=== PATIENT | male | born 1940 | race Caucasian/White ===

== ENCOUNTER → 2018-02-28 14:35 | Outpatient (CLI) | payer MEDICARE, SELFPAY ==
[2018-02-28 16:54] LABS: AST(SGOT) 14 U/L (15-37); Alanine Aminotransfer ALT/SGPT 19 U/L (16-61); Albumin, Serum 3.4 g/dL (3.2-5.0); Alkaline Phosphatase 65 U/L (45-117); Bilirubin, Direct 0.18 mg/dL (0.00-0.30); Cholesterol 147 mg/dL (200); Globulin 3.6 g/dL (2.2-4.2); High Density Lipoprotein 50 mg/dL; Triglycerides 89 mg/dL; Very Low Density Lipoprotein 18 mg/dL (5-40)
== END ==
PROVIDERS: Family Provider Family Medicine; PCP Family Medicine; Visit Provider Nurse Practitioner Family
DX: E78.5 Hyperlipidemia, unspecified (principal); I25.10 Atherosclerotic heart disease of native coronary artery without angina pectoris
CPT/HCPCS: 36415; 80061; 80076

== ENCOUNTER 2018-08-11 09:57 | Inpatient (IN) | payer MEDICARE, SELFPAY ==
[2018-08-11] VITALS (13 sets, daily range): BP systolic 113–134; BP diastolic 56–71; PULSE 78–98; RESP 18–27; TEMP 36.7–37.2; O2SAT 94–97; BMI 26.6; BMI 25.5; BMI 25.6
--- NOTE | 2018-08-11 10:05 | RAD_ITS ---
STUDY: X-RAY CHEST REASON FOR EXAM: Male, 78 years old. Increasing shortness of breath. TECHNIQUE: AP and lateral views of the chest. COMPARISON: Comparison is made with prior study dated June 02, 2017. FINDINGS: EKG electrodes are seen. Hyperinflation. Increased markings at the lung bases suggestive scarring. The previously seen left lower lobe infiltrate has cleared. Residual blunting of the left costophrenic angle. Sternal cerclage wires and vascular clips are present from a prior sternotomy and coronary artery bypass graft procedure (CABG). Normal mediastinum and kristan. Normal visualized pulmonary arteries. There is atherosclerotic calcification of the aortic arch with tortuosity. There are diffuse degenerative changes of the visualized thoracic spine. Normal visualized ribs, clavicles, and shoulders. There is no demonstrated abnormality of the visualized soft tissue structures of the upper abdomen. RAD/Chest PA and Lateral IMPRESSION: Hyperinflation. Increased interstitial markings at both lung bases worse on the left side in keeping with scarring. The previously seen left lower lobe infiltrate has cleared. Electronically Signed: Darin Kunz MD at 12:15 EST Tel [phone], Service support ,
--- NOTE | 2018-08-11 10:05 | EKG12_ITS ---
Test Reason : DYSRHYTHMIA Blood Pressure : / mmHG Vent. Rate : 080 BPM Atrial Rate : 066 BPM P-R Int : 000 ms QRS Dur : 106 ms QT Int : 360 ms P-R-T Axes : 000 129 113 degrees QTc Int : 415 ms Atrial fibrillation Incomplete right bundle branch block Nonspecific ST and T wave abnormality Abnormal ECG Confirmed by YOVANI DOMINGO, GIRMA ([id number]), book or script editor TATIANA CAPUTO ([id number] on 08/16/2018 3:29:24 PM Referred By: Girma Ayala Confirmed By:GIRMA PINA MD
[2018-08-11] MEDS: Ipratropium/Albuterol Sulfate 3 ML AMPUL.NEB INHALATION ×2 (10:19→19:40)
[2018-08-11] MEDS: Albuterol 2.5 MG/3 ML VIAL.NEB. INHALATION ×3 (10:19→10:44)
--- NOTE | 2018-08-11 10:19 | ED.DCSUM_ITS ---
- ER Visit Summary Date of Service: 08/11/18 Chief Complaint: Dyspnea History of Present Illness: The patient is a 78 M who has a history of coronary artery disease and COPD. He is on chronic home oxygen therapy. He states that yesterday he began to have a cough with sputum production. The sputum is hand ged from baseline. Due to the shortness of breath particularly dyspnea on exertion he went to his primary care physician. They advised him to go to the hospital and he declined. They prescribed medications an antibiotic and a steroid which she has not yet picked up. He was supposed to have a chest x-ray today at the hospital. This morning his pulse ox continued to be in the 80s so they called the ambulance. 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 He does see Dr. Moreno for cardiology here at the hospital. On any blood thinners. He takes a baby aspirin a day. Physical Examination: Afebrile vital signs are stable Gen: Well-nourished well-developed Head: Normocephalic atraumatic Eyes: Perrl EOMI ENT: TMs clear no rhinorrhea moist mucous membranes Neck: Supple no lymphadenopathy no JVD nontender CVS: Regular rate rhythm no murmurs normal S1-S2 Respiratory: No distress minutes breath sounds bilaterally with expiratory wheeze chest nontender Abdomen: Soft nontender nondistended normal bowel sounds no masses Back: Nontender Extremity: Nontender no edema Skin: Normal color no rash Neuro: alert orientated ?3 CN II-XII intact normal strength sensation reflexes gait cerebellar Psych: Normal affect normal mood Test Results: Count 13.1. Lactic acid 2.1. Troponin negative. BUN 31 with a creatinine 0.67. Chest x-ray with no definitive infiltrate. Emergency Department Course and Treatment: Patient received breathing treatments, Solu-Medrol, azithromycin, IV fluids, and oxygen. He has better ae ration but still is hypoxic at 86% on his nasal cannula with ambulation. He was able to cough up some very thick purulent sputum. This was sent for culture. Our plan is admission to [facility]. Impression: 1. COPD exacerbation 2. Hypoxemia This note was generated with [employer] dictation software. It may contain incorrect words, spelling, and punctuation that were not noted in review of the chart prior to signing ED Disposition - Plan for ED Patient: Chief Complaint: Shortness of Breath Referrals: Girma Ayala [Primary Care Provider] -
[2018-08-11] MEDS: MethylPREDNISolone 125 MG/2 ML Vial IV (10:21)
[2018-08-11 10:36] LABS: Absolute Lymphocyte Count 1.07 X10^3/ul (0.83-4.51); Absolute Neutrophil Count 10.2 X10^3/uL (2.0-7.7); Basophil# 0.02 X10^3/uL; Basophil% 0.2 % (0-1); Eosinophil# 0.07 X10^3/uL; Eosinophils% 0.5 % (0-5); Hematocrit 43.7 % (40-54); Hemoglobin 13.2 g/dl (13.0-16.5); Lymphocyte # 1.07 X10^3/ul (4.0); Lymphocyte % 8.2 % (19-41); Mean Corp Hgb Conc 30.2 g/gl (32-36); Mean Corpuscular Hgb 29.3 pg (27.0-32.0); Mean Corpuscular Volume 97.1 fL (80-94); Mean Platelet Vol. 12.1 fl (6.2-12.0); Monocyte# 1.64 X10^3/uL; Monocyte% 12.6 % (0-10); Neutrophil # 10.22 X10^3/uL (2.7-7.7); Neutrophil % 78.3 % (47-70); Platelet Count 156 K/mm3 (150-450); RBC Distribution Width CV 14.1 % (11.6-14.6); RBC Distribution Width SD 50.2 fl (35.1-43.9); White Blood Count 13.1 K/mm3 (4.4-11.0)
[2018-08-11 10:37] LABS: Differential Indicated SCAN CRITERIA MET; POSITIVE COUNT NO; POSITIVE DIFFERENTIAL YES; POSITIVE MORPHOLOGY NO
[2018-08-11 10:43] LABS: AST(SGOT) 18 U/L (15-37); Alanine Aminotransfer ALT/SGPT 19 U/L (16-61); Alkaline Phosphatase 69 U/L (45-117); Anion Gap 6 (5-15); BUN 31 mg/dL (7-18); BUN/Creat Ratio 46.5 RATIO (10-20); Bilirubin, Direct 0.46 mg/dL (0.00-0.30); Calcium,Total 8.4 mg/dL (8.5-10.1); Chloride 107 mmol/L (98-107); Creatinine, Serum 0.67 mg/dL (0.70-1.30); EST Glomerular Filtration Rate 123 mL/min (>60); Est Glom Filt Rate - Afr Amer 149 mL/min (>60); Estimated Creatinine Clearance 54.94 ml/min; Globulin 3.6 g/dL (2.2-4.2); Glucose 107 mg/dL (74-106); Potassium 3.9 mmol/L (3.5-5.1); Protein, Total 6.6 g/dL (6.4-8.2); Sodium Level 143 mmol/L (136-145)
[2018-08-11 11:07] LABS: Lactic Acid 2.1 mmol/L (0.4-2.0)
--- NOTE | 2018-08-11 13:24 | PCM.HP.STD ---
Problem List (1) Chronic respiratory failure Status: Chronic (2) Benign hypertension Status: Chronic (3) Hyperlipidemia Status: Chronic Qualifiers: (4) CAD (coronary artery disease) Status: Chronic Qualifiers: (5) Hx of CABG Status: Chronic Comment: VERMA to LAD, SVG to RCA, SVG to 2nd marginal branch of CX and ongoing 1st diag branch of LAD (6) Afib Status: Chronic Qualifiers: (7) COPD (chronic obstructive pulmonary disease) Status: Chronic History of Present Illness Date of Admission: 08/11/18 Chief Complaint: Shortness of breath, productive cough. The patient is a 78 year old M with past medical history as mentioned above presented to the emergency room because of shortness of breath and productive cough. Patient's daughter was at the bedside and she assisted providing history. His illness started 2 days ago with increasing shortness of breath at rest, aggravated by minimal activity, not relieved by rest, associated with productive cough with moderate amount of thick green sputum. Yesterday and according to the patient's daughter, patient was short of breath and his pulse oximeter was 84% while on 3 L. She took him to his PCPs office yesterday, found to have pulse ox of 86% on 3 L and he was given prescription for antibiotics and prednisone and order for chest x-ray. Today morning, patient continued to have shortness of breath at rest with productive cough and his pulse oximeter was 86% on 3 L. He denies fever or chills. He denied chest pain, palpitation, dizziness or lightheadedness. In the emergency room, he was afebrile, heart rate and blood pressure was stable, he was tachypneic and pulse ox was 96% on 3 L. His routine blood work was remarkable for mild leukocytosis and BUN of 31, otherwise normal. Lactic acid was 2.1. Total and direct bilirubin was slightly elevated, liver transaminases and alkaline phosphatase were normal. His EKG revealed atrial fibrillation, rate is controlled, no acute ischemic changes. Troponin is negative. Chest x-ray showed no acute infiltrate, consolidation or effusion. He is being admitted for acute COPD exacerbation. 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) VERMA to LAD, SVG to RCA, SVG to 2nd marginal branch of CX and ongoing 1st diag branch of LAD Afib (Chronic) COPD (chronic obstructive pulmonary disease) (Chronic) Medical History: Medical History (Last Updated 08/11/18 @ 13:24 by Bennie May MD) Old myocardial infarction (Chronic) I25.2 Nicotine abuse (Chronic) Z72.0 Encounter for long-term current use of high risk medication (Chronic) Z79.899 Chronic respiratory failure (Chronic) J96.10 Benign hypertension (Chronic) I10 Hyperlipidemia (Chronic) E78.5 CAD (coronary artery disease) (Chronic) I25.10 Afib (Chronic) I48.91 COPD (chronic obstructive pulmonary disease) (Chronic) J44.9 Dyspnea R06.00 Shortness of breath R06.02 PVD (peripheral vascular disease) I73.9 Allergies acetaminophen [From Dristan] Adverse Reaction (Severe, Verified 08/11/18 10:03) Unknown chlorpheniramine [From Dristan] Adverse Reaction (Severe, Verified 08/11/18 10:03) Unknown oxymetazoline [From Dristan] Adverse Reaction (Severe, Verified 08/11/18 10:03) Unknown pheniramine [From Dristan] Adverse Reaction (Severe, Verified 08/11/18 10:03) Unknown phenylephrine [From Dristan] Adverse Reaction (Severe, Verified 08/11/18 10:03) Unknown pseudoephedrine [From Dristan] Adverse Reaction (Severe, Verified 08/11/18 10:03) Unknown lisinopril Adverse Reaction (Verified 08/11/18 10:03) Unknown Home Medications: Ambulatory Orders Medication Instructions Recorded Albuterol IH (ProAir) [Proair Hfa] 1 - 2 puff INHALATION Q6H PRN PRN 08/24/16 Budesonide/Formoterol 160/4.5 2 puff INHALATION BID 08/24/16 [Symbicort 160/4.5 Mcg Inhaler (SP)] Multivitamins,Ther W-Minerals 1 tab PO DAILY 08/24/16 [Multivitamin With Minerals] Tamsulosin HCl [Flomax] 0.4 mg PO DAILY 06/02/17 amlodipine 10 mg tablet 10 mg PO DAILY #90 tab 04/18/18 aspirin 81 mg tablet,delayed 81 mg PO BID #180 tab 04/18/18 release furosemide 40 mg tablet 40 mg PO DAILY PRN #90 tab 04/18/18 lovastatin 40 mg tablet 40 mg PO DAILY #90 tab 04/18/18 metoprolol tartrate 100 mg tablet 100 mg PO BID #180 tab 04/18/18 Surgical History: Surgical History (Last Updated 08/11/18 @ 13:24 by Bennie May MD) Hx of CABG (Chronic) Onset Date: ~06/2009 VERMA to LAD, SVG to RCA, SVG to 2nd marginal branch of CX and ongoing 1st diag branch of LAD History of tonsillectomy Z98.890, Z90.89 Surgical History: coronary bypass surgery, - - ventral hernia surgery. Lives: With Family Smoking Status: Former smoker Alcohol: None Drugs: None - *Family History Sibling Family History: Family History (Last Reviewed 02/28/18 @ 13:44 by Dianna Vera) Father Heart disease Brother Hypertension Sister CAD (coronary artery disease) Hx of CABG Sister CAD (coronary artery disease) Hx of CABG History Items: Heart Disease Review of Systems Constitutional: Denies: Anorexia, Chills, Fever, Weakness Eyes: Denies: Blurred vision, Double vision, Drainage, Redness HEENT: Denies: Difficulty Hearing, Ear Pain, Eye Pain, Nasal Congestion, Sore Throat Cardiovascular: Denies: Chest Pain, Chest Pressure, Chest Tightness, Heaviness, Light Headedness, Orthopnea, Paroxysmal Noc. Dyspnea, Syncope Respiratory: Reports: Cough, Shortness of Breath, Shortness of breath at rest, Shortness of breath upon exertion, Sputum production. Denies: Hemoptysis, Pleuritic Pain, Wheezing Gastrointestinal: Denies: Abdominal Pain, Constipation, Diarrhea, Nausea, Vomiting Genitourinary: Denies: Dysuria, Frequency, Hematuria Musculoskeletal: Denies: Arm Pain, Back Pain, Foot Pain Skin: Denies: Dryness, Rash Neurological: Denies: Balance problems, Double vision, Change in Speech, Slurred speech, Confusion, Headaches, Incoordination, Numbness Psychiatric: Denies: Anxiety, Depression Endocrine: Denies: Change in Body Habitus, Polydipsia VTE Information - Inpt Only VTE Present on Admission: No VTE Mechan Device Prophylaxis: None VTE Pharm Prophylaxis ordered?: Yes - Physical Exam General: Alert, Oriented x3, Cooperative, - - Moderately short of breath. HEENT: Atraumatic, PERRLA, EOMI, Normocephalic Oral: Moist Mucosa, No Gingival or Mucosal Lesions/ Ulcerations Neck: Supple, No JVD, Negative Carotid Bruits, Trachea Midline, Thyroid Normal Size and Texture Lungs: No wheeze, No rales, Diminished, Rhonchi, Short of Breath, Tachypneic, - - Markedly decreased breath sounds bilateral, rhonchi. Cardiovascular: Normal S1, Normal S2, No murmurs, PMI Normal, Irregular Rate Abdomen: Bowel Sounds Present, Soft, Non Tender, Non-Distended, No Hepato-splenomegaly Extremities: No clubbing, No cyanosis, Edema - Trace edema. Skin: No rashes, No breakdown Lymphatic: No Cervical, Supraclavicular, or Inguinal Adenopathy Neurological: Cranial nerves II-XII grossly intact, Motor Exam 5/5 strength throughout Psych/Mental Status: Normal Affect, Appropriate, Alert and oriented to time, place, person, mood and affect Vital Signs Temp Pulse Resp BP Pulse Ox 98.9 F 98 20 H 117/56 L 94 08/11/18 09:59 08/11/18 13:07 08/11/18 13:07 08/11/18 13:07 08/11/18 13:07 Oxygen Flow Rate (L/min) 3 Oxygen Delivery Method Nasal Cannula Weight: 165 lb Body Mass Index (BMI) 26.6 Laboratory Tests Past 24 Hrs 08/11/18 08/11/18 08/11/18 10:14 10:14 10:15 WBC 13.1 H RBC 4.50 L Hgb 13.2 Hct 43.7 MCV 97.1 H MCH 29.3 MCHC 30.2 L RDW 14.1 RDW Differential 50.2 H Plt Count 156 MPV 12.1 H Immature Gran % (Auto) 0.200 Neut % (Auto) 78.3 H Lymph % (Auto) 8.2 L [place] % (Auto) 12.6 H Eos % (Auto) 0.5 Baso % (Auto) 0.2 Absolute Neuts (auto) 10.2 H Absolute Lymphs (auto) 1.07 Total Counted Not Reportable Sodium 143 Potassium 3.9 Chloride 107 Carbon Dioxide 30.0 Anion Gap 6 BUN 31 H Creatinine 0.67 L Estim Creat Clear Calc 54.94 Est GFR (MDRD) Af Amer 149 Est GFR (MDRD) Non-Af 123 BUN/Creatinine Ratio 46.5 H Glucose 107 H Lactic Acid 2.1 H Calcium 8.4 L Total Bilirubin 1.60 H Direct Bilirubin 0.46 H AST 18 ALT 19 Alkaline Phosphatase 69 Troponin I < 0.015 Total Protein 6.6 Albumin 3.0 L Globulin 3.6 Clinical Impression(s) from Imaging Studies Chest X-Ray 08/11/18 10:05 IMPRESSION: Hyperinflation. Increased interstitial markings at both lung bases worse on the left side in keeping with scarring. The previously seen left lower lobe infiltrate has cleared. Electronically Signed: Darin Kunz MD at 12:15 EST Tel [phone], Service support , Assessment/Plan This is a 78 years old male patient presented to the emergency room because of shortness of breath and productive cough as well as low pulse oximeter, found to have acute COPD exacerbation and he is being admitted for treatment. #1 acute COPD exacerbation: Chest x-ray reviewed, revealed no acute infiltrate. Have mild leukocytosis and lactic acid 2.1. At this time, I doubt sepsis or severe sepsis. Mild lactic acidosis likely because of hypoxia. He is afebrile. Plan: Admit to [facility] floor, telemetry, sputum culture, blood culture, repeat lactic acid in 3 hours, urinalysis, IV Levaquin, IV steroids, bronchodilators, chest physiotherapy, incentive spirometer, repeat CBC and BMP tomorrow morning, PT OT evaluation and treatment. #2 chronic respiratory failure: Patient has been on oxygen at home at 3 L. At this time, his pulse ox is 96% on 3 L which is at baseline. He looked dyspneic and tachypneic. It is secondary to above. Plan to above. #3 hyperbilirubinemia: With normal liver transaminases and alkaline phosphatase. No complaint of right upper quadrant pain. Unclear etiology. Plan to repeat LFT tomorrow morning. #4 CAD status post CABG: Stable, EKG without acute ischemic changes. Troponin is negative. Continue aspirin, statins, metoprolol. #5 chronic atrial fibrillation: Rate is controlled, continue metoprolol for rate control. He is not on anticoagulation. #6 hypertension: Blood pressure stable, continue Norvasc and metoprolol. #7 hyperlipidemia: Continue statins. #8 COPD/chronic respiratory failure: On home oxygen at 3 L. Plan as above. #9 benign prostatic hypertrophy: Continue Flomax. #10 DVT prophylaxis: Subcu Lovenox. This note was generated with [employer] dictation software. It may contain incorrect words, spelling, and punctuation that were not noted in checking the note before signing. Code Visit Inpatient E&M: 77323 Init Hosp L3
[2018-08-11] MEDS: 0.9% Normal Saline 1,000 ML 999 ML IV (13:25)
--- NOTE | 2018-08-11 13:38 | NURSING ---
210 [address] acute copd exac
[2018-08-11 14:24] LABS: Reflex Lactate? Y
[2018-08-11 15:12] LABS: Lactic Acid 2.6 mmol/L (0.4-2.0)
[2018-08-11] MEDS: 0.9% Normal Saline 1,000 ML 100 ML IV (15:54)
[2018-08-11] MEDS: Aspirin E.C. 81 MG Tablet PO (18:47)
[2018-08-11] MEDS: Tamsulosin HCl 0.4 MG Capsule PO (18:47)
[2018-08-11] MEDS: Atorvastatin Calcium 10 MG Tablet PO (22:32)
[2018-08-11] MEDS: Metoprolol Tartrate 100 MG Tablet PO (22:32)
[2018-08-11] MEDS: guaiFENesin 600 MG Tablet PO (22:32)
[2018-08-11] MEDS: 0.9% NaCl Peripheral Flush Adult/Peds IV (22:33)
[2018-08-12] VITALS (19 sets, daily range): BP systolic 113–136; BP diastolic 64–82; PULSE 78–144; RESP 18–20; TEMP 36.6–36.7; O2SAT 91–99
--- NOTE | 2018-08-12 05:55 | RAD_ITS ---
STUDY: X-RAY CHEST REASON FOR EXAM: Male, 78 years old. Shortness of breath TECHNIQUE: Frontal and lateral views COMPARISON: August 11, 2018 FINDINGS: Stable sternotomy wires. The lungs are aerated with interstitial densities. There is no demonstrated pleural abnormality. Normal size heart. Normal mediastinum and kristan. Normal visualized pulmonary arteries. Normal visualized aortic arch and descending thoracic aorta. Degenerative changes of the thoracic spine. Normal visualized ribs, clavicles, and shoulders. There is no demonstrated abnormality of the visualized soft tissue structures of the upper abdomen. RAD/Chest PA and Lateral IMPRESSION: Hyperaeration with mild interstitial prominence. No significant interval changes. Electronically Signed: Sage Khalil DO at 8:53 EST Tel [phone], Service support ,
[2018-08-12] MEDS: 0.9% NaCl Peripheral Flush Adult/Peds IV ×4 (06:14→21:42)
[2018-08-12 06:45] LABS: ALB/GLOB Ratio 0.8 RATIO (0.9-2.4); AST(SGOT) 14 U/L (15-37); Alanine Aminotransfer ALT/SGPT 18 U/L (16-61); Albumin, Serum 2.5 g/dL (3.2-5.0); Alkaline Phosphatase 60 U/L (45-117); Anion Gap 6 (5-15); BUN 28 mg/dL (7-18); BUN/Creat Ratio 50.4 RATIO (10-20); Chloride 112 mmol/L (98-107); Creatinine, Serum 0.56 mg/dL (0.70-1.30); EST Glomerular Filtration Rate 151 mL/min (>60); Est Glom Filt Rate - Afr Amer 183 mL/min (>60); Estimated Creatinine Clearance 54.94 ml/min; Globulin 3.3 g/dL (2.2-4.2); Glucose 149 mg/dL (74-106); Potassium 4.2 mmol/L (3.5-5.1); Protein, Total 5.8 g/dL (6.4-8.2); Sodium Level 146 mmol/L (136-145)
[2018-08-12] MEDS: Ipratropium/Albuterol Sulfate 3 ML AMPUL.NEB INHALATION ×4 (07:05→19:00)
[2018-08-12 07:13] LABS: Absolute Lymphocyte Count 0.58 X10^3/ul (0.83-4.51); Absolute Neutrophil Count 10.5 X10^3/uL (2.0-7.7); Differential Indicated SCAN CRITERIA MET; Hematocrit 38.7 % (40-54); Hemoglobin 11.9 g/dl (13.0-16.5); Lymphocyte # 0.58 X10^3/ul (4.0); Lymphocyte % 5.1 % (19-41); Mean Corp Hgb Conc 30.7 g/gl (32-36); Mean Corpuscular Hgb 29.5 pg (27.0-32.0); Monocyte# 0.34 X10^3/uL; Neutrophil % 91.7 % (47-70); POSITIVE COUNT NO; POSITIVE DIFFERENTIAL YES; POSITIVE MORPHOLOGY NO; Platelet Count 154 K/mm3 (150-450); RBC Distribution Width CV 13.9 % (11.6-14.6); RBC Distribution Width SD 49.3 fl (35.1-43.9); Red Blood Count 4.03 M/mm3 (4.6-6.2); White Blood Count 11.4 K/mm3 (4.4-11.0)
--- NOTE | 2018-08-12 08:42 | CASEMGMT ---
As per tmr teacher, pt's daughter Magaly is POA, however pt is not able to bring in POA papers at this time. KYLEIGH Lorenzana, OBSTETRICS GYNECOLOGY PHYSICIAN
--- NOTE | 2018-08-12 09:10 | PN_ITS ---
Subjective: Chief complaint: Follow-up after admission for COPD exacerbation. Patient seen and examined. No acute events overnight. Today, he states that his breathing is better, still complaining of productive cough with yellow sputum today. Denies fever chills. However, he is feeling slightly better. His pulse ox is 99% on 3 L, other vital signs are stable. - Physical Exam General: Alert, Oriented x3, Cooperative, - - Minimally short of breath. HEENT: Atraumatic, PERRLA, EOMI, Normocephalic Oral: Moist Mucosa, No Gingival or Mucosal Lesions/ Ulcerations Neck: Supple, No JVD, Negative Carotid Bruits, Trachea Midline, Thyroid Normal Size and Texture Lungs: No wheeze, No rales, Diminished, Rhonchi, Short of Breath, - - Decreased breath sounds bilateral, occasional rhonchi. Cardiovascular: Normal S1, Normal S2, No murmurs, PMI Normal, Irregular Rate Abdomen: Bowel Sounds Present, Soft, Non Tender, Non-Distended, No Hepato- splenomegaly Extremities: No clubbing, No cyanosis, No edema Skin: No rashes, No breakdown Lymphatic: No Cervical, Supraclavicular, or Inguinal Adenopathy Neurological: Cranial nerves II-XII grossly intact, Neuro grossly intact Psych/Mental Status: Normal Affect, Appropriate, Alert and oriented to time, p lace, person, mood and affect Vital Signs Temp Pulse Resp BP Pulse Ox 97.9 F 90 18 125/68 H 99 08/12/18 03:22 08/12/18 04:00 08/12/18 03:22 08/12/18 03:22 08/12/18 03:22 Oxygen Flow Rate (L/min) 3 Oxygen Delivery Method Nasal Cannula Weight: 159 lb 2.78 oz Body Mass Index (BMI) 25.5 Intake and Output for Last 24 Hours 08/10/18 08/11/18 08/12/18 23:59 23:59 23:59 Intake Total 600 / 600 1142 / 1142 Output Total 450 / 450 Balance 600 / 600 692 / 692 Microbiology Past 72 Hours 08/11/18 10:15 Gram Stain - Final Sputum, Expectorated/Coughed Laboratory Tests Past 24 Hrs 08/11/18 08/11/18 08/11/18 10:14 10:14 10:15 WBC 13.1 H RBC 4.50 L Hgb 13.2 Hct 43.7 MCV 97.1 H MCH 29.3 MCHC 30.2 L RDW 14.1 RDW Differential 50.2 H Plt Count 156 MPV 12.1 H Immature Gran % (Auto) 0.200 Neut % (Auto) 78.3 H Lymph % (Auto) 8.2 L [place] % (Auto) 12.6 H Eos % (Auto) 0.5 Baso % (Auto) 0.2 Absolute Neuts (auto) 10.2 H Absolute Lymphs (auto) 1.07 Total Counted Not Reportable Sodium 143 Potassium 3.9 Chloride 107 Carbon Dioxide 30.0 Anion Gap 6 BUN 31 H Creatinine 0.67 L Estim Creat Clear Calc 54.94 Est GFR (MDRD) Af Amer 149 Est GFR (MDRD) Non-Af 123 BUN/Creatinine Ratio 46.5 H Glucose 107 H Lactic Acid 2.1 H Calcium 8.4 L Total Bilirubin 1.60 H Direct Bilirubin 0.46 H AST 18 ALT 19 Alkaline Phosphatase 69 Troponin I < 0.015 Total Protein 6.6 Albumin 3.0 L Globulin 3.6 Albumin/Globulin Ratio 08/11/18 08/12/18 08/12/18 14:35 05:58 05:58 WBC 11.4 H RBC 4.03 L Hgb 11.9 L Hct 38.7 L MCV 96.0 H MCH 29.5 MCHC 30.7 L RDW 13.9 RDW Differential 49.3 H Plt Count 154 MPV 12.0 Immature Gran % (Auto) 0.200 Neut % (Auto) 91.7 H Lymph % (Auto) 5.1 L [place] % (Auto) 3.0 Eos % (Auto) 0.0 Baso % (Auto) 0.0 Absolute Neuts (auto) 10.5 H Absolute Lymphs (auto) 0.58 L Total Counted Not Reportable Sodium 146 H Potassium 4.2 Chloride 112 H Carbon Dioxide 28.0 Anion Gap 6 BUN 28 H Creatinine 0.56 L Estim Creat Clear Calc 54.94 Est GFR (MDRD) Af Amer 183 Est GFR (MDRD) Non-Af 151 BUN/Creatinine Ratio 50.4 H Glucose 149 H Lactic Acid 2.6 H Calcium 8.0 L Total Bilirubin 0.70 Direct Bilirubin AST 14 L ALT 18 Alkaline Phosphatase 60 Troponin I Total Protein 5.8 L Albumin 2.5 L Globulin 3.3 Albumin/Globulin Ratio 0.8 L Medical Necessity - Tobacco Use Smoking Status: Former smoker Tobacco Use: Cigarettes Assessment/Plan This is a 78 years old male patient presented to the emergency room because of shortness of breath and productive cough as well as low pulse oximeter, found to have acute COPD exacerbation and he is being admitted for treatment. #1 acute COPD exacerbation: He is on IV steroids, IV Levaquin and bronchodilators. Chest x-ray reviewed, revealed no acute infiltrate. He reported some improvement of his symptoms, pulse ox is 99% on 3 L which is his baseline at home. Other vital signs are stable. Sputum and blood culture are pending. Respiratory panel for viruses is pending as well. Plan to continue same treatment. #2 chronic respiratory failure: Patient has been on oxygen at home at 3 L. At this time, his pulse ox is 99 % on 3 L which is at baseline. Plan as above. #3 hyperbilirubinemia: Unclear duration, resolved. #4 CAD status post CABG: Stable, EKG without acute ischemic changes. Troponin is negative. Continue aspirin, statins, metoprolol. #5 chronic atrial fibrillation: Rate is controlled, continue metoprolol for rate control. He is not on anticoagulation. #6 hypertension: Blood pressure stable, continue Norvasc and metoprolol. #7 hyperlipidemia: Continue statins. #8 COPD/chronic respiratory failure: On home oxygen at 3 L. Plan as above. #9 benign prostatic hypertrophy: Continue Flomax. #10 DVT prophylaxis: Subcu Lovenox. This note was generated with [employer] dictation software. It may contain incorrect words, spelling, and punctuation that were not noted in checking the note before signing. Code Visit Inpatient E&M: 06576 Subs Hosp L2
[2018-08-12] MEDS: Metoprolol Tartrate 100 MG Tablet PO ×2 (09:14→21:24)
[2018-08-12] MEDS: Aspirin E.C. 81 MG Tablet PO ×2 (09:14→21:24)
[2018-08-12] MEDS: guaiFENesin 600 MG Tablet PO ×2 (09:14→21:24)
[2018-08-12] MEDS: levoFLOXacin IV 500 MG/100 ML BAG 100 MG IV (09:14)
[2018-08-12] MEDS: amLODIPine 10 MG Tablet PO (09:14)
--- NOTE | 2018-08-12 11:05 | CASEMGMT ---
SW spoke w/pt in regard to prior level of care and any anticipated discharge needs. Pt alert and oriented at present, able to answer SW questions appropriately at this time. PCP: Girma Ayala Specialists: Dr. Moreno for cardiology. Pt does not see a watch leader, does not want to pay $35 to see a pulmonary doctor. Pt states once he goes home and his children get on his case he may change his mind. Insurance/Prescription Benefit: both with [facility] Medicare Living Will/HPOA: Pt states that Lucina Adhikari, daughter, is POA. Forms not on chart. Pt states his daughter was going to bring in the forms. LNOK: Pt has two daughters Living arrangements: Pt lives by himself in a one story home, 2 steps to get into the home. As per pt he is fully independent. Transportation: Pt drives DME/HHC: Pt has home O2 and a nebulizer through [facility], pt uses 3LPM at baseline. Pt has a cane, but does not use. No home health care needs are anticipated, pt has no home health care at present. Plan: At this time, pt plans to return home at discharge, and no homegoing needs are anticipated. SW is available should any needs arise. KYLEIGH Lorenzana, HAT DESIGNER
--- NOTE | 2018-08-12 12:56 | CPS ---
Pt using PEP on own.
--- NOTE | 2018-08-12 15:14 | CHAPLAIN ---
Type of Pastoral Visit _x__ Initial Visit ___ Follow-up Visit ___ On-call Visit ___ General Patient Visit ___ Spiritual Assessment ___ Family Conference ___ Bereavement ___ Rapid Response ___ Code Blue ___ Other (describe below) Pastoral Care Referral From _x__ Patient ___ Family ___ Nurse ___ Physician ___ High School Band Director ___ Instrument Adjuster ___ Other (describe below) Sacrament/Intervention _x__ Active listening ___ Anointing ___ Worship _x__ Bereavement ___ Communion _x__ Gloria exploration ___ _x__ Life review _x__ Prayer ___ Reconciliation ___ Sacrament of Sick _x__ Supportive presence ___ Wedding ___ Other (describe below) Pastoral Comments patient described himself as being down and went on to explain about grief over 's three years ago; pt suggests that he should get back to congregation and has been invited by friends or family members; pt has desire for companionship and asked for specific prayers about that; pt is very talkative and would benefit from further support
[2018-08-12] MEDS: Metoprolol Tartrate 5 MG/5 ML Vial IV (21:24)
[2018-08-12] MEDS: Tamsulosin HCl 0.4 MG Capsule PO (21:24)
[2018-08-12] MEDS: Atorvastatin Calcium 10 MG Tablet PO (21:24)
[2018-08-13] VITALS (7 sets, daily range): BP systolic 118–129; BP diastolic 72–75; PULSE 84–107; RESP 16–18; TEMP 36.5–36.6; O2SAT 94–96
[2018-08-13] MEDS: 0.9% NaCl Peripheral Flush Adult/Peds IV (06:07)
[2018-08-13] MEDS: Ipratropium/Albuterol Sulfate 3 ML AMPUL.NEB INHALATION (07:14)
--- NOTE | 2018-08-13 08:31 | DCINST_ITS ---
You will use the following diet at home:: Cardiac Your food should be the consistency of: Regular Discharge Activity: Return to Normal Activity Weight Bearing Status: Weight bearing as tolerated Call your doctor if you observe: Fever of 101 or Higher, Shortness of breath, Dizziness, Fainting spells, Chest pain, Increased palpitations (irregular heartbeat), Uncontrolled pain Allergies/Adverse Reactions: Allergies acetaminophen [From Dristan] Adverse Reaction (Severe, Verified 08/11/18 10:03) Unknown chlorpheniramine [From Dristan] Adverse Reaction (Severe, Verified 08/11/18 10:03) Unknown oxymetazoline [From Dristan] Adverse Reaction (Severe, Verified 08/11/18 10:03) Unknown pheniramine [From Dristan] Adverse Reaction (Severe, Verified 08/11/18 10:03) Unknown phenylephrine [From Dristan] Adverse Reaction (Severe, Verified 08/11/18 10:03) Unknown pseudoephedrine [From Dristan] Adverse Reaction (Severe, Verified 08/11/18 10:03) Unknown lisinopril Adverse Reaction (Verified 08/11/18 10:03) Unknown Medications to take at Discharge Albuterol IH (ProAir) [Proair Hfa] 1 - 2 puff INHALATION Q6H PRN PRN 08/24/16 Budesonide/Formoterol 160/4.5 [Symbicort 160/4.5 Mcg Inhaler (SP)] 2 puff INHAL ATION BID 08/24/16 Multivitamins,Ther W-Minerals [Multivitamin With Minerals] 1 tab PO DAILY 08/24/16 Tamsulosin HCl [Flomax] 0.4 mg PO DAILY 06/02/17 amlodipine 10 mg tablet 10 mg PO DAILY #90 tab 04/18/18 furosemide 40 mg tablet 40 mg PO DAILY PRN #90 tab 04/18/18 Aspirin [Aspir-Low] 81 mg PO BID 08/11/18 Lovastatin [Mevacor] 40 mg PO QHS 08/11/18 Metoprolol Tartrate [Lopressor (beta magi)] 100 mg PO BID 08/11/18 Levofloxacin [Levaquin] 500 mg PO DAILY #5 tab 08/13/18 Prednisone 10 mg PO DAILY #30 tab 08/13/18 The following prescriptions were given: Levofloxacin [Levaquin] 500 mg PO DAILY #5 tab Prednisone 10 mg PO DAILY #30 tab Primary Care Physician: Girma Ayala [Primary Care Provider] - Please follow up with your Primary Care Physician in: 1 week. Test Results: Test results from this visit will be discussed in further detail at your follow- up appointment, if applicable.
[2018-08-13] MEDS: Metoprolol Tartrate 100 MG Tablet PO (08:59)
[2018-08-13] MEDS: guaiFENesin 600 MG Tablet PO (08:59)
[2018-08-13] MEDS: amLODIPine 10 MG Tablet PO (08:59)
[2018-08-13] MEDS: Aspirin E.C. 81 MG Tablet PO (08:59)
--- NOTE | 2018-08-13 15:08 | DS.PCM_ITS ---
Discharge Date and Diagnosis Date of Admission: 08/11/18 Date of Discharge: 08/13/18 - Primary Discharge Diagnosis #1 acute COPD exacerbation. #2 chronic hypoxic respiratory failure - Secondary Discharge Diagnosis Chronic Problems (Last Updated 08/11/18 @ 13:24 by Bennie May MD) Old myocardial infarction (Chronic) Nicotine abuse (Chronic) Encounter for long-term current use of high risk medication (Chronic) Chronic respiratory failure (Chronic) Benign hypertension (Chronic) Hyperlipidemia (Chronic) CAD (coronary artery disease) (Chronic) Hx of CABG (Chronic ~06/2009) VERMA to LAD, SVG to RCA, SVG to 2nd marginal branch of CX and ongoing 1st diag branch of LAD Afib (Chronic) COPD (chronic obstructive pulmonary disease) (Chronic) Hospital Course and Treatment Imaging Results: Clinical Impression(s) from Imaging Studies Chest X-Ray 08/11/18 10:05 IMPRESSION: Hyperinflation. Increased interstitial markings at both lung bases worse on the left side in keeping with scarring. The previously seen left lower lobe infiltrate has cleared. Electronically Signed: Darin Kunz MD at 12:15 EST Tel [phone], Service support , Chest X-Ray 08/12/18 05:55 IMPRESSION: Hyperaeration with mild interstitial prominence. No significant interval changes. Electronically Signed: Sage Khalil DO at 8:53 EST Tel [phone], Service support , Operations: None Procedures: None Summary of Care Provided: Patient seen and examined on the day of discharge and appeared to be stable to be discharged home. Shortness of breath continued to improve, remained stable on 2-3 L of oxygen. Other vital signs are stable. The patient is a 78 year old M admitted because of worsening shortness of breath and productive cough with no pulse ox and he was found to have acute COPD exacerbation. His initial and repeat chest x-ray showed no evidence of acute infiltrate or consolidation and pneumonia ruled out. Patient was treated with IV steroids, IV Levaquin and bronchodilators. His routine blood work was unremarkable. His EKG was sinus rhythm without acute ischemic changes. Respiratory panel for viruses came back negative. Sputum culture revealed mixed normal respiratory cb. Blood culture showed no growth in 48 hours. With above-mentioned treatment, patient's symptoms improved and he remained stable on 3 L of oxygen. Patient discharged home in a stable medical condition, discharged in stable course of prednisone, 5 days of Levaquin, continued on his other chronic home medications without any changes, discharged on oxygen secondary to settings at 3 L, recommended follow-up with PCP in 1 week. - Physical Exam General: Alert, Oriented x3, Cooperative, No apparent distress HEENT: Atraumatic, PERRLA, EOMI, Normocephalic Oral: Moist Mucosa, No Gingival or Mucosal Lesions/ Ulcerations Neck: Supple, No JVD, Negative Carotid Bruits, Trachea Midline, Thyroid Normal Size and Texture Lungs: No wheeze, No rales, Diminished, Rhonchi, - - Decreased breath sounds bilateral, occasional rhonchi. Cardiovascular: Normal S1, Normal S2, No murmurs, PMI Normal, Irregular Rate Abdomen: Bowel Sounds Present, Soft, Non Tender, Non-Distended, No Hepato- splenomegaly Extremities: No clubbing, No cyanosis, No edema Skin: No rashes, No breakdown Lymphatic: No Cervical, Supraclavicular, or Inguinal Adenopathy Neurological: Cranial nerves II-XII grossly intact, Neuro grossly intact Psych/Mental Status: Normal Affect, Appropriate, Alert and oriented to time, place, person, mood and affect Vital Signs Temp Pulse Resp BP Pulse Ox 97.7 F L 107 H 18 129/75 H 94 08/13/18 08:50 08/13/18 09:11 08/13/18 08:50 08/13/18 08:50 08/13/18 08:50 Oxygen Flow Rate (L/min) 3 Oxygen Delivery Method Nasal Cannula Weight: 159 lb 2.78 oz Body Mass Index (BMI) 25.5 Intake and Output for Last 24 Hours 08/11/18 08/12/18 08/13/18 23:59 23:59 23:59 Intake Total 600 / 600 2442 / 2442 360 / 360 Output Total 750 / 750 Balance 600 / 600 1692 / 1692 360 / 360 Microbiology Past 72 Hours 08/11/18 10:30 Blood Culture - Preliminary Blood Culture (Wb) #2 - Anticubital Right No growth in 48 hours. 08/11/18 10:14 Blood Culture - Preliminary Blood Culture (Wb) - Anticubital Left No growth in 48 hours. 08/11/18 10:15 Gram Stain - Final Sputum, Expectorated/Coughed Respiratory Culture - Final Mixed normal respiratory cb. No Haemophilus, Streptococcus pneumoniae, beta-hemolytic Streptococcus or Staphylococcus aureus isolated. 08/11/18 16:55 Respiratory Panel (PCR) - Final Mucosa - Nasopharyngeal Discharge Activity: Return to Normal Activity Weight Bearing Status: Weight bearing as tolerated Call your doctor if you observe: Fever of 101 or Higher, Shortness of breath, Dizziness, Fainting spells, Chest pain, Increased palpitations (irregular heartbeat), Uncontrolled pain Home Medications: Medications to take at Discharge Albuterol IH (ProAir) [Proair Hfa] 1 - 2 puff INHALATION Q6H PRN PRN 08/24/16 Budesonide/Formoterol 160/4.5 [Symbicort 160/4.5 Mcg Inhaler (SP)] 2 puff INHALATION BID 08/24/16 Multivitamins,Ther W-Minerals [Multivitamin With Minerals] 1 tab PO DAILY 08/24/16 Tamsulosin HCl [Flomax] 0.4 mg PO DAILY 06/02/17 amlodipine 10 mg tablet 10 mg PO DAILY #90 tab 04/18/18 furosemide 40 mg tablet 40 mg PO DAILY PRN #90 tab 04/18/18 Aspirin [Aspir-Low] 81 mg PO BID 08/11/18 Lovastatin [Mevacor] 40 mg PO QHS 08/11/18 Metoprolol Tartrate [Lopressor (beta magi)] 100 mg PO BID 08/11/18 Levofloxacin [Levaquin] 500 mg PO DAILY #5 tab 08/13/18 Prednisone 10 mg PO DAILY #30 tab 08/13/18 Following Prescrptions Were Given to Patient: Levofloxacin [Levaquin] 500 mg PO DAILY #5 tab Prednisone 10 mg PO DAILY #30 tab Primary Care Physician: Girma Ayala [Primary Care Provider] - Please follow up with your Primary Care Physician in: 1 week. Patient Instructions: Levofloxacin Oral tablet, Prednisone Oral tablet Disposition: Home Minutes spent on discharge:: 26 Patient Condition:: Stable Medical Necessity - Tobacco Use Smoking Status: Former smoker Tobacco Use: Cigarettes Meaningful Use Info Meaningful Use Diagnoses (Choose all that apply): None applicable Code Visit Inpatient E&M: 58693 Disch Hosp
--- NOTE | 2018-08-15 13:37 | CASEMGMT ---
CELINE KELLEY Discharge Follow-up Phone Call: DESIRAEEmilie: Rafia Strata: 3 Call Date: 08/15/18 Discharge Date: 08/13/18 Time of Call: 1330 Duration: 5 MINUTES ? Admitting Diagnosis: COPD exacerbation This CELINE KELLEY contacted pt via telephone in regard to discharge follow-up. Pt states he has been feeling pretty good since discharge and denied any difficulty breathing. Pt states he was able to get his prescriptions filled and is taking them as directed. Pt states he has not yet made his follow-up appointment with his PCP but states he will. Pt denied any questions or concerns. Sadiq Williamson RN
--- OUTSIDE RECORDS SUMMARY | 2018-10-06 14:03 | XMS RPT_ITS ---
:1940 Author Organization [facility] Support Name Relationship Address Phone KALEY AG Unavailable [address] + [place] [address] MARYAM, ISABELA Unavailable [address] + [place] [address] R Unavailable Unavailable Unavailable [employer] Unavailable [address] + [place] [address] MARYAM, ISABELA Unavailable [address] + [place] [address] R Unavailable Unavailable Unavailable [employer] AG Unavailable [address] + [place] [address] MARYAM, ISABELA Unavailable [address] + [place] [address] R Unavailable Unavailable Unavailable [employer] AG Unavailable [address] + [place] [address] MARYAM, ISABELA Unavailable [address] + [place] [address] R Unavailable Unavailable Unavailable [employer]Y AG Unavailable [address] + [place] [address] MARYAM, ISABELA Unavailable [address] + [place] [address] R Unavailable Unavailable Unavailable [employer] AG Unavailable [address] + [place] [address] MARYAM, ISABELA Unavailable [address] + [place] [address] R Unavailable Unavailable Unavailable [employer] AG Unavailable [address] + [place] [address] MARYAM, ISABELA Unavailable [address] + [place] [address] R Unavailable Unavailable Unavailable [employer] AG Unavailable [address] + [place] [address] MARYAM, ISABELA Unavailable [address] + [place] [address] R Unavailable Unavailable Unavailable K[employer]Y AG Unavailable [address] + [place] [address] MARYAM, ISABELA Unavailable [address] + [place] [address] R Unavailable Unavailable Unavailable Maryam, Isabela Unavailable Unavailable + Maryam, Isabela Unavailable Unavailable + Maryam, Isabela Unavailable Unavailable + K[employer] AG Unavailable [address] + [place] [address] MARYAM, ISABELA Unavailable [address] + [place] [address] R Unavailable Unavailable Unavailable Care Team Providers Name Role Phone Girma Olson Attending Unavailable UNKNOWN, PROVIDER Referring Unavailable Girma Olson Primary Care Unavailable Terrell Lyn Attending Unavailable UNKNOWN, PROVIDER Referring Unavailable Girma Olson Primary Care Unavailable Girma Olson Attending Unavailable UNKNOWN, PROVIDER Referring Unavailable Girma Olosn Primary Care Unavailable Christian Corona Attending Unavailable Girma Olson Referring Unavailable MoodisGirma camacho Attending Unavailable Girma Olson Referring Unavailable Girma Olson Primary Care Unavailable Lamar Duran Attending Unavailable Christian Corona Attending Unavailable Girma Olson Referring Unavailable Christian Corona Attending Unavailable Christian Corona Referring Unavailable Girma Olson Primary Care Unavailable Girma Olson Primary Care Unavailable Juanelfah, Ghasem Admitting Unavailable Yadira, Ghasem Attending Unavailable Girma Olson Attending Unavailable Girma Olson Referring Unavailable Girma Olson Primary Care Unavailable Ashelfah, Ghasem Admitting Unavailable Ashelfah, Ghasem Attending Unavailable Girma Olson Primary Care Unavailable Ashelfah, Ghasem Consulting Unavailable Ashelfah, Ghasem Admitting Unavailable Ashelfah, Ghasem Attending Unavailable iGrma Olson Primary Care Unavailable Ashelfah, Ghasem Consulting Unavailable Ashelfah, Ghasem Admitting Unavailable MaryshaunBennie Attending Unavailable Girma Olson Primary Care Unavailable Bennie May Consulting Unavailable PROBLEMS PROBLEMS DATE TYPE CONDITION / CODE ATTENDING STATUS SOURCE 08/11/2018 Unknown J44.1 - Chronic Girma Olson [facility] obstructive [facility] pulmonary disease Hospital with (acute) Repository exacerbation / J44.1(ICD-10) 02/28/2018 Unknown E78.5 - [facility] Hyperlipidemia, Community unspecified / Hospital E78.5(ICD-10) Repository 02/28/2018 Unknown I25.10 - [facility] Atherosclerotic [facility] heart disease of [facility] [place] coronary Repository artery without angina pectoris / I25.10(ICD-10) 01/27/2018 Admitting Shortness of breath [facility] [employer] Diagnosis / R06.02(ICD-10) System Repository 10/01/2017 Admitting Localized edema / [facility] Diagnosis R60.0(ICD-10) System Repository 10/01/2017 Admitting Pain in right knee / [facility] Diagnosis M25.561(ICD-10) System Repository PROCEDURES PROCEDURES No Procedure Records FoundRESULTS RESULTS 12 LEAD ELECTROCARDIOGRAM Observed: 08/16/2018 Status: F Source: [place] 3:29 PM [facility] REPOSITORY [facility] Cardiovascular Services [address] [place] [address] 12 Lead EKG 08/11/18 1016 MR#: [id number] Acct: [id number] Name: LISA SZYMANSKI Rep #: [id number] : 1940 78 From: Girma Pina MD Attending Dr: Bennie May Status: DIS IN Ordering Dr: Jose Curry DO Date: 08/11/18 Location: MS2 Sex: M C Admitted: 08/11/18 Test Reason : DYSRHYTHMIA Blood Pressure : / mmHG Vent. Rate : 080 BPM Atrial Rate : 066 BPM P-R Int : 000 ms QRS Dur : 106 ms QT Int : 360 ms P-R-T Axes : 000 129 113 degrees QTc Int : 415 ms Atrial fibrillation Incomplete right bundle branch block Nonspecific ST and T wave abnormality Abnormal ECG Confirmed by YOVANI DOMINGO, GIRMA ([id number]), telegraph editor TATIANA CAPUTO ([id number]) on 08/16/2018 3:29:24 PM Referred By: Girma Olson Confirmed By:GIRMA PINA MD 08/16/18 1529 Date Girma Pina MD CC: Jose Curry DO; Bennie May; Girma Olson Signed DISCHARGE SUMMARY Observed: 08/13/2018 Status: F Source: [place] 3:08 PM [facility] REPOSITORY [facility] Medical Records Department [address] [place] [address] [place] [address] Discharge Summary 08/13/18 1504 MR#: [id number] Acct: [id number] Name: LISA SZYMANSKI Rep #: [id number] : 1940 78 From: Bennie May MD PCP: Girma Olson Status: DIS IN Y [place] [facility] [id number] Discharge Date and Diagnosis Date of Admission: 08/11/18 Date of Discharge: 08/13/18 - Primary Discharge Diagnosis #1 acute COPD exacerbation. 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 Increased interstitial markings at both lung bases worse on the left side in keeping with scarring. The previously seen left lower lobe infiltrate has cleared. Electronically Signed: Darin Kunz MD at 12:15 EST Tel [phone], Service support , Chest X-Ray 08/12/18 05:55 IMPRESSION: Hyperaeration with mild interstitial prominence. No significant interval changes. Electronically Signed: Sage Khalil DO at 8:53 EST Tel [phone], Service support , Operations: None Procedures: None Summary of Care Provided: Patient seen and examined on the day of discharge and appeared to be stable to be discharged home. Shortness of breath continued to improve, remained stable on 2-3 L of oxygen. Other vital signs are stable. The patient is a 78 year old M admitted because of worsening shortness of breath and productive cough with no pulse ox and he was found to have acute COPD exacerbation. His initial and repeat chest x-ray showed no evidence of acute infiltrate or consolidation and pneumonia ruled out. Patient was treated with IV steroids, IV Levaquin and bronchodilators. His routine blood work was unremarkable. His EKG was sinus rhythm without acute ischemic changes. Respiratory panel for viruses came back negative. Sputum culture revealed mixed normal respiratory cb. Blood culture showed no growth in 48 hours. With above-mentioned treatment, patient's symptoms improved and he remained stable on 3 L of oxygen. Patient discharged home in a stable medical condition, discharged in stable course of prednisone, 5 days of Levaquin, continued on his other chronic home medications without any changes, discharged on oxygen secondary to settings at 3 L, recommended follow-up with PCP in 1 week. - Physical Exam General: Alert, Oriented x3, Cooperative, No apparent distress HEENT: Atraumatic, PERRLA, EOMI, Normocephalic Oral: Moist Mucosa, No Gingival or Mucosal Lesions/ Ulcerations Neck: Supple, No JVD, Negative Carotid Bruits, Trachea Midline, Thyroid Normal Size and Texture Lungs: No wheeze, No rales, Diminished, Rhonchi, - - Decreased breath sounds bilateral, occasional rhonchi. Cardiovascular: Normal S1, Normal S2, No murmurs, PMI Normal, Irregular Rate Abdomen: Bowel Sounds Present, Soft, Non Tender, Non-Distended, No Hepato-splenomegaly Extremities: No clubbing, No cyanosis, No edema Skin: No rashes, No breakdown Lymphatic: No Cervical, Supraclavicular, or Inguinal Adenopathy Neurological: Cranial nerves II-XII grossly intact, Neuro grossly intact Psych/Mental Status: Normal Affect, Appropriate, Alert and oriented to time, place, person, mood and affect Vital Signs Temp Pulse Resp BP Pulse Ox 97.7 F L 107 H 18 129/75 H 94 08/13/18 08:50 08/13/18 09:11 08/13/18 08:50 08/13/18 08:50 08/13/18 08:50 Oxygen Flow Rate (L/min) 3 Oxygen Delivery Method Nasal Cannula Weight: 159 lb 2.78 oz Body Mass Index (BMI) 25.5 Intake and Output for Last 24 Hours Intake Total 600 / 600 2442 / 2442 360 / 360 Output Total 750 / 750 Balance 600 / 600 1692 / 1692 360 / 360 Microbiology Past 72 Hours 08/11/18 10:30 Blood Culture - Preliminary Blood Culture (Wb) #2 - Anticubital Right No growth in 48 hours. 08/11/18 10:14 Blood Culture - Preliminary Discharge Activity: Return to Normal Activity Weight Bearing Status: Weight bearing as tolerated Call your doctor if you observe: Fever of 101 or Higher, Shortness of breath, Dizziness, Fainting spells, Chest pain, Increased palpitations (irregular heartbeat), Uncontrolled pain Home Medications: Medications to take at Discharge Albuterol IH (ProAir) [Proair Hfa] 1 - 2 puff INHALATION Q6H PRN PRN 08/24/16 Budesonide/Formoterol 160/4.5 [Symbicort 160/4.5 Mcg Inhaler (SP)] 2 puff INHALATION BID 08/24/16 Multivitamins,Ther W-Minerals [Multivitamin With Minerals] 1 tab PO DAILY 08/24/16 Tamsulosin HCl [Flomax] 0.4 mg PO DAILY 06/02/17 amlodipine 10 mg tablet 10 mg PO DAILY #90 tab 04/18/18 furosemide 40 mg tablet 40 mg PO DAILY PRN #90 tab 04/18/18 Aspirin [Aspir-Low] 81 mg PO BID 08/11/18 Lovastatin [Mevacor] 40 mg PO QHS 08/11/18 Metoprolol Tartrate [Lopressor (beta magi)] 100 mg PO BID 08/11/18 Levofloxacin [Levaquin] 500 mg PO DAILY #5 tab 08/13/18 Prednisone 10 mg PO DAILY #30 tab 08/13/18 Following Prescrptions Were Given to Patient: Levofloxacin [Levaquin] 500 mg PO DAILY #5 tab Prednisone 10 mg PO DAILY #30 tab Primary Care Physician: Girma Olson [Primary Care Provider] - Please follow up with your Primary Care Physician in: 1 week. Patient Instructions: Levofloxacin Oral tablet, Prednisone Oral tablet Disposition: Home Minutes spent on discharge:: 26 Patient Condition:: Stable Medical Necessity - Tobacco Use Smoking Status: Former smoker Tobacco Use: Cigarettes Meaningful Use Info Meaningful Use Diagnoses (Choose all that apply): None applicable Code Visit Inpatient E AND M: 52979 Disch Hosp 08/13/18 1508 <Electronically signed by Bennie May MD> Date Bennie May MD Cosigner Signature (if applicable): Date CC: Bennie May; Girma Olson Signed DISCHARGE INSTRUCTION Observed: 08/13/2018 Status: F Source: [place] 8:31 AM [facility] REPOSITORY [facility] Medical Records Department [address] [place] [address] Instructions for Home/Discharge Instructions 08/13/18 0830 MR#: [id number] Acct: [id number] Name: LISA SZYMANSKI Rep #: [id number] : 1940 78 From: Bennie May MD PCP: Girma Olson Status: ADM IN You will use the following diet at home:: Cardiac Your food should be the consistency of: Regular Discharge Activity: Return to Normal Activity Weight Bearing Status: Weight bearing as tolerated Call your doctor if you observe: Fever of 101 or Higher, Shortness of breath, Dizziness, Fainting spells, Chest pain, Increased palpitations (irregular heartbeat), Uncontrolled pain Allergies/Adverse Reactions: Allergies acetaminophen [From Dristan] Adverse Reaction (Severe, Verified 08/11/18 10:03) Unknown chlorpheniramine [From Dristan] Adverse Reaction (Severe, Verified 08/11/18 10:03) Unknown oxymetazoline [From Dristan] Adverse Reaction (Severe, Verified 08/11/18 10:03) Unknown pheniramine [From Dristan] Adverse Reaction (Severe, Verified 08/11/18 10:03) Unknown phenylephrine [From Dristan] Adverse Reaction (Severe, Verified 08/11/18 10:03) Unknown pseudoephedrine [From Dristan] Adverse Reaction (Severe, Verified 08/11/18 10:03) Unknown lisinopril Adverse Reaction (Verified 08/11/18 10:03) Unknown Medications to take at Discharge Albuterol IH (ProAir) [Proair Hfa] 1 - 2 puff INHALATION Q6H PRN PRN 08/24/16 Budesonide/Formoterol 160/4.5 [Symbicort 160/4.5 Mcg Inhaler (SP)] 2 puff INHALATION BID 08/24/16 Multivitamins,Ther W-Minerals [Multivitamin With Minerals] 1 tab PO DAILY 08/24/16 Tamsulosin HCl [Flomax] 0.4 mg PO DAILY 06/02/17 amlodipine 10 mg tablet 10 mg PO DAILY #90 tab 04/18/18 furosemide 40 mg tablet 40 mg PO DAILY PRN #90 tab 04/18/18 Aspirin [Aspir-Low] 81 mg PO BID 08/11/18 Lovastatin [Mevacor] 40 mg PO QHS 08/11/18 Metoprolol Tartrate [Lopressor (beta magi)] 100 mg PO BID 08/11/18 Levofloxacin [Levaquin] 500 mg PO DAILY #5 tab 08/13/18 Prednisone 10 mg PO DAILY #30 tab 08/13/18 The following prescriptions were given: Levofloxacin [Levaquin] 500 mg PO DAILY #5 tab Prednisone 10 mg PO DAILY #30 tab Primary Care Physician: Girma Olson [Primary Care Provider] - Please follow up with your Primary Care Physician in: 1 week. Test Results: Test results from this visit will be discussed in further detail at your follow-up appointment, if applicable. 08/13/18 0831 <Electronically signed by Bennie May MD> Date Bennie May MD CC: Girma Olson COMPREHENSIVE METABOLIC Collected: 08/12/2018 Status: F Source: [place] JAFF[place] 5:58 AM [facility] REPOSITORY TYPE CODE TESTS RESULT OUT OF RANGE REFERENCE UNITS LAB L501.0100 74-106 mg/dL High GLU 149 Result Comment: Fasting Glucose result greater than or equal to 126 mg/dL suggests DIABETES MELLITUS per A.D.A. criteria. Please note revised GLUCOSE reference range effective 2017. LAB L501.1000 7-18 mg/dL High BUN 28 LAB L501.1100 0.70-1.30 mg/dL Low CREAT,SERUM 0.56 Result Comment: The validity of the calculated GFR AND GFRAA in patients over 70 years has not been determined. Clinical correlation is essential. LAB L501.1110 >60 mL/min Normal EST GFR 151 Result Comment: Non- GFR Calc LAB L501.1115 >60 mL/min Normal EST GFR - AA 183 Result Comment: GFR Calc LAB L501.1255 ml/min Normal Estimated CRCL 54.94 LAB L501.1300 10-20 RATIO High BUN/CRE 50.4 LAB L501.1500 6.4-8. g/dL Low 2 T PROT 5.8 LAB L501.1800 3.2-5. g/dL Low 0 ALB 2.5 LAB L501.1950 2.2-4. g/dL Normal 2 GLOB 3.3 LAB L501.2000 0.9-2. RATIO Low 4 A/G 0.8 LAB L501.2200 8.5-10 mg/dL Low .1 CA 8.0 LAB L501.4100 15-37 U/L Low AST 14 LAB L501.4305 45-117 U/L Normal ALK P 60 LAB L501.4405 16-61 U/L Normal ALT 18 LAB L501.4600 0.20-1 mg/dL Normal .00 T BILI 0.70 LAB L501.5300 136-14 mmol/L High 5 NA 146 LAB L501.5600 3.5-5. mmol/L Normal 1 K 4.2 LAB L501.5900 98-107 mmol/L High CL 112 LAB L501.6100 21.0-3 mmol/L Normal 2.0 CO2 28.0 LAB L501.6200 5-15 Normal GAP 6 Performed By: #### L500.4050 #### [facility] [address] [place], [place], [id number] CBC W/DIFF, AUTOMATED Collected: 08/12/2018 Status: F Source: [place] 5:58 AM [facility] REPOSITORY TYPE CODE TESTS RESULT OUT OF RANGE REFERENCE UNITS LAB L100.1000 4.4-11.0 K/mm3 High WBC 11.4 LAB L100.1200 4.6-6.2 M/mm3 Low RBC 4.03 LAB L100.1300 13.0-16.5 g/dl Low HGB 11.9 LAB L100.1400 40-54 % Low HCT 38.7 LAB L100.1500 80-94 fL High MCV 96.0 LAB L100.1600 27.0-32.0 pg Normal MCH 29.5 LAB L100.1700 32-36 g/gl Low MCHC 30.7 LAB L100.1810 11.6-14.6 % Normal RDW CV 13.9 LAB L100.1820 35.1-43.9 fl High RDW SD 49.3 LAB L100.1900 150-450 K/mm3 Normal PLT 154 LAB L100.2000 6.2-12.0 fl Normal MPV 12.0 LAB L100.2100 47-70 % High NEUT% 91.7 LAB L100.2200 19-41 % Low LY% 5.1 LAB L100.2300 0-10 % Normal MONO% 3.0 LAB L100.2400 0-5 % Normal EO% 0.0 LAB L100.2500 0-1 % Normal BASO% 0.0 LAB L100.2550 0.0-0.9 % Normal IM GRAN % 0.200 Result Comment: IG% - Immature Granulocytes (promyelocytes, myelocytes and metamyelocytes) > 1% indicates that a LEFT SHIFT is Present. LAB L100.2620 2.0-7.7 X10 3/uL High Absolute Neut 10.5 LAB L100.2720 0.83-4.51 X10 3/ul Low Absolute Lymph 0.58 Performed By: #### L100.0100 #### [facility] [address] [place], [address] CHEST PA AND LATERAL Observed: 08/12/2018 Status: F Source: [place] 12:01 AM [facility] REPOSITORY [facility] Imaging Services [address] [place] [address] Chest PA and Lateral MR#: [id number] Acct: [id number] Name: LISA SZYMANSKI Rep #: [id number] : 1940 M 78 From: Sage Khalil DO PCP: Girma Olson Status: ADM IN Study: Chest PA and Lateral Date of Exam: 08/12/18 Exam# [id number] Ordering Dr: Bennie May MD STUDY: X-RAY CHEST REASON FOR EXAM: Male, 78 years old. Shortness of breath TECHNIQUE: Frontal and lateral views COMPARISON: August 11, 2018 FINDINGS: Stable sternotomy wires. The lungs are aerated with interstitial densities. There is no demonstrated pleural abnormality. Normal size heart. Normal mediastinum and kristan. Normal visualized pulmonary arteries. Normal visualized aortic arch and descending thoracic aorta. Degenerative changes of the thoracic spine. Normal visualized ribs, clavicles, and shoulders. There is no demonstrated abnormality of the visualized soft tissue structures of the upper abdomen. RAD/Chest PA and Lateral IMPRESSION: Hyperaeration with mild interstitial prominence. No significant interval changes. Electronically Signed: Sage Khalil DO at 8:53 EST Tel [phone], Service support , CC: Bennie Olson Clean Out Driller Helper: Signed EMERGENCY DEPARTMENT Observed: 08/11/2018 Status: F Source: [place] SUMMARY 5:46 PM [facility] REPOSITORY [facility] Medical Records Department [address] [place] [address] Emergency Department Summary 08/11/18 1017 MR#: [id number] Acct: [id number] Name: LISA SZYMANSKI Rep #: [id number] : 1940 78 From: Jose Curry DO PCP: Girma Olson Status: ADM IN - ER Visit Summary Date of Service: 08/11/18 Chief Complaint: Dyspnea History of Present Illness: The patient is a 78 M who has a history of coronary artery disease and COPD. He is on chronic home oxygen therapy. He states that yesterday he began to have a cough with sputum production. The sputum is changed from baseline. Due to the shortness of breath particularly dyspnea on exertion he went to his primary care physician. They advised him to go to the hospital and he declined. They prescribed medications an antibiotic and a steroid which she has not yet picked up. He was supposed to have a chest x-ray today at the hospital. This morning his pulse ox continued to be in the 80s so they called the ambulance. He does not have a structural rigger. He does see Dr. Pina for cardiology here at the hospital. On any blood thinners. He takes a baby aspirin a day. Physical Examination: Afebrile vital signs are stable Gen: Well-nourished well-developed Head: Normocephalic atraumatic Eyes: Perrl EOMI ENT: TMs clear no rhinorrhea moist mucous membranes Neck: Supple no lymphadenopathy no JVD nontender CVS: Regular rate rhythm no murmurs normal S1-S2 Respiratory: No distress minutes breath sounds bilaterally with expiratory wheeze chest nontender Abdomen: Soft nontender nondistended normal bowel sounds no masses Back: Nontender Extremity: Nontender no edema Skin: Normal color no rash Neuro: alert orientated 3 CN II-XII intact normal strength sensation reflexes gait cerebellar Psych: Normal affect normal mood Test Results: Count 13.1. Lactic acid 2.1. Troponin negative. BUN 31 with a creatinine 0.67. Chest x-ray with no definitive infiltrate. Emergency Department Course and Treatment: Patient received breathing treatments, Solu-Medrol, azithromycin, IV fluids, and oxygen. He has better aeration but still is hypoxic at 86% on his nasal cannula with ambulation. He was able to cough up some very thick purulent sputum. This was sent for culture. Our plan is admission to [facility]. Impression: 1. COPD exacerbation 2. Hypoxemia This note was generated with [employer] software. It may contain incorrect words, spelling, and punctuation that were not noted in review of the chart prior to signing ED Disposition - Plan for ED Patient: Chief Complaint: Shortness of Breath Referrals: Girma Olson [Primary Care Provider] - What to do if you have Problems For any increased pain, shortness of breath, bleeding, nausea or vomiting, chest pain, or any unexpected problems, contact your Primary Care Provider. Call [facility] ([phone]) or report to the closest Emergency Room. Call 911 if necessary. 08/11/18 1746 <Electronically signed by Jose Curry DO> Date Jose Curry DO Cosigner Signature (If Indicated): Date CC: Girma Olson Observed: 08/11/2018 Status: F Source: [place] RESPIRATORY PANEL 4:55 PM [facility] MOLECULAR REPOSITORY RP PANEL ADENOVIRUS Not Detected HUMAN METAPHNEUMO Not Detected INFLUENZA A Not Detected INFLUENZA A (SUBTYPE H1) Not Detected INFLUENZA A (SUBTYPE H3) Not Detected INFLUENZA B Not Detected PARAINFLUENZA 1 Not Detected PARAINFLUENZA 2 Not Detected PARAINFLUENZA 3 Not Detected PARAINFLUENZA 4 Not Detected RHINOVIRUS Not Detected RSV A Not Detected RSV B Not Detected NAAT METHOD Testing was performed using nucleic acid amplification Performed By: #### M100.638 #### [facility] [address] [place], [address] LACTIC ACID Collected: 08/11/2018 Status: F Source: [place] 2:35 PM [facility] REPOSITORY TYPE CODE TESTS RESULT OUT OF REFERENCE UNITS RANGE LAB L503.6005 0.4-2.0 mmol/L High LACTIC ACID 2.6 Result Comment: Critical Result(s) Called at: 15:13:19 08/11/2018 by: Angelica Reed Performed By: #### L503.6005 #### [facility] [address] [place], [address] HISTORY AND PHYSICAL Observed: 08/11/2018 Status: F Source: [place] EXAM 1:37 PM [facility] REPOSITORY [facility] Medical Records Department [address] [place] [address] History and Physical 08/11/18 1324 MR#: [id number] Acct: [id number] Name: LISA SZYMANSKI Rep #: [id number] : 1940 78 From: Bennie May MD PCP: Girma Olson Status: ADM IN Location: [place] [address] Problem List (1) Chronic respiratory failure Status: Chronic (2) Benign hypertension Status: Chronic (3) Hyperlipidemia Status: Chronic Qualifiers: (4) CAD (coronary artery disease) Status: Chronic Qualifiers: (5) Hx of CABG Status: Chronic Comment: VERMA to LAD, SVG to RCA, SVG to 2nd marginal branch of CX and ongoing 1st diag branch of LAD (6) Afib Status: Chronic Qualifiers: (7) COPD (chronic obstructive pulmonary disease) Status: Chronic History of Present Illness Date of Admission: 08/11/18 Chief Complaint: Shortness of breath, productive cough. The patient is a 78 year old M with past medical history as mentioned above presented to the emergency room because of shortness of breath and productive cough. Patient's daughter was at the bedside and she assisted providing history. His illness started 2 days ago with increasing shortness of breath at rest, aggravated by minimal activity, not relieved by rest, associated with productive cough with moderate amount of thick green sputum. Yesterday and according to the patient's daughter, patient was short of breath and his pulse oximeter was 84% while on 3 L. She took him to his PCPs office yesterday, found to have pulse ox of 86% on 3 L and he was given prescription for antibiotics and prednisone and order for chest x-ray. Today morning, patient continued to have shortness of breath at rest with productive cough and his pulse oximeter was 86% on 3 L. He denies fever or chills. He denied chest pain, palpitation, dizziness or lightheadedness. In the emergency room, he was afebrile, heart rate and blood pressure was stable, he was tachypneic and pulse ox was 96% on 3 L. His routine blood work was remarkable for mild leukocytosis and BUN of 31, otherwise normal. Lactic acid was 2.1. Total and direct bilirubin was slightly elevated, liver transaminases and alkaline phosphatase were normal. His EKG revealed atrial fibrillation, rate is controlled, no acute ischemic changes. Troponin is negative. Chest x-ray showed no acute infiltrate, consolidation or effusion. He is being admitted for acute COPD exacerbation. 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) VERMA to LAD, SVG to RCA, SVG to 2nd marginal branch of CX and ongoing 1st diag branch of LAD Afib (Chronic) COPD (chronic obstructive pulmonary disease) (Chronic) Medical History: Medical History (Last Updated 08/11/18 @ 13:24 by Bennie May MD) Old myocardial infarction (Chronic) I25.2 Nicotine abuse (Chronic) Z72.0 Encounter for long-term current use of high risk medication (Chronic) Z79.899 Chronic respiratory failure (Chronic) J96.10 Benign hypertension (Chronic) I10 Hyperlipidemia (Chronic) E78.5 CAD (coronary artery disease) (Chronic) I25.10 Afib (Chronic) I48.91 COPD (chronic obstructive pulmonary disease) (Chronic) J44.9 Dyspnea R06.00 Shortness of breath R06.02 PVD (peripheral vascular disease) I73.9 Allergies acetaminophen [From Bhavya] Adverse Reaction (Severe, Verified 08/11/18 10:03) Unknown chlorpheniramine [From Bhavya] Adverse Reaction (Severe, Verified 08/11/18 10:03) Unknown oxymetazoline [From Dristan] Adverse Reaction (Severe, Verified 08/11/18 10:03) Unknown pheniramine [From Dristan] Adverse Reaction (Severe, Verified 08/11/18 10:03) Unknown phenylephrine [From Dristan] Adverse Reaction (Severe, Verified 08/11/18 10:03) Unknown pseudoephedrine [From Dristan] Adverse Reaction (Severe, Verified 08/11/18 10:03) Unknown lisinopril Adverse Reaction (Verified 08/11/18 10:03) Unknown Home Medications: Ambulatory Orders Medication Instructions Recorded Albuterol IH (ProAir) [Proair Hfa] 1 - 2 puff INHALATION Q6H PRN PRN 08/24/16 Surgical History: Surgical History (Last Updated 08/11/18 @ 13:24 by Bennie May MD) Hx of CABG (Chronic) Onset Date: 06/2009 VERMA to LAD, SVG to RCA, SVG to 2nd marginal branch of CX and ongoing 1st diag branch of LAD History of tonsillectomy Z98.890, Z90.89 Surgical History: coronary bypass surgery, - - ventral hernia surgery. Lives: With Family Smoking Status: Former smoker Alcohol: None Drugs: None - *Family History Sibling Family History: Family History (Last Reviewed 02/28/18 @ 13:44 by Dianna Vera) Father Heart disease Brother Hypertension Sister CAD (coronary artery disease) Hx of CABG Sister CAD (coronary artery disease) Hx of CABG History Items: Heart Disease Review of Systems Constitutional: Denies: Anorexia, Chills, Fever, Weakness Eyes: Denies: Blurred vision, Double vision, Drainage, Redness HEENT: Denies: Difficulty Hearing, Ear Pain, Eye Pain, Nasal Congestion, Sore Throat Cardiovascular: Denies: Chest Pain, Chest Pressure, Chest Tightness, Heaviness, Light Headedness, Orthopnea, Paroxysmal Noc. Dyspnea, Syncope Respiratory: Reports: Cough, Shortness of Breath, Shortness of breath at rest, Shortness of breath upon exertion, Sputum production. Denies: Hemoptysis, Pleuritic Pain, Wheezing Gastrointestinal: Denies: Abdominal Pain, Constipation, Diarrhea, Nausea, Vomiting Genitourinary: Denies: Dysuria, Frequency, Hematuria Musculoskeletal: Denies: Arm Pain, Back Pain, Foot Pain Skin: Denies: Dryness, Rash Neurological: Denies: Balance problems, Double vision, Change in Speech, Slurred speech, Confusion, Headaches, Incoordination, Numbness Psychiatric: Denies: Anxiety, Depression Endocrine: Denies: Change in Body Habitus, Polydipsia VTE Information - Inpt Only VTE Present on Admission: No VTE Mechan Device Prophylaxis: None VTE Pharm Prophylaxis ordered?: Yes - Physical Exam General: Alert, Oriented x3, Cooperative, - - Moderately short of breath. HEENT: Atraumatic, PERRLA, EOMI, Normocephalic Oral: Moist Mucosa, No Gingival or Mucosal Lesions/ Ulcerations Neck: Supple, No JVD, Negative Carotid Bruits, Trachea Midline, Thyroid Normal Size and Texture Lungs: No wheeze, No rales, Diminished, Rhonchi, Short of Breath, Tachypneic, - - Markedly decreased breath sounds bilateral, rhonchi. Cardiovascular: Normal S1, Normal S2, No murmurs, PMI Normal, Irregular Rate Abdomen: Bowel Sounds Present, Soft, Non Tender, Non-Distended, No Hepato-splenomegaly Extremities: No clubbing, No cyanosis, Edema - Trace edema. Skin: No rashes, No breakdown Lymphatic: No Cervical, Supraclavicular, or Inguinal Adenopathy Neurological: Cranial nerves II-XII grossly intact, Motor Exam 5/5 strength throughout Psych/Mental Status: Normal Affect, Appropriate, Alert and oriented to time, place, person, mood and affect Vital Signs Temp Pulse Resp BP Pulse Ox 98.9 F 98 20 H 117/56 L 94 08/11/18 09:59 08/11/18 13:07 08/11/18 13:07 08/11/18 13:07 08/11/18 13:07 Oxygen Flow Rate (L/min) 3 Oxygen Delivery Method Nasal Cannula Weight: 165 lb Body Mass Index (BMI) 26.6 Laboratory Tests Past 24 Hrs Clinical Impression(s) from Imaging Studies Chest X-Ray 08/11/18 10:05 IMPRESSION: Hyperinflation. Increased interstitial markings at both lung bases worse on the left side in keeping with scarring. The previously seen left lower lobe infiltrate has cleared. Electronically Signed: Darin Kunz MD at 12:15 EST Tel [phone], Service support , Assessment/Plan This is a 78 years old male patient presented to the emergency room because of shortness of breath and productive cough as well as low pulse oximeter, found to have acute COPD exacerbation and he is being admitted for treatment. #1 acute COPD exacerbation: Chest x-ray reviewed, revealed no acute infiltrate. Have mild leukocytosis and lactic acid 2.1. At this time, I doubt sepsis or severe sepsis. Mild lactic acidosis likely because of hypoxia. He is afebrile. Plan: Admit to [facility] floor, telemetry, sputum culture, blood culture, repeat lactic acid in 3 hours, urinalysis, IV Levaquin, IV steroids, bronchodilators, chest physiotherapy, incentive spirometer, repeat CBC and BMP tomorrow morning, PT OT evaluation and treatment. #2 chronic respiratory failure: Patient has been on oxygen at home at 3 L. At this time, his pulse ox is 96% on 3 L which is at baseline. He looked dyspneic and tachypneic. It is secondary to above. Plan to above. #3 hyperbilirubinemia: With normal liver transaminases and alkaline phosphatase. No complaint of right upper quadrant pain. Unclear etiology. Plan to repeat LFT tomorrow morning. #4 CAD status post CABG: Stable, EKG without acute ischemic changes. Troponin is negative. Continue aspirin, statins, metoprolol. #5 chronic atrial fibrillation: Rate is controlled, continue metoprolol for rate control. He is not on anticoagulation. #6 hypertension: Blood pressure stable, continue Norvasc and metoprolol. #7 hyperlipidemia: Continue statins. #8 COPD/chronic respiratory failure: On home oxygen at 3 L. Plan as above. #9 benign prostatic hypertrophy: Continue Flomax. #10 DVT prophylaxis: Subcu Lovenox. This note was generated with MADS dictation software. It may contain incorrect words, spelling, and punctuation that were not noted in checking the note before signing. Code Visit Inpatient E AND M: 22052 Init Hosp L3 08/11/18 1331 <Electronically signed by Bennie May MD> Date Bennie May MD Cosigner Signature: Date (if applicable) CC: Bennie May; Girma Olson Signed Observed: 08/11/2018 Status: F Source: CANDY CULTURE, BLOOD (WB) 10:30 AM [facility] REPOSITORY BC No growth in 5 days. Performed By: #### M200.1000 #### [facility] [address] [place], [place], [address] LACTIC ACID Collected: 08/11/2018 Status: F Source: CANDY 10:15 AM [facility] REPOSITORY Order Comment: Yes/No query for Sepsis Lactate Rule Y TYPE CODE TESTS RESULT OUT OF REFERENCE UNITS RANGE LAB L503.6005 0.4-2.0 mmol/L High LACTIC ACID 2.1 Result Comment: Critical Result(s) Called at: 11:06:32 08/11/2018 by: Angelica Perez to Dr Roberson Performed By: #### L503.6005 #### [facility] [address] [place], [place], [address] Observed: 08/11/2018 Status: F Source: CANDY CULTURE, SPUTUM 10:15 AM [facility] REPOSITORY Gram Stain Acceptable Specimen? Yes (<25 Epithelial cells per/lpf) Gram Stain 4+ White Blood Cells 4+ Gram positive cocci Rare Epithelial cells Resp. Culture Mixed normal respiratory cb. No Haemophilus, Streptococcus pneumoniae, beta-hemolytic Streptococcus or Staphylococcus aureus isolated. Performed By: #### M100.0800 #### [facility] [address] [place], [address] CBC W/DIFF, AUTOMATED Collected: 08/11/2018 Status: F Source: CANDY 10:14 AM [facility] REPOSITORY TYPE CODE TESTS RESULT OUT OF RANGE REFERENCE UNITS LAB L100.1000 4.4-11.0 K/mm3 High WBC 13.1 LAB L100.1200 4.6-6.2 M/mm3 Low RBC 4.50 LAB L100.1300 13.0-16.5 g/dl Normal HGB 13.2 LAB L100.1400 40-54 % Normal HCT 43.7 LAB L100.1500 80-94 fL High MCV 97.1 LAB L100.1600 27.0-32.0 pg Normal MCH 29.3 LAB L100.1700 32-36 g/gl Low MCHC 30.2 LAB L100.1810 11.6-14.6 % Normal RDW CV 14.1 LAB L100.1820 35.1-43.9 fl High RDW SD 50.2 LAB L100.1900 150-450 K/mm3 Normal PLT 156 LAB L100.2000 6.2-12.0 fl High MPV 12.1 LAB L100.2100 47-70 % High NEUT% 78.3 LAB L100.2200 19-41 % Low LY% 8.2 LAB L100.2300 0-10 % High MONO% 12.6 LAB L100.2400 0-5 % Normal EO% 0.5 LAB L100.2500 0-1 % Normal BASO% 0.2 LAB L100.2550 0.0-0.9 % Normal IM GRAN % 0.200 Result Comment: IG% - Immature Granulocytes (promyelocytes, myelocytes and metamyelocytes) > 1% indicates that a LEFT SHIFT is Present. LAB L100.2620 2.0-7.7 X10 3/uL High Absolute Neut 10.2 LAB L100.2720 0.83-4.51 X10 3/ul Normal Absolute Lymph 1.07 Performed By: #### L100.0100 #### [facility] [address] [place], [address] BASIC METABOLIC Collected: 08/11/2018 Status: F Source: [facility]OL[facility] PROFILE ([facility]) 10:14 AM [facility] REPOSITORY TYPE CODE TESTS RESULT OUT OF RANGE REFERENCE UNITS LAB L501.0100 74-106 mg/dL High GLU 107 Result Comment: Fasting Glucose result from 100 to 125 mg/dL suggests IMPAIRED HOMEOSTASIS per A.D.A. criteria. Please note revised GLUCOSE reference range effective 2017. LAB L501.1000 7-18 mg/dL High BUN 31 LAB L501.1100 0.70-1.30 mg/dL Low CREAT,SERUM 0.67 Result Comment: The validity of the calculated GFR AND GFRAA in patients over 70 years has not been determined. Clinical correlation is essential. LAB L501.1110 >60 mL/min Normal EST GFR 123 Result Comment: Non- GFR Calc LAB L501.1115 >60 mL/min Normal EST GFR - AA 149 Result Comment: GFR Calc LAB L501.1255 ml/min Normal Estimated CRCL 54.94 LAB L501.1300 10-20 RATIO High BUN/CRE 46.5 LAB L501.2200 8.5-10 mg/dL Low .1 CA 8.4 LAB L501.5300 136-14 mmol/L Normal 5 NA 143 LAB L501.5600 3.5-5. mmol/L Normal 1 K 3.9 LAB L501.5900 98-107 mmol/L Normal CL 107 LAB L501.6100 21.0-3 mmol/L Normal 2.0 CO2 30.0 LAB L501.6200 5-15 Normal GAP 6 Performed By: #### L500.2500, L500.3400, L501.4010 #### [facility] [address] [facility] [place], [place], [address] LIVER PROFILE Collected: 08/11/2018 Status: F Source: ROLAND 10:14 AM [facility] REPOSITORY TYPE CODE TESTS RESULT OUT OF RANGE REFERENCE UNITS LAB L501.1500 6.4-8.2 g/dL Normal T PROT 6.6 LAB L501.1800 3.2-5.0 g/dL Low ALB 3.0 LAB L501.1950 2.2-4.2 g/dL Normal GLOB 3.6 LAB L501.4100 15-37 U/L Normal AST 18 LAB L501.4305 45-117 U/L Normal ALK P 69 LAB L501.4405 16-61 U/L Normal ALT 19 LAB L501.4600 0.20-1.00 mg/dL High T BILI 1.60 LAB L501.4700 0.00-0.30 mg/dL High D BILI 0.46 Performed By: #### L500.2500, L500.3400, L501.4010 #### [facility] [address] [place], [address] TROPONIN-I Collected: 08/11/2018 Status: F Source: ROLAND 10:14 AM [facility] REPOSITORY TYPE CODE TESTS RESULT OUT OF RANGE REFERENCE UNITS LAB L501.4010 <0.045 ng/mL Normal < 0.015 TROPONIN-I Result Comment: TROPONIN-I EXPECTED VALUES <0.045 Negative 0.045 - 0.590 Consistent with Cardiac Damage > OR = 0.600 Critical Value Not every elevated troponin is indicative of ND. These values should be used with clinical judgement in examining the patient's clinical picture for diagnosis. To establish a diagnosis of ND versus myocardial injury, there must be a demonstrated rise and/or fall in the troponin values, in addition to ischemic symptoms, EKG changes, new regional wall motion abnormality, and/or angiographical evidence. PLEASE NOTE: REFERENCE RANGES EDITED 18 Performed By: #### L500.2500, L500.3400, L501.4010 #### [facility] [address] [place], [address] Observed: 08/11/2018 Status: F Source: ROLAND CULTURE, BLOOD (WB) 10:14 AM [facility] REPOSITORY BC No growth in 5 days. Performed By: #### M200.1000 #### [facility] [address] [place], [address] CHEST PA AND LATERAL Observed: 08/11/2018 Status: F Source: ROLAND 10:07 AM [facility] REPOSITORY [facility] [address] [place] [address] Chest PA and Lateral MR#: [id number] Acct: [id number] Name: LISA SZYMANSKI Rep #: [id number] : 1940 M 78 From: Darin Kunz MD PCP: Girma Olson Status: REG ER Study: Chest PA and Lateral Date of Exam: 08/11/18 Exam# [id number] Ordering Dr: Jose Curry DO STUDY: X-RAY CHEST REASON FOR EXAM: Male, 78 years old. Increasing shortness of breath. TECHNIQUE: AP and lateral views of the chest. COMPARISON: Comparison is made with prior study dated June 02, 2017. FINDINGS: EKG electrodes are seen. Hyperinflation. Increased markings at the lung bases suggestive scarring. The previously seen left lower lobe infiltrate has cleared. Residual blunting of the left costophrenic angle. Sternal cerclage wires and vascular clips are present from a prior sternotomy and coronary artery bypass graft procedure (CABG). Normal mediastinum and kristan. Normal visualized pulmonary arteries. There is atherosclerotic calcification of the aortic arch with tortuosity. There are diffuse degenerative changes of the visualized thoracic spine. Normal visualized ribs, clavicles, and shoulders. There is no demonstrated abnormality of the visualized soft tissue structures of the upper abdomen. RAD/Chest PA and Lateral IMPRESSION: Hyperinflation. Increased interstitial markings at both lung bases worse on the left side in keeping with scarring. The previously seen left lower lobe infiltrate has cleared. Electronically Signed: Darin Kunz MD at 12:15 EST Tel [phone], Service support , CC: Jose Curry DO; Girma Olson Clean Out Driller Helper: Signed CARDIOLOGY VISIT Observed: 03/01/2018 Status: F Source: ROLAND REPORT 7:32 AM [facility] REPOSITORY [facility] [address] [place] [address]. [address] [place] [address] OFFICE VISIT Date of Service: 02/28/18 MR#: [id number] Acct: [id number] Name: LISA SZYMANSKI Rep #: [id number] : 1940 Provider: ANGELITO Corona Age/Sex: 77/M Location: [facility] [place] Status: Signed HPI HPI Details: LISA SZYMANSKI, is a 77 M who presents to the office today for a cardiovascular follow-up. He has a history of underlying CAD status post CABG with LAD, SVG to RCA, SVG to second marginal branch of LCx and ongoing first diagonal branch of LAD in 2009, chronic atrial fibrillation, hyperlipidemia, hypertension. Pt. denies chest, arm, jaw, or neck discomfort. His exercise tolerance is stable. Pt. denies symptoms of CHF, palpitations, lightheadedness, dizziness, near syncope, or syncopal episodes. Pt. denies edema or claudication issues. Pt. denies orthopnea, PND, fever, chills, blood in urine, blood in stool, myalgia, or unexplainable fatigue. Patient states bilateral upper arm bruising and asked to decrease aspirin therapy. He rarely needs to take PRN lasix. Intake Vital Signs02/28/18 Height 5 ft 6 in 02/28/18 Weight: 164 lb 02/28/18 Body Mass Index (BMI) 26.4 02/28/18 Blood Pressure 142/60 02/28/18 Blood Pressure Location Lt brachial Intake Visit Reasons: 6 M FU Chuck Wagon Cook Required: No Accompanied by: none Is patient in pain?: No Allergies acetaminophen [From Dristan] Adverse Reaction (Severe, Verified 08/30/17 17:52) Unknown chlorpheniramine [From Dristan] Adverse Reaction (Severe, Verified 08/30/17 17:52) Unknown oxymetazoline [From Dristan] Adverse Reaction (Severe, Verified 08/30/17 17:52) Unknown pheniramine [From Dristan] Adverse Reaction (Severe, Verified 08/30/17 17:52) Unknown phenylephrine [From Dristan] Adverse Reaction (Severe, Verified 08/30/17 17:52) Unknown pseudoephedrine [From Dristan] Adverse Reaction (Severe, Verified 08/30/17 17:52) Unknown lisinopril Adverse Reaction (Verified 07/19/17 17:32) Unknown Medications Albuterol IH (ProAir) [Proair Hfa] 1 - 2 puff INHALATION Q6H PRN PRN 08/24/16 [History Confirmed 02/28/18] Amlodipine [Norvasc] 10 mg PO DAILY 08/24/16 [History Confirmed 02/28/18] Budesonide/Formoterol 160/4.5 [Symbicort 160/4.5 Mcg Inhaler (SP)] 2 puff INHALATION BID 08/24/16 [History Confirmed 02/28/18] Lovastatin [Mevacor] 40 mg PO DAILY 08/24/16 [History Confirmed 02/28/18] Multivitamins,Ther W-Minerals [Multivitamin With Minerals] 1 tab PO DAILY 08/24/16 [History Confirmed 02/28/18] Tamsulosin HCl [Flomax] 0.4 mg PO DAILY 06/02/17 [History Confirmed 02/28/18] Ipratropium/Albuterol Sulfate [Duoneb] 3 ml INHALATION Q6H PRN PRN #120 ampul.neb 06/07/17 [Rx Confirmed 02/28/18] Metoprolol Tartrate [Lopressor (beta magi)] 100 mg PO BID #60 tab 06/07/17 [Rx Confirmed 02/28/18] furosemide 40 mg tablet 40 mg PO DAILY PRN 09/01/17 [History Confirmed 02/28/18] aspirin 81 mg tablet,delayed release 81 mg PO BID tab 02/28/18 [History Confirmed 02/28/18] Ejection fraction %: 60 to 64 PFSH Medical History Old myocardial infarction (Chronic) Nicotine abuse (Chronic) Encounter for long-term current use of high risk medication (Chronic) Chronic respiratory failure (Chronic) Benign hypertension (Chronic) Hyperlipidemia (Chronic) CAD (coronary artery disease) (Chronic) Afib (Chronic) Sepsis (Acute) Pneumonia, pneumococcal (Acute) Acute respiratory failure (Acute) COPD with acute exacerbation (Acute) COPD (chronic obstructive pulmonary disease) (Chronic) Dyspnea (Acute) Shortness of breath (Acute) PVD (peripheral vascular disease) (Chronic) Surgical History 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) History of tonsillectomy (Resolved) Family History Father Heart disease Brother Hypertension Sister CAD (coronary artery disease) Hx of CABG Sister CAD (coronary artery disease) Hx of CABG Social History Smoking Status: Former smoker alcohol intake: never caffeine: Yes Type: coffee Number of servings: 2 ROS Const Const: Negative for fatigue, weakness, body ache, fever(s) or chills ENT ENT: Negative for dizziness Cardio Chest Pain: No Palpitations: No Edema: None Muscle aches with walking: None Resp Respiratory: Negative for SOB with activity, SOB at rest, SOB orthopnea\SOB lying down or paroxysmal nocturnal dyspnea GI GI: Negative nausea, black,tarry stools, bright, red blood in stools or vomiting blood/hematemesis : Negative for hematuria or frequent nighttime urination/ nocturia Musc Musc: Negative for muscle aches/ myalgia Skin Skin: Positive for other (easy bruising); negative non-healing lesions or rash Neuro Neuro: Negative for weakness, dizziness, lightheadedness, near syncope, syncope or orthostatic symptoms Endo Endo: Negative for fatigue Allergy Allergy/Immunology: Negative for rash Cardiology Exam Const Appearance: cooperative, healthy appearing, comfortable, no acute distress, well developed and other (wearing supplemental O2) Nutritional Appearance: average body habitus Orientation: alert, awake and oriented x3 Head Head: normal to inspection, normocephalic and atraumatic Ears: hearing grossly normal bilaterally Nose: external nose normal Face and Sinus: face symmetric Mouth: oral mucosae normal Eyes General: appearance normal, both eyes and all related structures Eyelids: eyelids normal Conjunctivae: conjunctivae normal EOM: EOM intact bilaterally Neck Neck: normal visual inspection Carotids: normal carotid upstroke Chest Chest inspection: normal inspection of the chest and symmetric chest movement Auscultation: Bilateral: Diminished Lung Sounds Cardio Palpation: normal PMI Rate: regular rate Rhythm: irregular rhythm Heart sounds: S1 normal and S2 normal GI GI: normal to inspection, bowel sounds present, soft and no hepatosplenomegaly Neuro General: alert, awake and oriented x3 Skin Skin: no rashes or lesions noted Extremities Pulses: Normal: Right Radial Pulse, Left Radial Pulse Lower Extremity Edema: +1: Bilateral Psych Psychological: normal affect Supplemental Info Echocardiogram from May 2017 showed an estimated ejection fraction of 55%, mild posteriorly directed mitral valve insufficiency, RVSP of 32 mmHg, compared to previous echo in May 2014 LV function appears to be about the same and patient is in atrial fibrillation. Stress test from May 2014 showed peak EKG with no obvious EKG changes and nuclear images negative for stress-induced myocardial ischemia and previous myocardial injury/infarction. Ejection fraction was reported at 61%. Assessment AND Plan 1. Atherosclerosis of coronary artery bypass graft of [place] heart without angina pectoris I25.810 Plan Patient's echocardiogram from May 2017 showed an ejection fraction of 55%. Stress test from May 2014 was negative for stress-induced myocardial ischemia. Patient denies any chest pain, arm pain, jaw pain, neck pain, shortness of breath, or fatigue suggestive of angina at this time. We will continue to monitor this. We will not make any medication regimen changes and will continue risk factor modification. 2. Hx of CABG Z95.1 VERMA to LAD, SVG to RCA, SVG to 2nd marginal branch of CX and ongoing 1st diag branch of LAD Plan Patient will continue current plan as outlined above. 3. Permanent atrial fibrillation I48.2 Plan Patient would like to decrease his aspirin therapy due to bruising. Thus, he will continue with aspirin 81 mg p.o. twice daily. He acknowledges understanding of stroke risk. His heart rate is well controlled today in office. He will continue with current beta-magi medication. 4. Benign hypertension I10 Plan Patient's blood pressure is slightly elevated today in office. We will continue to monitor this. We will not make any medication regimen changes at this time. 5. Hyperlipidemia, unspecified hyperlipidemia type E78.5 Plan Patient's lipid panel from March 2015 showed cholesterol: 155, HDL: 39, LDL: 97, and triglycerides: 84. He states that he has not eaten today. Thus, he will undergo fasting lipid and liver panel. Will await results of these tests for further recommendation. He will continue the current statin medication. Orders Orders: 6. COPD (chronic obstructive pulmonary disease) J44.9 Plan Patient is currently wearing supplemental oxygen. He denies any shortness of breath. He will continue to follow up with the primary care physician for ongoing treatment of this. Plan Detail Other Orders Orders: Additional Comments Thank you for allowing us to participate in the patients plan of care, if you have any questions please do not hesitate to call. This note was generated using a voice recognition system and there may be incorrect words, spelling or punctuation that were not noted when reviewing the office note prior to saving. Follow Up 6 Months (SWITCH TECHNICIAN/PA) 12 Months (PFM) Coding Level of Care Code Off vis,est,level 3 Diagnoses Atherosclerosis of coronary artery bypass graft of [place] heart without angina pectoris I25.810 Associated angina: without angina Coronary Disease-Associated Artery/Lesion type: bypass graft [place] vs. transplanted heart: [place] heart Hx of CABG Z95.1 Permanent atrial fibrillation I48.2 Benign hypertension I10 Hyperlipidemia, unspecified hyperlipidemia type E78.5 COPD (chronic obstructive pulmonary disease) J44.9 Chronic bronchitis type: unspecified Coding Level of Care Code Off vis,est,level 3 Diagnoses Atherosclerosis of coronary artery bypass graft of [place] heart without angina pectoris I25.810 Associated angina: without angina Coronary Disease-Associated Artery/Lesion type: bypass graft [place] vs. transplanted heart: [place] heart Hx of CABG Z95.1 Permanent atrial fibrillation I48.2 Benign hypertension I10 Hyperlipidemia, unspecified hyperlipidemia type E78.5 COPD (chronic obstructive pulmonary disease) J44.9 Chronic bronchitis type: unspecified 03/01/18 0732 <Electronically signed by Christian KABA> Date Christian KABA Cosigner Signature: Date (if applicable) CC: Girma Olson LIVER PROFILE Collected: 02/28/2018 Status: F Source: CANDY 2:52 PM [facility] REPOSITORY TYPE CODE TESTS RESULT OUT OF RANGE REFERENCE UNITS LAB L501.1500 6.4-8.2 g/dL Normal T PROT 7.0 LAB L501.1800 3.2-5.0 g/dL Normal ALB 3.4 LAB L501.1950 2.2-4.2 g/dL Normal GLOB 3.6 LAB L501.4100 15-37 U/L Low AST 14 LAB L501.4305 45-117 U/L Normal ALK P 65 LAB L501.4405 16-61 U/L Normal ALT 19 LAB L501.4600 0.20-1.00 mg/dL Normal T BILI 0.80 LAB L501.4700 0.00-0.30 mg/dL Normal D BILI 0.18 Performed By: #### L500.3400, L500.4100 #### [facility] [place], [address] LIPID PROFILE Collected: 02/28/2018 Status: F Source: CANDY 2:52 PM [facility] REPOSITORY TYPE CODE TESTS RESULT OUT OF RANGE REFERENCE UNITS LAB L501.4900 200 mg/dL Normal CHOL 147 Result Comment: <200 mg/dL Desirable 200-240 mg/dL Borderline >240 mg/dL High Risk LAB L501.5000 mg/dL Normal TRIG 89 Result Comment: The drugs N-Acetylcysteine and Metamizole may falsely depress this assay. Serum Triglycerides Reference Interval Normal <150 mg/dL Borderline high 150 - 199 mg/dL High 200 - 499 mg/dL Very High > or = 500 mg/dL LAB L501.6400 mg/dL Normal HDL 50 Result Comment: The drugs N-Acetylcysteine and Metamizole may falsely depress this assay. Reference Range HDL <40 mg/dL Low HDL Cholesterol HDL >or= 60 mg/dL High HDL Cholesterol LAB L501.6500 0-130 mg/dL Normal LDL 79 LAB L501.6600 5-40 mg/dL Normal VLDL 18 Performed By: #### L500.3400, L500.4100 #### [facility] [address] [place], [address] CR CHEST PA/LAT Observed: 01/27/2018 Status: F Source: Adform 7:53 PM SYSTEM REPOSITORY Patient Name: LISA SZYMANSKI Diagnostic Radiology Exam Date/Time 01/27/2018 15:20:00 EDT Exam CR Chest PA/LAT Ordering Physician DO OLSON PAUL E. Accession Number [id number] CPT4 Codes 79255 () Reason For Exam . Report CHEST, PA and LATERAL: INDICATION: Shortness of breath COMPARISON: 09/17/2014 PA and lateral views of the chest were obtained. The heart is borderline in size. The mediastinal silhouette is normal. Chronic interstitial changes are present. There are no effusions or infiltrates. There is biapical pleural thickening. Arthritic changes of the spine and shoulders are present. The patient has undergone prior open heart surgery. IMPRESSION: Chronic changes. No acute process. Report Dictated on Final Dictating Physician: DO MURPHY ALFRED Signed Date and Time: 01/27/2018 7:54 pm Signed by: DO MURPHY ALFRED Transcribed Date and Time: 01/27/2018 7:55 MRI LOW EXT JOINT W/O Observed: 10/01/2017 Status: F Source: Adform CONTRAST RIGHT 1:36 PM SYSTEM REPOSITORY Patient Name: LISA SZYMANSKI MRI Exam Date/Time 10/01/2017 13:10:44 EST Exam MRI Low Ext Joint w/o Contrast Right Ordering Physician DO OLSON PAUL E. Accession Number [id number] CPT4 Codes 09007 () Reason For Exam pain Report EXAMINATION: MRI of the right knee without contrast. COMPARISON: None. REASON FOR STUDY: Right knee pain. TECHNIQUE: Multiplanar spin-echo T1, intermediate and T2-weighted images were obtained with and without fat suppression. FINDINGS: Tendons And Ligaments: The quadriceps, popliteus and pes anserinus tendons as well as the patella, cruciate and collateral ligaments appear intact and show no focus of signal alteration. Bones And Cartilage: Osseous structures are anatomically aligned and marrow signal is uniform and within normal limits. No osteochondral defect is detected. The menisci appear normal in configuration and signal pattern. Joint Space: There is trace joint effusion. Soft Tissues: Diffuse subcutaneous reticulation. No circumscribed fluid collection. CONCLUSION(S): 1. No evidence of ligamentous, meniscal or osteochondral injury. 2. Mild periarticular soft tissue edema. Report Dictated on Workstation: [id number] Final Dictating Physician: MD DUBON B NELSON Signed Date and Time: 10/01/2017 1:43 pm Signed by: MD DUBON B NELSON Transcribed Date and Time: 10/01/2017 1:44 CARDIOLOGY VISIT Observed: 09/01/2017 Status: F Source: ROLAND REPORT 5:37 PM [facility] REPOSITORY [facility] [address] [place] [address] OFFICE VISIT Date of Service: 09/01/17 MR#: [id number] Acct: [id number] Name: LISA SZYMANSKI Rep #: [id number] : 1940 Provider: Girma Pina MD Age/Sex: 77/M Location: [facility] [place] Status: Signed HPI 6 M FU: Details: LISA SZYMANSKI, is a 77 M who presents to the office today for outpatient cardiovascular follow-up of his history of underlying CAD status post CABG, chronic atrial fibrillation, hyperlipidemia, hypertension. He states overall, other than discomfort/difficulty with his right lower extremity, which he states his PCP is evaluating, and needing to wear supplemental oxygen, he is doing well. He does not describe any symptoms of ongoing angina pectoris nor is he had any overt issues of CHF or pulmonary edema. There has been no near syncope or syncope. He does not describe any issues with his underlying atrial dysrhythmia. He does have mild bilateral lower extremity peripheral pitting edema involving the ankles. This is not significantly changed. He has continued on medical therapy. He states that it is rare that he ever has to use his furosemide therapy to assist with any obvious issues. He states his primary care physician has acquired laboratory work which he believes includes a lipid profile. He will ask his primary care physician to forward a copy to this office for continuity of care. Intake Vital Signs09/01/17 Height 5 ft 6 in 09/01/17 Weight: 165 lb 5 oz 09/01/17 Body Mass Index (BMI) 26.6 09/01/17 Blood Pressure 110/50 Intake Visit Reasons: 6 M FU Allergies acetaminophen [From Dristan] Adverse Reaction (Severe, Verified 08/30/17 17:52) Unknown chlorpheniramine [From Dristan] Adverse Reaction (Severe, Verified 08/30/17 17:52) Unknown oxymetazoline [From Dristan] Adverse Reaction (Severe, Verified 08/30/17 17:52) Unknown pheniramine [From Dristan] Adverse Reaction (Severe, Verified 08/30/17 17:52) Unknown phenylephrine [From Dristan] Adverse Reaction (Severe, Verified 08/30/17 17:52) Unknown pseudoephedrine [From Dristan] Adverse Reaction (Severe, Verified 08/30/17 17:52) Unknown lisinopril Adverse Reaction (Verified 07/19/17 17:32) Unknown Medications Albuterol IH (ProAir) [Proair Hfa] 1 - 2 puff INHALATION Q6H PRN PRN 08/24/16 [History Confirmed 09/01/17] Amlodipine [Norvasc] 10 mg PO DAILY 08/24/16 [History Confirmed 09/01/17] Aspirin E.C. [Ecotrin] 325 mg PO DAILY@0800 08/24/16 [History Confirmed 09/01/17] Budesonide/Formoterol 160/4.5 [Symbicort 160/4.5 Mcg Inhaler (SP)] 2 puff INHALATION BID 08/24/16 [History Confirmed 09/01/17] Lovastatin [Mevacor] 40 mg PO DAILY 08/24/16 [History Confirmed 09/01/17] Multivitamins,Ther W-Minerals [Multivitamin With Minerals] 1 tab PO DAILY 08/24/16 [History Confirmed 09/01/17] Tamsulosin HCl [Flomax] 0.4 mg PO DAILY 06/02/17 [History Confirmed 09/01/17] Ipratropium/Albuterol Sulfate [Duoneb] 3 ml INHALATION Q6H PRN PRN #120 ampul.neb 06/07/17 [Rx Confirmed 09/01/17] Metoprolol Tartrate [Lopressor (beta magi)] 100 mg PO BID #60 tab 06/07/17 [Rx Confirmed 09/01/17] furosemide 40 mg tablet 40 mg PO DAILY PRN 09/01/17 [History Confirmed 09/01/17] PFSH Medical History Chronic respiratory failure (Chronic) Benign hypertension (Chronic) Hyperlipidemia (Chronic) CAD (coronary artery disease) (Chronic) Afib (Chronic) Sepsis (Acute) Pneumonia, pneumococcal (Acute) Acute respiratory failure (Acute) COPD with acute exacerbation (Acute) COPD (chronic obstructive pulmonary disease) (Chronic) PVD (peripheral vascular disease) (Chronic) Surgical History 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) History of tonsillectomy (Resolved) Family History Father Heart disease Brother Hypertension Sister CAD (coronary artery disease) Hx of CABG Sister CAD (coronary artery disease) Hx of CABG Social History Smoking Status: Former smoker ROS Const Const: Negative for fatigue, weakness, weight gain, weight loss, frequent falls or excessive sweating Eyes Eyes: Negative for change in vision, blurry vision or transient loss of vision ENT ENT: Negative for dizziness, Negative for balance problems Cardio Chest Pain: No Palpitations: Positive for No Edema: Bilateral (occasional dependent edema) Muscle aches with walking: None Additional Details: Patient reports that he is feeling great Resp Respiratory: Positive for SOB with activity (patient breathing at baseline with continuous oxygen); negative for SOB at rest Additional Details: Patient wears continuous oxygen 3LNC GI GI: Negative vomiting or vomiting blood/hematemesis : Negative for hematuria Musc Musc: Negative for balance problems, muscle aches/ myalgia, muscle weakness or joint pain Skin Skin: Negative non-healing lesions or rash Neuro Neuro: Negative for weakness, Negative for blurry vision, Negative for dizziness, Negative for lightheadedness, Negative for frequent falls, Negative for orthostatic symptoms Dima Hematologic/Lymphatic: Negative for easy bleeding Endo Endo: Negative for fatigue or excessive sweating Psych Psych: Negative for anxiety or depression Allergy Allergy/Immunology: Negative for hives, Negative for rash Cardiology Exam Const Appearance: cooperative, healthy appearing, comfortable, no acute distress, well developed and other (wearing supplemental O2) Nutritional Appearance: average body habitus Orientation: alert, awake and oriented x3 Head Head: normal to inspection, normocephalic and atraumatic Ears: hearing grossly normal bilaterally Nose: external nose normal Face and Sinus: face symmetric Mouth: oral mucosae normal Eyes General: appearance normal, both eyes and all related structures Eyelids: eyelids normal Conjunctivae: conjunctivae normal EOM: EOM intact bilaterally Neck Neck: normal visual inspection Carotids: normal carotid upstroke Chest Chest inspection: normal inspection of the chest and symmetric chest movement Auscultation: Bilateral: Diminished Lung Sounds Cardio Palpation: normal PMI Rate: regular rate Rhythm: irregular rhythm Heart sounds: S1 normal and S2 normal GI GI: normal to inspection, bowel sounds present, soft and no hepatosplenomegaly Neuro General: alert, awake and oriented x3 Skin Skin: no rashes or lesions noted Extremities Pulses: Normal: Right Radial Pulse, Left Radial Pulse Lower Extremity Edema: +1: Bilateral Psych Psychological: normal affect Assessment AND Plan 1. CAD (coronary artery disease) I25.10 Plan At the present time he appears to be without any acute symptoms with respect to his underlying CAD. He will continue risk factor modification and medical management. 2. History of coronary artery bypass graft Z95.1 VERMA to LAD, SVG to RCA, SVG to 2nd marginal branch of CX and ongoing 1st diag branch of LAD Plan He does have a history of CABG as noted above. He is without acute symptoms. Again he will continue risk factor modification and medical therapy. 3. Permanent atrial fibrillation I48.2; I48.2; I48.2; I48.2 Plan He remains in atrial fibrillation. He will continue rate control therapy. He is on antiplatelet therapy. 4. Hyperlipidemia, unspecified hyperlipidemia type E78.5; E78.5; E78.5 Plan Again a copy of his lipid labs will be requested for continuity of care. 5. Benign hypertension I10 Plan His blood pressure appears to be under good control. He will continue medical management. 6. COPD (chronic obstructive pulmonary disease) J44.9 Plan He does have significant underlying pulmonary disease. He wears supplemental oxygen. He will continue to follow with his primary care physician for this. Plan Detail Additional Comments The above was discussed with the patient. He was agreeable to the aforementioned evaluation and care plan. Thank you for allowing me to participate in the care of your patient. Please don't hesitate to call if any issues arise This note was generated using a voice recognition system and there may be incorrect words, spelling or punctuation that were not noted when reviewing the office note prior to saving. Follow Up 6 Months (PA/SWITCH TECHNICIAN) 09/01/17 5791 <Electronically signed by Girma Pina MD> Date Girma Pina MD Cosigner Signature: Date (if applicable) CC: Girma Olson ALLERGIES ALLERGIES DATE TYPE / CODE NAME / CODE REACTION SEVERITY SOURCE 08/30/2018 Drug lisinopril/F Unknown Unknown [facility] [id number](RX Hospital 05590(SNOMED NORM) Repository CT) 08/30/2018 Drug acetaminophe Unknown [facility] n/[id number] [place] 8394702(SNOMED (RXNORM) Repository CT) 08/30/2018 Drug phenylephrin Unknown [facility]/4160 e/[id number] Hospital 23836(SNOMED (RXNORM) Repository CT) 08/30/2018 Drug pseudoephedr Unknown SV [facility]/4160 ine/[id number] Hospital 38464(SNOMED 31(RXNORM) Repository CT) 08/30/2018 Drug chlorphenira Unknown SV [facility]/4160 mine/[id number] Hospital 42810(SNOMED 430(RXNORM) Repository CT) 08/30/2018 Drug oxymetazolin Unknown SV [facility]/4160 e/[id number] Hospital 58823(SNOMED (RXNORM) Repository CT) 08/30/2018 Drug pheniramine/ Unknown SV [facility]/4160 [id number](R Hospital 85385(SNOMED XNORM) Repository CT) ENCOUNTERS ENCOUNTERS ADMIT/DISCHARGE ACCOUNT NUMBER ADMITTING ENCOUNTER LOCATION SOURCE CLASS 08/30/2018/08/30/20 [id number] Ambulatory BMSBuilding: [place] 18 BMS.[facility] Repository 08/11/2018/08/13/20 [id number] [facility], Inpatient [place] [facility] [address] [facility] ding:TL3Tejt Repository : WQ178Uwo: 1 08/11/2018 [id number] [facility], Ambulatory BMSBuilding: [place] [facility] BMS.Replaced by [facility] Repository 08/11/2018 [id number] [facility], Ambulatory BMSBuilding: [place] [facility] BMS.Replaced by [facility] Repository 08/11/2018 [id number] [facility], Ambulatory BMSBuilding: [place] BMS.Replaced by [facility] Repository 08/11/2018 [id number] Ambulatory [facility] ding:RAD.FUT Repository URE 02/28/2018 [id number] Ambulatory [facility] ding:LAB Repository 02/28/2018/02/29/20 [id number] Ambulatory BMSBuilding: [place] 18 BMS.[facility] Repository 02/25/2018 [id number] Ambulatory BMS [facility] Repository 01/27/2018 [id number] Ambulatory [facility] Repository 10/20/2017 [id number] Ambulatory [facility] Repository 10/01/2017 [id number] Ambulatory [facility] Repository 09/01/2017/09/01/20 [id number] Ambulatory BMSBuilding: [place] 17 BMS.[facility] Repository PAYERS PAYERS ENCOUNTER GUARANTOR PAYER SUBSCRIBER SOURCE 08/30/2018 LISA Burnette Primary LISA [id number] [place] R[place]: [facility] [id number] Hospital [address]Jgk: (330) MEDICAREPolicy Repository [phone] () Number: [id number] Date: [address] [address]TV: 08/30/2018 Secondary NOT GIVENUNK [place] Insurance:SELF PAY [facility] Hospital Number: Effective Repository Date:2018-08-30 08/11/2018 LISA Burnette Primary LISA [id number] Insurance:[place]: [facility] [id number] Hospital [address]Pzp: (539) MEDICAREPolicy Repository [phone] () Number: [id number] Date: [address] [address]GU: 08/11/2018 Secondary NOT GIVENUNK [place] Insurance:SELF PAY [facility] Number: Effective Repository Date:2018-08-11 08/11/2018 LISA Burnette Primary LISA [id number] Insurance:[place] R[place]: [facility] [id number] Hospital [address]Vgk: (498) [place] Repository [phone] () Number: [id number] Date: [address] [address]MY: 08/11/2018 Secondary NOT GIVENUNK [place] Insurance:SELF PAY [facility] Number: Effective Repository Date:2018-08-11 08/11/2018 LISA Burnette Primary LISA [id number] Insurance:[place]: [facility] [id number] Hospital [address]Zgu: (330) MEDICAREPolicy Repository [phone] () Number: [id number] Date: [address] [address]BO: 08/11/2018 Secondary NOT GIVENUNK [place] Insurance:SELF PAY [facility] Number: Effective Repository Date:2018-08-11 08/11/2018 LISA Burnette Primary LISA [id number] Insurance:[place]: [facility] [id number] Hospital [address]Pui: (330) MEDICAREPolicy Repository [phone] () Number: [id number] Date: [address] [address]RM: 08/11/2018 Secondary NOT GIVENUNK [place] Insurance:SELF PAY [facility] Number: Effective Repository Date:2018-08-11 08/11/2018 LISA Burnette Primary LISA [id number] Insurance:[place]: [facility] [id number] Hospital [address]Bnx: (330) MEDICAREPolicy Repository [phone] () Number: [id number] Date: [address] [address]CL: 08/11/2018 Secondary NOT GIVENUNK [place] Insurance:SELF PAY [facility] Number: Effective Repository Date:2018-08-11 02/28/2018 LISA Burnette Primary LISA Gupta [id number] Insurance:[place]: [facility] [id number] Hospital [address]Btx: (330) MEDICAREPolicy Repository [phone] () Number: [id number] Date: [address] [address]WX: 02/28/2018 Secondary NOT GIVENUNK [place] Insurance:SELF PAY [facility] Number: Effective Repository Date:2018-02-28 02/28/2018 LISA Burnette Primary LISA Gupta [id number] Insurance:[place]: [facility] [id number] Hospital [address]Krc: (330) MEDICAREPolicy Repository [phone] () Number: [id number] Date: [address] [address]WI: 02/28/2018 Secondary NOT GIVENUNK [place] Insurance:SELF PAY [facility] Hospital Number: Effective Repository Date:2018-02-28 02/25/2018 LISA Burnette Primary LISA Gupta [id number] Insurance:[place]: [facility] [id number] Hospital [address]Mga: (276) MEDICAREPolicy Repository [phone] () Number: [id number] Date: [address] [address]VQ: 02/25/2018 Secondary NOT GIVENUNK [place] Insurance:SELF PAY [facility] Hospital Number: Effective Repository Date:2018-02-25 01/27/2018 Lisa Burnette Primary Insurance:The Lisa Burnette [facility] RhoadsDOB: Health PlanPolicy RhoadsDOB: System [id number] S Number: Effective [id number] Repository [facility], Date: [place] [address]Yjy: (HP) 10/20/2017 Lisa Burnette Primary Insurance:The Lisa Burnette [facility] RhoadsDOB: Health PlanPolicy RhoadsDOB: System S Number: Effective [id number] Repository [facility], Date: [place] [address]Xoy: (HP) 10/01/2017 Lisa Burnette Primary Insurance:The Lisa Burnette [facility] RhoadsDOB: Health PlanPolic RhoadsDOB: System S Number: Effective [id number] Repository [facility], Date: [place] [address]Nwt: (HP) 09/01/2017 LISA Burnette Primary LISA Gupta [id number] [place] [facility] [facility]: [facility] [id number] Hospital [address]Oby: (757) MEDICAREPolicy Repository [phone] () Number: [id number] Date: JAYCE [address] [address]ZR: 09/01/2017 Secondary NOT GIVENUNK [place] Insurance:SELF PAY [facility] Number: Effective Repository Date:2017-08-14
== END 2018-08-13 09:59 | disposition home or self-care (01) | DRG 191 ==
LOC: ED 11:20 → MS2 13:30
PROVIDERS: Admitting Provider Hospitalist; Emergency Provider Emergency Medicine; Family Provider Family Medicine; PCP Family Medicine; Visit Provider Hospitalist
DX: J44.1 Chronic obstructive pulmonary disease with (acute) exacerbation (principal); J96.11 Chronic respiratory failure with hypoxia; Z99.81 Dependence on supplemental oxygen; I48.2 Chronic atrial fibrillation; I25.10 Atherosclerotic heart disease of native coronary artery without angina pectoris; I10 Essential (primary) hypertension; E78.5 Hyperlipidemia, unspecified; N40.0 Benign prostatic hyperplasia without lower urinary tract symptoms; I25.2 Old myocardial infarction; Z95.1 Presence of aortocoronary bypass graft; Z87.891 Personal history of nicotine dependence; Z79.899 Other long term (current) drug therapy
CPT/HCPCS: 36415; 71046; 80048; 80053; 80076; 83605; 84484; 85025; 87040; 87070; 87205; 87633; 93005; 94640; 94667; 94668; 97162; 97165; 99285; J7030; A4216

== ENCOUNTER → 2018-10-25 10:34 | Outpatient (CLI) | payer MEDICARE, SELFPAY ==
[2018-08-30 13:26] VITALS: BMI 25.7
[2018-10-25 11:34] LABS: AST(SGOT) 10 U/L (15-37); Alanine Aminotransfer ALT/SGPT 23 U/L (16-61); Albumin, Serum 3.5 g/dL (3.2-5.0); Alkaline Phosphatase 83 U/L (45-117); Bilirubin, Direct 0.22 mg/dL (0.00-0.30); Cholesterol 141 mg/dL (200); Globulin 3.3 g/dL (2.2-4.2); High Density Lipoprotein 56 mg/dL; Protein, Total 6.8 g/dL (6.4-8.2); Triglycerides 53 mg/dL; Very Low Density Lipoprotein 11 mg/dL (5-40)
== END ==
PROVIDERS: Family Provider Family Medicine; PCP Family Medicine; Referring Provider Nurse Practitioner Family; Visit Provider Nurse Practitioner Family
DX: E78.5 Hyperlipidemia, unspecified (principal)
CPT/HCPCS: 36415; 80061; 80076

== ENCOUNTER 2019-04-09 19:21 | Emergency (ER) | payer MEDICARE, SELFPAY ==
[2019-03-24 13:50] VITALS: BMI 25.2
[2019-04-09 19:23] VITALS: BP 142/72; PULSE 65; RESP 16; TEMP 36.8; O2SAT 93; BMI 25.6
--- NOTE | 2019-04-09 19:26 | RAD_ITS ---
STUDY: X-RAY - UNILATERAL RIBS ( RIGHT ) WITH CHEST REASON FOR EXAM: Male, 78 years old. FELT A POP WHEN LEANING OVER MIDDLE CONSOLE IN CAR, LOWER RT SIDE, SEVERE PAIN TECHNIQUE - RIBS: 3 view(s) of the ribs. TECHNIQUE - CHEST: Single frontal view of the chest. COMPARISON: Chest 08/12/2018 FINDINGS - RIBS: Remote appearing deformity of right rib 2. FINDINGS - CHEST: Median sternotomy wires and CABG clips. Carotid calcifications. Chronic interstitial lung changes without superimposed acute alveolar disease. There is no demonstrated pleural abnormality. Normal size heart. Normal mediastinum and kristan. Normal visualized pulmonary arteries. Normal visualized aortic arch and descending thoracic aorta. Normal visualized thoracic spine. Normal visualized ribs, clavicles, and shoulders. There is no demonstrated abnormality of the visualized soft tissue structures of the upper abdomen. RAD/Ribs Uni Min 3V w/PA Chest IMPRESSION: RIBS: Remote appearing deformity of right rib 2. No acute osseous injury is evident. CHEST: Chronic interstitial lung changes without superimposed acute alveolar disease. Electronically Signed: Ousmane Gutierrez MD at 20:11 EDT Tel , Service support ,
--- NOTE | 2019-04-09 19:27 | ED.VIS.GEN ---
History of Present Illness Chief Complaint: Chest Pain Informant: Patient Onset: Days Context: Gradual Onset Timing: Intermittent Current Severity: Moderate Maximum Severity: Severe Narrative: The patient presents to the emergency department with posterior lateral right rib pain. He states 2 days ago, he was in his car. He states that he had spilled something. He reached over to get it, and felt pain in his right posterior ribs. He states yesterday, it was not seem to bother him that bad. Today, he had rather significant pain when he was trying to get out of his chair. The patient does have a history of COPD and is on 3 L of oxygen chronically. He denies any increasing cough or shortness of breath. The pain does not radiate. He denies any chest pain. He states is all in the ribs. He denies other injury. He has not taken anything for the pain. Prior similar symptoms: No Recent Illness/Hospitalization: No Past Medical History - Allergies and Home Meds Allergies/Adverse Reactions: Allergies acetaminophen [From Dristan] Adverse Reaction (Severe, Verified 04/09/19 19:37) Unknown chlorpheniramine [From Dristan] Adverse Reaction (Severe, Verified 04/09/19 19:37) Unknown oxymetazoline [From Dristan] Adverse Reaction (Severe, Verified 04/09/19 19:37) Unknown pheniramine [From Dristan] Adverse Reaction (Severe, Verified 04/09/19 19:37) Unknown phenylephrine [From Dristan] Adverse Reaction (Severe, Verified 04/09/19 19:37) Unknown pseudoephedrine [From Dristan] Adverse Reaction (Severe, Verified 04/09/19 19:37) Unknown lisinopril Adverse Reaction (Verified 04/09/19 19:37) Unknown Primary Care Physician: Girma Ayala [Primary Care Provider] - Prior records reviewed: Yes Surgical History: coronary bypass surgery, - - ventral hernia surgery. Smoking Status: Former smoker Alcohol: None - Family History Sibling Family History: Family History (Last Reviewed 03/24/19 @ 13:54 by Shirley Bui) Father Heart disease Brother Hypertension Sister CAD (coronary artery disease) Hx of CABG Sister CAD (coronary artery disease) Hx of CABG Family History: Reports: Heart Disease Review of Systems General: Denies: Chills, Fever, Sweats Eyes: Denies: Visual changes - bilaterally, Diplopia ENT: Denies: Rhinorrhea, Sore throat Cardiovascular: Reports: Chest pain Respiratory: Denies: Dyspnea, Cough, Dyspnea on exertion Gastrointestinal: Denies: Abdominal pain, Nausea, Vomiting, Diarrhea, Melena, Hematochezia Genitourinary: Denies: Dysuria, Hematuria, Frequency Musculoskeletal: Denies: Back pain, Extremity Pain Skin: Denies: Rash, Wounds Neurological: Denies: Headache, Weakness, Numbness Physical Exam Inital Vital Signs reviewed: Yes General: Well nourished, Well developed, No Acute Distress Head: Normocephalic, Atraumatic Eyes: Perrl, EOMI ENT: Moist mucous membranes, No rhinorrhea Neck: Supple, Nontender Cardiovascular: Regular rate, Regular rhythm, No murmurs Respiratory: No distress, Decreased Air Movement, Chest tenderness Abdomen: Soft, Nontender, Nondistended, Normal bowel sounds Back: Nontender, Normal Inspection Extremities: Nontender, No edema Skin: Normal color, No rash Neurological: Alert, Oriented x3, Cranial nerves II-XII grossly intact, Normal Strength, Normal Sensation Psychological: Normal affect, Normal Mood Diagnostic/Tx/Re-eval Chest X-Ray - ED: 2 View, Read by ED Physician, Chronic Changes, Right Rib Fx - Medical Decision Making Patient presents with right posterior rib pain for the past 2 days. He does have a palpable area that causes pain. There is some crepitus at the area. His lungs are diminished, but I do suspect that this is chronic. The patient declined analgesics initially. His x-ray shows a remote second rib fracture. There is no pneumothorax. On my review, it does appear as if he has a a 10th posterior rib fracture and this corresponds to his area of pain. The patient was agreeable with analgesics. At this point, as his pain is controlled and he has no increasing hypoxia I do feel that he is safe for outpatient therapy. He is comfortable with this plan of care. Impression 1. Closed posterior rib fracture of the 10th right rib ED Disposition - Plan for ED Patient: Instructions: FRACTURE, Rib Prescriptions: Oxycodone HCl/Acetaminophen [Percocet 5/325] 1 tab PO Q6H PRN PRN 3 Days #12 tab PRN Reason: Pain Prescription Printed Referrals: Girma Ayala [Primary Care Provider] -
[2019-04-09] MEDS: Acetaminophen 500 MG Tablet 1000 MG PO (19:33)
[2019-04-09] MEDS: Lidocaine 4% 50 ML Bottle TOPICAL (20:10)
[2019-04-09] MEDS: oxyCODONE 5 MG Tablet PO (20:26)
[2019-04-09 20:56] VITALS: BP 136/72; PULSE 61; RESP 19; O2SAT 93; O2SAT 94
== END 2019-04-09 21:00 | disposition home or self-care (01) ==
LOC: ED 19:55
PROVIDERS: Emergency Provider Emergency Medicine; Family Provider Family Medicine; PCP Family Medicine
DX: S22.31XA Fracture of one rib, right side, initial encounter for closed fracture (principal); X58.XXXA Exposure to other specified factors, initial encounter; Y93.9 Activity, unspecified; Y92.9 Unspecified place or not applicable; Y99.9 Unspecified external cause status; J44.9 Chronic obstructive pulmonary disease, unspecified; Z79.82 Long term (current) use of aspirin; Z79.899 Other long term (current) drug therapy; Z99.81 Dependence on supplemental oxygen; Z87.891 Personal history of nicotine dependence; Z95.1 Presence of aortocoronary bypass graft; Z95.5 Presence of coronary angioplasty implant and graft
CPT/HCPCS: 71101; 99285; A4216

== ENCOUNTER → 2019-05-03 08:20 | Outpatient (CLI) | payer MEDICARE, SELFPAY ==
[2019-04-09 19:23] VITALS: BMI 25.6
[2019-05-03 10:25] LABS: Absolute Lymphocyte Count 2.21 X10^3/uL (0.83-4.51); Absolute Neutrophil Count 8.3 X10^3/uL (2.0-7.7); Basophil# 0.07 X10^3/uL; Basophil% 0.6 % (0-1); Eosinophil# 0.23 X10^3/uL; Eosinophils% 1.9 % (0-5); Hemoglobin 13.8 g/dL (13.0-16.5); Lymphocyte # 2.21 X10^3/ul (4.0); Lymphocyte % 18.4 % (19-41); Mean Corpuscular Hgb 29.3 pg (27.0-32.0); Mean Corpuscular Volume 97.7 fL (80-94); Mean Platelet Vol. 11.9 fl (6.2-12.0); Monocyte% 9.2 % (0-10); NRBC Flagged by Analyzer 0 % (0-5); Neutrophil # 8.33 X10^3/uL (2.7-7.7); Neutrophil % 69.5 % (47-70); Platelet Count 215 K/mm3 (150-450); RBC Distribution Width CV 14.4 % (11.6-14.6); RBC Distribution Width SD 52.2 fl (35.1-43.9); Red Blood Count 4.71 M/mm3 (4.6-6.2)
[2019-05-03 10:58] LABS: ALB/GLOB Ratio 0.8 RATIO (0.9-2.4); AST(SGOT) 14 U/L (15-37); Alanine Aminotransfer ALT/SGPT 20 U/L (16-61); Albumin, Serum 3.1 g/dL (3.2-5.0); Alkaline Phosphatase 79 U/L (45-117); Anion Gap 7 (5-15); BUN 21 mg/dL (7-18); BUN/Creat Ratio 32.4 RATIO (10-20); Bilirubin, Direct 0.17 mg/dL (0.00-0.30); Calcium,Total 8.6 mg/dL (8.5-10.1); Chloride 109 mmol/L (98-107); Cholesterol 138 mg/dL (200); Creatinine, Serum 0.65 mg/dL (0.70-1.30); EST Glomerular Filtration Rate 126 mL/min (>60); Est Glom Filt Rate - Afr Amer 153 mL/min (>60); Globulin 3.7 g/dL (2.2-4.2); Glucose 96 mg/dL (74-106); High Density Lipoprotein 48 mg/dL; Protein, Total 6.8 g/dL (6.4-8.2); Sodium Level 146 mmol/L (136-145); Triglycerides 67 mg/dL; Very Low Density Lipoprotein 13 mg/dL (5-40)
== END ==
PROVIDERS: Family Provider Family Medicine; PCP Family Medicine; Referring Provider Nurse Practitioner Family; Visit Provider Nurse Practitioner Family
DX: R60.0 Localized edema (principal); E78.5 Hyperlipidemia, unspecified; T14.8XXA Other injury of unspecified body region, initial encounter; X58.XXXA Exposure to other specified factors, initial encounter; Y93.9 Activity, unspecified; Y92.9 Unspecified place or not applicable; Y99.9 Unspecified external cause status
CPT/HCPCS: 36415; 80053; 80061; 82248; 85025

== ENCOUNTER 2020-07-25 10:16 | Day surgery (SDC) | payer MEDICARE, SELFPAY ==
[2020-07-15 14:23] VITALS: BMI 24.2
--- NOTE | 2020-07-22 09:59 | EKG12_ITS ---
Test Reason : PREOP Blood Pressure : / mmHG Vent. Rate : 070 BPM Atrial Rate : 069 BPM P-R Int : 000 ms QRS Dur : 102 ms QT Int : 402 ms P-R-T Axes : 000 129 -68 degrees QTc Int : 434 ms Atrial fibrillation Right ventricular hypertrophy ST & T wave abnormality, consider lateral ischemia Abnormal ECG Confirmed by JERAMY DOMINGO, SANDRA ([id number]), editor city KEENAN HERNÁNDEZ ([id number]) on 07/23/2020 10:56:10 AM Referred By: Tyron Douglas Confirmed By:SANDRA DESHPANDE MD
[2020-07-22 11:19] LABS: Hematocrit 45.4 % (40-54); Hemoglobin 13.8 g/dL (13.0-16.5); Mean Corp Hgb Conc 30.4 g/dL (32-36); Mean Corpuscular Hgb 30.1 pg (27.0-32.0); Mean Corpuscular Volume 98.9 fL (80-94); Mean Platelet Vol. 12.1 fl (6.2-12.0); Platelet Count 194 K/mm3 (150-450); RBC Distribution Width CV 13.1 % (11.6-14.6); RBC Distribution Width SD 47.1 fl (35.1-43.9); Red Blood Count 4.59 M/mm3 (4.6-6.2); White Blood Count 8.1 K/mm3 (4.4-11.0)
[2020-07-22 11:28] LABS: Prothrombin Time (Protime)PT. 12.9 SECONDS (11.7-14.9)
[2020-07-22 11:29] LABS: Partial Thromboplast Time 22.6 Seconds (24.1-36.2)
[2020-07-22 11:50] LABS: AST(SGOT) 12 U/L (15-37); Alanine Aminotransfer ALT/SGPT 17 U/L (16-61); Albumin, Serum 3.3 g/dL (3.2-5.0); Alkaline Phosphatase 78 U/L (45-117); Anion Gap 2 (5-15); BUN 20 mg/dL (7-18); BUN/Creat Ratio 33.8 RATIO (10-20); Bilirubin, Direct 0.18 mg/dL (0.00-0.30); Calcium,Total 8.9 mg/dL (8.5-10.1); Chloride 108 mmol/L (98-107); Creatinine, Serum 0.59 mg/dL (0.70-1.30); EST Glomerular Filtration Rate 140 mL/min (>60); Est Glom Filt Rate - Afr Amer 169 mL/min (>60); Globulin 3.2 g/dL (2.2-4.2); Glucose 95 mg/dL (74-106); Potassium 4.1 mmol/L (3.5-5.1); Protein, Total 6.5 g/dL (6.4-8.2); Sodium Level 144 mmol/L (136-145)
--- NOTE | 2020-07-25 08:29 | HP_ITS ---
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 Is patient in pain?: No Allergies acetaminophen [From Dristan] Adverse Reaction (Severe, Verified 07/15/20 14:26) Unknown chlorpheniramine [From Dristan] Adverse Reaction (Severe, Verified 07/15/20 14:26) Unknown oxymetazoline [From Dristan] Adverse Reaction (Severe, Verified 07/15/20 14:26) Unknown pheniramine [From Dristan] Adverse Reaction (Severe, Verified 07/15/20 14:26) Unknown phenylephrine [From Dristan] Adverse Reaction (Severe, Verified 07/15/20 14:26) Unknown pseudoephedrine [From Dristan] Adverse Reaction (Severe, Verified 07/15/20 14:26) Unknown lisinopril Adverse Reaction (Verified 07/15/20 14:26) Unknown Medications Albuterol IH (ProAir) [Proair Hfa] 1 - 2 puff INHALATION Q6H PRN PRN 08/24/16 [History Confirmed 07/15/20] Budesonide/Formoterol 160/4.5 [Symbicort 160/4.5 Mcg Inhaler (SP)] 2 puff INHALATION BID 08/24/16 [History Confirmed 07/15/20] Tamsulosin HCl [Flomax] 0.4 mg PO DAILY 06/02/17 [History Confirmed 07/15/20] amlodipine 10 mg tablet 10 mg PO DAILY #90 tab 04/18/18 [Rx Confirmed 07/15/20] Aspirin [Aspir-Low] 81 mg PO BID 08/11/18 [History Confirmed 07/15/20] Lovastatin [Mevacor] 40 mg PO QHS 08/11/18 [History Confirmed 07/15/20] Metoprolol Tartrate [Lopressor (beta magi)] 100 mg PO BID 08/11/18 [History Confirmed 07/15/20] furosemide 20 mg tablet 20 mg PO DAILY #90 tab 03/27/19 [Rx Confirmed 07/15/20] [facility] Medical History PVD (peripheral vascular disease) (Chronic) Dyspnea (Acute) Shortness of breath (Acute) Atherosclerotic heart disease of [place] coronary artery without angina pectoris (Chronic) Mixed hyperlipidemia (Chronic) Chronic atrial fibrillation (Chronic) Old myocardial infarction (Chronic) Nicotine abuse (Chronic) Encounter for long-term current use of high risk medication (Chronic) Chronic respiratory failure (Chronic) Benign hypertension (Chronic) COPD (chronic obstructive pulmonary disease) (Chronic) Surgical History Hx of ventral hernia repair (Acute) History of tonsillectomy (Resolved) Hx of CABG (Chronic ~06/2009) Family History Father Heart disease Brother Hypertension Sister CAD (coronary artery disease) Hx of CABG Sister CAD (coronary artery disease) Hx of CABG Social History (Updated 07/15/20 @ 15:[address] Tyron Douglas MD) Smoking Status: Former smoker how long ago did patient quit smokin.5 years alcohol intake: never caffeine: Yes Type: coffee Number of servings: 2 HPI HPI HPI: LISA SZYMANSKI, is a 80 M who presents to the office today for HPI HPI Surgical H&P: Yes HPI: LISA SZYMANSKI, is a 80 M who presents to the office today for Right inguinal bulging and pain. Patient reports for the last 4 months he has had bulging the right groin. He has had nausea and vomiting recently and had to push his hernia back in. Patient does not note any radiation or other abdominal pain. Patient does have shortness of breath and is on oxygen at home. ROS General General: No weight change, appetite, fatigue, colon cancer, breast cancer or weakness Neuro Neurologic: No weakness Exam Const General: cooperative Orientation: alert, oriented x3 HENMT Head: normal to inspection Ears: hearing grossly normal bilaterally Eyes General: appearance normal, both eyes and all related structures Visual Fuentes: normal visual fuentes by confrontation Neck Neck: normal visual inspection Chest Chest palpation & inspection: normal inspection of the chest Resp Effort & Inspection: normal respiratory effort, able to speak in complete sentences Auscultation: clear to auscultation bilaterally Cardio Rate: regular rate Rhythm: regular rhythm GI Inspection: non-distended Palpation: soft, hernia indirect inguinal on the right, nontender Musc Cervical Spine: normal cervical lordosis, cervical ROM normal Skin General: no rashes or lesions noted Neuro General: alert, oriented x3 Cranial Nerves: CN's II-XI intact bilaterally Cognition: normal cognition Extrem General: normal to inspection, full ROM Psych Appearance: grossly normal Affect: normal affect Assessment & Plan Problems 1. Right inguinal hernia K40.90 Plan The patient has a reducible right inguinal hernia. The patient reports that he has chronic lung and heart problems and is very concerned for surgery. I recommend the patient have an open inguinal hernia repair with mesh under MAC anesthesia. I discussed the risks of surgery including melena to bleeding, infection, chronic groin pain, spermatic cord injury. The patient understands the risks and is well to proceed. I also explained that there was a possibility of having coverage of general anesthesia. We discussed the current risks associated with COVID-19. While it is understood that there is a community spread of COVID-19, the risk of miguel COVID-19 while at [facility] ([facility]) is very low; however, the risk cannot be completely mitigated because of the community spread of the disease. We discussed in detail the risk of exposure to and/or potential harm posed by the COVID-19 virus with having a surgery/procedure at this time versus the risk of delaying the surgery/procedure. It is not possible to know either the risk of delaying the surgery or procedure or chance of getting an infection with perfect accuracy, but a joint decision was made to proceed at this time with the scheduled surgery/procedure as indicated on the consent form. Patient was notified that we will need to comply with any screening or testing [facility] wishes to perform or that surgery may be delayed for any positive results. Tyron Douglas MD Pager: [facility] [address] [place] [address], [address] [place] [phone] Office: Coding Level of Care Code Off vis,est,level 4 Diagnoses Right inguinal hernia K40.90 Time Spent (min) 45 I have re-examined the patient. There are no clinical changes since date of exam.
[2020-07-25 11:07] VITALS: BP 132/77; PULSE 65; RESP 18; TEMP 36.4; O2SAT 100; BMI 23.1
[2020-07-25] MEDS: Lactated Ringers 1,000 ML 100 ML IV ×2 (11:21→13:01)
[2020-07-25] MEDS: Cefazolin 2 GM in 0.9% Normal Saline 100 ML IV (11:42)
--- NOTE | 2020-07-25 12:00 | HERN_PTH ---
PATIENT: LISA SZYMANSKI [place] [facility] [place][id number] AGE/SX: 80/M ROOM: RE07/25/[address]: Dr. Tyron Douglas MD : 1940 BED: DIS: 07/25/2020 SPEC #: [id number] RECD: 07/25/20 15:03 STATUS: JASON ZAY #: [id number] CASTRO: 07/25/20 12:[address]: Tyron Douglas DEPT: SURGICAL PATHOLOGY RECD BY: Velma Hopper ENTERED: 07/26/20 07:36 SP TYPE: Hernia OTHR DR: Dr. Girma Ayala, Tissues: HERNIA Procedures: Surgery Specimen Level II HEADER OPERATION: Inguinal hernia with mesh PRE-OP DIAGNOSIS: Right inguinal hernia TISSUE SUBMITTED: Hernia sac MICROSCOPIC DIAGNOSIS Hernia sac: A piece of mesothelial-lined fibroadipose and fibroconnective tissue, consistent with hernia sac with focal chronic inflammation and reactive changes. SJ:naima 07/29/20 MICROSCOPIC DESCRIPTION Slides are reviewed. GROSS DESCRIPTION Received in fixative is one container labeled with the patient's name and designated hernia sac. The specimen consists of an irregular piece of soft tissue measuring 6 x 2.5 x 0.5 cm. No mass lesion is identified. Dog Walker sections are submitted in one cassette. / SAURABH:naima 07/26/20 TC:5 CPT: 96810
[2020-07-25] MEDS: Bupiv/Epi 0.25% 30 ML Vial (12:32)
[2020-07-25 12:48] VITALS: BP 127/72; BP 132/77; PULSE 51; RESP 16; TEMP 36.6; O2SAT 99
--- NOTE | 2020-07-25 12:49 | PCM.OPRPT ---
Problem List (1) Right inguinal hernia Status: Acute Report of Operation Date of Procedure: 07/25/20 Pre-Operative Diagnosis: Right inguinal hernia Post-Operative Diagnosis: Same Surgery/Procedure Performed:: Right inguinal hernia repair with mesh Specimen's removed: Hernia sac Description of Procedure: Patient was brought back to the operating room and general anesthesia was induced. The right groin was prepped and draped in usual sterile fashion. An incision was marked and then anesthetized with local anesthetic. An incision was made and then deepened to the external aponeurosis with electrocautery. The external aponeurosis was nicked with a scalpel and hemostats were used to open to the external ring. Retractors were used to retract the external aponeurosis and spare the nerve. The cord structures were elevated using a Sherry drain. The cord was inspected and there was an indirect hernia sac which was divided from the rest of the cord structures and then open. The sac was suture ligated under direct visualization and then the distal sac was excised and sent for pathology. Next a keyhole Bard mesh was sutured to the pubic tubercle using 2-0 PDS suture. It was then sutured to the shelving portion of the inguinal ligament using interrupted 2-0 PDS sutures. It was then tacked to the conjoined tendon using interrupted 2-0 PDS sutures. The tails were wrapped around the spermatic cord and sutured together leaving enough room for the pinky to slide next to the spermatic cord. Next the area was irrigated and suctioned dry and the nerve was placed back over the inguinal canal and the external aponeurosis closed in a continuous fashion using a 3-0 Vicryl suture. Next the Vijaya's fascia was closed using interrupted 3-0 Vicryl suture and the skin was closed using 4-0 Monocryl suture as well as glue. The testicles were checked the end of the case and will present in the scrotum. Patient was awoken and taken to PACU in stable condition. Grafts/Implants Used: Bard keyhole mesh - Admit VTE Documentation VTE Mechan Device Prophylaxis: SCD's
--- NOTE | 2020-07-25 12:53 | PCM.DC.HER ---
Discharge Diet: Light diet - advance as tolerated Discharge Activity: Return to Normal Activity, May Not Drive - for 2-3 days or while taking narcotic pain meds., May Shower - Tomorrow Lifting Restrictions: 20 pounds for 6 weeks. Additional Activity Instructions:: Climbing stairs is fine, walking is encouraged. Sitting in bed may be uncomfortable. Sitting up using your lateral muscles (sitting up sideways) is usually more comfortable. Do not drive, work heavy equipment of sign legal documents for 24 hours. If your hernia repair was an ingunial repair, you may have scrotal swelling, an ice pack and/or athletic support can provide more comfort. Pain medications may cause nausea, you should typically eat light foods as you take your pain medications. Pain medications may also cause constipation. If you have difficulty with this, discuss with your doctor. Call your doctor if your incision/area has: Continuous Slow Oozing, Sudden Increased Bleeding, Increased Pain/ Swelling, Increased Redness, Foul Smelling Discharge Call your doctor if you observe: Fever of 101 or Higher Suture Line Care: Avoid Pulling/Pushing, Avoid Pinching/Bending Cleanse incision/area with: Keep Dressing Clean & Dry Allergies/Adverse Reactions: Allergies acetaminophen [From Bhavya] Adverse Reaction (Severe, Verified 07/19/20 08:12) Unknown chlorpheniramine [From Bhavya] Adverse Reaction (Severe, Verified 07/19/20 08:12) Unknown oxymetazoline [From Bhavya] Adverse Reaction (Severe, Verified 07/19/20 08:12) Unknown pheniramine [From Bhavya] Adverse Reaction (Severe, Verified 07/19/20 08:12) Unknown phenylephrine [From Drburton] Adverse Reaction (Severe, Verified 07/19/20 08:12) Unknown pseudoephedrine [From Bhavya] Adverse Reaction (Severe, Verified 07/19/20 08:12) Unknown lisinopril Adverse Reaction (Verified 07/19/20 08:12) Unknown Medications to take at Discharge Budesonide/Formoterol 160/4.5 [Symbicort 160/4.5 Mcg Inhaler (SP)] 2 puff INHALATION BID 08/24/16 Tamsulosin HCl [Flomax] 0.4 mg PO QHS 06/02/17 Aspirin [Aspir-Low] 81 mg PO BID 08/11/18 Lovastatin [Mevacor] 40 mg PO DAILY 08/11/18 Metoprolol Tartrate [Lopressor (beta magi)] 100 mg PO BID 08/11/18 furosemide 20 mg tablet 20 mg PO DAILY #90 tab 03/27/19 Amlodipine [Norvasc] 10 mg PO QHS 07/19/20 Oxycodone [Oxyir] 5 mg PO Q6H PRN PRN 5 Days #20 tablet 07/25/20 The following prescriptions were given: Oxycodone [Oxyir] 5 mg PO Q6H PRN PRN 5 Days #20 tablet PRN Reason: Pain Score 6-10 Transmission Status: Sent to [facility] Orders to be completed after discharge: 12 Lead EKG [[facility]] Time Frame: 07/22/20, Facility: [facility], Location: Cardiovascular Services Test Results: Test results from this visit will be discussed in further detail at your follow-up appointment, if applicable. Please Follow Up With: Tyron Douglas MD When: Please call to schedule 2 week follow up appointment. [phone]
[2020-07-25 13:00] VITALS: BP 132/56; BP 132/77; PULSE 64; RESP 16; O2SAT 94
[2020-07-25 13:14] VITALS: BP 132/77; BP 167/68; PULSE 68; RESP 16; TEMP 36.2; O2SAT 100
[2020-07-25 15:06] VITALS: BP 132/77; BP 154/67; PULSE 68; RESP 16; TEMP 36.4; O2SAT 98
== END 2020-07-25 15:10 | disposition home or self-care (01) ==
LOC: SDC 10:17 → AC 10:18
PROVIDERS: Anesthesiology; PCP Family Medicine; Referring Provider Surgery; Visit Provider Surgery
PROC: (CPT 49505; principal; 2020-07-25 11:45)
DX: K40.90 Unilateral inguinal hernia, without obstruction or gangrene, not specified as recurrent (principal); Z20.828 Contact with and (suspected) exposure to other viral communicable diseases; I48.20 Chronic atrial fibrillation, unspecified; I25.10 Atherosclerotic heart disease of native coronary artery without angina pectoris; J96.10 Chronic respiratory failure, unspecified whether with hypoxia or hypercapnia; J44.9 Chronic obstructive pulmonary disease, unspecified; I10 Essential (primary) hypertension; I73.9 Peripheral vascular disease, unspecified; E78.2 Mixed hyperlipidemia; Z79.82 Long term (current) use of aspirin; Z79.51 Long term (current) use of inhaled steroids; Z99.81 Dependence on supplemental oxygen; Z79.899 Other long term (current) drug therapy; I25.2 Old myocardial infarction; Z87.891 Personal history of nicotine dependence
CPT/HCPCS: 00830; 49505; 36415; 80048; 80076; 85027; 85610; 85730; 87426; 88302; 93005; C9803; J7120; C1781

== ENCOUNTER 2020-12-31 16:43 | Inpatient (IN) | payer MEDICARE, SELFPAY ==
[2020-10-04 15:23] VITALS: BMI 23.1
[2020-12-31] VITALS (16 sets, daily range): BP systolic 112–162; BP diastolic 65–101; PULSE 82–105; RESP 16–24; TEMP 36.5–37; O2SAT 80–100; BMI 24.3; BMI 22.7
--- NOTE | 2020-12-31 17:03 | EKG12_ITS ---
Test Reason : Blood Pressure : / mmHG Vent. Rate : 084 BPM Atrial Rate : 083 BPM P-R Int : 000 ms QRS Dur : 098 ms QT Int : 374 ms P-R-T Axes : 000 139 -82 degrees QTc Int : [address] & T wave abnormality, consider inferior ischemia Abnormal ECG Confirmed by KENNETH DOMINGO, CAREN ([id number]), index editor KEENAN HERNÁNDEZ ([id number]) on 01/03/2021 8:06:58 AM Referred By: MICHELLE Confirmed By:NEO COOPER MD
--- NOTE | 2020-12-31 17:05 | ED.VISSUMM ---
- ER Visit Summary Date of Service: 12/31/20 Chief Complaint: Shortness of breath History of Present Illness: The patient is a 80 M with COPD on 3 L oxygen at home also known CAD, [place], hypertension, prior A. fib currently just on aspirin no other blood thinners. History of a quadruple bypass. No recent travel, surgery or immobilization. No recent hospitalization. No history of DVT or PE. No leg or calf pain or swelling. No hemoptysis. Saw his primary care physician the day thinks he may have pneumonia same in emergency department for evaluation. Patient says been short of breath for approximately a week. He denies any chest pain fever nor chills. Physical Examination: Older male vital signs stable on oxygen his pulse ox is 94% on 4 L. Reportedly was 60% in the field hypoxic. HEENT exam unremarked. Neck nontender no JVD. Lungs clear to auscultation bilaterally. Heart regular rhythm rate about 90. Abdomen soft nontender normal bowel sounds no peritoneal signs. Chest wall nontender. No crepitus. Patient moving all 4 extremities. Calves are nontender without edema or cords. Neurologically is awake alert with no focal motor deficits. Test Results: Portable 1 view interpreted by myself shows no acute abnormality. Some interstitial prominence. No obvious pneumonia. Also read by the radiologist. EKG A. fib rate 84. No acute ischemia. CBC normal white count of 5 hemoglobin 13. Chemistries unremarkable normal gap and creatinine. PT/INR 13 and 1.1. Troponin normal. D-dimer is elevated 1.29. Due to that we will obtain a CTA of the chest. Covid is positive. Repeat exam at 8 PM showed no change. Discussed with patient his Covid status. With minimal exertion even on oxygen he became hypoxic in the 80s so he will be admitted. Emergency Department Course and Treatment: Patient with acute on chronic dyspnea and history of COPD. Consider COPD flare versus pneumonia versus Covid versus other etiologies such as PE or CHF which I think are less likely. Treated with IV Decadron. Treatment Plan: CTA pending results. Spoke to the hospitalist patient will be admitted to the Covid unit. Disposition: Admission Impression: Acute dyspnea with hypoxia Acute COVID-19 pneumonitis History of COPD History of prior A. fib History of quadruple bypass This note was generated with [employer] dictation software. It may contain incorrect words, spelling, and punctuation that were not noted in review of the chart prior to signing ED Disposition - Plan for ED Patient: Referrals: Girma Ayala DO [Primary Care Provider] -
[2020-12-31] MEDS: Ipratropium/Albuterol Sulfate 3 ML AMPUL.NEB INHALATION (17:25)
[2020-12-31 17:38] LABS: International Normalized Ratio 1.1; Prothrombin Time (Protime)PT. 13.3 SECONDS (11.7-14.9)
[2020-12-31 17:44] LABS: Anion Gap 4 (5-15); BUN 25 mg/dL (7-18); BUN/Creat Ratio 37.9 RATIO (10-20); Calcium,Total 8.7 mg/dL (8.5-10.1); Chloride 103 mmol/L (98-107); Creatinine, Serum 0.66 mg/dL (0.70-1.30); EST Glomerular Filtration Rate 124 mL/min (>60); Est Glom Filt Rate - Afr Amer 149 mL/min (>60); Estimated Creatinine Clearance 53.17 ml/min; Glucose 117 mg/dL (74-106); Potassium 3.6 mmol/L (3.5-5.1); Sodium Level 141 mmol/L (136-145)
--- NOTE | 2020-12-31 17:50 | RAD_ITS ---
STUDY: X-RAY CHEST REASON FOR EXAM: Male, 80 years old. Chest pain TECHNIQUE: Frontal view COMPARISON: 04/09/2019 FINDINGS: Stable sternotomy wires. The lungs are expanded. Mild interstitial prominence of the lung bases. Normal size heart. Normal mediastinum and kristan. Normal visualized pulmonary arteries. Normal visualized aortic arch and descending thoracic aorta. Degenerative changes of the thoracic spine. Normal visualized ribs, clavicles, and shoulders. There is no demonstrated abnormality of the visualized soft tissue structures of the upper abdomen. RAD/Chest 1 View (Portable) IMPRESSION: Interstitial prominence, more significant in the lung bases. Electronically Signed: Sage Khalil DO at 18:18 EDT Tel [phone], Service support ,
[2020-12-31 17:54] LABS: Absolute Lymphocyte Count 0.73 X10^3/uL (0.83-4.51); Absolute Neutrophil Count 4.3 X10^3/uL (2.0-7.7); Basophil# 0.01 X10^3/uL; Basophil% 0.2 % (0-1); Eosinophil# 0.01 X10^3/uL; Eosinophils% 0.2 % (0-5); Hematocrit 45.8 % (40-54); Hemoglobin 13.7 g/dL (13.0-16.5); Lymphocyte # 0.73 X10^3/ul (0.83-4.51); Lymphocyte % 12.5 % (19-41); Mean Corp Hgb Conc 29.9 g/dL (32-36); Mean Corpuscular Hgb 28.8 pg (27.0-32.0); Mean Corpuscular Volume 96.4 fL (80-94); Mean Platelet Vol. 12.1 fl (6.2-12.0); Monocyte# 0.77 X10^3/uL; Monocyte% 13.1 % (0-10); NRBC Flagged by Analyzer 0 % (0-5); Neutrophil # 4.31 X10^3/uL (2.7-7.7); Neutrophil % 73.5 % (47-70); Platelet Count 158 K/mm3 (150-450); RBC Distribution Width CV 13.1 % (11.6-14.6); RBC Distribution Width SD 46.6 fl (35.1-43.9); Red Blood Count 4.75 M/mm3 (4.6-6.2); White Blood Count 5.9 K/mm3 (4.4-11.0)
[2020-12-31 19:48] LABS: D-Dimer Quantitative (DVT/PE) 1.29 FEU/ug/m (0.27-0.49)
--- NOTE | 2020-12-31 20:20 | CT_ITS ---
STUDY: CTA CHEST REASON FOR EXAM: Male, 80 years old. covid and (+) d-dimer RADIATION DOSAGE (If Supplied By Facility): CTDIvol = ( 8.30 ) mGy, DLP = ( 347.33 ) mGycm TECHNIQUE: The examination was performed with the intravenous administration of IV 100mL Isovue-370. Post-processing of the angiographic images was performed, with multiplanar reformation and 3D reconstruction. Individualized dose optimization techniques were used for this CT. COMPARISON: None. FINDINGS: Normal enhancement of the main pulmonary artery and right and left pulmonary arteries. Normal enhancement of the bilateral peripheral pulmonary arteries. There is no demonstrated pulmonary embolism. Normal thoracic aorta and visualized great vessels. There is no demonstrated aortic dissection. Normal heart and pericardium. Normal mediastinum. Normal hilar regions. Normal visualized trachea and bronchi. The lungs are hyperaerated with emphysematous changes. Bilateral pleural effusions, right more than left. Normal chest wall structures. Degenerative vertebral changes. Normal visualized upper abdomen. CT/CTA Chest W/WO Contrast IMPRESSION: No demonstrated pulmonary embolism or arterial dissection. Bilateral pleural effusions, right more than left. 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 Electronically Signed: Sage Khalil DO at 21:37 EDT Tel [phone], Service support ,
--- NOTE | 2020-12-31 20:29 | ED.RN ---
SPOKE WITH PATIENTS DAUGHTER AT THIS TIME AND UPDATED ON PATIENT CONDITION AND STATUS
[2020-12-31] MEDS: dexAMETHasone 10 MG/ML Vial IV (20:50)
--- NOTE | 2020-12-31 21:45 | HP.PCM_ITS ---
Problem List (1) Acute on chronic respiratory failure with hypoxia Status: Acute (2) COVID-19 Status: Acute (3) Atherosclerotic heart disease of [place] coronary artery without angina pectoris Status: Chronic Qualifiers: [place] vs. transplanted heart: [place] heart Qualified Code(s): I25.10 - Atherosclerotic heart disease of [place] coronary artery without angina pectoris (4) Mixed hyperlipidemia Status: Chronic (5) Benign hypertension Status: Chronic (6) Hx of CABG Status: Chronic Comment: VERMA to LAD, SVG to RCA, SVG to 2nd marginal branch of CX and ongoing 1st diag branch of LAD (7) COPD (chronic obstructive pulmonary disease) Status: Chronic Qualifiers: Chronic bronchitis type: unspecified History of Present Illness Date of Admission: 12/31/20 Chief Complaint: Cough, dyspnea, altered taste x 1 week. The patient is a 80 y/o M w/ PMHx: Chronic COPD w/ Chronic Hypoxic Respiratory Failure (3L NC), PAF, HTN, HLD, CAD s/p CABG x 4, Hx Tobacco use, BPH who presents to the [facility] ED on 12/31/20 with history of onset fatigue, malaise, altered sense of taste, intractable ongoing cough (dry, non-productive) with worsening dyspnea, more pronounced over the last 48 hours without specific fever, chills, nausea, emesis, abdominal pain, chest pain, headache but not improving prompting ED evaluation. He notes having received the [employer] Covid vaccination at least 2 months prior to current presentation. Patient does report that over the last 2 days he has not taken his Lasix secondary to his recent illness and poor intake. Work-up in the ED included T 98.6, heart rate 89, BP 151/79, respiratory rate 24, initial 80% on room air however transition to 94% on 4 L nasal cannula, CBC with WC 5.9, hemoglobin 13.7, platelet 158 with lymphopenia, coags with PT 13.3, INR 1.1, D-dimer 1.29, CMP with contacts at 34, BUN/creatinine 25/0.66, glucose 117, troponin less than 0.015, rapid Covid antig en positive with follow-up PCR per ED physician also positive, chest x-ray with interstitial prominence more significant at the lung bases, follow-up CTPA with no evidence of PE or arterial dissection with bilateral pleural effusions, right more than left, hyperaeration of the lungs with emphysematous changes. Past Medical History Past Medical History (Chronic Problems): Chronic Problems (Last Reviewed 10/04/20 @ 15:27 by Shirley Bui) CAD (coronary artery disease) (Chronic) PVD (peripheral vascular disease) (Chronic) Atherosclerotic heart disease of [place] coronary artery without angina pectoris (Chronic) Mixed hyperlipidemia (Chronic) Chronic atrial fibrillation (Chronic) Old myocardial infarction (Chronic) Nicotine abuse (Chronic) Encounter for long-term current use of high risk medication (Chronic) Chronic respiratory failure (Chronic) Benign hypertension (Chronic) Hx of CABG (Chronic ~06/2009) VERMA to LAD, SVG to RCA, SVG to 2nd marginal branch of CX and ongoing 1st diag branch of LAD COPD (chronic obstructive pulmonary disease) (Chronic) Medical History: Medical History (Last Reviewed 10/04/20 @ 15:27 by Shirley Bui) PVD (peripheral vascular disease) (Chronic) I73.9 Dyspnea (Acute) R06.00 Shortness of breath (Acute) R06.02 Atherosclerotic heart disease of [place] coronary artery without angina pectoris (Chronic) I25.10 Mixed hyperlipidemia (Chronic) E78.2 Chronic atrial fibrillation (Chronic) I48.2 Old myocardial infarction (Chronic) I25.2 Nicotine abuse (Chronic) Z72.0 Encounter for long-term current use of high risk medication (Chronic) Z79.899 Chronic respiratory failure (Chronic) J96.10 Benign hypertension (Chronic) I10 COPD (chronic obstructive pulmonary disease) (Chronic) J44.9 Allergies acetaminophen [From Dristan] Adverse Reaction (Severe, Verified 12/31/20 16:53) Unknown chlorpheniramine [From Dristan] Adverse Reaction (Severe, Verified 12/31/20 16:53) Unknown oxymetazoline [From Dristan] Adverse Reaction (Severe, Verified 12/31/20 16:53) Unknown pheniramine [From Dristan] Adverse Reaction (Severe, Verified 12/31/20 16:53) Unknown phenylephrine [From Dristan] Adverse Reaction (Severe, Verified 12/31/20 16:53) Unknown pseudoephedrine [From Dristan] Adverse Reaction (Severe, Verified 12/31/20 16:53) Unknown lisinopril Adverse Reaction (Verified 12/31/20 16:53) Unknown Home Medications: Ambulatory Orders Medication Instructions Recorded Budesonide/Formoterol 160/4.5 2 puff INHALATION BID 08/24/16 [Symbicort 160/4.5 Mcg Inhaler (SP)] Tamsulosin HCl [Flomax] 0.4 mg PO QHS 06/02/17 Aspirin [Aspir-Low] 81 mg PO BID 08/11/18 Lovastatin [Mevacor] 40 mg PO DAILY 08/11/18 Metoprolol Tartrate [Lopressor 100 mg PO BID 08/11/18 (beta magi)] furosemide 20 mg tablet 20 mg PO DAILY #90 tab 03/27/19 Amlodipine [Norvasc] 10 mg PO QHS 07/19/20 albuterol sulfate 90 mcg/actuation 1 inh INHALATION ONCE PRN 10/04/20 aerosol inhaler multivitamin 1 tab PO DAILY 10/04/20 Surgical History: Surgical History (Last Reviewed 10/04/20 @ 15:27 by Shirley Bui) Hx of CABG (Chronic) Onset Date: ~06/2009 VERMA to LAD, SVG to RCA, SVG to 2nd marginal branch of CX and ongoing 1st diag branch of LAD History of inguinal hernia repair Onset Date: ~07/2020 Z98.890, Z87.19 History of tonsillectomy Z98.890, Z90.89 Hx of ventral hernia repair Z98.890, Z87.19 2017 Surgical History: coronary bypass surgery, - - ventral hernia surgery. Psychiatric History: No pertinent psych hx Lives: Alone Smoking Status: Former smoker - Patient quit cigarette tobacco usage approximately 11 to 12 years prior to current presentation with prior to this approximate 1 pack/day cigarette tobacco usage since he been 15 years old. Tobacco Use: Non-smoker Alcohol: None Drugs: None - *Family History Sibling Family History: Family History (Last Reviewed 10/04/20 @ 15:27 by Shirley Bui) Father Heart disease Brother Hypertension Sister CAD (coronary artery disease) Hx of CABG Sister CAD (coronary artery disease) Hx of CABG History Items: Heart Disease Maternal Family History: Family History (Last Reviewed 10/04/20 @ 15:27 by Shirley Bui) Father Heart disease Brother Hypertension Sister CAD (coronary artery disease) Hx of CABG Sister CAD (coronary artery disease) Hx of CABG History Items: - - Mother passed in her 50s secondary to a cerebral hemorrhage. Paternal Family History: Family History (Last Reviewed 10/04/20 @ 15:27 by Shirley Bui) Father Heart disease Brother Hypertension Sister CAD (coronary artery disease) Hx of CABG Sister CAD (coronary artery disease) Hx of CABG History Items: High Cholesterol, Heart Disease, Hypertension Review of Systems Constitutional: Reports: Anorexia, Malaise, Weakness, Fatigue. Denies: Chills, Fever, Weight Change HEENT: Denies: Head Aches, Sinus Congestion, Sinus Drainage Cardiovascular: Reports: Edema. Denies: Chest Pain, Chest Pressure, Chest Tightness, Light Headedness, Orthopnea, Palpitations, Syncope Respiratory: Reports: Cough, Shortness of Breath, Shortness of breath at rest, Shortness of breath upon exertion, Wheezing. Denies: Sputum production Gastrointestinal: Denies: Abdominal Pain, Nausea, Vomiting Genitourinary: Denies: Dysuria Musculoskeletal: Reports: Joint Pain. Denies: Joint Tenderness Skin: Denies: Rash, Wounds Neurological: Denies: Numbness, Tingling, Focal weakness Psychiatric: Denies: Anxiety, Depression, Homicidal Ideations, Suicidal Ideations Hematologic/ Lymphatic: Reports: Easy Bruising, Easy Bleeding VTE Information - Inpt Only VTE Present on Admission: No VTE Mechan Device Prophylaxis: SCD's VTE Pharm Prophylaxis ordered?: Yes Patient Problems: Active and Suspected Problems (Last Reviewed 10/04/20 @ 15:27 by Shirley Bui) Acute on chronic respiratory failure with hypoxia (Acute) COVID-19 (Acute) Subjective: Patient seated upright in the ED bed, fatigued and ill-appearing, increased work of breathing and some accessory muscle usage especially with any activity. Objective: Physical Examination: General: awake, alert, oriented x 3 and cooperative, seated upright in the ED bed, fatigued and ill-appearing, quickly hypoxic with any activity, increased work of breathing. Skin: Normal color, turgor, no icterus, cyanosis. HEENT: AT/NC, EOMI, PERRLA, dry MM, no carotid bruits or JVD noted. Lungs: Severely diffusely diminished, greater bases, increased work of breathing and accessory muscle usage evidence, no obvious rales, ronchi or wheezing. Heart: Mildly tachycardic with regular rhythm; no gallop, rub audible. Abdomen: soft, NTTP, ND, mildly hyperactive BS, no HSM. Extremities: no cyanosis or clubbing, mild bilateral ankle to distal cancino edema. Neurological: patient awake, alert, oriented as noted; cognitive function intact; pupils equally reactive to light and accomodation; cranial nerves II-XII grossly normal, moving all 4 extremities, no focal deficits, strength severely global decrease secondary to acute presentation. Psychiatric: affect appears fatigued, ill-appearing, no acute evidence of depressive or anxiety feelings. - Physical Exam Vitals/I&O's: Vital Signs Temp Pulse Resp BP Pulse Ox 97.7 F L 87 16 112/65 100 12/31/20 21:00 12/31/20 21:00 12/31/20 21:00 12/31/20 21:00 12/31/20 21:00 Oxygen Flow Rate (L/min) 3 Oxygen Delivery Method Nasal Cannula Weight: 151 lb 0.266 oz Body Mass Index (BMI) 24.3 Microbiology Past 72 Hours 12/31/20 17:12 Nasal Secretion SARS-CoV-2 Antigen (Rapid) - Final SARS-CoV-2 (COVID 19) Laboratory Results 12/31/20 17:00: WBC 5.9, RBC 4.75, Hgb 13.7, Hct 45.8, MCV 96.4 H, MCH 28.8, MCHC 29.9 L, RDW Std Deviation 46.6 H, RDW Coeff of Kahlil 13.1, Plt Count 158, MPV 12.1 H, Immature Gran % (Auto) 0.500, Neut % (Auto) 73.5 H, Lymph % (Auto) 12.5 L, [place] % (Auto) 13.1 H, Eos % (Auto) 0.2, Baso % (Auto) 0.2, Absolute Neuts (auto) 4.3, Absolute Lymphs (auto) 0.73 L, Nucleated RBC % 0 12/31/20 17:00: PT 13.3, INR 1.1 12/31/20 17:00: Sodium 141, Potassium 3.6, Chloride 103, Carbon Dioxide 34.0 H, Anion Gap 4 L, BUN 25 H, Creatinine 0.66 L, Estim Creat Clear Calc 53.17, Est GFR (MDRD) Af Amer 149, Est GFR (MDRD) Non-Af 124, BUN/Creatinine Ratio 37.9 H, Glucose 117 H, Calcium 8.7, Troponin I < 0.015 12/31/20 17:00: D-Dimer Quant (PE/DVT) 1.29 H* 12/31/20 20:45: COVID-19 (CYNTHIA) Pending Assessment/Plan All Active Problems (Last Reviewed 10/04/20 @ 15:27 by Shirley Bui) Acute on chronic respiratory failure with hypoxia (Acute) COVID-19 (Acute) Right inguinal hernia (Acute) Dyspnea (Acute) Shortness of breath (Acute) The patient is a 80 y/o M w/ PMHx: Chronic COPD w/ Chronic Hypoxic Respiratory Failure (3L NC), PAF, HTN, HLD, CAD s/p CABG x 4, Hx Tobacco use, BPH who presents to the [facility] ED on 12/31/20 with history of onset fatigue, malaise, altered sense of taste, intractable ongoing cough (dry, non-productive) with worsening dyspnea, more pronounced over the last 48 hours without specific fever, chills, nausea, emesis, abdominal pain, chest pain, headache but not improving prompting ED evaluation. 1. Acute on Chronic Hypoxic Respiratory Failure secondary to Acute Viral Syndrome, COVID-19: Will admit to the COVID unit, will maintain on oxygen with wean as tolerated to home regimen although given history may need airvo/BIPAP intervention, PRN albuterol, HOB, IS parameters w/ pending sputum cultures, respiratory viral panel and urine antigens, will obtain procalcitonin, CRP, CPK, Ferritin, LDH and BNP, continue supportive care including q 2 hour turning including prone given no prone bed availability and judicious hydration, closely monitor for worsening status for ARDS and multiorgan failure, will consult Infectious disease, will initiate and continue IV decadron x 10 doses, given presentation will also initiate IV remdesivir but defer to discretion of Infectious disease. Given underlying pulmonary history low threshold to consult Dr. Traore. 2. CAD: Patient status post VERMA to LAD, SVG to RCA, SVG to 2nd marginal branch of CX and ongoing 1st diag branch of LAD, will continue aspirin, statin, metoprolol regimen. 3. Chronic COPD with chronic hypoxic respiratory failure: Will maintain on oxygen with wean as tolerated to home oxygen supplementation however given #1 do expect increased needs, continue home Symbicort inhaler given presentation #1, PRN albuterol, HOB, IS parameters. 4. Hypertension: Continue home regimen including Norvasc, metoprolol, IV Lasix 40 mg x 1 administered given effusions noted and patient has a lactulose regimen x2 days but will transition to oral Lasix in a.m. with hold parameters as needed, PRN hydralazine. 5. Hyperlipidemia: Continue home statin regimen. 6. PAF: We will continue patient on metoprolol regimen, not on anticoagulant therapy. 7. Former tobacco use: Encourage continued tobacco cessation. 8. BPH: We will continue patient home Flomax regimen. 9. DVT prophylaxis: SCDs, Lovenox. 10. CODE status: Patient HCPOA is 10 Andrew and living will is currently in place. Discussed CODE status at length including difference between FULL code, DNR-CCA and DNR-CC status. Following discussions about the differences in these status, requested DNR-CCA, no intubation. Advanced Care Planning Face to Face Time: 16 minutes. Inpatient E&M: 79106 Init Hosp L3 Procedures: 34215 Advncd Care Plan 30 Min
--- NOTE | 2020-12-31 22:37 | CPS ---
Patient refused BiPAP for tonight
[2020-12-31 23:06] LABS: BNP,B-Type NATRIURETIC PEPTIDE 197.8 pg/mL (0-100)
[2020-12-31 23:08] LABS: Alkaline Phosphatase 64 U/L (45-117)
[2020-12-31 23:14] LABS: Ferritin 396 ng/mL (26-388); LDH 202 U/L (87-241); Magnesium 2.3 mg/dL (1.6-2.6); Procalcitonin 0.06 ng/mL (0.00-0.09)
[2020-12-31] MEDS: Tamsulosin HCl 0.4 MG Capsule PO (23:24)
[2020-12-31] MEDS: Metoprolol Tartrate 100 MG Tablet PO (23:24)
[2020-12-31] MEDS: Famotidine 20 MG Tablet PO (23:24)
[2020-12-31] MEDS: amLODIPine 10 MG Tablet PO (23:24)
[2020-12-31] MEDS: Aspirin E.C. 81 MG Tablet PO (23:24)
[2020-12-31] MEDS: Furosemide 40 MG/4 ML Vial IV (23:25)
[2020-12-31] MEDS: Enoxaparin 30 MG/0.3 ML Syringe SC (23:26)
[2020-12-31] MEDS: 0.9% Saline Lock 10 ML Syringe IV (23:26)
[2021-01-01] VITALS (16 sets, daily range): BP systolic 110–131; BP diastolic 52–79; PULSE 62–98; RESP 16–18; TEMP 36.6–37.2; O2SAT 89–97
--- NOTE | 2021-01-01 01:36 | NURSING ---
trach care done. new 6 xlt marielenaey replaced.
[2021-01-01] MEDS: 0.9% Saline Lock 10 ML Syringe IV ×3 (03:11→19:46)
[2021-01-01 03:50] LABS: Absolute Lymphocyte Count 0.43 X10^3/uL (0.83-4.51); Absolute Neutrophil Count 2.8 X10^3/uL (2.0-7.7); Basophil# 0.01 X10^3/uL; Basophil% 0.3 % (0-1); Hematocrit 43.5 % (40-54); Hemoglobin 13.3 g/dL (13.0-16.5); Lymphocyte # 0.43 X10^3/ul (0.83-4.51); Lymphocyte % 12.7 % (19-41); Mean Corp Hgb Conc 30.6 g/dL (32-36); Mean Corpuscular Hgb 29.4 pg (27.0-32.0); Mean Corpuscular Volume 96.2 fL (80-94); Monocyte# 0.11 X10^3/uL; Monocyte% 3.3 % (0-10); NRBC Flagged by Analyzer 0 % (0-5); Neutrophil # 2.81 X10^3/uL (2.7-7.7); Neutrophil % 83.1 % (47-70); POSITIVE DIFFERENTIAL YES; Platelet Count 162 K/mm3 (150-450); RBC Distribution Width CV 12.9 % (11.6-14.6); Red Blood Count 4.52 M/mm3 (4.6-6.2); White Blood Count 3.4 K/mm3 (4.4-11.0)
[2021-01-01 03:58] LABS: Differential Indicated SCAN CRITERIA MET
[2021-01-01 04:30] LABS: ALB/GLOB Ratio 0.7 RATIO (0.9-2.4); AST(SGOT) 22 U/L (15-37); Alanine Aminotransfer ALT/SGPT 14 U/L (16-61); Albumin, Serum 2.8 g/dL (3.2-5.0); Alkaline Phosphatase 64 U/L (45-117); Anion Gap 4 (5-15); BUN 19 mg/dL (7-18); Chloride 105 mmol/L (98-107); Creatinine, Serum 0.58 mg/dL (0.70-1.30); EST Glomerular Filtration Rate 145 mL/min (>60); Est Glom Filt Rate - Afr Amer 175 mL/min (>60); Estimated Creatinine Clearance 54.24 ml/min; Globulin 3.9 g/dL (2.2-4.2); Glucose 151 mg/dL (74-106); Potassium 3.5 mmol/L (3.5-5.1); Protein, Total 6.7 g/dL (6.4-8.2); Sodium Level 144 mmol/L (136-145)
--- NOTE | 2021-01-01 07:30 | PCM.PN.HOSP ---
Patient Problems: Active and Suspected Problems (Last Reviewed 10/04/20 @ 15:27 by Shirley Bui) Acute on chronic respiratory failure with hypoxia (Acute) COVID-19 (Acute) Reason for Visit: SARS-COV 2 pneumonia Subjective: Patient is an 80-year-old lady admitted was sent to the emergency department from his primary care physician's office after he was found to be hypoxic after routine visit. Per patient his oxygen tank was not working well. His SARS-CoV-2 assay in the ED came back positive admitted to regular nursing floor for further management. Per patient he did receive the Covid vaccine 2 months prior to his admission. His CTA of the chest obtained on admission did not have any features consistent with COVID-19 pneumonia Objective: GENERAL: Dyspneic at rest HEENT: Atraumatic; EYES; Anicteric, Normal Conjunctiva NECK; supple, normal thyroid, RESPIRATORY: Diminished to auscultation CARDIOVASCULAR: Regular S1 S2, GI: soft, normoactive bowel sounds, : No Renal angle tenderness; EXTREMITIES: No edema, no clubbing, MUSCULOSKELETAL: no muscle waisting NEURO: Awake; no lateralizing signs. SKIN: No Rash PSYCH; Flat affect Vitals/I&O's: Vital Signs Temp Pulse Resp BP Pulse Ox 98.9 F 76 18 128/58 H 97 01/01/21 03:08 01/01/21 07:22 01/01/21 03:08 01/01/21 03:08 01/01/21 03:08 Oxygen Flow Rate (L/min) 3 Oxygen Delivery Method Nasal Cannula Weight: 65.091 kg Body Mass Index (BMI) 22.7 Intake and Output for Last 24 Hours 12/30/20 12/31/20 01/01/21 23:59 23:59 23:59 Intake Total 610 / 610 250 / 250 Output Total 100 / 100 1350 / 1350 Balance 510 / 510 -1100 / -1100 Microbiology Past 72 Hours 12/31/20 20:45 Mucosa - Nose Respiratory Panel (PCR) - Final 12/31/20 22:40 Urine, Clean Catch Legionella Antigen - Final 12/31/20 22:40 Urine, Clean Catch Streptococcus pneumoniae Antigen (M - Final 12/31/20 17:12 Nasal Secretion SARS-CoV-2 Antigen (Rapid) - Final SARS-CoV-2 (COVID 19) Laboratory Results 12/31/20 17:00: WBC 5.9, RBC 4.75, Hgb 13.7, Hct 45.8, MCV 96.4 H, MCH 28.8, MCHC 29.9 L, RDW Std Deviation 46.6 H, RDW Coeff of Kahlil 13.1, Plt Count 158, MPV 12.1 H, Immature Gran % (Auto) 0.500, Neut % (Auto) 73.5 H, Lymph % (Auto) 12.5 L, [place] % (Auto) 13.1 H, Eos % (Auto) 0.2, Baso % (Auto) 0.2, Absolute Neuts (auto) 4.3, Absolute Lymphs (auto) 0.73 L, Nucleated RBC % 0 12/31/20 17:00: PT 13.3, INR 1.1 12/31/20 17:00: Sodium 141, Potassium 3.6, Chloride 103, Carbon Dioxide 34.0 H, Anion Gap 4 L, BUN 25 H, Creatinine 0.66 L, Estim Creat Clear Calc 53.17, Est GFR (MDRD) Af Amer 149, Est GFR (MDRD) Non-Af 124, BUN/Creatinine Ratio 37.9 H, Glucose 117 H, Calcium 8.7, Troponin I < 0.015 12/31/20 17:00: D-Dimer Quant (PE/DVT) 1.29 H* 12/31/20 17:00: Alkaline Phosphatase 64 12/31/20 17:00: Magnesium 2.3, Ferritin 396 H, Lactate Dehydrogenase 202, C-React Prot Ext Range 108.00 H 12/31/20 17:00: B-Natriuretic Peptide 197.8 H 12/31/20 17:00: Procalcitonin 0.06 12/31/20 20:45: COVID-19 (CYNTHIA) Detected 01/01/21 03:05: WBC 3.4 L, RBC 4.52 L, Hgb 13.3, Hct 43.5, MCV 96.2 H, MCH 29.4, MCHC 30.6 L, RDW Std Deviation 46.0 H, RDW Coeff of Kahlil 12.9, Plt Count 162, MPV 13.0 H, Immature Gran % (Auto) 0.600, Neut % (Auto) 83.1 H, Lymph % (Auto) 12.7 L, [place] % (Auto) 3.3, Eos % (Auto) 0.0, Baso % (Auto) 0.3, Absolute Neuts (auto) 2.8, Absolute Lymphs (auto) 0.43 L, Nucleated RBC % 0, Diff Path Review January01/01/21 03:05: Sodium 144, Potassium 3.5, Chloride 105, Carbon Dioxide 35.0 H, Anion Gap 4 L, BUN 19 H, Creatinine 0.58 L, Estim Creat Clear Calc 54.24, Est GFR (MDRD) Af Amer 175, Est GFR (MDRD) Non-Af 145, BUN/Creatinine Ratio 33.0 H, Glucose 151 H, Calcium 8.0 L, Total Bilirubin 0.60, AST 22, ALT 14 L, Alkaline Phosphatase 64, Total Protein 6.7, Albumin 2.8 L, Globulin 3.9, Albumin/Globulin Ratio 0.7 L Current Medications Acetaminophen (Acetaminophen 325 Mg Tablet) 650 mg PO Q6H PRN PRN PRN Reason: Pain Score 1-10/Temp > 100.7 F Al Hydroxide/Mg Hydroxide (Mag Hydrox/Al Hydrox/Simeth 30 Ml Udc) 30 ml PO Q6H PRN PRN PRN Reason: Gastric Burning Albuterol Sulfate (Albuterol Sulfate 18 Gm Inhaler (200 Puffs)) 4 - 8 puff INHALATION Q4H PRN PRN PRN Reason: Dyspnea, wheezing Amlodipine Besylate (Amlodipine 10 Mg Tablet) 10 mg PO QHS [facility] Last Admin: 12/31/20 23:24 Dose: 10 mg Documented by: Aspirin (Aspirin E.C. 81 Mg Tablet) 81 mg PO BID [facility] Last Admin: 12/31/20 23:24 Dose: 81 mg Documented by: Atorvastatin Calcium (Atorvastatin Calcium 10 Mg Tablet) 10 mg PO DAILY@2200 [facility] Dexamethasone Sodium Phosphate (Dexamethasone 10 Mg/Ml Vial) 6 mg IV DAILY [facility] Stop: 01/10/21 10:01 Enoxaparin Sodium (Enoxaparin 30 Mg/0.3 Ml Syringe) 30 mg SC BID [facility] Last Admin: 12/31/20 23:26 Dose: 30 mg Documented by: Famotidine (Famotidine 20 Mg Tablet) 20 mg PO BID [facility] Last Admin: 12/31/20 23:24 Dose: 20 mg Documented by: Fluticasone Propionate (Fluticasone Prop 100 Mcg Inhaler) 1 puff INHALATION BID [facility] Furosemide (Furosemide 20 Mg Tablet) 20 mg PO DAILY CELIA Guaifenesin (Guaifenesin 10 Ml Udc (200mg/10ml)) 20 ml PO Q4H PRN PRN PRN Reason: COUGH Hydralazine HCl (Hydralazine 20 Mg/Ml Vial) 10 mg IV Q4H PRN PRN PRN Reason: SBP > 160 Sodium Chloride () 250 mls @ 15 mls/hr IV .[id number] PRN PRN Reason: Saline Flush Sodium Chloride () 250 mls @ 15 mls/hr IV .[id number] PRN PRN Reason: Additional IVPB Infusion Remdesivir 100 mg/ Sodium (Chloride) 250 mls @ 125 mls/hr IV DAILY [facility]; Protocol Stop: 01/04/21 11:59 Magnesium Hydroxide (Magnesium Hydroxide 30 Ml Udc) 30 ml PO DAILY PRN PRN PRN Reason: Constipation Melatonin (Melatonin 3 Mg Tablet) 3 mg PO QHS PRN PRN PRN Reason: INSOMNIA Metoprolol Tartrate (Metoprolol Tartrate 100 Mg Tablet) 100 mg PO BID [facility] Last Admin: 12/31/20 23:24 Dose: 100 mg Documented by: Miscellaneous Information (Inhaler, Assist Devices 1 Each Spacer) 1 each INHALATION PRN PRN PRN Reason: WITH ALBUTEROL INHALER Nitroglycerin (Nitroglycerin (Inpatient Use) 0.4 Mg Tab.Subl) 0.4 mg SL Q5M PRN PRN Reason: CARDIAC/CHEST PAIN Ondansetron HCl (Ondansetron 4 Mg/2 Ml Vial) 4 mg IV Q8H PRN PRN PRN Reason: NAUSEA/VOMITING Prochlorperazine Edisylate (Prochlorperazine 10 Mg/2 Ml Vial) 5 mg IV Q4H PRN PRN PRN Reason: Breakthrough Nausea/Vomiting Psyllium Hydrophilic Mucilloid (Psyllium 1 Packet) 1 packet PO DAILY PRN PRN PRN Reason: Constipation Senna/Docusate Sodium (Senna/Docusate Sodium 1 Tablet) 2 tablet PO BID PRN PRN PRN Reason: Constipation Sodium Chloride (0.9% Saline Lock 10 Ml Syringe) 10 - 40 ml IV UD PRN PRN Reason: SALINE FLUSH Last Admin: 01/01/21 03:11 Dose: 10 ml Documented by: Tamsulosin HCl (Tamsulosin Hcl 0.4 Mg Capsule) 0.4 mg PO QHS CEL[facility] Last Admin: 12/31/20 23:24 Dose: 0.4 mg Documented by: Throat Lozenges (Benzocaine/Menthol 1 Lozenge) 1 lozenge MUCOUS MEM Q2H PRN PRN PRN Reason: SORE THROAT STROKE Vital Signs/Narrative: Vital Signs Pulse 01/01/21 07:22 76 Medical Necessity - Tobacco Use Smoking Status: Former smoker - Patient quit cigarette tobacco usage approximately 11 to 12 years prior to current presentation with prior to this approximate 1 pack/day cigarette tobacco usage since he been 15 years old. Tobacco Use: Non-smoker Assessment/Plan All Active Problems (Last Reviewed 10/04/20 @ 15:27 by Shirley Bui) Acute on chronic respiratory failure with hypoxia (Acute) COVID-19 (Acute) Right inguinal hernia (Acute) Dyspnea (Acute) Shortness of breath (Acute) Patient is an 80-year-old lady admitted was sent to the emergency department from his primary care physician's office after he was found to be hypoxic after routine visit. Per patient his oxygen tank was not working well. His SARS-CoV-2 assay in the ED came back positive admitted to regular nursing floor for further management. Per patient he did receive the Covid vaccine 2 months prior to his admission. His CTA of the chest obtained on admission did not have any features consistent with COVID-19 pneumonia . Acute on chronic hypoxic respiratory failure ?30 patient's oxygen tank not working well. Patient was placed on supplemental oxygen in the ICU at the time of my assessment his oxygen saturation was 95. Chest x-ray obtained demonstrated No demonstrated pulmonary embolism or arterial dissection. Bilateral pleural effusions, right more than left. 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 2. Positive SARS-CoV-2 assay -No evidence of SARS-CoV-[address] of the chest 3. Coronary artery disease ?Status post CABG 4. Hypertension - Blood pressure controlled, home medications continued with dose adjustment as needed 5. Dyslipidemia -Patient is on statin therapy, continued at home dose 6. Paroxysmal atrial fibrillation -Heart rate controlled 7. Peripheral vascular disease ?Per history 8. COPD ?with chronic hypoxic respiratory failure on baseline home oxygen 9. BPH ?Patient on Flomax 10. DVT prophylaxis - On enoxaparin Inpatient E&M: 11731 Subs Hosp L2
[2021-01-01] MEDS: Metoprolol Tartrate 100 MG Tablet PO ×2 (08:54→19:47)
[2021-01-01] MEDS: Famotidine 20 MG Tablet PO ×2 (08:54→19:50)
[2021-01-01] MEDS: Enoxaparin 30 MG/0.3 ML Syringe SC ×2 (08:54→19:45)
[2021-01-01] MEDS: Aspirin E.C. 81 MG Tablet PO ×2 (10:05→19:47)
[2021-01-01] MEDS: dexAMETHasone 10 MG/ML Vial 6 MG IV (10:05)
[2021-01-01] MEDS: Furosemide 20 MG Tablet PO (10:05)
--- NOTE | 2021-01-01 11:33 | CASEMGMT ---
Social Work Pt has a Health Care POA on file at [facility] naming his daughter Magaly Adhikari. Pt does not have a living will. DALTON Oneil
--- NOTE | 2021-01-01 11:55 | CASEMGMT ---
RN WARREN called patient in room for initial transition planning/care coordination assessment. RN WARREN introduced self and role at [facility]. Patient lying in bed, alert and oriented. Patient willing to participate in assessment and is able to answer all questions appropriately. Care providers, pharmacy, and demographics verified. Patient wishes to discharge home, denies need for home health at this time, will monitor progress with therapy. Patient states he has no further needs or concerns at this time. CM to follow for discharge planning needs that may arise. 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 2 steps and railing to enter the home. Patient states he is independent at home. Transportation: self/daughter DME/HHC: patient states he has shower chair, cane, walker, nebulizer, and home oxygen with portability through [employer] at 3 lpm. Patient denies previous SNF or DME Disposition Plan: Patient to discharge home with family support and follow-up plans in place. Will monitor for increased home oxygen and HHC. Sophia STEWART, RN, CM
[2021-01-01 13:23] LABS: Pathologist Review Reviewed
--- NOTE | 2021-01-01 16:37 | CON.PCM_ITS ---
Problem List (1) COVID-19 Status: Acute Reason for Consult: covid Consulted by: Dr. Ruano History of Present Illness: The patient is a 80 year old M who is on home 3L O2, got covid series starting at end of September, lives alone, presented with sx starting 12/24, c/o progressive loss of taste and smell, loss of appetite, cough, fatigue. Came to ED, covid rapid and pcr (+). Started on dex and remdesivir, now eating, feeling better. Full ROS performed and neg except as noted above. - Medical History Past Medical History (Chronic Problems): Chronic Problems (Last Reviewed 10/04/20 @ 15:27 by Shirley Bui) CAD (coronary artery disease) (Chronic) PVD (peripheral vascular disease) (Chronic) Atherosclerotic heart disease of [place] coronary artery without angina pectoris (Chronic) Mixed hyperlipidemia (Chronic) Chronic atrial fibrillation (Chronic) Old myocardial infarction (Chronic) Nicotine abuse (Chronic) Encounter for long-term current use of high risk medication (Chronic) Chronic respiratory failure (Chronic) Benign hypertension (Chronic) Hx of CABG (Chronic ~06/2009) VERMA to LAD, SVG to RCA, SVG to 2nd marginal branch of CX and ongoing 1st diag branch of LAD COPD (chronic obstructive pulmonary disease) (Chronic) Allergies/Adverse Reactions: Allergies acetaminophen [From Dristan] Adverse Reaction (Severe, Verified 12/31/20 16:53) Unknown chlorpheniramine [From Dristan] Adverse Reaction (Severe, Verified 12/31/20 16:53) Unknown oxymetazoline [From Dristan] Adverse Reaction (Severe, Verified 12/31/20 16:53) Unknown pheniramine [From Dristan] Adverse Reaction (Severe, Verified 12/31/20 16:53) Unknown phenylephrine [From Dristan] Adverse Reaction (Severe, Verified 12/31/20 16:53) Unknown pseudoephedrine [From Dristan] Adverse Reaction (Severe, Verified 12/31/20 16:53) Unknown lisinopril Adverse Reaction (Verified 12/31/20 16:53) Unknown Home Medications: Ambulatory Orders Medication Instructions Recorded Budesonide/Formoterol 160/4.5 2 puff INHALATION BID 08/24/16 [Symbicort 160/4.5 Mcg Inhaler (SP)] Tamsulosin HCl [Flomax] 0.4 mg PO QHS 06/02/17 Aspirin [Aspir-Low] 81 mg PO BID 08/11/18 Lovastatin [Mevacor] 40 mg PO DAILY 08/11/18 Metoprolol Tartrate [Lopressor 100 mg PO BID 08/11/18 (beta magi)] furosemide 20 mg tablet 20 mg PO DAILY #90 tab 03/27/19 Amlodipine [Norvasc] 10 mg PO QHS 07/19/20 albuterol sulfate 90 mcg/actuation 1 inh INHALATION ONCE PRN 10/04/20 aerosol inhaler multivitamin 1 tab PO DAILY 10/04/20 Vital Signs Temp Pulse Resp BP Pulse Ox 97.9 F 73 18 131/69 H 94 01/01/21 13:30 01/01/21 15:07 01/01/21 13:30 01/01/21 13:30 01/01/21 13:30 Oxygen Flow Rate (L/min) 3 Oxygen Delivery Method Nasal Cannula Weight: 65.091 kg Body Mass Index (BMI) 22.7 Microbiology Past 72 Hours 12/31/20 22:40 Legionella Antigen - Final Urine, Clean Catch Streptococcus pneumoniae Antigen (M - Final 12/31/20 20:45 Respiratory Panel (PCR) - Final Mucosa - Nose 12/31/20 17:12 SARS-CoV-2 Antigen (Rapid) - Final Nasal Secretion SARS-CoV-2 (COVID 19) Laboratory Tests Past 24 Hrs 12/31/20 12/31/20 12/31/20 17:00 17:00 17:00 WBC 5.9 RBC 4.75 Hgb 13.7 Hct 45.8 MCV 96.4 H MCH 28.8 MCHC 29.9 L RDW Std Deviation 46.6 H RDW Coeff of Kahlil 13.1 Plt Count 158 MPV 12.1 H Immature Gran % (Auto) 0.500 Neut % (Auto) 73.5 H Lymph % (Auto) 12.5 L [place] % (Auto) 13.1 H Eos % (Auto) 0.2 Baso % (Auto) 0.2 Absolute Neuts (auto) 4.3 Absolute Lymphs (auto) 0.73 L Nucleated RBC % 0 Diff Path Review PT 13.3 INR 1.1 D-Dimer Quant (PE/DVT) Sodium 141 Potassium 3.6 Chloride 103 Carbon Dioxide 34.0 H Anion Gap 4 L BUN 25 H Creatinine 0.66 L Estim Creat Clear Calc 53.17 Est GFR (MDRD) Af Amer 149 Est GFR (MDRD) Non-Af 124 BUN/Creatinine Ratio 37.9 H Glucose 117 H Calcium 8.7 Magnesium Ferritin Total Bilirubin AST ALT Alkaline Phosphatase Lactate Dehydrogenase Troponin I < 0.015 C-React Prot Ext Range B-Natriuretic Peptide Total Protein Albumin Globulin Albumin/Globulin Ratio Procalcitonin COVID-19 (CYNTHIA) 12/31/20 12/31/20 12/31/20 17:00 17:00 17:00 WBC RBC Hgb Hct MCV MCH MCHC RDW Std Deviation RDW Coeff of Kahlil Plt Count MPV Immature Gran % (Auto) Neut % (Auto) Lymph % (Auto) [place] % (Auto) Eos % (Auto) Baso % (Auto) Absolute Neuts (auto) Absolute Lymphs (auto) Nucleated RBC % Diff Path Review PT INR D-Dimer Quant (PE/DVT) 1.29 H* Sodium Potassium Chloride Carbon Dioxide Anion Gap BUN Creatinine Estim Creat Clear Calc Est GFR (MDRD) Af Amer Est GFR (MDRD) Non-Af BUN/Creatinine Ratio Glucose Calcium Magnesium 2.3 Ferritin 396 H Total Bilirubin AST ALT Alkaline Phosphatase 64 Lactate Dehydrogenase 202 Troponin I C-React Prot Ext Range 108.00 H B-Natriuretic Peptide Total Protein Albumin Globulin Albumin/Globulin Ratio Procalcitonin COVID-19 (CYNTHIA) 12/31/20 12/31/20 12/31/20 17:00 17:00 20:45 WBC RBC Hgb Hct MCV MCH MCHC RDW Std Deviation RDW Coeff of Kahlil Plt Count MPV Immature Gran % (Auto) Neut % (Auto) Lymph % (Auto) [place] % (Auto) Eos % (Auto) Baso % (Auto) Absolute Neuts (auto) Absolute Lymphs (auto) Nucleated RBC % Diff Path Review PT INR D-Dimer Quant (PE/DVT) Sodium Potassium Chloride Carbon Dioxide Anion Gap BUN Creatinine Estim Creat Clear Calc Est GFR (MDRD) Af Amer Est GFR (MDRD) Non-Af BUN/Creatinine Ratio Glucose Calcium Magnesium Ferritin Total Bilirubin AST ALT Alkaline Phosphatase Lactate Dehydrogenase Troponin I C-React Prot Ext Range B-Natriuretic Peptide 197.8 H Total Protein Albumin Globulin Albumin/Globulin Ratio Procalcitonin 0.06 COVID-19 (CYNTHIA) Detected 01/01/21 01/01/21 03:05 03:05 WBC 3.4 L RBC 4.52 L Hgb 13.3 Hct 43.5 MCV 96.2 H MCH 29.4 MCHC 30.6 L RDW Std Deviation 46.0 H RDW Coeff of Kahlil 12.9 Plt Count 162 MPV 13.0 H Immature Gran % (Auto) 0.600 Neut % (Auto) 83.1 H Lymph % (Auto) 12.7 L [place] % (Auto) 3.3 Eos % (Auto) 0.0 Baso % (Auto) 0.3 Absolute Neuts (auto) 2.8 Absolute Lymphs (auto) 0.43 L Nucleated RBC % 0 Diff Path Review Reviewed PT INR D-Dimer Quant (PE/DVT) Sodium 144 Potassium 3.5 Chloride 105 Carbon Dioxide 35.0 H Anion Gap 4 L BUN 19 H Creatinine 0.58 L Estim Creat Clear Calc 54.24 Est GFR (MDRD) Af Amer 175 Est GFR (MDRD) Non-Af 145 BUN/Creatinine Ratio 33.0 H Glucose 151 H Calcium 8.0 L Magnesium Ferritin Total Bilirubin 0.60 AST 22 ALT 14 L Alkaline Phosphatase 64 Lactate Dehydrogenase Troponin I C-React Prot Ext Range B-Natriuretic Peptide Total Protein 6.7 Albumin 2.8 L Globulin 3.9 Albumin/Globulin Ratio 0.7 L Procalcitonin COVID-19 (CYNTHIA) - Other Studies Radiology: [] Other Studies: [] Route of nutrition/ use of supplements: [] Nutritional Intake: [] IV Site: [] Gerardo Catheter: [] - Assessment/Plan Antibiotics: [] Assessment/Plan: [] Active and Suspected Problems (Last Reviewed 10/04/20 @ 15:27 by Shirley Bui) Acute on chronic respiratory failure with hypoxia (Acute) COVID-19 (Acute)
[2021-01-01] MEDS: amLODIPine 10 MG Tablet PO (19:46)
[2021-01-01] MEDS: Tamsulosin HCl 0.4 MG Capsule PO (19:47)
[2021-01-01] MEDS: Atorvastatin Calcium 10 MG Tablet PO (19:48)
--- NOTE | 2021-01-01 23:25 | CPS ---
pt refused BiPAP for tonight
[2021-01-02] VITALS (8 sets, daily range): BP systolic 125–137; BP diastolic 44–76; PULSE 67–85; RESP 18–19; TEMP 35.7–36.6; O2SAT 95–99
[2021-01-02] MEDS: 0.9% Saline Lock 10 ML Syringe IV (03:04)
[2021-01-02] MEDS: dexAMETHasone 4 MG Tablet 6 MG PO (08:14)
[2021-01-02] MEDS: Enoxaparin 30 MG/0.3 ML Syringe SC (08:14)
[2021-01-02] MEDS: Metoprolol Tartrate 100 MG Tablet PO (08:14)
[2021-01-02] MEDS: Famotidine 20 MG Tablet PO (08:15)
[2021-01-02] MEDS: Aspirin E.C. 81 MG Tablet PO (08:15)
[2021-01-02] MEDS: Furosemide 20 MG Tablet PO (08:15)
--- NOTE | 2021-01-02 10:22 | CASEMGMT ---
Addendum entered by Fina Noel 01/02/21 13:54: Pt qualifies for a Palliative referral per the [facility] palliative screening tool at this time. Dr Ruano aware and states no Palliative referral at this time. Original Note: CELINE KELLEY NOTE: Per Dr Ruano, pt states his portable oxygen tank is not working properly. Call placed to pt. He states If I don't breath, then I don't get any oxygen. Pt made aware that if he has a conserving device, then he may not be triggering the machine to give oxygen and that a larger tank could be provided that would give continuous oxygen, instead of just when it is triggered. Pt states he does not want a larger tank, that he is trying to get even a smaller one than he currently has. Call placed to pt's daughter, Magaly. She states that the current portable tank pt is currently using is not from [employer], stating it is a used one he purchased from a friend a few years ago and that his PCP has informed him that it is not producing enough oxygen and that pt is interested in getting another one. She states pt does have portable tanks from [employer], but they are too large for pt to carry around and also states she does not think they can get into pt's home to even get one for today to take him home on. She was made aware [employer] will deliver a portable tank to pt's room for him to go home on. She was instructed to call [email or web address] when pt arrives home and [employer] will come out to pt's home to check on pt's current portable tank/trouble shoot his devices and will assess what they may be able to provide for him. Call placed to [employer] and spoke w/Sheeba. She was made aware pt is discharging home today and needs a portable O2 tank to go home on. She was also made aware pt/dtr, Magaly, have concerns w/the portable tanks and would like to talk to someone from [employer] to inquire about options. She states they will talk go out to pt's home once he gets there and will trouble shoot his current tanks and discuss options w/ pt and family. Jordyn STEWART RN, CM
--- NOTE | 2021-01-02 11:42 | PCM.DC.SUM ---
Discharge Date and Diagnosis - Problem List Patient Problems: Active and Suspected Problems (Last Reviewed 10/04/20 @ 15:27 by Shirley Bui) Acute on chronic respiratory failure with hypoxia (Acute) COVID-19 (Acute) Date of Admission: 12/31/20 Date of Discharge: 01/02/21 - Primary Discharge Diagnosis Acute Problems: Active Problems (Last Reviewed 10/04/20 @ 15:27 by Shirley Bui) Acute on chronic respiratory failure with hypoxia (Acute) COVID-19 (Acute) - Secondary Discharge Diagnosis Chronic Problems: Chronic Problems (Last Reviewed 10/04/20 @ 15:27 by Shirley Bui) CAD (coronary artery disease) (Chronic) PVD (peripheral vascular disease) (Chronic) Atherosclerotic heart disease of [place] coronary artery without angina pectoris (Chronic) Mixed hyperlipidemia (Chronic) Chronic atrial fibrillation (Chronic) Old myocardial infarction (Chronic) Nicotine abuse (Chronic) Encounter for long-term current use of high risk medication (Chronic) Chronic respiratory failure (Chronic) Benign hypertension (Chronic) Hx of CABG (Chronic ~06/2009) VERMA to LAD, SVG to RCA, SVG to 2nd marginal branch of CX and ongoing 1st diag branch of LAD COPD (chronic obstructive pulmonary disease) (Chronic) Hospital Course and Treatment Imaging Results: Clinical Impression(s) from Imaging Studies Chest X-Ray 12/31/20 17:50 IMPRESSION: Interstitial prominence, more significant in the lung bases. Electronically Signed: Sage Khalil DO at 18:18 EDT Tel [phone], Service support , Chest CTA 12/31/20 20:20 IMPRESSION: No demonstrated pulmonary embolism or arterial dissection. Bilateral pleural effusions, right more than left. 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 Electronically Signed: Sage Khalil DO at 21:37 EDT Tel [phone], Service support , Operations: None Summary of Care Provided: Patient is an 80-year-old M admitted was sent to the emergency department from his primary care physician's office after he was found to be hypoxic after routine visit. Per patient his oxygen tank was not working well. His SARS-CoV-2 assay in the ED came back positive admitted to regular nursing floor for further management. Per patient he did receive the Covid vaccine 2 months prior to his admission. His CTA of the chest obtained on admission did not have any features consistent with COVID-19 pneumonia 1. Acute on chronic hypoxic respiratory failure ?30 patient's oxygen tank not working well. Patient was placed on supplemental oxygen in the ICU at the time of my assessment his oxygen saturation was 95. Chest x-ray obtained demonstrated No demonstrated pulmonary embolism or arterial dissection. Bilateral pleural effusions, right more than left. 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 11/04/2020: Patient seen breathing did remain stable patient was discharged home to complete a 10-day course of Decadron 2. Positive SARS-CoV-2 assay -No evidence of SARS-CoV-[address] of the chest 3. Coronary artery disease ?Status post CABG 4. Hypertension - Blood pressure controlled, home medications continued with dose adjustment as needed 5. Dyslipidemia -Patient is on statin therapy, continued at home dose 6. Paroxysmal atrial fibrillation -Heart rate controlled 7. Peripheral vascular disease ?Per history 8. COPD ?with chronic hypoxic respiratory failure on baseline home oxygen 9. BPH ?Patient on Flomax 10. DVT prophylaxis - On enoxaparin Patient Problems: Active and Suspected Problems (Last Reviewed 10/04/20 @ 15:27 by Shirley Bui) Acute on chronic respiratory failure with hypoxia (Acute) COVID-19 (Acute) Objective: GENERAL: Cooperative HEENT: Atraumatic; EYES; Anicteric, Normal Conjunctiva NECK; supple, normal thyroid, RESPIRATORY: Diminished to auscultation CARDIOVASCULAR: Regular S1 S2, GI: soft, normoactive bowel sounds, : No Renal angle tenderness; EXTREMITIES: No edema, no clubbing, MUSCULOSKELETAL: no muscle waisting NEURO: Awake; no lateralizing signs. SKIN: No Rash PSYCH; Flat affect - Physical Exam Vitals/I&O's: Vital Signs Temp Pulse Resp BP Pulse Ox 96.3 F L 85 18 125/44 H 96 01/02/21 08:10 01/02/21 08:14 01/02/21 08:10 01/02/21 08:10 01/02/21 08:24 Oxygen Flow Rate (L/min) 3 Oxygen Delivery Method Nasal Cannula Weight: 64.637 kg Body Mass Index (BMI) 22.7 Intake and Output for Last 24 Hours 12/31/20 01/01/21 01/02/21 23:59 23:59 23:59 Intake Total 610 / 610 1100 / 1100 220 / 220 Output Total 100 / 100 2300 / 2300 500 / 500 Balance 510 / 510 -1200 / -1200 -280 / -280 Microbiology Past 72 Hours 12/31/20 22:40 Urine, Clean Catch Legionella Antigen - Final 12/31/20 22:40 Urine, Clean Catch Streptococcus pneumoniae Antigen (M - Final 12/31/20 20:45 Mucosa - Nose Respiratory Panel (PCR) - Final 12/31/20 17:12 Nasal Secretion SARS-CoV-2 Antigen (Rapid) - Final SARS-CoV-2 (COVID 19) Laboratory Results 01/01/21 03:05: Diff Path Review Reviewed Current Medications Acetaminophen (Acetaminophen 325 Mg Tablet) 650 mg PO Q6H PRN PRN PRN Reason: Pain Score 1-10/Temp > 100.7 F Al Hydroxide/Mg Hydroxide (Mag Hydrox/Al Hydrox/Simeth 30 Ml Udc) 30 ml PO Q6H PRN PRN PRN Reason: Gastric Burning Albuterol Sulfate (Albuterol Sulfate 18 Gm Inhaler (200 Puffs)) 4 - 8 puff INHALATION Q4H PRN PRN PRN Reason: Dyspnea, wheezing Amlodipine Besylate (Amlodipine 10 Mg Tablet) 10 mg PO QHS [facility] Last Admin: 01/01/21 19:46 Dose: 10 mg Documented by: Aspirin (Aspirin E.C. 81 Mg Tablet) 81 mg PO BID [facility] Last Admin: 01/02/21 08:15 Dose: 81 mg Documented by: Atorvastatin Calcium (Atorvastatin Calcium 10 Mg Tablet) 10 mg PO DAILY@2200 [facility] Last Admin: 01/01/21 19:48 Dose: 10 mg Documented by: Dexamethasone (Dexamethasone 4 Mg Tablet) 6 mg PO DAILY [facility] Stop: 01/10/21 10:01 Last Admin: 01/02/21 08:14 Dose: 6 mg Documented by: Enoxaparin Sodium (Enoxaparin 30 Mg/0.3 Ml Syringe) 30 mg SC BID [facility] Last Admin: 01/02/21 08:14 Dose: 30 mg Documented by: Famotidine (Famotidine 20 Mg Tablet) 20 mg PO BID [facility] Last Admin: 01/02/21 08:15 Dose: 20 mg Documented by: Fluticasone Propionate (Fluticasone Prop 100 Mcg Inhaler) 1 puff INHALATION BID [facility] Last Admin: 01/02/21 08:15 Dose: 1 puff Documented by: Furosemide (Furosemide 20 Mg Tablet) 20 mg PO DAILY [facility] Last Admin: 01/02/21 08:15 Dose: 20 mg Documented by: Guaifenesin (Guaifenesin 10 Ml Udc (200mg/10ml)) 20 ml PO Q4H PRN PRN PRN Reason: COUGH Hydralazine HCl (Hydralazine 20 Mg/Ml Vial) 10 mg IV Q4H PRN PRN PRN Reason: SBP > 160 Sodium Chloride () 250 mls @ 15 mls/hr IV .[id number] PRN PRN Reason: Saline Flush Sodium Chloride () 250 mls @ 15 mls/hr IV .[id number] PRN PRN Reason: Additional IVPB Infusion Remdesivir 100 mg/ Sodium (Chloride) 250 mls @ 125 mls/hr IV QHS [facility]; Protocol Stop: 01/04/21 23:59 Last Infusion: 01/01/21 21:49 Dose: Infused Documented by: Magnesium Hydroxide (Magnesium Hydroxide 30 Ml Udc) 30 ml PO DAILY PRN PRN PRN Reason: Constipation Melatonin (Melatonin 3 Mg Tablet) 3 mg PO QHS PRN PRN PRN Reason: INSOMNIA Metoprolol Tartrate (Metoprolol Tartrate 100 Mg Tablet) 100 mg PO BID [facility] Last Admin: 01/02/21 08:14 Dose: 100 mg Documented by: Miscellaneous Information (Inhaler, Assist Devices 1 Each Spacer) 1 each INHALATION PRN PRN PRN Reason: WITH ALBUTEROL INHALER Nitroglycerin (Nitroglycerin (Inpatient Use) 0.4 Mg Tab.Subl) 0.4 mg SL Q5M PRN PRN Reason: CARDIAC/CHEST PAIN Ondansetron HCl (Ondansetron 4 Mg/2 Ml Vial) 4 mg IV Q8H PRN PRN PRN Reason: NAUSEA/VOMITING Prochlorperazine Edisylate (Prochlorperazine 10 Mg/2 Ml Vial) 5 mg IV Q4H PRN PRN PRN Reason: Breakthrough Nausea/Vomiting Psyllium Hydrophilic Mucilloid (Psyllium 1 Packet) 1 packet PO DAILY PRN PRN PRN Reason: Constipation Senna/Docusate Sodium (Senna/Docusate Sodium 1 Tablet) 2 tablet PO BID PRN PRN PRN Reason: Constipation Sodium Chloride (0.9% Saline Lock 10 Ml Syringe) 10 - 40 ml IV UD PRN PRN Reason: SALINE FLUSH Last Admin: 01/02/21 03:04 Dose: 10 ml Documented by: Tamsulosin HCl (Tamsulosin Hcl 0.4 Mg Capsule) 0.4 mg PO QHS [facility] Last Admin: 01/01/21 19:47 Dose: 0.4 mg Documented by: Throat Lozenges (Benzocaine/Menthol 1 Lozenge) 1 lozenge MUCOUS MEM Q2H PRN PRN PRN Reason: SORE THROAT Discharge Diet: No Restrictions Discharge Activity: Return to Normal Activity Home Medications: Medications to take at Discharge Budesonide/Formoterol 160/4.5 [Symbicort 160/4.5 Mcg Inhaler (SP)] 2 puff INHALATION BID 08/24/16 Tamsulosin HCl [Flomax] 0.4 mg PO QHS 06/02/17 Aspirin [Aspir-Low] 81 mg PO BID 08/11/18 Lovastatin [Mevacor] 40 mg PO DAILY 08/11/18 Metoprolol Tartrate [Lopressor (beta magi)] 100 mg PO BID 08/11/18 furosemide 20 mg tablet 20 mg PO DAILY #90 tab 03/27/19 Amlodipine [Norvasc] 10 mg PO QHS 07/19/20 albuterol sulfate 90 mcg/actuation aerosol inhaler 1 inh INHALATION ONCE PRN 10/04/20 multivitamin 1 tab PO DAILY 10/04/20 Dexamethasone [Decadron] 6 mg PO DAILY 7 Days #7 tablet 01/02/21 Following Prescriptions Were Given to Patient: Dexamethasone [Decadron] 6 mg PO DAILY 7 Days #7 tablet Transmission Status: Pending to [facility] Primary Care Physician: Girma Ayala DO [Primary Care Provider] - Disposition: Home Minutes spent on discharge:: 40 Patient Condition:: Stable Medical Necessity - Tobacco Use Smoking Status: Former smoker - Patient quit cigarette tobacco usage approximately 11 to 12 years prior to current presentation with prior to this approximate 1 pack/day cigarette tobacco usage since he been 15 years old. Tobacco Use: Non-smoker Meaningful Use Info Meaningful Use Diagnoses (Choose all that apply): None applicable Inpatient E&M: 82497 Disch Hosp
--- NOTE | 2021-01-02 12:37 | DCINST_ITS ---
- Discharge Diagnoses Current Active Problems: Current Active and Chronic Problems (Last Reviewed 10/04/20 @ 15:27 by Shirley Bui) Acute on chronic respiratory failure with hypoxia (Acute) COVID-19 (Acute) Atherosclerotic heart disease of [place] coronary artery without angina pectoris (Chronic) Mixed hyperlipidemia (Chronic) Benign hypertension (Chronic) Hx of CABG (Chronic ~06/2009) VERMA to LAD, SVG to RCA, SVG to 2nd marginal branch of CX and ongoing 1st diag branch of LAD COPD (chronic obstructive pulmonary disease) (Chronic) You will use the following diet at home:: No restrictions Discharge Activity: Return to Normal Activity Allergies/Adverse Reactions: Allergies acetaminophen [From Dristan] Adverse Reaction (Severe, Verified 12/31/20 16:53) Unknown chlorpheniramine [From Dristan] Adverse Reaction (Severe, Verified 12/31/20 16:53) Unknown oxymetazoline [From Dristan] Adverse Reaction (Severe, Verified 12/31/20 16:53) Unknown pheniramine [From Dristan] Adverse Reaction (Severe, Verified 12/31/20 16:53) Unknown phenylephrine [From Dristan] Adverse Reaction (Severe, Verified 12/31/20 16:53) Unknown pseudoephedrine [From Dristan] Adverse Reaction (Severe, Verified 12/31/20 16:53) Unknown lisinopril Adverse Reaction (Verified 12/31/20 16:53) Unknown Medications to take at Discharge Budesonide/Formoterol 160/4.5 [Symbicort 160/4.5 Mcg Inhaler (SP)] 2 puff INHALATION BID 08/24/16 Tamsulosin HCl [Flomax] 0.4 mg PO QHS 06/02/17 Aspirin [Aspir-Low] 81 mg PO BID 08/11/18 Lovastatin [Mevacor] 40 mg PO DAILY 08/11/18 Metoprolol Tartrate [Lopressor (beta magi)] 100 mg PO BID 08/11/18 furosemide 20 mg tablet 20 mg PO DAILY #90 tab 03/27/19 Amlodipine [Norvasc] 10 mg PO QHS 07/19/20 albuterol sulfate 90 mcg/actuation aerosol inhaler 1 inh INHALATION ONCE PRN 10/04/20 multivitamin 1 tab PO DAILY 10/04/20 Dexamethasone [Decadron] 6 mg PO DAILY 7 Days #7 tablet 01/02/21 The following prescriptions were given: Dexamethasone [Decadron] 6 mg PO DAILY 7 Days #7 tablet Transmission Status: Received by [facility] Primary Care Physician: Girma Ayala DO [Primary Care Provider] - Please follow up with your Primary Care Physician in: in 2-4 weeks Test Results: Test results from this visit will be discussed in further detail at your follow- up appointment, if applicable. Proposed Discharge Date: 01/02/21
--- NOTE | 2021-01-02 13:50 | NURSING ---
Lyly and Magaly notified of D/C, Lyly will pick patient up approx at 1630.
--- NOTE | 2021-01-03 15:06 | CASEMGMT ---
CELINE KELLEY Discharge Follow-Up Phone Call. Awilda: Rafia Strata: 3 Discharge Date: 01/02/21 Adm Dx: COVID, hypoxia Call to pt to inquire about how he has been doing since being discharged from the hospital. Pt states he is doing well, stating he feels mostly back to his baseline but states, I know it's going to take me awhile with this COPD. He states he tires easily and has been having to sit down to rest frequently. CELINE KELLEY informed pt it is normal w/COVID to tire/fatigue easily and that taking frequent rest breaks is recommended. He states he was well pleased with the hospitalist, Dr Ruano, stating, He came in and sat down beside me and I was well pleased with the way he talked to me. He denies having any questions about the discharge instructions or his medications, stating he took the 3 tabs of Decadron this morning and his daughter has set up the remainder ones in his weekly pill container. Pt states Zena[employer] has been out to bring him larger portable O2 tanks on wheels that he feels will work well for him for now, stating he can pull them around well, depending on where he goes, and he does not plan to go anywhere for awhile, as he is in quarantine. Pt thanked CELINE KELLEY for calling. Jordyn STEWART RN, CM
== END 2021-01-02 16:30 | disposition home or self-care (01) | DRG 177 ==
LOC: ED 20:37 → ICU 21:54
PROVIDERS: Admitting Provider Family Medicine; Emergency Provider Emergency Medicine; PCP Family Medicine; Visit Provider Internal Medicine
DX: U07.1 COVID-19 (principal); J96.21 Acute and chronic respiratory failure with hypoxia; I48.20 Chronic atrial fibrillation, unspecified; J44.0 Chronic obstructive pulmonary disease with (acute) lower respiratory infection; T41.5X6A Underdosing of therapeutic gases, initial encounter; Z91.138 Patient's unintentional underdosing of medication regimen for other reason; Y92.9 Unspecified place or not applicable; I48.0 Paroxysmal atrial fibrillation; I25.10 Atherosclerotic heart disease of native coronary artery without angina pectoris; I10 Essential (primary) hypertension; E78.2 Mixed hyperlipidemia; N40.0 Benign prostatic hyperplasia without lower urinary tract symptoms; Z79.82 Long term (current) use of aspirin; Z79.51 Long term (current) use of inhaled steroids; Z79.899 Other long term (current) drug therapy; I25.2 Old myocardial infarction; Z87.891 Personal history of nicotine dependence; Z95.1 Presence of aortocoronary bypass graft
CPT/HCPCS: 71045; 71275; 80048; 80053; 82728; 83615; 83735; 83880; 84075; 84145; 84484; 85025; 85379; 85610; 86140; 87426; 87449; 87633; 87635; 93005; 94640; 97161; 99251; 99285; J7040; J7050; Q9967; A4216; G0463; J1940; U0002

== ENCOUNTER → 2022-02-04 | Outpatient (CLI) | payer MEDICARE, SELFPAY ==
--- NOTE | 2022-02-04 14:03 | VDLE_ITS ---
Reason For Study: Swelling RIGHT LEFT GSV is normal. GSV is normal. CFV is compressible, spontaneous, phasic, CFV is compressible, spontaneous, phasic, competent and demonstrates normal competent, and demonstrates normal augmentation. augmentation. FV is compressible, spontaneous, phasic, FV is compressible, spontaneous, phasic, competent and demonstrates normal competent and demonstrates normal augmentation. augmentation. POP V is compressible, spontaneous, phasic, POP V is compressible, spontaneous, phasic, competent and demonstrates normal competent and demonstrates normal augmentation. augmentation. T/P Trunk is compressible. T/P Trunk is compressible. PTV is compressible. PTV is compressible. RT PerV is compressible. LT PerV is compressible. Procedure This is a venous duplex using B-mode, color flow and spectral Doppler. Exam performed in department. A preliminary report was called and/or faxed to [facility]. VL/Venous Duplex US - [place] Extrem Interpretation Summary No evidence for acute deep venous thrombosis bilateral lower extremities Patent and compressible right great saphenous vein Surgically harvested left great saphenous vein Ordering Physician: Shirley Perez Referring Physician: Girma Ayala Performed By: Sophia Steele RVT
== END | disposition home or self-care (01) ==
LOC: CVS 13:33
PROVIDERS: PCP Family Medicine; Referring Provider Physician Assistant Medical; Visit Provider Physician Assistant Medical
DX: R06.02 Shortness of breath (principal); I48.20 Chronic atrial fibrillation, unspecified; R60.0 Localized edema
CPT/HCPCS: 93970

== ENCOUNTER 2022-07-14 10:15 | Inpatient (IN) | payer MEDICARE, SELFPAY ==
[2022-07-14] VITALS (21 sets, daily range): BP systolic 98–123; BP diastolic 46–89; PULSE 82–108; RESP 16–26; TEMP 36.3–36.9; O2SAT 90–99; BMI 20.9; BMI 19.9
--- NOTE | 2022-07-14 10:31 | EDS_ITS ---
HPI History of Present Illness Chief Complaint: Shortness of Breath Informant: patient Onset/Context/Timing Onset: Today Current Severity: Moderate Maximum Severity: Moderate Narrative Narrative: Patient present secondary to increased shortness of breath. He wears 3 L of oxygen at home at baseline. He states he got up in the middle the night to go the restroom and was very short of breath with exertion. He checked his pulse ox and it was noted to be 77% on his normal 3 L. He has a moist sounding cough that is started today. He denies fever or chills. No chest pain. He does report that his shortness of breath has been increasing slowly over the past couple days. [facility] Medical History (Updated 07/14/22 @ 11:[address] Lindsey Gama MD) Atherosclerotic heart disease of [place] coronary artery without angina pectoris Benign hypertension Chronic atrial fibrillation Chronic respiratory failure COPD (chronic obstructive pulmonary disease) Dyspnea Encounter for long-term current use of high risk medication Mixed hyperlipidemia Nicotine abuse Old myocardial infarction PVD (peripheral vascular disease) Shortness of breath Home Medications budesonide-formoterol HFA 160 mcg-4.5 mcg/actuation aerosol inhaler 2 puff inh alation BID copd 08/24/16 [History Last Taken 12/31/20] tamsulosin 0.4 mg capsule 0.4 mg PO QHS prostate 06/02/17 [History Last Taken 08/10/18] aspirin 81 mg tablet,delayed release 81 mg PO BID HEART HEALTH 08/11/18 [History Last Taken 12/31/20] lovastatin 40 mg tablet 40 mg PO DAILY cholesterol 08/11/18 [History Last Taken 12/31/20] metoprolol tartrate 100 mg tablet 100 mg PO BID BLOOD PRESSURE 08/11/18 [History Last Taken 12/31/20] furosemide 20 mg tablet 20 mg PO DAILY edema #90 tabs 03/27/19 [Rx Last Taken Unknown] amlodipine 10 mg tablet 10 mg PO QHS blood pressure 07/19/20 [History Last Taken 12/30/20] albuterol sulfate 90 mcg/actuation aerosol inhaler (ProAir HFA) 1 inh inhalation ONCE PRN Sob &/Or Wheezing 10/04/20 [History Last Taken 12/30/20] Allergy/AdvReac Type Severity Reaction Status Date / Time acetaminophen [From Bhavya] AdvReac Severe Unknown Verified 07/14/22 10:29 chlorpheniramine AdvReac Severe Unknown Verified 07/14/22 10:29 [From Dristan] oxymetazoline [From Dristan] AdvReac Severe Unknown Verified 07/14/22 10:29 pheniramine [From Dristan] AdvReac Severe Unknown Verified 07/14/22 10:29 phenylephrine [From Dristan] AdvReac Severe Unknown Verified 07/14/22 10:29 pseudoephedrine AdvReac Severe Unknown Verified 07/14/22 10:29 [From Dristan] lisinopril AdvReac Unknown Verified 07/14/22 10:29 Family History Father Heart disease Brother Hypertension Sister CAD (coronary artery disease) Hx of CABG Sister CAD (coronary artery disease) Hx of CABG Surgical History History of inguinal hernia repair (~07/2020) History of tonsillectomy Hx of CABG (~06/2009) Hx of ventral hernia repair Social History Smoking Status: Former smoker how long ago did patient quit smokin.5 years alcohol intake: never substance use type: does not use caffeine: Yes Type: coffee Number of servings: 2 ROS ROS ED Constitutional Constitutional ED: Denies chills or fever(s) Eyes Eyes: Denies change in vision or discharge from eye(s) ENT ENT ED: Denies discharge from eye(s), rhinorrhea or sore throat Cardiovascular Cardiovascular: Denies chest pain or palpitations Respiratory/Chest Respiratory/Chest: Reports cough and dyspnea Gastrointestinal Gastrointestinal: Denies abdominal pain, nausea or vomiting Genitourinary Genitourinary ED: Denies dysuria Musculoskeletal Musculoskeletal: Denies back pain or extremity pain Integumentary Denies Abrasions or rash Neurologic Neurologic: Denies headache(s) or weakness Allergic/Immunologic Allergic/Immunologic ED: Denies lip swelling or urticaria EXAM Physical Exam Const Vital Signs: 07/14/22 10:17 07/14/22 10:24 07/14/22 10:24 Temperature 98.5 F Temperature Source Temporal Pulse Rate 93 Respiratory Rate 25 H Respiratory Effort Short of Breath Labored Blood Pressure 123/63 H Blood Pressure Mean 83 Pulse Ox 98 Oxygen Delivery Method Nasal Cannula Oxygen Flow Rate (L/min) 6 07/14/22 10:29 07/14/22 10:31 07/14/22 10:39 Temperature 98.5 F Temperature Source Temporal Pulse Rate 93 Respiratory Rate 25 H Respiratory Effort Blood Pressure 123/63 H Blood Pressure Mean 83 Pulse Ox 90 93 93 Oxygen Delivery Method Nasal Cannula High Flow High Flow Oxygen Flow Rate (L/min) 6 8 07/14/22 10:43 07/14/22 11:23 Temperature Temperature Source Pulse Rate 83 Respiratory Rate 26 H Respiratory Effort Blood Pressure 98/66 Blood Pressure Mean 76 Pulse Ox 98 97 Oxygen Delivery Method High Flow High Flow Oxygen Flow Rate (L/min) 6 6 Positive well nourished and well developed General Appearance ED: well developed HEENT Reports normocephalic and head/scalp atraumatic Eyes PERRL and EOMs intact bilaterally Neck supple Chest Wall inspection of chest normal and palpation of chest normal Resp Resp Narrative: Tachypnea with mild decreased breath sounds bilaterally. Frequent moist cough noted. Cardio Rhythm: abnormal rhythm irregularly irregular GI non-tender Palpation: soft Extremity normal to inspection Neuro oriented x3 and no sensory deficits noted Sensorium / Orientation: alert Motor Exam: strength 5/5 throughout Psych mental status grossly normal Skin no rashes or lesions noted MDM MDM MDM Narrative Medical decision making narrative: During my initial interview patient is on 6 L nasal cannula. He is speaking full sentences, however his oxygen saturation does drop to 90%. He is placed on high flow nasal cannula. EKG, chest x-ray, lab work obtained. COVID test ordered. Lab Data Attestation: I reviewed the patient's lab results. Labs: Laboratory Results - last 24 hr 07/14/22 07/14/22 07/14/22 10:39 10:39 10:39 WBC 10.4 RBC 4.17 L Hgb 12.8 L Hct 41.1 MCV 98.6 H MCH 30.7 MCHC 31.1 L RDW Std Deviation 49.0 H RDW Coeff of Kahlil 13.5 Plt Count 161 MPV 11.7 Immature Gran % (Auto) 0.500 Neut % (Auto) 68.0 Lymph % (Auto) 17.7 L [place] % (Auto) 13.0 H Eos % (Auto) 0.4 Baso % (Auto) 0.4 Absolute Neuts (auto) 7.1 Absolute Lymphs (auto) 1.84 Nucleated RBC % 0 Sodium 144 Potassium 3.7 Chloride 108 H Carbon Dioxide 30.0 Anion Gap 6 BUN 35 H Creatinine 0.69 L Estim Creat Clear Calc 48.74 Est GFR (MDRD) Af Amer 142 Est GFR (MDRD) Non-Af 117 BUN/Creatinine Ratio 50.9 H Glucose 101 Calcium 8.7 Troponin I High Sens 14 B-Natriuretic Peptide 427.9 H Radiography Chest X-Ray - ED: 1 View, Read by ED Physician, Chronic Changes and No Infiltrates Diagnostic Testing: Clinical Impression(s) from Imaging Studies Chest X-Ray 07/14/22 10:45 IMPRESSION: Stable examination. Findings suggestive of a hyperinflation with interstitial scarring. Electronically Signed: Darin Kunz MD at 11:27 EDT , EKG Initial EKG: Attestation: I personally reviewed and interpreted this EKG as follows: Interpretation: Atrial Fibrillation (A. fib at 91. Lateral ST depression slightly more pronounced when compared to prior study from December 2020.) Treatment and Re-Evaluation Narrative: Patient had been given a DuoNeb treatment. Repeat evaluation he did report some improvement in his breathing. He is on 6 L high flow nasal cannula and satting in the high 90s. CBC is unremarkable. Chemistry studies normal. Troponin is normal at 14. BNP is elevated at 427 this appears higher than his prior values. Chest x-ray per my interpretation shows chronic changes with no focal infiltrate. Radiology interpretation is reviewed. On repeat auscultation patient does now have some expiratory wheezes. An additional albuterol treatment will be given. Patient will be given a dose of IV Lasix. He received Solu-Medrol with EMS. I will speak with hospitalist regarding admission. Discharge Plan Dx/Rx/DC Orders Clinical Impression: Acute on chronic respiratory failure, COPD exacerbation, CHF (congestive heart failure) Disposition Disposition: Acute Care Hospital [facility]
[2022-07-14] MEDS: Ipratropium/Albuterol Sulfate 3 ML AMPUL.NEB INHALATION ×4 (10:37→23:53)
--- NOTE | 2022-07-14 10:45 | RAD_ITS ---
STUDY: X-RAY CHEST REASON FOR EXAM: Male, 82 years old. Sob TECHNIQUE: Single AP portable view of the chest. COMPARISON: Comparison is made with prior study dated 12/31/2020. FINDINGS: EKG electrodes are seen. Hyperinflation. Stable increased interstitial markings in both lungs worse in the lower lobes in keeping with scarring. There is evidence of superimposed emphysematous changes with increased bronchovascular markings in the upper lobes. Surgical clips are seen in the medial aspect of the left upper lobe. There is no demonstrated pleural abnormality. Sternal cerclage wires and vascular clips are present from a prior sternotomy and coronary artery bypass graft procedure (CABG). Normal mediastinum and kristan. There is prominence of the pulmonary hilar arteries without peripheral pulmonary vascular congestion, suggesting pulmonary hypertension. Normal visualized aortic arch and descending thoracic aorta. Normal visualized thoracic spine. Normal visualized ribs, clavicles, and shoulders. There is no demonstrated abnormality of the visualized soft tissue structures of the upper abdomen. RAD/Chest 1 View (Portable) IMPRESSION: Stable examination. Findings suggestive of a hyperinflation with interstitial scarring. Electronically Signed: Darin Kunz MD at 11:27 EDT ,
[2022-07-14 10:55] LABS: Absolute Lymphocyte Count 1.84 X10^3/uL (0.83-4.51); Absolute Neutrophil Count 7.1 X10^3/uL (2.0-7.7); Basophil# 0.04 X10^3/uL; Basophil% 0.4 % (0-1); Eosinophil# 0.04 X10^3/uL; Eosinophils% 0.4 % (0-5); Hematocrit 41.1 % (40-54); Hemoglobin 12.8 g/dL (13.0-16.5); Lymphocyte # 1.84 X10^3/ul (0.83-4.51); Lymphocyte % 17.7 % (19-41); Mean Corp Hgb Conc 31.1 g/dL (32-36); Mean Corpuscular Hgb 30.7 pg (27.0-32.0); Mean Corpuscular Volume 98.6 fL (80-94); Mean Platelet Vol. 11.7 fl (6.2-12.0); Monocyte# 1.35 X10^3/uL; NRBC Flagged by Analyzer 0 % (0-5); Neutrophil # 7.06 X10^3/uL (2.7-7.7); Platelet Count 161 K/mm3 (150-450); RBC Distribution Width CV 13.5 % (11.6-14.6); Red Blood Count 4.17 M/mm3 (4.6-6.2); White Blood Count 10.4 K/mm3 (4.4-11.0)
[2022-07-14 11:09] LABS: BNP,B-Type NATRIURETIC PEPTIDE 427.9 pg/mL (0-100)
[2022-07-14 11:11] LABS: Anion Gap 6 (5-15); BUN 35 mg/dL (7-18); BUN/Creat Ratio 50.9 RATIO (10-20); Calcium,Total 8.7 mg/dL (8.5-10.1); Chloride 108 mmol/L (98-107); Creatinine, Serum 0.69 mg/dL (0.70-1.30); EST Glomerular Filtration Rate 117 mL/min (>60); Est Glom Filt Rate - Afr Amer 142 mL/min (>60); Estimated Creatinine Clearance 48.74 ml/min; Glucose 101 mg/dL (74-106); Potassium 3.7 mmol/L (3.5-5.1); Sodium Level 144 mmol/L (136-145); Troponin-I HS (w/2H Reflex) 14 pg/mL (3.0-78.0)
[2022-07-14] MEDS: Albuterol 2.5 MG/3 ML VIAL.NEB. INHALATION (11:42)
[2022-07-14] MEDS: Furosemide 40 MG/4 ML Vial IV (11:45)
--- NOTE | 2022-07-14 11:51 | NURSING ---
DR PERSAUD FOR DR RUCKER
--- NOTE | 2022-07-14 12:47 | HP.PCM.HOS_ITS ---
HPI - General General Date of Admission: 07/14/22 Date of Service: 07/14/22 Chief Complaint: Shortness of HPI Narrative LISA SZYMANSKI, is a 82 M with a history of COPD chronically on 3 L of home O2, coronary artery disease status post CABG x4 in roughly 2008, and atrial fibrillation who presented to [facility] 07/14/2022 for several days worsening cough and 1 day of significant shortness of breath. He has been having worsening cough productive of sputum for several days and when he woke up today he was significantly short of breath, oxygen saturation was checked and he he was 77%. Was brought to the ED and sats improved on 6 L nasal cannula intermittently required high flow. Got methylprednisone and nebs. BNP somewhat elevated she was given Lasix as well. Hospitalist contacted for admission. On exam Mr. Fisher was standing at the end of his bed after urinating and had his oxygen off and was significantly short of breath and had dusky appearing lips, helped back into bed oxygen put on and sats were 80, with deep breathing sats improved to low to mid 90s though coughed frequently and had some aspect of co nversational dyspnea. Denies shortness of breath, denies fevers or chills, no recent sick contacts. Denies other complaints at this time. FORMERLY [facility], [facility]–1983 Medical History (Updated 07/14/22 @ 12:[address] Leslie Raman MD) Atherosclerotic heart disease of [place] coronary artery without angina pectoris Benign hypertension Chronic atrial fibrillation Chronic respiratory failure COPD (chronic obstructive pulmonary disease) Dyspnea Encounter for long-term current use of high risk medication Mixed hyperlipidemia Nicotine abuse Old myocardial infarction PVD (peripheral vascular disease) Shortness of breath Home Medications budesonide-formoterol HFA 160 mcg-4.5 mcg/actuation aerosol inhaler 2 puff inha lation BID copd 08/24/16 [History Last Taken 07/13/22] tamsulosin 0.4 mg capsule 0.4 mg PO QHS prostate 06/02/17 [History Last Taken 07/13/22] aspirin 81 mg tablet,delayed release 81 mg PO BID HEART HEALTH 08/11/18 [History Last Taken 07/13/22] lovastatin 40 mg tablet 40 mg PO DAILY cholesterol 08/11/18 [History Last Taken 07/13/22] metoprolol tartrate 100 mg tablet 100 mg PO BID BLOOD PRESSURE 08/11/18 [History Last Taken 07/13/22] furosemide 20 mg tablet 20 mg PO DAILY edema #90 tabs 03/27/19 [Rx Last Taken 07/13/22] amlodipine 10 mg tablet 10 mg PO QHS blood pressure 07/19/20 [History Last Taken 07/13/22] albuterol sulfate 90 mcg/actuation aerosol inhaler (ProAir HFA) 1 inh inhalation ONCE PRN Sob &/Or Wheezing 10/04/20 [History Last Taken 07/13/22] multivitamin 1 tab PO DAILY health maintenance 07/14/22 [History Last Taken 07/13/22] Allergy/AdvReac Type Severity Reaction Status Date / Time acetaminophen [From Bhavya] AdvReac Severe Unknown Verified 07/14/22 10:29 chlorpheniramine AdvReac Severe Unknown Verified 07/14/22 10:29 [From Bhavya] oxymetazoline [From Bhavya] AdvReac Severe Unknown Verified 07/14/22 10:29 pheniramine [From Bhavya] AdvReac Severe Unknown Verified 07/14/22 10:29 phenylephrine [From Bhavya] AdvReac Severe Unknown Verified 07/14/22 10:29 pseudoephedrine AdvReac Severe Unknown Verified 07/14/22 10:29 [From Bhavya] lisinopril AdvReac Unknown Verified 07/14/22 10:29 Family History Father Heart disease Brother Hypertension Sister CAD (coronary artery disease) Hx of CABG Sister CAD (coronary artery disease) Hx of CABG Surgical History History of inguinal hernia repair (~07/2020) History of tonsillectomy Hx of CABG (~06/2009) Hx of ventral hernia repair Social History Smoking Status: Former smoker how long ago did patient quit smokin.5 years alcohol intake: never substance use type: does not use caffeine: Yes Type: coffee Number of servings: 2 ROS Constitutional Constitutional: Reports other Details: Has slowly lost weight over the period of years but reports good appetite, occasionally reports at times he will have night sweats but this is not consistent or changed ; Denies chills or fever(s) Eyes Eyes: Denies change in vision ENT HEENT: Denies headache(s), nasal congestion or sore throat Cardiovascular Cardiovascular: Denies chest pain or palpitations Respiratory/Chest Respiratory/Chest: Reports cough and productive cough Gastrointestinal Gastrointestinal: Reports other Details: denies changes in bowel or bladder ; Denies abdominal pain Genitourinary Genitourinary: Reports other Details: denies changes in urination Musculoskeletal Musculoskeletal: Denies joint pain Neurologic Neurologic: Denies dizziness, focal weakness, headache(s), numbness or tingling Psychiatric Psychiatric: Denies anxiety Hematologic/Lymphatic Hematologic/Lymphatic: Reports easy bruising Allergic/Immunologic Allergic/Immunologic: Reports other Details: denies rashes Vital Signs Vital Signs Vital Signs: 07/14/22 10:17 07/14/22 10:24 07/14/22 10:24 Temperature 98.5 F Temperature Source Temporal Pulse Rate 93 Respiratory Rate 25 H Respiratory Effort Short of Breath Labored Respiratory Pattern Blood Pressure 123/63 H Blood Pressure Mean 83 Pulse Ox 98 Oxygen Delivery Method Nasal Cannula Oxygen Flow Rate (L/min) 6 07/14/22 10:29 07/14/22 10:31 07/14/22 10:39 Temperature 98.5 F Temperature Source Temporal Pulse Rate 93 Respiratory Rate 25 H Respiratory Effort Respiratory Pattern Blood Pressure 123/63 H Blood Pressure Mean 83 Pulse Ox 90 93 93 Oxygen Delivery Method Nasal Cannula High Flow High Flow Oxygen Flow Rate (L/min) 6 8 07/14/22 10:43 07/14/22 11:23 07/14/22 11:43 Temperature Temperature Source Pulse Rate 83 97 Respiratory Rate 26 H 23 H Respiratory Effort Respiratory Pattern Tachypnea Blood Pressure 98/66 Blood Pressure Mean 76 Pulse Ox 98 97 Oxygen Delivery Method High Flow High Flow Oxygen Flow Rate (L/min) 6 6 07/14/22 12:08 Temperature 97.3 F L Temperature Source Temporal Pulse Rate 95 Respiratory Rate 16 Respiratory Effort Respiratory Pattern Blood Pressure 114/89 H Blood Pressure Mean 97 Pulse Ox 99 Oxygen Delivery Method High Flow Oxygen Flow Rate (L/min) 6 Weight Weight: 60.5 kg Body Mass Index (BMI) 20.9 Physical Exam Const alert and no apparent distress Constitutional Narrative: Oriented, after oxygen back on and lying in bed no apparent distress HEENT normocephalic and head/scalp atraumatic HEENT Narrative: Poor dentition, slightly dry mucous membranes Eyes Eyes Narrative: EOM grossly intact, anicteric Neck supple Resp Resp Narrative: Diminished throughout but primarily the bases. Conversationally dyspneic at times Cardio Cardio Narrative: Irregularly irregular GI soft to palpation, non-tender and non-distended Extremity Extremity Narrative: No edema appreciated. Has wrinkles apparent on legs Neuro moves all extremities Neuro Narrative: No overt focal deficits appreciated Psych Psych Narrative: Cooperative Results Lab / Micro Data Result Diagrams: 07/14/22 10:39 07/14/22 10:39 Labs: Laboratory Results - last 24 hr 07/14/22 10:39: WBC 10.4, RBC 4.17 L, Hgb 12.8 L, Hct 41.1, MCV 98.6 H, MCH 30.7, MCHC 31.1 L, RDW Std Deviation 49.0 H, RDW Coeff of Kahlil 13.5, Plt Count 161, MPV 11.7, Immature Gran % (Auto) 0.500, Neut % (Auto) 68.0, Lymph % (Auto) 17.7 L, [place] % (Auto) 13.0 H, Eos % (Auto) 0.4, Baso % (Auto) 0.4, Absolute Ne uts (auto) 7.1, Absolute Lymphs (auto) 1.84, Nucleated RBC % 0 07/14/22 10:39: Sodium 144, Potassium 3.7, Chloride 108 H, Carbon Dioxide 30.0, Anion Gap 6, BUN 35 H, Creatinine 0.69 L, Estim Creat Clear Calc 48.74, Est GFR (MDRD) Af Amer 142, Est GFR (MDRD) Non-Af 117, BUN/Creatinine Ratio 50.9 H, Glucose 101, Calcium 8.7, Troponin I High Sens 14 07/14/22 10:39: B-Natriuretic Peptide 427.9 H Micro: Microbiology 07/14/22 10:37 Nasal Secretion SARS-CoV-2 Antigen (Rapid) - Final Radiology Impression Chest X-Ray 07/14/22 10:45 IMPRESSION: Stable examination. Findings suggestive of a hyperinflation with interstitial scarring. Electronically Signed: Darin Kunz MD at 11:27 EDT , Assessment & Plan Assessment/Plan (1) Acute on chronic respiratory failure: QUALIFIERS: Respiratory failure complication: hypoxia Qualified Code(s): J96.21 - Acute and chronic respiratory failure with hypoxia PLAN: Plan 1. Acute on chronic hypoxic respiratory failure Likely a COPD, though given elevated BNP with no recent echo cannot rule out component of heart failure Does appear to have very slight effusion on the right side on chest x-ray along with hyperinflation and interstitial scarring Will start Methylpred and transition to prednisone 40 mg daily as well as azithromycin and nebs as well as albuterol as needed Will also continue with IV Lasix Obtain echo Daily weights We will obtain COVID and flu antigens as well Sputum culture also ordered 2. CAD s/p CABG x4 Continue aspirin, statin, beta-magi No chest pain at this time Found in ED was 14, do not suspect ACS at this time 3. COPD chronically on 3 L of home O2 See #1 #DVT ppx: Alicia Raman MD Charges/Coding Visit Charges Inpatient E&M: 41182 Init Hosp L2
--- NOTE | 2022-07-14 12:48 | NURSING ---
120 HUNG RESP FAILURE, COPD, CHF
[2022-07-14 12:51] LABS: Reflex Troponin-HS? (from REC) Y
--- NOTE | 2022-07-14 13:37 | ECHOD_ITS ---
Reason For Study: DYSPNEA/SOB Procedure This was a 2D Doppler, Color Flow transthoracic echocardiogram. The study was technically difficult. Exam performed portable in patient room. Left Ventricle Normal LV size. Left ventricular systolic function is normal. The estimated ejection fraction is 70 %. Post operative septal motion. No evidence for diastolic dysfunction. Right Ventricle Normal RV size. Normal systolic function. Atria The left atrium is mildly enlarged. Normal right atrium. No doppler evidence for ASD. Mitral Valve There is no mitral annular calcification. Normal mitral valve. Trivial mitral valve insufficiency. Tricuspid Valve Normal tricuspid valve. Trivial tricuspid valve insufficiency. Unable to estimate RV systolic pressure/pulmonary artery pressure due to technically difficult study. Aortic Valve The aortic valve is not well visualized. Pulmonic Valve The pulmonic valve is not well visualized. Great Vessels The aortic root is not well visualized. Pericardium/Pleural No pericardial effusion. MMode/2D Measurements & Calculations LVIDd: 4.8 cm IVSd: 1.2 cm LA dimension: 4.9 cm LVIDs: 3.3 cm LVPWd: 1.2 cm RVDd: 3.6 cm FS: 31.1 % LAV(MOD-bp): 71.0 ml LA A4 area: 19.2 cm2 LA dimension(2D): 4.9 cm LAV(MOD-bp) Indexed: 41.7 ml/m2 LAV(MOD-sp2): 73.6 ml LAV(MOD-sp4): 63.1 ml RA A4 area: 13.6 cm2 Doppler Measurements & Calculations MV E max zach: 108.8 cm/sec Lat Peak E' Zach: 12.0 cm/sec Med Peak E' Zach: 12.1 cm/sec E/E' lat: 9.1 E/E' med: 9.0 Ao V2 max: 91.1 cm/sec LV V1 max: 96.6 cm/sec Ao max P.3 mmHg LV V1 max P.7 mmHg ECHO/Echo Complete Interpretation Summary The study was technically difficult. Left ventricular systolic function is normal. The estimated ejection fraction is 70 %. Post operative septal motion. The left atrium is mildly enlarged. Trivial mitral valve insufficiency. Trivial tricuspid valve insufficiency. Unable to estimate RV systolic pressure/pulmonary artery pressure due to techni massimo difficult study. No evidence for diastolic dysfunction. Ordering Physician: Leslie Raman Referring Physician: Girma Ayala Performed By: Noemi Albrecht, CARLENE, RVT
[2022-07-14 14:21] LABS: Troponin-I HS 13 pg/mL (3.0-78.0)
[2022-07-14] MEDS: 0.9% Saline Lock 10 ML Syringe IV ×2 (14:54→22:09)
[2022-07-14] MEDS: Azithromycin 250 MG Tablet 500 MG PO (14:56)
[2022-07-14] MEDS: Aspirin E.C. 81 MG Tablet PO (16:40)
[2022-07-14] MEDS: Enoxaparin 40 MG/0.4 ML Syringe SC (22:08)
[2022-07-14] MEDS: Tamsulosin HCl 0.4 MG Capsule PO (22:09)
[2022-07-14] MEDS: Metoprolol Tartrate 100 MG Tablet PO (22:20)
[2022-07-15] VITALS (19 sets, daily range): BP systolic 116–133; BP diastolic 58–84; PULSE 71–102; RESP 17–22; TEMP 36.3–37.1; O2SAT 86–94
[2022-07-15] MEDS: 0.9% Saline Lock 10 ML Syringe IV ×4 (04:52→20:30)
[2022-07-15 05:35] LABS: Absolute Lymphocyte Count 0.45 X10^3/uL (0.83-4.51); Absolute Neutrophil Count 8.4 X10^3/uL (2.0-7.7); Basophil# 0.01 X10^3/uL; Basophil% 0.1 % (0-1); Hemoglobin 12.4 g/dL (13.0-16.5); Lymphocyte # 0.45 X10^3/ul (0.83-4.51); Lymphocyte % 4.9 % (19-41); Mean Corpuscular Hgb 30.4 pg (27.0-32.0); Mean Platelet Vol. 11.8 fl (6.2-12.0); Monocyte# 0.32 X10^3/uL; Monocyte% 3.5 % (0-10); NRBC Flagged by Analyzer 0 % (0-5); Neutrophil # 8.36 X10^3/uL (2.7-7.7); Neutrophil % 91.1 % (47-70); POSITIVE DIFFERENTIAL YES; Platelet Count 153 K/mm3 (150-450); RBC Distribution Width CV 13.4 % (11.6-14.6); RBC Distribution Width SD 48.7 fl (35.1-43.9); Red Blood Count 4.08 M/mm3 (4.6-6.2); White Blood Count 9.2 K/mm3 (4.4-11.0)
[2022-07-15 05:36] LABS: Differential Indicated SCAN CRITERIA MET
[2022-07-15 06:19] LABS: Macrocytosis 1+
[2022-07-15 06:22] LABS: ALB/GLOB Ratio 0.9 RATIO (0.9-2.4); AST(SGOT) 15 U/L (15-37); Alanine Aminotransfer ALT/SGPT 16 U/L (16-61); Albumin, Serum 2.9 g/dL (3.2-5.0); Alkaline Phosphatase 62 U/L (45-117); Anion Gap 4 (5-15); BUN 37 mg/dL (7-18); BUN/Creat Ratio 57.5 RATIO (10-20); Calcium,Total 8.5 mg/dL (8.5-10.1); Chloride 105 mmol/L (98-107); Creatinine, Serum 0.64 mg/dL (0.70-1.30); EST Glomerular Filtration Rate 127 mL/min (>60); Est Glom Filt Rate - Afr Amer 153 mL/min (>60); Estimated Creatinine Clearance 45.19 ml/min; Globulin 3.3 g/dL (2.2-4.2); Glucose 143 mg/dL (74-106); Potassium 3.5 mmol/L (3.5-5.1); Protein, Total 6.2 g/dL (6.4-8.2); Sodium Level 142 mmol/L (136-145); Thyroid Stim Hormone (TSH) 0.19 uIU/mL (0.358-3.74)
[2022-07-15] MEDS: Ipratropium/Albuterol Sulfate 3 ML AMPUL.NEB INHALATION ×5 (07:06→23:00)
--- NOTE | 2022-07-15 10:42 | PN.HOSP_ITS ---
Subjective Subjective DOS: 07/15/2022 CC: Shortness of breath Reports continued shortness of breath, got up to walk with therapy and had si gnificant difficulty. Continues to cough and has difficulty getting sputum up. Denies chest pain. Trying to eat, no swelling in legs. Did not have any other complaints this morning Objective Data Objective Data Vital Signs: Vital Signs Temp Pulse Resp BP Pulse Ox O2 Del Method O2 Flow Rate 98.5 F 81 19 H 119/69 93 Nasal Cannula 3 07/15/22 04:46 07/15/22 07:53 07/15/22 07:53 07/15/22 04:46 07/15/22 07:53 07/15/22 08:09 07/15/22 08:09 Oxygen Flow Rate (L/min) 3 Oxygen Delivery Method Nasal Cannula Weight: 56.1 kg Body Mass Index (BMI) 19.9 Intake & Output: Intake and Output for Last 24 Hours 07/13/22 07/14/22 07/15/22 23:59 23:59 23:59 Intake Total 120 / 120 Output Total 175 / 175 250 / 250 Balance -55 / -55 -250 / -250 Lab / Micro Data Result Diagrams: 07/15/22 04:39 07/15/22 04:39 Labs: Laboratory Results - last 24 hr 07/14/22 10:39: WBC 10.4, RBC 4.17 L, Hgb 12.8 L, Hct 41.1, MCV 98.6 H, MCH 30.7, MCHC 31.1 L, RDW Std Deviation 49.0 H, RDW Coeff of Kahlil 13.5, Plt Count 161, MPV 11.7, Immature Gran % (Auto) 0.500, Neut % (Auto) 68.0, Lymph % (Auto) 17.7 L, [place] % (Auto) 13.0 H, Eos % (Auto) 0.4, Baso % (Auto) 0.4, Absolute Neuts (auto) 7.1, Absolute Lymphs (auto) 1.84, Nucleated RBC % 0 07/14/22 10:39: Sodium 144, Potassium 3.7, Chloride 108 H, Carbon Dioxide 30.0, Anion Gap 6, BUN 35 H, Creatinine 0.69 L, Estim Creat Clear Calc 48.74, Est GFR (MDRD) Af Amer 142, Est GFR (MDRD) Non-Af 117, BUN/Creatinine Ratio 50.9 H, Glucose 101, Calcium 8.7, Troponin I High Sens 14 07/14/22 10:39: B-Natriuretic Peptide 427.9 H 07/14/22 13:30: Troponin I High Sens 13 07/15/22 04:39: WBC 9.2, RBC 4.08 L, Hgb 12.4 L, Hct 40.0, MCV 98.0 H, MCH 30.4, MCHC 31.0 L, RDW Std Deviation 48.7 H, RDW Coeff of Kahlil 13.4, Plt Count 153, MPV 11.8, Immature Gran % (Auto) 0.400, Neut % (Auto) 91.1 H, Lymph % (Auto) 4.9 L, [place] % (Auto) 3.5, Eos % (Auto) 0.0, Baso % (Auto) 0.1, Absolute Neuts (auto) 8.4 H, Absolute Lymphs (auto) 0.45 L, Nucleated RBC % 0, Macrocytosis 1+ 07/15/22 04:39: Sodium 142, Potassium 3.5, Chloride 105, Carbon Dioxide 33.0 H, Anion Gap 4 L, BUN 37 H, Creatinine 0.64 L, Estim Creat Clear Calc 45.19, Est GFR (MDRD) Af Amer 153, Est GFR (MDRD) Non-Af 127, BUN/Creatinine Ratio 57.5 H, Glucose 143 H, Calcium 8.5, Total Bilirubin 0.60, AST 15, ALT 16, Alkaline Phosphatase 62, Total Protein 6.2 L, Albumin 2.9 L, Globulin 3.3, Albumin/Globulin Ratio 0.9, TSH 0.19 L Micro: Microbiology 07/14/22 10:37 Nasal Secretion SARS-CoV-2 Antigen (Rapid) - Final Radiography Diagnostic Testing: Radiology Impression Chest X-Ray 07/14/22 10:45 IMPRESSION: Stable examination. Findings suggestive of a hyperinflation with interstitial scarring. Electronically Signed: Darin Kunz MD at 11:27 EDT , Echocardiogram 07/14/22 13:37 Interpretation Summary The study was technically difficult. Left ventricular systolic function is normal. The estimated ejection fraction is 70 %. Post operative septal motion. The left atrium is mildly enlarged. Trivial mitral valve insufficiency. Trivial tricuspid valve insufficiency. Unable to estimate RV systolic pressure/pulmonary artery pressure due to technically difficult study. No evidence for diastolic dysfunction. Ordering Physician: Leslie Raman Referring Physician: Girma Ayala Performed By: Noemi Albrecht RDCS, RVT Physical Exam Const alert and no apparent distress Constitutional Narrative: Oriented, after oxygen back on and lying in bed no apparent distress HEENT normocephalic and head/scalp atraumatic HEENT Narrative: Poor dentition, slightly dry mucous membranes Eyes Eyes Narrative: EOM grossly intact, anicteric Neck supple Resp Resp Narrative: Diminished throughout but primarily the bases. Conversationally dyspneic at times Cardio Cardio Narrative: Irregularly irregular GI soft to palpation, non-tender and non-distended Extremity Extremity Narrative: No edema appreciated. Has wrinkles apparent on legs Neuro moves all extremities Neuro Narrative: No overt focal deficits appreciated Psych Psych Narrative: Cooperative Assessment & Plan Assessment/Plan (1) Acute on chronic respiratory failure: QUALIFIERS: Respiratory failure complication: hypoxia Qualified Code(s): J96.21 - Acute and chronic respiratory failure with hypoxia PLAN: Plan 1. Acute on chronic hypoxic respiratory failure Likely a COPD, though given elevated BNP with no recent echo cannot rule out component of heart failure Does appear to have very slight effusion on the right side on chest x-ray along with hyperinflation and interstitial scarring Will start Methylpred and transition to prednisone 40 mg daily as well as azithromycin and nebs as well as albuterol as needed Will also continue with IV Lasix Obtain echo Daily weights We will obtain COVID and flu antigens as well Sputum culture also ordered 07/15/2022: Echo shows EF of 70%. No evidence for diastolic dysfunction. Completed methylprednisolone and now on oral prednisone, on Zithromax, and is still on Lasix. Feeling much better today but had difficulty even ambulating in his room due to shortness of breath. We will continue current management and monitor closely. Did have low TSH, will obtain T4 with next labs 2. CAD s/p CABG x4 Continue aspirin, statin, beta-magi No chest pain at this time Found in ED was 14, do not suspect ACS at this time 3. COPD chronically on 3 L of home O2 See #1 #DVT ppx: Alicia Raman MD Charges/Coding Visit Charges Inpatient E&M: 95004 Subs Hosp L2
--- NOTE | 2022-07-15 11:05 | CASEMGMT ---
RN CM Face to Face with patient for initial transition planning/care coordination assessment. RN CM introduced self and role at [facility]. Patient lying in bed, alert and oriented. Patient willing to participate in assessment and is able to answer all questions appropriately. Care providers, pharmacy, and demographics verified. Patient wishes to discharge home, denies need for home health at this time. Patient states he has no further needs or concerns at this time. CM to follow for discharge planning needs that may arise. PCP: Lucy Specialists: Tiffanie desktop support consultant Preferred Pharmacy: [facility] Retail Insurance: [id number] Prescription Benefit: yes Living Will/HPOA: yes, son Dwayne Fisher LNOK: son, daughters Living Arrangements: Patient lives alone in a single story home with 2 steps and railing to enter the home. Patient states he is independent at home. Transportation: self, daughter DME/HHC: Patient states he has shower chair, cane, walker, wheelchair, medical alert, nebulizer, pulse ox, POC, and home oxygen through [employer] at 3lpm with portability. No previous HHC or SNF Disposition Plan: Patient to discharge home with family support and follow-up plans in place. Sophia STEWART, RN, CM
[2022-07-15] MEDS: Furosemide 20 MG/2 ML VIAL IV (11:07)
[2022-07-15] MEDS: Atorvastatin Calcium 10 MG Tablet PO (11:07)
[2022-07-15] MEDS: Metoprolol Tartrate 100 MG Tablet PO ×2 (11:07→21:48)
[2022-07-15] MEDS: Aspirin E.C. 81 MG Tablet PO ×2 (11:07→16:33)
[2022-07-15] MEDS: Enoxaparin 40 MG/0.4 ML Syringe SC ×2 (11:07→21:46)
[2022-07-15] MEDS: Azithromycin 250 MG Tablet 500 MG PO (11:08)
--- NOTE | 2022-07-15 16:25 | CHAPLAIN ---
Type of Pastoral Visit _x__ Initial Visit ___ Follow-up Visit ___ On-call Visit ___ General Patient Visit ___ Spiritual Assessment ___ Family Conference ___ Bereavement ___ Rapid Response ___ Code Blue ___ Other (describe below) Pastoral Care Referral From _x__ Patient ___ Family ___ Nurse ___ Physician ___ Telephone Directory Distributor Driver ___ Clinical Informatics Manager ___ Other (describe below) Sacrament/Intervention __x_ Active listening ___ Anointing ___ Congregation ___ Bereavement ___ Communion _x__ Gloria exploration ___ _x__ Life review _x__ Prayer ___ Reconciliation ___ Sacrament of Sick _x__ Supportive presence ___ Wedding ___ Other (describe below) Pastoral Comments patient is talkative and gives much life review; pt admits to early behaviors of life that have brought him these health concerns; pt is but has adult children and a few friends for support; pt welcomes prayer and presence for support
[2022-07-15] MEDS: amLODIPine 10 MG Tablet PO (21:48)
[2022-07-15] MEDS: Tamsulosin HCl 0.4 MG Capsule PO (21:48)
[2022-07-16] VITALS (19 sets, daily range): BP systolic 119–124; BP diastolic 63–83; PULSE 69–109; RESP 12–20; TEMP 36.2–36.9; O2SAT 89–98
[2022-07-16 06:01] LABS: Absolute Lymphocyte Count 0.55 X10^3/uL (0.83-4.51); Absolute Neutrophil Count 13.5 X10^3/uL (2.0-7.7); Basophil# 0.01 X10^3/uL; Basophil% 0.1 % (0-1); Hematocrit 40.9 % (40-54); Hemoglobin 12.8 g/dL (13.0-16.5); Lymphocyte # 0.55 X10^3/ul (0.83-4.51); Lymphocyte % 3.6 % (19-41); Mean Corp Hgb Conc 31.3 g/dL (32-36); Mean Corpuscular Hgb 30.5 pg (27.0-32.0); Mean Corpuscular Volume 97.4 fL (80-94); Mean Platelet Vol. 11.9 fl (6.2-12.0); Monocyte# 0.95 X10^3/uL; Monocyte% 6.3 % (0-10); NRBC Flagged by Analyzer 0 % (0-5); Neutrophil % 89.5 % (47-70); POSITIVE DIFFERENTIAL YES; Platelet Count 169 K/mm3 (150-450); RBC Distribution Width CV 13.3 % (11.6-14.6); RBC Distribution Width SD 47.9 fl (35.1-43.9); White Blood Count 15.1 K/mm3 (4.4-11.0)
[2022-07-16 06:21] LABS: Differential Indicated SCAN CRITERIA MET
[2022-07-16] MEDS: Ipratropium/Albuterol Sulfate 3 ML AMPUL.NEB INHALATION ×5 (06:43→23:20)
[2022-07-16 06:51] LABS: Anion Gap 2 (5-15); BUN 37 mg/dL (7-18); Calcium,Total 8.5 mg/dL (8.5-10.1); Chloride 105 mmol/L (98-107); Creatinine, Serum 0.57 mg/dL (0.70-1.30); EST Glomerular Filtration Rate 146 mL/min (>60); Est Glom Filt Rate - Afr Amer 176 mL/min (>60); Estimated Creatinine Clearance 44.95 ml/min; Glucose 149 mg/dL (74-106); Potassium 3.7 mmol/L (3.5-5.1); Sodium Level 142 mmol/L (136-145); T4 Free Direct 1.27 ng/dL (0.76-1.46)
[2022-07-16] MEDS: Acetaminophen 325 MG Tablet 650 MG PO (07:12)
[2022-07-16] MEDS: Metoprolol Tartrate 100 MG Tablet PO ×2 (08:21→22:13)
[2022-07-16] MEDS: predniSONE 20 MG Tablet 40 MG PO (08:21)
[2022-07-16] MEDS: Aspirin E.C. 81 MG Tablet PO (08:21)
[2022-07-16] MEDS: Atorvastatin Calcium 10 MG Tablet PO (08:21)
[2022-07-16] MEDS: Enoxaparin 40 MG/0.4 ML Syringe SC ×2 (08:21→22:14)
[2022-07-16] MEDS: Azithromycin 250 MG Tablet 500 MG PO (08:21)
[2022-07-16] MEDS: Furosemide 20 MG/2 ML VIAL IV (08:21)
[2022-07-16] MEDS: 0.9% Saline Lock 10 ML Syringe IV (08:24)
[2022-07-16] MEDS: FLU VACC QS2022-23(6MOS UP)/PF 60 MCG/0.5 ML SYRINGE IM (08:31)
--- NOTE | 2022-07-16 08:46 | PCM.PN.HOSP ---
Subjective Subjective DOS: 07/16/2022 CC: Shortness of breath Reports overall he feels better however last night he had a pretty hard time breathing getting his oxygen saturation up so he is on a mask this morning but is now laying there and feeling much better. Continues to cough but has difficulty producing sputum. No chest pain, denies any other concerns or changes this morning Objective Data Objective Data Vital Signs: Vital Signs Temp Pulse Resp BP Pulse Ox O2 Del Method O2 Flow Rate 97.5 F L 105 H 18 123/73 H 93 Nasal Cannula 4 07/16/22 04:12 07/16/22 08:21 07/16/22 04:12 07/16/22 04:12 07/16/22 04:12 07/16/22 04:14 07/16/22 04:14 Oxygen Flow Rate (L/min) 4 Oxygen Delivery Method Nasal Cannula Weight: 55.8 kg Body Mass Index (BMI) 19.9 Intake & Output: Intake and Output for Last 24 Hours 07/14/22 07/15/22 07/16/22 23:59 23:59 23:59 Intake Total 120 / 120 480 / 480 Output Total 175 / 175 900 / 900 200 / 200 Balance -55 / -55 -420 / -420 -200 / -200 Lab / Micro Data Result Diagrams: 07/16/22 05:31 07/16/22 05:31 Labs: Laboratory Results - last 24 hr 07/16/22 05:31: WBC 15.1 H, RBC 4.20 L, Hgb 12.8 L, Hct 40.9, MCV 97.4 H, MCH 30.5, MCHC 31.3 L, RDW Std Deviation 47.9 H, RDW Coeff of Kahlil 13.3, Plt Count 169, MPV 11.9, Immature Gran % (Auto) 0.500, Neut % (Auto) 89.5 H, Lymph % (Auto) 3.6 L, [place] % (Auto) 6.3, Eos % (Auto) 0.0, Baso % (Auto) 0.1, Absolute Neuts (auto) 13.5 H, Absolute Lymphs (auto) 0.55 L, Nucleated RBC % 0 07/16/22 05:31: Sodium 142, Potassium 3.7, Chloride 105, Carbon Dioxide 35.0 H, Anion Gap 2 L, BUN 37 H, Creatinine 0.57 L, Estim Creat Clear Calc 44.95, Est GFR (MDRD) Af Amer 176, Est GFR (MDRD) Non-Af 146, BUN/Creatinine Ratio 65.0 H, Glucose 149 H, Calcium 8.5, Free T4 1.27 Micro: Microbiology 07/14/22 16:35 Sputum, Expectorated/Coughed Gram Stain - Final 07/14/22 16:35 Sputum, Expectorated/Coughed Respiratory Culture - Preliminary Appears to be normal respiratory cb. Further studies to follow. 07/14/22 10:37 Nasal Secretion SARS-CoV-2 Antigen (Rapid) - Final Physical Exam Const alert and no apparent distress Constitutional Narrative: Oriented, laying in bed with with O2 mask on HEENT normocephalic and head/scalp atraumatic HEENT Narrative: Poor dentition, slightly dry mucous membranes Eyes Eyes Narrative: EOM grossly intact, anicteric Neck supple Resp Resp Narrative: Diminished throughout but primarily the bases. Conversationally dyspneic at times Cardio Cardio Narrative: Irregularly irregular GI soft to palpation, non-tender and non-distended Extremity Extremity Narrative: No edema appreciated. Has wrinkles apparent on legs Neuro moves all extremities Neuro Narrative: No overt focal deficits appreciated Psych Psych Narrative: Cooperative Assessment & Plan Assessment/Plan (1) Acute on chronic respiratory failure: QUALIFIERS: Respiratory failure complication: hypoxia Qualified Code(s): J96.21 - Acute and chronic respiratory failure with hypoxia PLAN: Plan 1. Acute on chronic hypoxic respiratory failure Likely a COPD, though given elevated BNP with no recent echo cannot rule out component of heart failure Does appear to have very slight effusion on the right side on chest x-ray along with hyperinflation and interstitial scarring Will start Methylpred and transition to prednisone 40 mg daily as well as azithromycin and nebs as well as albuterol as needed Will also continue with IV Lasix Obtain echo Daily weights We will obtain COVID and flu antigens as well Sputum culture also ordered 07/15/2022: Echo shows EF of 70%. No evidence for diastolic dysfunction. Completed methylprednisolone and now on oral prednisone, on Zithromax, and is still on Lasix. Feeling much better today but had difficulty even ambulating in his room due to shortness of breath. We will continue current management and monitor closely. Did have low TSH, will obtain T4 with next labs 07/16/2022: Overall is improving albeit slowly. Continue present management 2. CAD s/p CABG x4 Continue aspirin, statin, beta-magi No chest pain at this time Found in ED was 14, do not suspect ACS at this time 3. COPD chronically on 3 L of home O2 See #1 #DVT ppx: Alicia Raman MD Charges/Coding Visit Charges Inpatient E&M: 48537 Subs Hosp L2
[2022-07-16] MEDS: Tamsulosin HCl 0.4 MG Capsule PO (22:13)
[2022-07-16] MEDS: amLODIPine 10 MG Tablet PO (22:13)
[2022-07-17] VITALS (16 sets, daily range): BP systolic 127–131; BP diastolic 54–84; PULSE 65–107; RESP 16–20; TEMP 36.6–36.9; O2SAT 89–98
[2022-07-17] MEDS: Ipratropium/Albuterol Sulfate 3 ML AMPUL.NEB INHALATION ×4 (03:53→19:34)
[2022-07-17 07:22] LABS: Absolute Lymphocyte Count 0.81 X10^3/uL (0.83-4.51); Absolute Neutrophil Count 9.5 X10^3/uL (2.0-7.7); Basophil# 0.02 X10^3/uL; Basophil% 0.2 % (0-1); Hematocrit 43.7 % (40-54); Hemoglobin 13.8 g/dL (13.0-16.5); Lymphocyte # 0.81 X10^3/ul (0.83-4.51); Mean Corp Hgb Conc 31.6 g/dL (32-36); Mean Corpuscular Hgb 30.7 pg (27.0-32.0); Mean Corpuscular Volume 97.1 fL (80-94); Mean Platelet Vol. 12.3 fl (6.2-12.0); Monocyte# 1.24 X10^3/uL; Monocyte% 10.7 % (0-10); NRBC Flagged by Analyzer 0 % (0-5); Neutrophil # 9.47 X10^3/uL (2.7-7.7); Neutrophil % 81.5 % (47-70); Platelet Count 181 K/mm3 (150-450); RBC Distribution Width CV 13.3 % (11.6-14.6); RBC Distribution Width SD 47.8 fl (35.1-43.9); White Blood Count 11.6 K/mm3 (4.4-11.0)
[2022-07-17 07:53] LABS: Anion Gap 4 (5-15); BUN 30 mg/dL (7-18); BUN/Creat Ratio 49.7 RATIO (10-20); Calcium,Total 8.7 mg/dL (8.5-10.1); Chloride 105 mmol/L (98-107); EST Glomerular Filtration Rate 136 mL/min (>60); Est Glom Filt Rate - Afr Amer 165 mL/min (>60); Estimated Creatinine Clearance 44.47 ml/min; Glucose 102 mg/dL (74-106); Potassium 3.3 mmol/L (3.5-5.1); Sodium Level 146 mmol/L (136-145)
[2022-07-17] MEDS: Enoxaparin 40 MG/0.4 ML Syringe SC ×2 (08:57→21:59)
[2022-07-17] MEDS: Furosemide 20 MG/2 ML VIAL IV (08:57)
[2022-07-17] MEDS: Azithromycin 250 MG Tablet 500 MG PO (08:58)
[2022-07-17] MEDS: predniSONE 20 MG Tablet 40 MG PO (08:58)
[2022-07-17] MEDS: Aspirin E.C. 81 MG Tablet PO (08:58)
[2022-07-17] MEDS: Metoprolol Tartrate 100 MG Tablet PO ×2 (08:58→21:53)
[2022-07-17] MEDS: Atorvastatin Calcium 10 MG Tablet PO (08:59)
--- NOTE | 2022-07-17 11:12 | PN.HOSP_ITS ---
Subjective Subjective DOS: 07/17/2022 CC: Shortness of breath Breathing stable at the time of evaluation however reports last night he was having significant problems with his breathing again. Still not able to cough much up. Denies chest pain, had bowel movement yesterday but not yet today, urinating well. Has been eating fair, pain complaint is the shortness of breath last night Objective Data Objective Data Vital Signs: Vital Signs Temp Pulse Resp BP Pulse Ox O2 Del Method O2 Flow Rate 97.8 F 88 18 131/84 H 89 Nasal Cannula 8 07/17/22 08:56 07/17/22 08:58 07/17/22 08:56 07/17/22 08:56 07/17/22 10:12 07/17/22 08:56 07/17/22 10:12 Oxygen Flow Rate (L/min) 8 Oxygen Delivery Method Nasal Cannula Weight: 55.2 kg Body Mass Index (BMI) 19.9 Intake & Output: Intake and Output for Last 24 Hours 07/15/22 07/16/22 07/17/22 23:59 23:59 23:59 Intake Total 480 / 480 Output Total 900 / 900 650 / 650 250 / 250 Balance -420 / -420 -650 / -650 -250 / -250 Lab / Micro Data Result Diagrams: 07/17/22 06:34 07/17/22 06:34 Labs: Laboratory Results - last 24 hr 07/17/22 06:34: WBC 11.6 H, RBC 4.50 L, Hgb 13.8, Hct 43.7, MCV 97.1 H, MCH 30.7, MCHC 31.6 L, RDW Std Deviation 47.8 H, RDW Coeff of Kahlil 13.3, Plt Count 181, MPV 12.3 H, Immature Gran % (Auto) 0.600, Neut % (Auto) 81.5 H, Lymph % (Auto) 7.0 L, [place] % (Auto) 10.7 H, Eos % (Auto) 0.0, Baso % (Auto) 0.2, Absolute Neuts (auto) 9.5 H, Absolute Lymphs (auto) 0.81 L, Nucleated RBC % 0 07/17/22 06:34: Sodium 146 H, Potassium 3.3 L, Chloride 105, Carbon Dioxide 37.0 H, Anion Gap 4 L, BUN 30 H, Creatinine 0.60 L, Estim Creat Clear Calc 44.47, Est GFR (MDRD) Af Amer 165, Est GFR (MDRD) Non-Af 136, BUN/Creatinine Ratio 49.7 H, Glucose 102, Calcium 8.7 Micro: Microbiology 07/14/22 16:35 Sputum, Expectorated/Coughed Gram Stain - Final 07/14/22 16:35 Sputum, Expectorated/Coughed Respiratory Culture - Final Mixed normal respiratory cb. No Streptococcus pneumoniae, beta-hemolytic Streptococcus or Staphylococcus aureus isolated. 07/14/22 10:37 Nasal Secretion SARS-CoV-2 Antigen (Rapid) - Final Physical Exam Const alert and no apparent distress Constitutional Narrative: Oriented, laying in bed with O2 in place HEENT normocephalic and head/scalp atraumatic HEENT Narrative: Poor dentition Eyes Eyes Narrative: EOM grossly intact, anicteric Neck supple Resp Resp Narrative: Diminished throughout but primarily the bases. No wheezes satiated Cardio Cardio Narrative: Irregularly irregular GI soft to palpation, non-tender and non-distended Extremity Extremity Narrative: No edema appreciated. Has wrinkles apparent on legs Neuro moves all extremities Neuro Narrative: No overt focal deficits appreciated Psych Psych Narrative: Cooperative Assessment & Plan Assessment/Plan (1) Acute on chronic respiratory failure: QUALIFIERS: Respiratory failure complication: hypoxia Qualified Code(s): J96.21 - Acute and chronic respiratory failure with hypoxia PLAN: Plan 1. Acute on chronic hypoxic respiratory failure Likely a COPD, though given elevated BNP with no recent echo cannot rule out component of heart failure Does appear to have very slight effusion on the right side on chest x-ray along with hyperinflation and interstitial scarring Will start Methylpred and transition to prednisone 40 mg daily as well as azithromycin and nebs as well as albuterol as needed Will also continue with IV Lasix Obtain echo Daily weights We will obtain COVID and flu antigens as well Sputum culture also ordered 07/15/2022: Echo shows EF of 70%. No evidence for diastolic dysfunction. Comple lynne methylprednisolone and now on oral prednisone, on Zithromax, and is still on Lasix. Feeling much better today but had difficulty even ambulating in his room due to shortness of breath. We will continue current management and monitor closely. Did have low TSH, will obtain T4 with next labs 07/16/2022: Overall is improving albeit slowly. Continue present management 07/17: Continues to have high oxygen requirements, will obtain VBG, may need BiPAP, chest x-ray and can consider CT based on results, will also go back to methylprednisolone. Mucinex 2. CAD s/p CABG x4 Continue aspirin, statin, beta-magi No chest pain at this time Found in ED was 14, do not suspect ACS at this time 3. COPD chronically on 3 L of home O2 See #1 #DVT ppx: Alicia Raman MD Charges/Coding Visit Charges Inpatient E&M: 75369 Subs Hosp L2
--- NOTE | 2022-07-17 14:27 | CASEMGMT ---
This RN CM to room to discuss d/c planning and pt declines need for any further therapy at discharge. Green sheet left on chart for increased home oxygen. SStaten RN CM
[2022-07-17] MEDS: Potassium Chloride Oral Tablet 20 MEQ 40 MEQ PO (15:19)
[2022-07-17 16:25] LABS: Blood Gas Specimen Type VEN; VBG BASE EXCESS 8 mmol/L (-1.0-3.5); VBG Bicarbonate 32 mmol/L (22-26); VBG PO2 62 mmHg (25-40); VBG SO2 93 % (50-70); VBG TCO2 33 mmol/L (23-33); VBG pCO2 42.5 mmHg (41-51); VBG pH 7.48 (7.32-7.42)
[2022-07-17 17:13] LABS: Anion Gap 6 (5-15); BUN 33 mg/dL (7-18); BUN/Creat Ratio 41.5 RATIO (10-20); Chloride 103 mmol/L (98-107); EST Glomerular Filtration Rate 99 mL/min (>60); Est Glom Filt Rate - Afr Amer 120 mL/min (>60); Estimated Creatinine Clearance 55.58 ml/min; Glucose 176 mg/dL (74-106); Potassium 4.1 mmol/L (3.5-5.1); Sodium Level 144 mmol/L (136-145)
--- NOTE | 2022-07-17 17:46 | RAD_ITS ---
STUDY: X-RAY CHEST REASON FOR EXAM: Male, 82 years old. Hypoxia. Worsening shortness of breath. TECHNIQUE: Single AP portable view of the chest. COMPARISON: July 14, 2022. FINDINGS: There is hyperinflation of the lungs consistent with chronic obstructive lung disease (COPD). There is no focal mass or infiltrate. There is no demonstrated pleural abnormality. No pneumothorax. Sternal cerclage wires and vascular clips are present from a prior sternotomy and coronary artery bypass graft procedure (CABG). The heart is normal in size. Normal mediastinum and kristan. Normal visualized pulmonary arteries. There is atherosclerotic calcification of the aortic arch with tortuosity. No osseous changes. There is no demonstrated abnormality of the visualized soft tissue structures of the upper abdomen. RAD/Chest 1 View (Portable) IMPRESSION: Probable COPD without acute abnormality or interval change. Electronically Signed: Eladio Griffith DO at 18:02 EDT ,
[2022-07-17] MEDS: amLODIPine 10 MG Tablet PO (21:53)
[2022-07-17] MEDS: Tamsulosin HCl 0.4 MG Capsule PO (21:53)
[2022-07-17] MEDS: guaiFENesin 1,200 MG Tablet 1200 MG PO (21:54)
[2022-07-17] MEDS: 0.9% Saline Lock 10 ML Syringe IV (22:00)
[2022-07-18] VITALS (21 sets, daily range): BP systolic 111–135; BP diastolic 52–73; PULSE 61–110; RESP 16–20; TEMP 36.6–37.1; O2SAT 91–99
[2022-07-18] MEDS: Ondansetron 4 MG/2 ML Vial IV (03:57)
[2022-07-18] MEDS: 0.9% Saline Lock 10 ML Syringe IV ×3 (04:03→21:41)
[2022-07-18] MEDS: Ipratropium/Albuterol Sulfate 3 ML AMPUL.NEB INHALATION ×4 (07:05→19:01)
[2022-07-18 07:51] LABS: Absolute Lymphocyte Count 0.54 X10^3/uL (0.83-4.51); Absolute Neutrophil Count 10.4 X10^3/uL (2.0-7.7); Basophil# 0.02 X10^3/uL; Basophil% 0.2 % (0-1); Hematocrit 45.3 % (40-54); Lymphocyte # 0.54 X10^3/ul (0.83-4.51); Lymphocyte % 4.7 % (19-41); Mean Corp Hgb Conc 30.9 g/dL (32-36); Mean Platelet Vol. 12.8 fl (6.2-12.0); Monocyte# 0.42 X10^3/uL; Monocyte% 3.7 % (0-10); NRBC Flagged by Analyzer 0 % (0-5); Neutrophil # 10.35 X10^3/uL (2.7-7.7); Neutrophil % 90.4 % (47-70); POSITIVE DIFFERENTIAL YES; Platelet Count 189 K/mm3 (150-450); RBC Distribution Width CV 13.2 % (11.6-14.6); RBC Distribution Width SD 47.5 fl (35.1-43.9); Red Blood Count 4.67 M/mm3 (4.6-6.2); White Blood Count 11.5 K/mm3 (4.4-11.0)
[2022-07-18 07:58] LABS: Differential Indicated SCAN CRITERIA MET
[2022-07-18 08:05] LABS: Anion Gap 3 (5-15); BUN 47 mg/dL (7-18); BUN/Creat Ratio 72.8 RATIO (10-20); Calcium,Total 8.4 mg/dL (8.5-10.1); Chloride 106 mmol/L (98-107); Creatinine, Serum 0.65 mg/dL (0.70-1.30); EST Glomerular Filtration Rate 126 mL/min (>60); Est Glom Filt Rate - Afr Amer 152 mL/min (>60); Estimated Creatinine Clearance 44.39 ml/min; Glucose 131 mg/dL (74-106); Potassium 4.3 mmol/L (3.5-5.1); Sodium Level 144 mmol/L (136-145)
[2022-07-18] MEDS: Aspirin E.C. 81 MG Tablet PO (09:14)
[2022-07-18] MEDS: Enoxaparin 40 MG/0.4 ML Syringe SC ×2 (09:15→21:34)
[2022-07-18] MEDS: guaiFENesin 1,200 MG Tablet 1200 MG PO ×2 (09:15→21:36)
[2022-07-18] MEDS: Metoprolol Tartrate 100 MG Tablet PO ×2 (09:15→21:28)
[2022-07-18] MEDS: Atorvastatin Calcium 10 MG Tablet PO (09:16)
[2022-07-18] MEDS: Azithromycin 250 MG Tablet 500 MG PO (09:16)
--- NOTE | 2022-07-18 10:20 | PN.HOSP_ITS ---
Subjective Subjective DOS: 07/18/2022 CC: Shortness of breath Continues to have some shortness of breath but is significantly improved after increasing steroids back to IV, did have slight episode overnight but did not require BiPAP. Coughing slightly better after Mucinex given. Denies any other complaints this a.m. Objective Data Objective Data Vital Signs: Vital Signs Temp Pulse Resp BP Pulse Ox O2 Del Method O2 Flow Rate 98.2 F 92 20 H 111/52 L 96 Nasal Cannula 3 07/18/22 09:00 07/18/22 09:15 07/18/22 09:00 07/18/22 09:00 07/18/22 09:00 07/18/22 09:01 07/18/22 09:01 Oxygen Flow Rate (L/min) 3 Oxygen Delivery Method Nasal Cannula Weight: 55.1 kg Body Mass Index (BMI) 19.9 Intake & Output: Intake and Output for Last 24 Hours 07/16/22 07/17/22 07/18/22 23:59 23:59 23:59 Intake Total 500 / 500 Output Total 650 / 650 550 / 550 800 / 800 Balance -650 / -650 -50 / -50 -800 / -800 Lab / Micro Data Result Diagrams: 07/18/22 06:47 07/18/22 06:47 Labs: Laboratory Results - last 24 hr 07/17/22 16:08: Sodium 144, Potassium 4.1, Chloride 103, Carbon Dioxide 35.0 H, Anion Gap 6, BUN 33 H, Creatinine 0.80, Estim Creat Clear Calc 55.58, Est GFR (MDRD) Af Amer 120, Est GFR (MDRD) Non-Af 99, BUN/Creatinine Ratio 41.5 H, Glucose 176 H, Calcium 9.0 07/18/22 06:47: WBC 11.5 H, RBC 4.67, Hgb 14.0, Hct 45.3, MCV 97.0 H, MCH 30.0, MCHC 30.9 L, RDW Std Deviation 47.5 H, RDW Coeff of Kahlil 13.2, Plt Count 189, MPV 12.8 H, Immature Gran % (Auto) 1.000 H, Neut % (Auto) 90.4 H, Lymph % (Auto) 4.7 L, [place] % (Auto) 3.7, Eos % (Auto) 0.0, Baso % (Auto) 0.2, Absolute Neuts (auto) 10.4 H, Absolute Lymphs (auto) 0.54 L, Nucleated RBC % 0 07/18/22 06:47: Sodium 144, Potassium 4.3, Chloride 106, Carbon Dioxide 35.0 H, Anion Gap 3 L, BUN 47 H, Creatinine 0.65 L, Estim Creat Clear Calc 44.39, Est GFR (MDRD) Af Amer 152, Est GFR (MDRD) Non-Af 126, BUN/Creatinine Ratio 72.8 H, Glucose 131 H, Calcium 8.4 L Micro: Microbiology 07/17/22 16:00 Nasal Secretion SARS-CoV-2 & FLU Antigen (Rapid) - Final 07/14/22 16:35 Sputum, Expectorated/Coughed Gram Stain - Final 07/14/22 16:35 Sputum, Expectorated/Coughed Respiratory Culture - Final Mixed normal respiratory cb. No Streptococcus pneumoniae, beta-hemolytic Streptococcus or Staphylococcus aureus isolated. 07/14/22 10:37 Nasal Secretion SARS-CoV-2 Antigen (Rapid) - Final ABG Data ABG results: ABG 07/17/22 16:22 Specimen Type INA VBG pH 7.48 H VBG pO2 62 H VBG HCO3 32 H VBG Total CO2 33 VBG O2 Sat (Calc) 93 H VBG Base Excess 8 H POC Mix VBG pCO2 Pt Tmp 42.5 Radiography Diagnostic Testing: Radiology Impression Chest X-Ray 07/17/22 17:46 IMPRESSION: Probable COPD without acute abnormality or interval change. Electronically Signed: Eladio Griffith DO at 18:02 EDT Reading Location ID and State: [address] [place] [address] Tel [phone], Service support , Physical Exam Const alert and no apparent distress Constitutional Narrative: Oriented, laying in bed with O2 in place HEENT normocephalic and head/scalp atraumatic Eyes Eyes Narrative: EOM grossly intact, anicteric Neck supple Resp Resp Narrative: Diminished throughout but primarily the bases. No wheezes appreciated, respiratory effort has been stable Cardio Cardio Narrative: Irregularly irregular GI soft to palpation, non-tender and non-distended Extremity Extremity Narrative: No edema appreciated. Has wrinkles apparent on legs Neuro moves all extremities Neuro Narrative: No overt focal deficits appreciated Psych Psych Narrative: Cooperative Assessment & Plan Assessment/Plan (1) Acute on chronic respiratory failure: QUALIFIERS: Respiratory failure complication: hypoxia Qualified Code(s): J96.21 - Acute and chronic respiratory failure with hypoxia PLAN: Plan 1. Acute on chronic hypoxic respiratory failure Likely a COPD, though given elevated BNP with no recent echo cannot rule out component of heart failure Does appear to have very slight effusion on the right side on chest x-ray along with hyperinflation and interstitial scarring Will start Methylpred and transition to prednisone 40 mg daily as well as azithromycin and nebs as well as albuterol as needed Will also continue with IV Lasix Obtain echo Daily weights We will obtain COVID and flu antigens as well Sputum culture also ordered 07/15/2022: Echo shows EF of 70%. No evidence for diastolic dysfunction. Completed methylprednisolone and now on oral prednisone, on Zithromax, and is still on Lasix. Feeling much better today but had difficulty even ambulating in his room due to shortness of breath. We will continue current management and monitor closely. Did have low TSH, will obtain T4 with next labs 07/16/2022: Overall is improving albeit slowly. Continue present management 07/17: Continues to have high oxygen requirements, will obtain VBG, may need BiPAP, chest x-ray and can consider CT based on results, will also go back to methylprednisolone. Mucinex 07/18: Doing much better with going back on IV methylprednisone, had put an order for BiPAP but did not require this overnight. Suspect he will need a somewhat longer taper of steroids as an outpatient. Lasix have been held as it seems that he is in part getting volume depleted. Additionally yesterday was somewhat tachycardic, has improved today with improvement in respiratory status. If breathing continues to stabilize, can discuss discharge in a day or 2. 2. CAD s/p CABG x4 Continue aspirin, statin, beta-magi No chest pain at this time Found in ED was 14, do not suspect ACS at this time 3. COPD chronically on 3 L of home O2 See #1 #DVT ppx: Alicia Raman MD Charges/Coding Visit Charges Inpatient E&M: 55506 Subs Hosp L2
[2022-07-18 11:02] LABS: Differential Comment SCANNED
[2022-07-18] MEDS: Tamsulosin HCl 0.4 MG Capsule PO (21:19)
[2022-07-18] MEDS: amLODIPine 10 MG Tablet PO (21:31)
[2022-07-19] VITALS (14 sets, daily range): BP systolic 99–120; BP diastolic 53–81; PULSE 74–105; RESP 16–20; TEMP 36.3–36.6; O2SAT 91–98
[2022-07-19] MEDS: 0.9% Saline Lock 10 ML Syringe IV ×2 (06:36→14:39)
[2022-07-19 07:30] LABS: Anion Gap 6 (5-15); BUN 62 mg/dL (7-18); Calcium,Total 8.3 mg/dL (8.5-10.1); Chloride 101 mmol/L (98-107); Creatinine, Serum 1.05 mg/dL (0.70-1.30); EST Glomerular Filtration Rate 72 mL/min (>60); Est Glom Filt Rate - Afr Amer 87 mL/min (>60); Estimated Creatinine Clearance 42.43 ml/min; Glucose 161 mg/dL (74-106); Potassium 3.8 mmol/L (3.5-5.1); Sodium Level 142 mmol/L (136-145)
[2022-07-19] MEDS: Ipratropium/Albuterol Sulfate 3 ML AMPUL.NEB INHALATION ×3 (07:33→19:39)
[2022-07-19] MEDS: Atorvastatin Calcium 10 MG Tablet PO (10:32)
[2022-07-19] MEDS: Metoprolol Tartrate 100 MG Tablet PO (10:32)
[2022-07-19] MEDS: Enoxaparin 40 MG/0.4 ML Syringe SC ×2 (10:33→22:43)
[2022-07-19] MEDS: Aspirin E.C. 81 MG Tablet PO (10:33)
[2022-07-19] MEDS: Acetaminophen 325 MG Tablet 650 MG PO (10:34)
--- NOTE | 2022-07-19 16:58 | PCM.PN.HOSP ---
Subjective Subjective DOS: 07/19/2022 CC: Shortness of breath Continues to have shortness of breath but is progressively improving. Willing to try going back to the oral steroids. Still receiving breathing treatments. No chest pain. Eating well. Objective Data Objective Data Vital Signs: Vital Signs Temp Pulse Resp BP Pulse Ox O2 Del Method O2 Flow Rate 98 F 97 16 112/81 H 98 Nasal Cannula 4 07/19/22 16:50 07/19/22 16:50 07/19/22 16:50 07/19/22 16:50 07/19/22 16:50 07/19/22 16:50 07/19/22 16:50 Oxygen Flow Rate (L/min) 4 Oxygen Delivery Method Nasal Cannula Weight: 55.3 kg Body Mass Index (BMI) 19.9 Intake & Output: Intake and Output for Last 24 Hours 07/17/22 07/18/22 07/19/22 23:59 23:59 22:59 Intake Total 500 / 500 480 / 480 400 / 400 Output Total 550 / 550 1600 / 1600 450 / 450 Balance -50 / -50 -1120 / -1120 -50 / -50 Lab / Micro Data Result Diagrams: 07/18/22 06:47 07/19/22 06:35 Labs: Laboratory Results - last 24 hr 07/19/22 06:35: Sodium 142, Potassium 3.8, Chloride 101, Carbon Dioxide 35.0 H, Anion Gap 6, BUN 62 H, Creatinine 1.05, Estim Creat Clear Calc 42.43, Est GFR (MDRD) Af Amer 87, Est GFR (MDRD) Non-Af 72, BUN/Creatinine Ratio 59.0 H, Glucose 161 H, Calcium 8.3 L Micro: Microbiology 07/17/22 16:00 Nasal Secretion SARS-CoV-2 & FLU Antigen (Rapid) - Final 07/14/22 16:35 Sputum, Expectorated/Coughed Gram Stain - Final 07/14/22 16:35 Sputum, Expectorated/Coughed Respiratory Culture - Final Mixed normal respiratory cb. No Streptococcus pneumoniae, beta-hemolytic Streptococcus or Staphylococcus aureus isolated. 07/14/22 10:37 Nasal Secretion SARS-CoV-2 Antigen (Rapid) - Final Physical Exam Const alert and no apparent distress Constitutional Narrative: Oriented, laying in bed with O2 in place HEENT normocephalic and head/scalp atraumatic Eyes Eyes Narrative: EOM grossly intact, anicteric Neck supple Resp Resp Narrative: Diminished throughout but primarily the bases. No wheezes appreciated, respiratory effort has been stable Cardio regular rate and regular rhythm Cardio Narrative: Irregularly irregular GI soft to palpation, non-tender and non-distended Extremity Extremity Narrative: No edema appreciated. Has wrinkles apparent on legs Neuro moves all extremities Neuro Narrative: No overt focal deficits appreciated Psych Psych Narrative: Cooperative Assessment & Plan Assessment/Plan (1) Acute on chronic respiratory failure: QUALIFIERS: Respiratory failure complication: hypoxia Qualified Code(s): J96.21 - Acute and chronic respiratory failure with hypoxia PLAN: Plan 1. Acute on chronic hypoxic respiratory failure Likely a COPD, though given elevated BNP with no recent echo cannot rule out component of heart failure Does appear to have very slight effusion on the right side on chest x-ray along with hyperinflation and interstitial scarring Will start Methylpred and transition to prednisone 40 mg daily as well as azithromycin and nebs as well as albuterol as needed Will also continue with IV Lasix Obtain echo Daily weights We will obtain COVID and flu antigens as well Sputum culture also ordered 07/15/2022: Echo shows EF of 70%. No evidence for diastolic dysfunction. Completed methylprednisolone and now on oral prednisone, on Zithromax, and is still on Lasix. Feeling much better today but had difficulty even ambulating in his room due to shortness of breath. We will continue current management and monitor closely. Did have low TSH, will obtain T4 with next labs 07/16/2022: Overall is improving albeit slowly. Continue present management 07/17: Continues to have high oxygen requirements, will obtain VBG, may need BiPAP, chest x-ray and can consider CT based on results, will also go back to methylprednisolone. Mucinex 07/18: Doing much better with going back on IV methylprednisone, had put an order for BiPAP but did not require this overnight. Suspect he will need a somewhat longer taper of steroids as an outpatient. Lasix have been held as it seems that he is in part getting volume depleted. Additionally yesterday was somewhat tachycardic, has improved today with improvement in respiratory status. If breathing continues to stabilize, can discuss discharge in a day or 2. 07/19: Significantly better, will try to transition to p.o. steroids tomorrow, suspect he will need a long taper. Advised he establish with pulmonology as an outpatient. Would benefit monitoring for at least a day to verify respiratory status does not significantly worsen 2. CAD s/p CABG x4 Continue aspirin, statin, beta-magi No chest pain at this time Found in ED was 14, do not suspect ACS at this time 3. COPD chronically on 3 L of home O2 See #1 #DVT ppx: Alicia Raman MD Charges/Coding Visit Charges Inpatient E&M: 48680 Subs Hosp L2
[2022-07-19] MEDS: Tamsulosin HCl 0.4 MG Capsule PO (22:41)
[2022-07-19] MEDS: amLODIPine 10 MG Tablet PO (22:43)
[2022-07-20] VITALS (22 sets, daily range): BP systolic 98–136; BP diastolic 53–89; PULSE 83–134; RESP 14–20; TEMP 36.6–36.9; O2SAT 85–95
[2022-07-20] MEDS: Ipratropium/Albuterol Sulfate 3 ML AMPUL.NEB INHALATION ×5 (07:07→22:54)
[2022-07-20 07:35] LABS: Absolute Lymphocyte Count 0.28 X10^3/uL (0.83-4.51); Absolute Neutrophil Count 12.6 X10^3/uL (2.0-7.7); Basophil# 0.01 X10^3/uL; Basophil% 0.1 % (0-1); Hematocrit 44.5 % (40-54); Hemoglobin 14.2 g/dL (13.0-16.5); Lymphocyte # 0.28 X10^3/ul (0.83-4.51); Mean Corp Hgb Conc 31.9 g/dL (32-36); Mean Corpuscular Hgb 30.3 pg (27.0-32.0); Mean Corpuscular Volume 95.1 fL (80-94); Monocyte# 0.64 X10^3/uL; Monocyte% 4.7 % (0-10); NRBC Flagged by Analyzer 0 % (0-5); Neutrophil # 12.64 X10^3/uL (2.7-7.7); Neutrophil % 92.4 % (47-70); POSITIVE DIFFERENTIAL YES; Platelet Count 213 K/mm3 (150-450); RBC Distribution Width CV 13.2 % (11.6-14.6); RBC Distribution Width SD 45.6 fl (35.1-43.9); Red Blood Count 4.68 M/mm3 (4.6-6.2); White Blood Count 13.7 K/mm3 (4.4-11.0)
[2022-07-20 07:38] LABS: Differential Indicated SCAN CRITERIA MET
[2022-07-20 08:01] LABS: Anion Gap 4 (5-15); BUN 62 mg/dL (7-18); BUN/Creat Ratio 58.5 RATIO (10-20); Calcium,Total 8.3 mg/dL (8.5-10.1); Chloride 106 mmol/L (98-107); Creatinine, Serum 1.06 mg/dL (0.70-1.30); EST Glomerular Filtration Rate 71 mL/min (>60); Est Glom Filt Rate - Afr Amer 86 mL/min (>60); Estimated Creatinine Clearance 42.03 ml/min; Glucose 202 mg/dL (74-106); Potassium 3.5 mmol/L (3.5-5.1); Sodium Level 145 mmol/L (136-145)
[2022-07-20] MEDS: Metoprolol Tartrate 100 MG Tablet PO ×2 (08:48→21:44)
[2022-07-20] MEDS: Atorvastatin Calcium 10 MG Tablet PO (08:48)
[2022-07-20] MEDS: Enoxaparin 40 MG/0.4 ML Syringe SC ×2 (08:49→21:46)
[2022-07-20] MEDS: predniSONE 20 MG Tablet 40 MG PO (08:49)
[2022-07-20] MEDS: Aspirin E.C. 81 MG Tablet PO (08:49)
[2022-07-20] MEDS: Tamsulosin HCl 0.4 MG Capsule 0.8 MG PO (14:34)
--- NOTE | 2022-07-20 15:25 | EX.PCM.CONCC ---
Assessment & Plan Assessment/Plan (1) Acute on chronic respiratory failure: QUALIFIERS: Respiratory failure complication: hypoxia Qualified Code(s): J96.21 - Acute and chronic respiratory failure with hypoxia (2) COPD exacerbation: (3) CHF (congestive heart failure): PLAN: Plan RECOMMENDATIONS: 1. Continue diuresis as tolerated 2. Agree with prednisone. Wean over the next 12 to 14 days 3. Walking oximetry prior to discharge 4. Outpatient complete PFT 5. Aggressive control of heart rate IMPRESSIONS: 1. Acute on chronic hypoxic respiratory failure in the setting of COPD Clinical suspicion for multifactorial etiology. Patient did have advanced emphysematous changes on CT scan last year. Patient also had an elevated BNP with a history of diastolic congestive heart failure. Patient has been receiving Lasix therapy with good response. Agree with transition over to prednisone therapy. Patient will likely need a protracted taper over 12 to 14 days given his probable advanced status. Patient can be seen in our office in 2 weeks. Anticipate patient will require a complete pulmonary function test for quantification clarification of lung function. Patient will need a walking oximetry prior to discharge. Patient states he does have supplemental oxygen at home, but cannot exclude the need for replacement with a high flow oxygen concentrator. Patient may have a protracted course given severity of disease. 2. CAD status post quadruple CABG/hypertension Patient does have a history of diastolic dysfunction in the past and presented with an elevated BNP. Clinical suspicion for acute on chronic diastolic CHF leading to current presentation. Patient has not had a significant elevation in troponins despite significant hypoxia on presentation. Patient does follow with cardiology at baseline. 3. Advanced age/frailty/BPH/hyperlipidemia Complicates care, management, recovery and prognosis. PT/OT to evaluate patient. HPI Consult Data Date of Consult: 07/20/22 HPI Narrative Reason for Consultation: Chronic respiratory failure HPI Narrative: LISA SZYMANSKI is an 82 M, with past medical history listed below, who presented to [facility] on 07/14/2022 secondary to progressive shortness of breath. Patient reportedly is on 3 L nasal cannula at baseline and he got up in the middle of the night extremely short of breath. Patient checked his pulse ox and was noted to be 77% on his baseline oxygen. Patient had reported a moist cough developing earlier in the day. Patient stated that he had not noted any fevers, chills or chest pain at that time. Patient had been reporting some progressive shortness of breath 2 to 3 days prior to presentation but had attributed this to allergies. In the ER, patient was afebrile, normotensive with an acceptable heart rate. Patient did require up to 8 L nasal cannula to maintain saturations and was tachypneic at 25 breaths/min. Laboratory work-up showed a white blood cell count of 10.4, hemoglobin of 12.8 and normal chemistries. BNP was elevated at 427.9. Chest x-ray showed hyperinflation with possible interstitial thickening. EKG confirmed atrial fibrillation that was rate controlled. Patient was given IV Lasix, Solu-Medrol and admitted to the hospital for further evaluation. Since being in the hospital, patient has continued to require supplemental oxygen. Patient overall states that he feels improved. Patient was transitioned over to prednisone therapy, but there was significant concern about follow-up. For this reason, a pulmonary consult was obtained to be sure the patient had close follow-up. Patient reports he has been told that he had COPD for several years. Patient states his PCP felt like he can handle it and he trusted him. Patient states he has never had a pulmonary function test. Patient states he has been on oxygen for several years. Patient states that he smoked 1/2 to 1 pack/day since the age of 18 until I had my bypass surgery. 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 Patient denies any exposure to asbestos or silica. Patient does report a cough productive of white sputum on a daily basis. Patient stated that this did change to a green/yellow on presentation. Patient has been using Symbicort for years. Patient has never been on a dual bronchodilator. Review of systems otherwise negative from a constitutional, HEENT, respiratory, cardiovascular, GI, genitourinary, musculoskeletal, skin, neurologic, psychiatric and hematologic system unless stated above. [facility] Medical History (Updated 07/20/22 @ 15:[address] Gallo Guzman MD) Atherosclerotic heart disease of [place] coronary artery without angina pectoris Benign hypertension Chronic atrial fibrillation Chronic respiratory failure COPD (chronic obstructive pulmonary disease) Dyspnea Encounter for long-term current use of high risk medication Mixed hyperlipidemia Nicotine abuse Old myocardial infarction PVD (peripheral vascular disease) Shortness of breath Home Medications budesonide-formoterol HFA 160 mcg-4.5 mcg/actuation aerosol inhaler 2 puff inhalation BID copd 08/24/16 [History Last Taken 07/13/22] tamsulosin 0.4 mg capsule 0.4 mg PO QHS prostate 06/02/17 [History Last Taken 07/13/22] aspirin 81 mg tablet,delayed release 81 mg PO DAILY HEART HEALTH 08/11/18 [History Last Taken 07/13/22] lovastatin 40 mg tablet 40 mg PO DAILY cholesterol 08/11/18 [History Last Taken 07/13/22] metoprolol tartrate 100 mg tablet 100 mg PO BID BLOOD PRESSURE 08/11/18 [History Last Taken 07/13/22] furosemide 20 mg tablet 20 mg PO DAILY edema #90 tabs 03/27/19 [Rx Last Taken 07/13/22] amlodipine 10 mg tablet 10 mg PO QHS blood pressure 07/19/20 [History Last Taken 07/13/22] albuterol sulfate 90 mcg/actuation aerosol inhaler (ProAir HFA) 1 inh inhalation ONCE PRN Sob &/Or Wheezing 10/04/20 [History Last Taken 07/13/22] multivitamin 1 tab PO DAILY health maintenance 07/14/22 [History Last Taken 07/13/22] Allergy/AdvReac Type Severity Reaction Status Date / Time acetaminophen [From Bhavya] AdvReac Severe Unknown Verified 07/14/22 10:29 chlorpheniramine AdvReac Severe Unknown Verified 07/14/22 10:29 [From Bhavya] oxymetazoline [From Bhavya] AdvReac Severe Unknown Verified 07/14/22 10:29 pheniramine [From Bhavya] AdvReac Severe Unknown Verified 07/14/22 10:29 phenylephrine [From Bhavya] AdvReac Severe Unknown Verified 07/14/22 10:29 pseudoephedrine AdvReac Severe Unknown Verified 07/14/22 10:29 [From Bhavya] lisinopril AdvReac Unknown Verified 07/14/22 10:29 Family History Father Heart disease Brother Hypertension Sister CAD (coronary artery disease) Hx of CABG Sister CAD (coronary artery disease) Hx of CABG Surgical History History of inguinal hernia repair (~07/2020) History of tonsillectomy Hx of CABG (~06/2009) Hx of ventral hernia repair Social History Smoking Status: Former smoker how long ago did patient quit smokin.5 years alcohol intake: never substance use type: does not use caffeine: Yes Type: coffee Number of servings: 2 ROS ROS Narrative See HPI Lab / Micro Data Attestation: I reviewed the patient's lab results. Result Diagrams: 07/20/22 07:24 07/20/22 07:24 Labs: Laboratory Results - last 24 hr 07/20/22 07:24: WBC 13.7 H, RBC 4.68, Hgb 14.2, Hct 44.5, MCV 95.1 H, MCH 30.3, MCHC 31.9 L, RDW Std Deviation 45.6 H, RDW Coeff of Kahlil 13.2, Plt Count 213, MPV 12.0, Immature Gran % (Auto) 0.800, Neut % (Auto) 92.4 H, Lymph % (Auto) 2.0 L, [place] % (Auto) 4.7, Eos % (Auto) 0.0, Baso % (Auto) 0.1, Absolute Neuts (auto) 12.6 H, Absolute Lymphs (auto) 0.28 L, Nucleated RBC % 0 07/20/22 07:24: Sodium 145, Potassium 3.5, Chloride 106, Carbon Dioxide 35.0 H, Anion Gap 4 L, BUN 62 H, Creatinine 1.06, Estim Creat Clear Calc 42.03, Est GFR (MDRD) Af Amer 86, Est GFR (MDRD) Non-Af 71, BUN/Creatinine Ratio 58.5 H, Glucose 202 H, Calcium 8.3 L Charges/Coding Visit Charges Inpatient E&M: 59574 Init Hosp L2
--- NOTE | 2022-07-20 20:21 | PN.HOSP_ITS ---
Subjective Subjective Patient was seen and examined today, he is still on nasal cannula oxygen at the time my examination, he was on 5 to 6 L. I ask pulmonary medicine to see him- patient states he has never seen a software quality assurance engineer and has been seeing his PCP for his diagnosis of COPD. Patient's echocardiogram today showed a normal EF. Objective Data Objective Data Vital Signs: Vital Signs Temp Pulse Resp BP Pulse Ox O2 Del Method O2 Flow Rate 97.8 F 122 H 16 112/53 L 95 Nasal Cannula 5 07/20/22 17:00 07/20/22 19:27 07/20/22 19:27 07/20/22 17:00 07/20/22 19:27 07/20/22 19:27 07/20/22 19:27 FiO2 94 07/20/22 17:09 Oxygen Flow Rate (L/min) 5 Oxygen Delivery Method Nasal Cannula Weight: 55.3 kg Body Mass Index (BMI) 19.9 Intake & Output: Intake and Output for Last 24 Hours 07/19/22 07/19/22 07/20/22 00:59 23:59 23:59 Intake Total 400 / 400 Output Total 1250 / 1250 Balance -850 / -850 Lab / Micro Data Result Diagrams: 07/20/22 07:24 07/21/22 06:40 Labs: Laboratory Results - last 24 hr 07/20/22 07:24: WBC 13.7 H, RBC 4.68, Hgb 14.2, Hct 44.5, MCV 95.1 H, MCH 30.3, MCHC 31.9 L, RDW Std Deviation 45.6 H, RDW Coeff of Kahlil 13.2, Plt Count 213, MPV 12.0, Immature Gran % (Auto) 0.800, Neut % (Auto) 92.4 H, Lymph % (Auto) 2.0 L, Ray % (Auto) 4.7, Eos % (Auto) 0.0, Baso % (Auto) 0.1, Absolute Neuts (auto) 12.6 H, Absolute Lymphs (auto) 0.28 L, Nucleated RBC % 0 07/20/22 07:24: Sodium 145, Potassium 3.5, Chloride 106, Carbon Dioxide 35.0 H, Anion Gap 4 L, BUN 62 H, Creatinine 1.06, Estim Creat Clear Calc 42.03, Est GFR (MDRD) Af Amer 86, Est GFR (MDRD) Non-Af 71, BUN/Creatinine Ratio 58.5 H, Glucose 202 H, Calcium 8.3 L Micro: Microbiology 07/17/22 16:00 Nasal Secretion SARS-CoV-2 & FLU Antigen (Rapid) - Final 07/14/22 16:35 Sputum, Expectorated/Coughed Gram Stain - Final 07/14/22 16:35 Sputum, Expectorated/Coughed Respiratory Culture - Final Mixed normal respiratory cb. No Streptococcus pneumoniae, beta-hemolytic Streptococcus or Staphylococcus aureus isolated. 07/14/22 10:37 Nasal Secretion SARS-CoV-2 Antigen (Rapid) - Final Physical Exam Const alert, oriented x3 and no apparent distress Constitutional Narrative: Patient appears older than stated age, he appears frail General Appearance: cooperative, well kempt and well developed Orientation / Consciousness: awake, oriented to person, oriented to place and oriented to time HEENT normocephalic, head/scalp atraumatic and moist oral mucous membranes Eyes PERRL, EOMs intact bilaterally and conjunctivae normal Neck supple, no JVD and thyroid normal General: trachea midline Resp Resp Narrative: Patient appears winded during conversation, breath sounds are diminished bilaterally Auscultation: Negative for rales, rhonchi or wheezes Cardio regular rate, regular rhythm, S1 normal heart sound, S2 normal heart sound, no murmurs, no rub and no gallops GI normal to inspection, nondistended, normoactive bowel sounds, soft to palpation, non-tender and non-distended Extremity no clubbing, cyanosis or edema Skin no rashes or lesions noted General Skin Exam: no breakdown Neuro oriented x3, CN's II-XII intact bilaterally, no focal motor deficits and no sensory deficits noted Sensorium / Orientation: awake and alert Speech: speech normal Psych affect normal Assessment & Plan Assessment/Plan (1) Acute on chronic respiratory failure: QUALIFIERS: Respiratory failure complication: hypoxia Qualified Code(s): J96.21 - Acute and chronic respiratory failure with hypoxia PLAN: Plan 1. Acute on chronic hypoxic respiratory failure-patient was seen by pulmonary medicine today, he will remain on aerosol treatments and p.o. prednisone. #2 acute debility-patient will be seen by PT and OT #3 coronary artery disease-this appears stable at this time #4 chronic obstructive pulmonary disease-again pulmonary medicine is participating in his care, patient has significant COPD but has not ever seen an software quality assurance engineer prior to this admission. #5 essential hypertension-patient is on amlodipine, metoprolol, and furosemide #6 hyperlipidemia-patient is on lovastatin, he will remain on a statin during this hospitalization #7 BPH-patient is on Flomax Charges/Coding Visit Charges Inpatient E&M: 64835 Subs Hosp L2
[2022-07-20] MEDS: amLODIPine 10 MG Tablet PO (21:46)
[2022-07-21] VITALS (18 sets, daily range): BP systolic 106–132; BP diastolic 45–71; PULSE 59–122; RESP 18–20; TEMP 36.2–36.6; O2SAT 92–99
[2022-07-21] MEDS: Ipratropium/Albuterol Sulfate 3 ML AMPUL.NEB INHALATION ×4 (07:34→19:14)
[2022-07-21 07:57] LABS: Anion Gap 2 (5-15); BUN 50 mg/dL (7-18); BUN/Creat Ratio 71.4 RATIO (10-20); Calcium,Total 8.3 mg/dL (8.5-10.1); Chloride 106 mmol/L (98-107); EST Glomerular Filtration Rate 115 mL/min (>60); Est Glom Filt Rate - Afr Amer 139 mL/min (>60); Estimated Creatinine Clearance 44.79 ml/min; Glucose 133 mg/dL (74-106); Potassium 3.5 mmol/L (3.5-5.1); Sodium Level 146 mmol/L (136-145)
[2022-07-21] MEDS: Aspirin E.C. 81 MG Tablet PO (09:27)
[2022-07-21] MEDS: Enoxaparin 40 MG/0.4 ML Syringe SC ×2 (09:27→21:23)
[2022-07-21] MEDS: guaiFENesin 1,200 MG Tablet 1200 MG PO (09:27)
[2022-07-21] MEDS: predniSONE 20 MG Tablet 40 MG PO (09:27)
[2022-07-21] MEDS: Metoprolol Tartrate 100 MG Tablet PO ×2 (09:27→21:25)
[2022-07-21] MEDS: Atorvastatin Calcium 10 MG Tablet PO (09:27)
--- NOTE | 2022-07-21 10:35 | PN.CC_ITS ---
Assessment & Plan Assessment/Plan (1) Acute on chronic respiratory failure: QUALIFIERS: Respiratory failure complication: hypoxia Qualified Code(s): J96.21 - Acute and chronic respiratory failure with hypoxia (2) COPD exacerbation: (3) CHF (congestive heart failure): PLAN: Plan RECOMMENDATIONS: 1. Continue diuresis as tolerated 2. Agree with prednisone. Wean over the next 12 to 14 days 3. Walking oximetry prior to discharge 4. Outpatient complete PFT 5. Aggressive control of heart rate 6. Training for pursed lip breathing IMPRESSIONS: 1. Acute on chronic hypoxic respiratory failure in the setting of COPD Clinical suspicion for multifactorial etiology. Patient did have advanced emphysematous changes on CT scan last year. Patient also had an elevated BNP with a history of diastolic congestive heart failure. Patient has been receiving Lasix therapy with good response. Agree with transition over to prednisone therapy. Patient will likely need a protracted taper over 12 to 14 days given his probable advanced status. Patient can be seen in our office in 2 weeks. Anticipate patient will require a complete pulmonary function test for quantification clarification of lung function. Patient will need a walking oximetry prior to discharge. Patient states he does have supplemental oxygen at home, but cannot exclude the need for replacement with a high flow oxygen concentrator. Patient may have a protracted course given severity of disease. Patient was advised on pursed lip breathing as air trapping could be the cause of his decompensation with anxiety. Patient would likely benefit from pulmonary rehab once pulmonary function test are completed and clinical suspicion of advanced COPD is confirmed. 2. CAD status post quadruple CABG/hypertension Patient does have a history of diastolic dysfunction in the past and presented with an elevated BNP. Clinical suspicion for acute on chronic diastolic CHF leading to current presentation. Patient has not had a signif icant elevation in troponins despite significant hypoxia on presentation. Patient does follow with cardiology at baseline. 3. Advanced age/frailty/BPH/hyperlipidemia Complicates care, management, recovery and prognosis. PT/OT to evaluate patient. Subjective Subjective Patient did well overnight. No acute issues were reported. Patient states he can get anxious leading to tachycardia and desaturation, but overall feels his exercise tolerance is much improved compared to previous. Patient is not reporting any significant production with cough. No epistaxis is been reported Objective Data Objective Data Vital Signs: Vital Signs Temp Pulse Resp BP Pulse Ox O2 Del Method O2 Flow Rate 36.4 C L 107 H 20 H 121/45 H 94 Nasal Cannula 4 07/21/22 05:00 07/21/22 09:27 07/21/22 07:35 07/21/22 09:27 07/21/22 09:25 07/21/22 09:25 07/21/22 09:25 FiO2 95 07/21/22 08:10 Oxygen Flow Rate (L/min) 4 Oxygen Delivery Method Nasal Cannula Weight: 55.6 kg Body Mass Index (BMI) 19.9 Intake & Output: Intake and Output for Last 24 Hours 07/19/22 07/20/22 07/21/22 23:59 23:59 23:59 Intake Total 400 / 640 360 / 360 Output Total 1250 / 1450 400 / 400 Balance -850 / -810 -40 / -40 Lab / Micro Data Result Diagrams: 07/20/22 07:24 07/21/22 06:40 Labs: Laboratory Results - last 24 hr 07/21/22 06:40: Sodium 146 H, Potassium 3.5, Chloride 106, Carbon Dioxide 38.0 H , Anion Gap 2 L, BUN 50 H, Creatinine 0.70, Estim Creat Clear Calc 44.79, Est GFR (MDRD) Af Amer 139, Est GFR (MDRD) Non-Af 115, BUN/Creatinine Ratio 71.4 H, Glucose 133 H, Calcium 8.3 L Micro: Microbiology 07/17/22 16:00 Nasal Secretion SARS-CoV-2 & FLU Antigen (Rapid) - Final 07/14/22 16:35 Sputum, Expectorated/Coughed Gram Stain - Final 07/14/22 16:35 Sputum, Expectorated/Coughed Respiratory Culture - Final Mixed normal respiratory cb. No Streptococcus pneumoniae, beta-hemolytic Streptococcus or Staphylococcus aureus isolated. 07/14/22 10:37 Nasal Secretion SARS-CoV-2 Antigen (Rapid) - Final Physical Exam Const alert and no apparent distress Constitutional Narrative: Oriented, laying in bed with O2 in place. Appears older than stated age General Appearance: cooperative HEENT normocephalic and head/scalp atraumatic General Ear: hearing grossly impaired Eyes EOMs intact bilaterally and no scleral icterus Neck full ROM and supple Chest Chest: abnormal inspection of the chest increased A-P diameter Resp Resp Narrative: Diminished throughout but primarily the bases. No wheezes appreciated, respiratory effort has been stable Effort and Inspection: tachypneic; Negative for actively coughing or uses accessory muscles Auscultation: wheezes and diminished lung sounds; Negative for rales or rhonchi Cardio S1 normal heart sound, S2 normal heart sound, no murmurs, no rub and no gallops Cardio Narrative: Irregularly irregular Rate: tachycardic Rhythm: abnormal rhythm irregularly irregular GI soft to palpation, non-tender and non-distended Extremity no clubbing, cyanosis or edema Neuro CN's II-XII intact bilaterally and moves all extremities Neuro Narrative: No overt focal deficits appreciated Psych Psych Narrative: Cooperative Charges/Coding Visit Charges Inpatient E&M: 49218 Subs Hosp L2
[2022-07-21] MEDS: Tamsulosin HCl 0.4 MG Capsule 0.8 MG PO (16:19)
--- NOTE | 2022-07-21 18:02 | PN.HOSP_ITS ---
Subjective Subjective Patient was seen and examined today, at the time my examination, he is on 4 to 5 L of oxygen at rest at this time. I do not feel the patient is stable for discharge home at this time, I would like to reevaluate him tomorrow-he may need a different oxygen concentrator. Patient continues to appear short of breath d uring conversation. Objective Data Objective Data Vital Signs: Vital Signs Temp Pulse Resp BP Pulse Ox O2 Del Method O2 Flow Rate 97.1 F L 98 18 113/61 95 Nasal Cannula 2 07/21/22 16:15 07/21/22 16:15 07/21/22 16:15 07/21/22 16:15 07/21/22 16:15 07/21/22 16:15 07/21/22 16:15 FiO2 93 07/21/22 13:54 Oxygen Flow Rate (L/min) 2 Oxygen Delivery Method Nasal Cannula Weight: 55.6 kg Body Mass Index (BMI) 19.9 Intake & Output: Intake and Output for Last 24 Hours 07/19/22 07/20/22 07/21/22 23:59 23:59 23:59 Intake Total 400 / 640 840 / 840 Output Total 1250 / 1450 850 / 850 Balance -850 / -810 -10 / -10 Lab / Micro Data Result Diagrams: 07/20/22 07:24 07/21/22 06:40 Labs: Laboratory Results - last 24 hr 07/21/22 06:40: Sodium 146 H, Potassium 3.5, Chloride 106, Carbon Dioxide 38.0 H , Anion Gap 2 L, BUN 50 H, Creatinine 0.70, Estim Creat Clear Calc 44.79, Est GFR (MDRD) Af Amer 139, Est GFR (MDRD) Non-Af 115, BUN/Creatinine Ratio 71.4 H, Glucose 133 H, Calcium 8.3 L Micro: Microbiology 07/17/22 16:00 Nasal Secretion SARS-CoV-2 & FLU Antigen (Rapid) - Final 07/14/22 16:35 Sputum, Expectorated/Coughed Gram Stain - Final 07/14/22 16:35 Sputum, Expectorated/Coughed Respiratory Culture - Final Mixed normal respiratory cb. No Streptococcus pneumoniae, beta-hemolytic Streptococcus or Staphylococcus aureus isolated. 07/14/22 10:37 Nasal Secretion SARS-CoV-2 Antigen (Rapid) - Final Physical Exam Narrative alert, oriented x3 and no apparent distress Constitutional Narrative: Patient appears older than stated age, he appears frail General Appearance: cooperative, well kempt and well developed Orientation / Consciousness: awake, oriented to person, oriented to place and oriented to time HEENT normocephalic, head/scalp atraumatic and moist oral mucous membranes Eyes PERRL, EOMs intact bilaterally and conjunctivae normal Neck supple, no JVD and thyroid normal General: trachea midline Resp Resp Narrative: Patient appears winded during conversation, breath sounds are diminished bilaterally Auscultation: Negative for rales, rhonchi or wheezes Cardio regular rate, regular rhythm, S1 normal heart sound, S2 normal heart sound, no murmurs, no rub and no gallops GI normal to inspection, nondistended, normoactive bowel sounds, soft to palpation, non-tender and non-distended Extremity no clubbing, cyanosis or edema Skin no rashes or lesions noted General Skin Exam: no breakdown Neuro oriented x3, CN's II-XII intact bilaterally, no focal motor deficits and no sensory deficits noted Sensorium / Orientation: awake and alert Speech: speech normal Psych affect normal Assessment & Plan Assessment/Plan (1) Acute on chronic respiratory failure: QUALIFIERS: Respiratory failure complication: hypoxia Qualified Code(s): J96.21 - Acute and chronic respiratory failure with hypoxia PLAN: Plan 1. Acute on chronic hypoxic respiratory failure-patient continues on nasal cannula oxygen, he is being followed by pulmonary medicine #2 acute debility-patient will be seen by PT and OT #3 coronary artery disease-this appears stable at this time #4 chronic obstructive pulmonary disease-again pulmonary medicine is participating in his care, patient has significant COPD but has not ever seen an imaging engineer prior to this admission. #5 essential hypertension-patient is on amlodipine, metoprolol, and furosemide #6 hyperlipidemia-patient is on lovastatin, he will remain on a statin during this hospitalization #7 BPH-patient is on Flomax, patient is continuing to have problems urinating at times. He may require placement of Gerardo catheter. Charges/Coding Visit Charges Inpatient E&M: 04659 Subs Hosp L2
[2022-07-21] MEDS: amLODIPine 10 MG Tablet PO (21:26)
[2022-07-22] VITALS (20 sets, daily range): BP systolic 102–121; BP diastolic 51–82; PULSE 68–102; RESP 17–22; TEMP 36.6–36.7; O2SAT 85–98
[2022-07-22] MEDS: Ipratropium/Albuterol Sulfate 3 ML AMPUL.NEB INHALATION ×4 (07:00→19:09)
[2022-07-22 07:21] LABS: Magnesium 2.6 mg/dL (1.6-2.6)
[2022-07-22] MEDS: Metoprolol Tartrate 100 MG Tablet PO (09:26)
[2022-07-22] MEDS: predniSONE 20 MG Tablet 40 MG PO (09:26)
[2022-07-22] MEDS: Atorvastatin Calcium 10 MG Tablet PO (09:26)
[2022-07-22] MEDS: Enoxaparin 40 MG/0.4 ML Syringe SC ×2 (09:26→20:56)
[2022-07-22] MEDS: Aspirin E.C. 81 MG Tablet PO (09:26)
--- NOTE | 2022-07-22 09:57 | PCM.PN.INT ---
Documented by User: Dr. Gallo Guzman MD 07/22/22 15:00 Assessment & Plan Assessment/Plan (1) Acute on chronic respiratory failure: QUALIFIERS: Respiratory failure complication: hypoxia Qualified Code(s): J96.21 - Acute and chronic respiratory failure with hypoxia (2) COPD exacerbation: (3) CHF (congestive heart failure): PLAN: Plan RECOMMENDATIONS: 1. Continue diuresis as tolerated. 2. Agree with prednisone. Wean over the next 12 to 14 days 3. Walking oximetry prior to discharge 4. Outpatient complete PFT 5. Aggressive control of heart rate 6. Training for pursed lip breathing 7. Patient may require ECF stay IMPRESSIONS: 1. Acute on chronic hypoxic respiratory failure in the setting of COPD Clinical suspicion for multifactorial etiology. Patient did have advanced emphysematous changes on CT scan last year. Patient also had an elevated BNP with a history of diastolic congestive heart failure. Patient had good response with Lasix therapy. With a cumulative fluid balance of -3990 mL for this visit and return to baseline supplemental oxygen. I agree with transition over to prednisone therapy. Patient will likely need a protracted taper over 12 to 14 days given his probable advanced status. Patient can be seen in our office in 2 weeks. Anticipate patient will require a complete pulmonary function test for quantification clarification of lung function. Patient will need a walking oximetry prior to discharge. Patient states he does have supplemental oxygen at home, but cannot exclude the need for replacement with a high flow oxygen concentrator. Patient may have a protracted course given severity of disease. Patient was advised on pursed lip breathing as air trapping could be the cause of his decompensation with anxiety. Patient would likely benefit from pulmonary rehab once pulmonary function test are completed and clinical suspicion of advanced COPD is confirmed. Given protracted course, patient may require an ECF stay initially. 2. CAD status post quadruple CABG/hypertension Patient does have a history of diastolic dysfunction in the past and presented with an elevated BNP. Clinical suspicion for acute on chronic diastolic CHF leading to current presentation. Patient has not had a significant elevation in troponins despite significant hypoxia on presentation. Patient does follow with cardiology at baseline. 3. Advanced age/frailty/BPH/hyperlipidemia Complicates care, management, recovery and prognosis. PT/OT to evaluate patient. Subjective Subjective Patient sitting upright in bed. States that he slept not as well last night. Patient states shortness of breath is comparable to baseline. Patient denies sputum with intermittent cough. Patient reports he is able to walk to the bathroom, but does get short of breath quickly. Objective Data Objective Data Vital Signs: Vital Signs Temp Pulse Resp BP Pulse Ox O2 Del Method O2 Flow Rate 36.6 C 102 H 20 H 111/51 L 97 Nasal Cannula 3 07/22/22 09:25 07/22/22 09:26 07/22/22 09:25 07/22/22 09:25 07/22/22 09:25 07/22/22 09:25 07/22/22 09:25 FiO2 94 07/22/22 08:10 Oxygen Flow Rate (L/min) 3 Oxygen Delivery Method Nasal Cannula Weight: 53.9 kg Body Mass Index (BMI) 19.9 Intake & Output: Intake and Output for Last 24 Hours 07/20/22 07/21/22 07/22/22 23:59 23:59 23:59 Intake Total 400 / 640 1360 / 1360 Output Total 1250 / 1450 1000 / 1150 750 / 750 Balance -850 / -810 360 / 210 -750 / -750 Lab / Micro Data Attestation: I reviewed the patient's lab results. Result Diagrams: 07/20/22 07:24 07/21/22 06:40 Labs: Laboratory Results - last 24 hr 07/22/22 06:48: Magnesium 2.6 Micro: Microbiology 07/17/22 16:00 Nasal Secretion SARS-CoV-2 & FLU Antigen (Rapid) - Final 07/14/22 16:35 Sputum, Expectorated/Coughed Gram Stain - Final 07/14/22 16:35 Sputum, Expectorated/Coughed Respiratory Culture - Final Mixed normal respiratory cb. No Streptococcus pneumoniae, beta-hemolytic Streptococcus or Staphylococcus aureus isolated. 07/14/22 10:37 Nasal Secretion SARS-CoV-2 Antigen (Rapid) - Final Physical Exam Const alert, oriented x3 and no apparent distress Constitutional Narrative: Oriented, laying in bed with O2 in place. Appears older than stated age General Appearance: cooperative HEENT normocephalic and head/scalp atraumatic Eyes EOMs intact bilaterally and no scleral icterus Neck full ROM and supple Chest Chest: abnormal inspection of the chest increased A-P diameter Resp Resp Narrative: Diminished throughout but primarily the bases. No wheezes appreciated, respiratory effort has been stable Effort and Inspection: tachypneic; Negative for actively coughing or uses accessory muscles Auscultation: wheezes and diminished lung sounds; Negative for rales or rhonchi Cardio S1 normal heart sound, S2 normal heart sound, no murmurs, no rub and no gallops Cardio Narrative: Irregularly irregular Rate: tachycardic Rhythm: abnormal rhythm irregularly irregular GI soft to palpation, non-tender and non-distended Extremity no clubbing, cyanosis or edema Neuro CN's II-XII intact bilaterally and moves all extremities Neuro Narrative: No overt focal deficits appreciated Psych Psych Narrative: Cooperative Charges/Coding Visit Charges Inpatient E&M: 00603 Subs Hosp L2 Documented by User: WING BUCK 07/22/22 13:07 Assessment & Plan Assessment/Plan (1) Acute on chronic respiratory failure: QUALIFIERS: Respiratory failure complication: hypoxia Qualified Code(s): J96.21 - Acute and chronic respiratory failure with hypoxia (2) COPD exacerbation: (3) CHF (congestive heart failure): PLAN: Plan RECOMMENDATIONS: 1. Continue diuresis as tolerated 2. Agree with prednisone. Wean over the next 12 to 14 days 3. Walking oximetry prior to discharge 4. Outpatient complete PFT 5. Aggressive control of heart rate 6. Training for pursed lip breathing IMPRESSIONS: 1. Acute on chronic hypoxic respiratory failure in the setting of COPD Clinical suspicion for multifactorial etiology. Patient did have advanced emphysematous changes on CT scan last year. Patient also had an elevated BNP with a history of diastolic congestive heart failure. Patient had good response with Lasix therapy. With a cumulative fluid balance of -3990 mL for this visit and return to baseline supplemental oxygen. I agree with transition over to prednisone therapy. Patient will likely need a protracted taper over 12 to 14 days given his probable advanced status. Patient can be seen in our office in 2 weeks. Anticipate patient will require a complete pulmonary function test for quantification clarification of lung function. Patient will need a walking oximetry prior to discharge. Patient states he does have supplemental oxygen at home, but cannot exclude the need for replacement with a high flow oxygen concentrator. Patient may have a protracted course given severity of disease. Patient was advised on pursed lip breathing as air trapping could be the cause of his decompensation with anxiety. Patient would likely benefit from pulmonary rehab once pulmonary function test are completed and clinical suspicion of advanced COPD is confirmed. 2. CAD status post quadruple CABG/hypertension Patient does have a history of diastolic dysfunction in the past and presented with an elevated BNP. Clinical suspicion for acute on chronic diastolic CHF leading to current presentation. Patient has not had a significant elevation in troponins despite significant hypoxia on presentation. Patient does follow with cardiology at baseline. 3. Advanced age/frailty/BPH/hyperlipidemia Complicates care, management, recovery and prognosis. PT/OT to evaluate patient. Subjective Subjective Patient sitting upright in bed. States that he slept not as well last night. Patient states shortness of breath is comparable to baseline. Patient denies sputum with intermittent cough. Objective Data Lab / Micro Data Attestation: I reviewed the patient's lab results. Result Diagrams: 07/20/22 07:24 07/21/22 06:40 Physical Exam Const alert and no apparent distress Constitutional Narrative: Oriented, laying in bed with O2 in place. Appears older than stated age. General Appearance: cooperative HEENT normocephalic and head/scalp atraumatic Teeth and Gingiva: poor dentition Eyes EOMs intact bilaterally and no scleral icterus Neck full ROM and supple Chest Chest: abnormal inspection of the chest increased A-P diameter Resp Resp Narrative: Diminished throughout but primarily the bases. No wheezes appreciated, respiratory effort has been stable. Effort and Inspection: tachypneic; Negative for actively coughing or uses accessory muscles Auscultation: diminished lung sounds; Negative for rales, rhonchi or wheezes Cardio S1 normal heart sound, S2 normal heart sound, no murmurs, no rub and no gallops Cardio Narrative: Irregularly irregular Rate: tachycardic Rhythm: abnormal rhythm irregularly irregular GI soft to palpation and non-tender Auscultation: normoactive bowel sounds Extremity no clubbing, cyanosis or edema Neuro CN's II-XII intact bilaterally and moves all extremities Psych affect normal Speech: normal speech
[2022-07-22] MEDS: guaiFENesin 10 ML UDC (200MG/10ML) PO ×4 (11:10→21:01)
--- NOTE | 2022-07-22 14:46 | CASEMGMT ---
Per therapy and Dr. Fraga, they are recommending SNF at discharge d/t increased weakness and oxygen need, pt is agreeable. This RN CM to room with list of SNF providers including quality and resource use data and consistent with the pt's preferred geographic region, medical needs, and insurance network. Pt states would like [facility] or [facility] but wants this RN CM to call daughter, Lyly, to discuss with her prior to referral being made. Call to Lyly and she states she would like [facility] choice and [facility] as 2nd choice. Kaylie, d/c planning asst, updated and referral to be sent via [facility]. Dr. Fraga updated, voices understanding. Dawn RN CM
--- NOTE | 2022-07-22 15:09 | CASEMGMT ---
Discharge Airplane Woodworker This commercial insurance underwriter sent referral to Dianna at [facility] via [facility]. Sukhwinder ESTRADA Supervisory It Specialist
--- NOTE | 2022-07-22 15:35 | CM.UR ---
Discharge Editor Managing Newspaper D[facility] from [facility] reached out. Patient has been accepted. LONNIE Rubin notified. Sukhwinder ESTRADA Dough Machine Operator
[2022-07-22] MEDS: Tamsulosin HCl 0.4 MG Capsule 0.8 MG PO (17:34)
--- NOTE | 2022-07-22 19:04 | PCM.PN.HOSP ---
Subjective Subjective Patient was seen and examined today, he requires 8 L of oxygen while ambulating, patient appears fatigued and winded at times. I talked him briefly about going to a senior living facility for rehab services, patient is not against this, his daughter was contacted and she requested [facility], we have put in a request for [facility] for [facility] at this time. Patient had to have a Gerardo catheter inserted due to urinary retention. Objective Data Objective Data Vital Signs: Vital Signs Temp Pulse Resp BP Pulse Ox O2 Del Method O2 Flow Rate 97.8 F 68 18 121/63 H 92 Nasal Cannula 3 07/22/22 15:45 07/22/22 15:45 07/22/22 15:45 07/22/22 15:45 07/22/22 15:45 07/22/22 17:33 07/22/22 17:33 FiO2 92 07/22/22 15:47 Oxygen Flow Rate (L/min) [ 8 AMBULATING with Oxygen #1] Oxygen Flow Rate (L/min) [At 4 REST with Oxygen] Oxygen Flow Rate (L/min) 3 Oxygen Delivery Method Nasal Cannula Weight: 53.9 kg Body Mass Index (BMI) 19.9 Intake & Output: Intake and Output for Last 24 Hours 07/20/22 07/21/22 07/22/22 23:59 23:59 23:59 Intake Total 400 / 640 1360 / 1360 1000 / 1000 Output Total 1250 / 1450 1000 / 1150 1550 / 1550 Balance -850 / -810 360 / 210 -550 / -550 Lab / Micro Data Result Diagrams: 07/20/22 07:24 07/21/22 06:40 Labs: Laboratory Results - last 24 hr 07/22/22 06:48: Magnesium 2.6 Micro: Microbiology 07/17/22 16:00 Nasal Secretion SARS-CoV-2 & FLU Antigen (Rapid) - Final 07/14/22 16:35 Sputum, Expectorated/Coughed Gram Stain - Final 07/14/22 16:35 Sputum, Expectorated/Coughed Respiratory Culture - Final Mixed normal respiratory cb. No Streptococcus pneumoniae, beta-hemolytic Streptococcus or Staphylococcus aureus isolated. 07/14/22 10:37 Nasal Secretion SARS-CoV-2 Antigen (Rapid) - Final Physical Exam Narrative alert, oriented x3 and no apparent distress Constitutional Narrative: Patient appears older than stated age, he appears frail General Appearance: cooperative, well kempt and well developed Orientation / Consciousness: awake, oriented to person, oriented to place and oriented to time HEENT normocephalic, head/scalp atraumatic and moist oral mucous membranes Eyes PERRL, EOMs intact bilaterally and conjunctivae normal Neck supple, no JVD and thyroid normal General: trachea midline Resp Resp Narrative: Patient appears winded during conversation, breath sounds are diminished bilaterally Auscultation: Negative for rales, rhonchi or wheezes Cardio regular rate, regular rhythm, S1 normal heart sound, S2 normal heart sound, no murmurs, no rub and no gallops GI normal to inspection, nondistended, normoactive bowel sounds, soft to palpation, non-tender and non-distended Extremity no clubbing, cyanosis or edema Skin no rashes or lesions noted General Skin Exam: no breakdown Neuro oriented x3, CN's II-XII intact bilaterally, no focal motor deficits and no sensory deficits noted Sensorium / Orientation: awake and alert Speech: speech normal Psych affect normal Assessment & Plan Assessment/Plan (1) Acute on chronic respiratory failure: QUALIFIERS: Respiratory failure complication: hypoxia Qualified Code(s): J96.21 - Acute and chronic respiratory failure with hypoxia PLAN: Plan 1. Acute on chronic hypoxic respiratory failure-patient continues on nasal cannula oxygen, he is being followed by pulmonary medicine #2 acute debility-patient will be seen by PT and OT #3 coronary artery disease-this appears stable at this time #4 chronic obstructive pulmonary disease-again pulmonary medicine is participating in his care, patient has significant COPD but has not ever seen an manager assessment prior to this admission. He remains on aerosol treatments and prednisone. #5 essential hypertension-patient is on amlodipine, metoprolol, and furosemide #6 hyperlipidemia-patient is on lovastatin, he will remain on a statin during this hospitalization #7 BPH-patient is on Flomax, patient has a Gerardo catheter currently due to urinary retention Charges/Coding Visit Charges Inpatient E&M: 61497 Subs Hosp L2
[2022-07-22] MEDS: amLODIPine 10 MG Tablet PO (20:57)
[2022-07-23] VITALS (35 sets, daily range): BP systolic 101–117; BP diastolic 60–74; PULSE 85–119; RESP 16–22; TEMP 36.4–36.8; O2SAT 6–98
[2022-07-23] MEDS: Ipratropium/Albuterol Sulfate 3 ML AMPUL.NEB INHALATION ×5 (06:57→22:34)
--- NOTE | 2022-07-23 07:26 | PN.CC_ITS ---
Documented by User: Dr. Gallo Guzman MD 07/23/22 13:33 Assessment & Plan Assessment/Plan (1) Acute on chronic respiratory failure: QUALIFIERS: Respiratory failure complication: hypoxia Qualified Code(s): J96.21 - Acute and chronic respiratory failure with hypoxia (2) COPD exacerbation: (3) CHF (congestive heart failure): PLAN: Plan RECOMMENDATIONS: 1. Continue diuresis as tolerated. 2. Agree with prednisone. 3. Walking oximetry prior to discharge 4. Outpatient complete PFT for quantification clarification of lung function 5. Aggressive control of heart rate 6. Training for pursed lip breathing 7. Agree with ECF stay for rehabilitation IMPRESSIONS: 1. Acute on chronic hypoxic respiratory failure in the setting of COPD Clinical suspicion for multifactorial etiology. Patient did have advanced emphysematous changes on CT scan last year. Patient also had an elevated BNP with a history of diastolic congestive heart failure. Patient had good response with Lasix therapy. I agree with transition over to prednisone therapy. Patient will likely need a protracted taper over 12 to 14 days given his probable advanced status. Patient can be seen in our office in 2 weeks, following ECF discharge. Anticipate patient will require a complete pulmonary function test for quantification clarification of lung function. Patient will need a walking oximetry prior to discharge. Patient states he does have supplemental oxygen at home, but cannot exclude the need for replacement with a high flow oxygen concentrator. Patient may have a protracted course given suspected severity of disease. Patient was advised on pursed lip breathing as air trapping could be the cause of his decompensation with anxiety. Patient would likely benefit from pulmonary rehab once pulmonary function test are completed and clinical suspicion of advanced COPD is confirmed. Given protracted course, ECF stay is appropriate for rehabilitation and continued increased oxygen needs. 2. CAD status post quadruple CABG/hypertension Patient does have a history of diastolic dysfunction in the past and presented with an elevated BNP. Clinical suspicion for acute on chronic diastolic CHF leading to current presentation. Patient has not had a significant elevation in troponins despite significant hypoxia on presentation. Patient does follow with cardiology at baseline. 3. Advanced age/frailty/BPH/hyperlipidemia Complicates care, management, recovery and prognosis. Placement ECF pending pre-cert. Subjective Subjective Sitting upright in bed. Patient denies pain and aware awaiting transfer to rehabilitation facility. Patient's discharge delayed secondary to decision for rehab. Patient continues to report shortness of breath with minimal exertion and intermittent palpitations. Objective Data Objective Data Vital Signs: Vital Signs Temp Pulse Resp BP Pulse Ox O2 Del Method O2 Flow Rate 36.4 C L 104 H 16 116/60 96 Nasal Cannula 3 07/23/22 03:45 07/23/22 03:45 07/23/22 03:45 07/23/22 03:45 07/23/22 03:45 07/23/22 03:45 07/23/22 03:45 FiO2 92 07/22/22 15:47 Oxygen Flow Rate (L/min) [ 8 AMBULATING with Oxygen #1] Oxygen Flow Rate (L/min) [At 4 REST with Oxygen] Oxygen Flow Rate (L/min) 3 Oxygen Delivery Method Nasal Cannula Weight: 54.8 kg Body Mass Index (BMI) 19.9 Intake & Output: Intake and Output for Last 24 Hours 07/21/22 07/22/22 07/23/22 23:59 23:59 23:59 Intake Total 1360 / 1360 1000 / 1000 Output Total 1000 / 1150 1550 / 1650 100 / 100 Balance 360 / 210 -550 / -650 -100 / -100 Lab / Micro Data Attestation: I reviewed the patient's lab results. Result Diagrams: 07/20/22 07:24 07/21/22 06:40 Micro: Microbiology 07/17/22 16:00 Nasal Secretion SARS-CoV-2 & FLU Antigen (Rapid) - Final 07/14/22 16:35 Sputum, Expectorated/Coughed Gram Stain - Final 07/14/22 16:35 Sputum, Expectorated/Coughed Respiratory Culture - Final Mixed normal respiratory cb. No Streptococcus pneumoniae, beta-hemolytic Streptococcus or Staphylococcus aureus isolated. 07/14/22 10:37 Nasal Secretion SARS-CoV-2 Antigen (Rapid) - Final Physical Exam Cardio Cardio Narrative: Irregularly irregular with rate of 126 on telemetry Charges/Coding Visit Charges Inpatient E&M: 87528 Subs Hosp L2 Documented by User: WING BUCK 07/23/22 09:56 Assessment & Plan Assessment/Plan (1) Acute on chronic respiratory failure: QUALIFIERS: Respiratory failure complication: hypoxia Qualified Code(s): J96.21 - Acute and chronic respiratory failure with hypoxia (2) COPD exacerbation: (3) CHF (congestive heart failure): PLAN: Plan RECOMMENDATIONS: 1. Continue diuresis as tolerated. 2. Agree with prednisone. Wean over the next 12 to 14 days 3. Walking oximetry prior to discharge 4. Outpatient complete PFT 5. Aggressive control of heart rate 6. Training for pursed lip breathing 7. Agree with ECF stay for rehabilitation IMPRESSIONS: 1. Acute on chronic hypoxic respiratory failure in the setting of COPD Clinical suspicion for multifactorial etiology. Patient did have advanced emphysematous changes on CT scan last year. Patient also had an elevated BNP wi th a history of diastolic congestive heart failure. Patient had good response with Lasix therapy. I agree with transition over to prednisone therapy. Patient will likely need a protracted taper over 12 to 14 days given his probable advanced status. Patient can be seen in our office in 2 weeks, f ollowing ECF discharge. Anticipate patient will require a complete pulmonary function test for quantification clarification of lung function. Patient will need a walking oximetry prior to discharge. Patient states he does have supplemental oxygen at home, but cannot exclude the need for replacement with a high flow oxygen concentrator. Patient may have a protracted course given severity of disease. Patient was advised on pursed lip breathing as air trapping could be the cause of his decompensation with anxiety. Patient would likely benefit from pulmonary rehab once pulmonary function test are completed and clinical suspicion of advanced COPD is confirmed. Given protracted course, ECF stay is appropriate for rehabilitation and continued increased oxygen needs. 2. CAD status post quadruple CABG/hypertension Patient does have a history of diastolic dysfunction in the past and presented with an elevated BNP. Clinical suspicion for acute on chronic d iastolic CHF leading to current presentation. Patient has not had a significant elevation in troponins despite significant hypoxia on presentation. Patient does follow with cardiology at baseline. 3. Advanced age/frailty/BPH/hyperlipidemia Complicates care, management, recovery and prognosis. Placement ECF pending pre-cert. Subjective Subjective Sitting upright in bed. Patient denies pain and aware awaiting transfer to rehabilitation facility. Objective Data Lab / Micro Data Attestation: I reviewed the patient's lab results. Result Diagrams: 07/20/22 07:24 07/21/22 06:40 Physical Exam Const alert, oriented x3 and no apparent distress Constitutional Narrative: Oriented, laying in bed with O2 in place. Appears older than stated age. General Appearance: cooperative HEENT normocephalic and head/scalp atraumatic Teeth and Gingiva: poor dentition Eyes EOMs intact bilaterally and no scleral icterus Neck full ROM and supple Chest Chest: abnormal inspection of the chest increased A-P diameter Resp Resp Narrative: Diminished throughout but primarily the bases. No wheezes appreciated, r espiratory effort has been stable. Effort and Inspection: tachypneic; Negative for actively coughing or uses accessory muscles Auscultation: diminished lung sounds; Negative for rales, rhonchi or wheezes Cardio S1 normal heart sound, S2 normal heart sound, no murmurs, no rub and no gallops Cardio Narrative: Irregularly irregular Rate: tachycardic Rhythm: abnormal rhythm irregularly irregular GI soft to palpation and non-tender Auscultation: normoactive bowel sounds Extremity no clubbing, cyanosis or edema Neuro CN's II-XII intact bilaterally, moves all extremities and no focal motor deficits Neuro Narrative: No overt focal deficits appreciated Psych affect normal Psych Narrative: Cooperative Speech: normal speech
[2022-07-23] MEDS: guaiFENesin 10 ML UDC (200MG/10ML) PO ×5 (07:37→21:19)
[2022-07-23] MEDS: predniSONE 20 MG Tablet 40 MG PO (08:17)
[2022-07-23] MEDS: Aspirin E.C. 81 MG Tablet PO (08:17)
[2022-07-23] MEDS: Enoxaparin 40 MG/0.4 ML Syringe SC ×2 (08:17→21:19)
[2022-07-23] MEDS: Atorvastatin Calcium 10 MG Tablet PO (08:18)
[2022-07-23] MEDS: Metoprolol Tartrate 100 MG Tablet PO (08:18)
--- NOTE | 2022-07-23 09:02 | CASEMGMT ---
LONNIE called Dainna at [facility] and left her a voice mail asking how much O2 they can accommodate. Await return call. Caryn Glynn [employer]
--- NOTE | 2022-07-23 09:38 | CASEMGMT ---
LONNIE received a return call from Dianna at [facility]. They can take patient on 8L. They have concentrators that go up to 10L. LONNIE told Dianna patient needed more O2 resting today than yesterday so LONNIE will have to see how much O2 he requires while ambulating. LONNIE will also have to get pre-cert. Plan: d/c to [facility] under skilled level of care pending pre-cert and being medically ready Caryn Glynn [employer] ST[employer] ASSOC[employer]ATE [employer]
[2022-07-23] MEDS: Metoprolol Tartrate 50 MG Tablet PO (11:36)
--- NOTE | 2022-07-23 15:59 | CASEMGMT ---
LONNIE contacted Yuli who handles the precertification process for [employer], patient's insurance. LONNIE went over clinicals with the nurse reviewer. She reviewed patient's case and he was approved starting Wednesday07-24-22. The approval number is: [id number] good through 07-27. Plan: [facility] when medically ready. Caryn GOODMAN
[2022-07-23] MEDS: Tamsulosin HCl 0.4 MG Capsule 0.8 MG PO (16:59)
--- NOTE | 2022-07-23 17:28 | PCM.PN.HOSP ---
Subjective Subjective Patient was seen and examined today, he is currently on 3 L of oxygen via nasal cannula, we are currently awaiting approval for him to go to an extended care facility for short-term rehab services. Patient had a short run of V. tach today, only a few beats, I have ordered labs on him at this time. Objective Data Objective Data Vital Signs: Vital Signs Temp Pulse Resp BP Pulse Ox O2 Del Method O2 Flow Rate 98.2 F 85 16 115/66 95 Nasal Cannula 4 07/23/22 15:00 07/23/22 15:11 07/23/22 15:11 07/23/22 15:00 07/23/22 15:00 07/23/22 15:00 07/23/22 15:00 FiO2 92 07/23/22 14:00 Oxygen Flow Rate (L/min) [ 8 AMBULATING with Oxygen #1] Oxygen Flow Rate (L/min) [At 4 REST with Oxygen] Oxygen Flow Rate (L/min) 4 Oxygen Delivery Method Nasal Cannula Weight: 54.8 kg Body Mass Index (BMI) 19.9 Intake & Output: Intake and Output for Last 24 Hours 07/21/22 07/22/22 07/23/22 23:59 23:59 23:59 Intake Total 1360 / 1360 1000 / 1000 550 / 550 Output Total 1000 / 1150 1550 / 1650 100 / 100 Balance 360 / 210 -550 / -650 450 / 450 Lab / Micro Data Result Diagrams: 07/20/22 07:24 07/21/22 06:40 Micro: Microbiology 07/17/22 16:00 Nasal Secretion SARS-CoV-2 & FLU Antigen (Rapid) - Final 07/14/22 16:35 Sputum, Expectorated/Coughed Gram Stain - Final 07/14/22 16:35 Sputum, Expectorated/Coughed Respiratory Culture - Final Mixed normal respiratory cb. No Streptococcus pneumoniae, beta-hemolytic Streptococcus or Staphylococcus aureus isolated. 07/14/22 10:37 Nasal Secretion SARS-CoV-2 Antigen (Rapid) - Final Physical Exam Const alert, oriented x3 and no apparent distress General Appearance: cooperative, well kempt and well developed Orientation / Consciousness: awake, oriented to person, oriented to place and oriented to time HEENT normocephalic, head/scalp atraumatic and moist oral mucous membranes Eyes PERRL, EOMs intact bilaterally and conjunctivae normal Neck supple, no JVD, thyroid normal and no carotid bruits General: trachea midline Resp normal respiratory effort, no retractions and no use of accessory muscles Resp Narrative: Patient has diminished breath sounds bilaterally Auscultation: Negative for rales, rhonchi or wheezes Cardio no murmurs, no rub and no gallops Cardio Narrative: Heart rate and rhythm is irregular GI normal to inspection, nondistended, normoactive bowel sounds, soft to palpation, non-tender and non-distended Extremity no clubbing, cyanosis or edema Skin no rashes or lesions noted General Skin Exam: no breakdown Neuro oriented x3, CN's II-XII intact bilaterally, no focal motor deficits and no sensory deficits noted Sensorium / Orientation: awake and alert Speech: speech normal Psych affect normal Assessment & Plan Assessment/Plan (1) COPD exacerbation: (2) Acute on chronic respiratory failure: QUALIFIERS: Respiratory failure complication: hypoxia Qualified Code(s): J96.21 - Acute and chronic respiratory failure with hypoxia PLAN: Plan 1. Acute on chronic hypoxic respiratory failure-patient continues on nasal cannula oxygen, he is being followed by pulmonary medicine #2 acute debility-patient will be seen by PT and OT #3 coronary artery disease-this appears stable at this time #4 chronic obstructive pulmonary disease-again pulmonary medicine is participating in his care, patient has significant COPD but has not ever seen an hazardous waste management specialist prior to this admission. He remains on aerosol treatments and prednisone. #5 essential hypertension-patient is on amlodipine, metoprolol, and furosemide #6 hyperlipidemia-patient is on lovastatin, he will remain on a statin during this hospitalization #7 BPH-patient is on Flomax, patient has a Gerardo catheter currently due to urinary retention #8 chronic atrial fibrillation-patient's rate appears under control at this time Charges/Coding Visit Charges Inpatient E&M: 90334 Subs Hosp L2
[2022-07-23 19:06] LABS: Anion Gap 5 (5-15); BUN 38 mg/dL (7-18); BUN/Creat Ratio 50.8 RATIO (10-20); Calcium,Total 8.1 mg/dL (8.5-10.1); Chloride 102 mmol/L (98-107); Creatinine, Serum 0.75 mg/dL (0.70-1.30); EST Glomerular Filtration Rate 106 mL/min (>60); Est Glom Filt Rate - Afr Amer 129 mL/min (>60); Estimated Creatinine Clearance 44.14 ml/min; Glucose 179 mg/dL (74-106); Magnesium 2.5 mg/dL (1.6-2.6); Potassium 3.8 mmol/L (3.5-5.1); Sodium Level 143 mmol/L (136-145)
[2022-07-23] MEDS: Senna/Docusate Sodium 1 Tablet 2 TABLET PO (21:19)
[2022-07-23] MEDS: amLODIPine 10 MG Tablet PO (21:20)
[2022-07-23] MEDS: Metoprolol Tartrate 50 MG Tablet 150 MG PO (21:20)
[2022-07-24] VITALS (10 sets, daily range): BP systolic 100–120; BP diastolic 64–77; PULSE 74–100; RESP 14–19; TEMP 36.1–36.6; O2SAT 95–100
[2022-07-24] MEDS: Ipratropium/Albuterol Sulfate 3 ML AMPUL.NEB INHALATION ×3 (03:45→11:33)
[2022-07-24] MEDS: guaiFENesin 10 ML UDC (200MG/10ML) PO ×2 (05:13→09:01)
[2022-07-24 06:57] LABS: Anion Gap 3 (5-15); BUN 33 mg/dL (7-18); BUN/Creat Ratio 59.8 RATIO (10-20); Calcium,Total 8.1 mg/dL (8.5-10.1); Chloride 104 mmol/L (98-107); Creatinine, Serum 0.55 mg/dL (0.70-1.30); EST Glomerular Filtration Rate 151 mL/min (>60); Est Glom Filt Rate - Afr Amer 183 mL/min (>60); Estimated Creatinine Clearance 44.55 ml/min; Glucose 95 mg/dL (74-106); Potassium 3.5 mmol/L (3.5-5.1); Sodium Level 143 mmol/L (136-145)
--- NOTE | 2022-07-24 08:33 | PCM.PN.INT ---
Assessment & Plan Assessment/Plan (1) Acute on chronic respiratory failure: QUALIFIERS: Respiratory failure complication: hypoxia Qualified Code(s): J96.21 - Acute and chronic respiratory failure with hypoxia (2) COPD exacerbation: (3) CHF (congestive heart failure): PLAN: Plan RECOMMENDATIONS: 1. Continue diuresis as tolerated. 2. Completed prednisone burst 3. Walking oximetry prior to discharge 4. Outpatient complete PFT for quantification clarification of lung function 5. Aggressive control of heart rate. Continue current measures 6. Training for pursed lip breathing 7. Agree with ECF stay for rehabilitation IMPRESSIONS: 1. Acute on chronic hypoxic respiratory failure in the setting of COPD Clinical suspicion for multifactorial etiology. Patient did have advanced emphysematous changes on CT scan last year. Patient also had an elevated BNP with a history of diastolic congestive heart failure. Patient had good response with Lasix therapy. Patient has completed a prednisone burst. Patient can be seen in our office in 2 weeks, following ECF discharge. Anticipate patient will require a complete pulmonary function test for quantification clarification of lung function. Patient will need a walking oximetry prior to discharge. Patient states he does have supplemental oxygen at home, but cannot exclude the need for replacement with a high flow oxygen concentrator. Patient may have a protracted course given suspected severity of disease. Patient was advised on pursed lip breathing as air trapping could be the cause of his decompensation with anxiety. Patient would likely benefit from pulmonary rehab once pulmonary function test are completed and clinical suspicion of advanced COPD is confirmed. Given protracted course, ECF stay is appropriate for rehabilitation and continued increased oxygen needs. 2. CAD status post quadruple CABG/hypertension/A. fib with RVR Patient does have a history of diastolic dysfunction in the past and presented with an elevated BNP. Clinical suspicion for acute on chronic diastolic CHF leading to current presentation. Patient has not had a significant elevation in troponins despite significant hypoxia on presentation. Patient does follow with cardiology at baseline. Much improved with better heart rate control 3. Advanced age/frailty/BPH/hyperlipidemia Complicates care, management, recovery and prognosis. Placement ECF pending pre-cert. Subjective Subjective Patient did well overnight. Patient subjectively feels improved compared to yesterday. Patient states he has been moving around more with therapy. Patient does believe his cough is improving. Patient was distraught that he continues to require straight cathing secondary to an inability to urinate. Patient is not reporting any suprapubic pain at this time. Objective Data Objective Data Vital Signs: Vital Signs Temp Pulse Resp BP Pulse Ox O2 Del Method O2 Flow Rate 36.6 C 90 18 120/77 100 Nasal Cannula 4 07/24/22 04:34 07/24/22 08:00 07/24/22 04:34 07/24/22 04:34 07/24/22 04:34 07/24/22 04:34 07/24/22 04:34 FiO2 92 07/24/22 04:34 Oxygen Flow Rate (L/min) [ 8 AMBULATING with Oxygen #1] Oxygen Flow Rate (L/min) [At 4 REST with Oxygen] Oxygen Flow Rate (L/min) 4 Oxygen Delivery Method Nasal Cannula Weight: 55.3 kg Body Mass Index (BMI) 19.9 Intake & Output: Intake and Output for Last 24 Hours 07/22/22 07/23/22 07/24/22 23:59 23:59 23:59 Intake Total 1000 / 1000 970 / 970 Output Total 1550 / 1650 600 / 600 0 / 0 Balance -550 / -650 370 / 370 0 / 0 Lab / Micro Data Result Diagrams: 07/20/22 07:24 07/24/22 05:59 Labs: Laboratory Results - last 24 hr 07/23/22 18:20: Sodium 143, Potassium 3.8, Chloride 102, Carbon Dioxide 36.0 H, Anion Gap 5, BUN 38 H, Creatinine 0.75, Estim Creat Clear Calc 44.14, Est GFR (MDRD) Af Amer 129, Est GFR (MDRD) Non-Af 106, BUN/Creatinine Ratio 50.8 H, Glucose 179 H, Calcium 8.1 L, Magnesium 2.5 07/24/22 05:59: Sodium 143, Potassium 3.5, Chloride 104, Carbon Dioxide 36.0 H, Anion Gap 3 L, BUN 33 H, Creatinine 0.55 L, Estim Creat Clear Calc 44.55, Est GFR (MDRD) Af Amer 183, Est GFR (MDRD) Non-Af 151, BUN/Creatinine Ratio 59.8 H, Glucose 95, Calcium 8.1 L Micro: Microbiology 07/17/22 16:00 Nasal Secretion SARS-CoV-2 & FLU Antigen (Rapid) - Final 07/14/22 16:35 Sputum, Expectorated/Coughed Gram Stain - Final 07/14/22 16:35 Sputum, Expectorated/Coughed Respiratory Culture - Final Mixed normal respiratory cb. No Streptococcus pneumoniae, beta-hemolytic Streptococcus or Staphylococcus aureus isolated. 07/14/22 10:37 Nasal Secretion SARS-CoV-2 Antigen (Rapid) - Final Physical Exam Const alert, oriented x3 and no apparent distress Constitutional Narrative: Oriented, laying in bed with O2 in place. Appears older than stated age General Appearance: cooperative HEENT normocephalic and head/scalp atraumatic Eyes EOMs intact bilaterally and no scleral icterus Neck full ROM and supple Chest Chest: abnormal inspection of the chest increased A-P diameter Resp Resp Narrative: Diminished throughout but primarily the bases. No wheezes appreciated, respiratory effort has been stable Effort and Inspection: Negative for actively coughing or uses accessory muscles Auscultation: diminished lung sounds; Negative for rales or rhonchi Cardio S1 normal heart sound, S2 normal heart sound, no murmurs, no rub and no gallops Cardio Narrative: Heart rate much better controlled on telemetry Rhythm: abnormal rhythm irregularly irregular GI soft to palpation, non-tender and non-distended Extremity no clubbing, cyanosis or edema Neuro CN's II-XII intact bilaterally and moves all extremities Neuro Narrative: No overt focal deficits appreciated Psych Psych Narrative: Cooperative Charges/Coding Visit Charges Inpatient E&M: 92172 Subs Hosp L2
[2022-07-24] MEDS: Enoxaparin 40 MG/0.4 ML Syringe SC (08:59)
[2022-07-24] MEDS: Aspirin E.C. 81 MG Tablet PO (08:59)
[2022-07-24] MEDS: Metoprolol Tartrate 50 MG Tablet 150 MG PO (09:00)
[2022-07-24] MEDS: predniSONE 20 MG Tablet 40 MG PO (09:00)
[2022-07-24] MEDS: Atorvastatin Calcium 10 MG Tablet PO (09:00)
--- NOTE | 2022-07-24 10:30 | CASEMGMT ---
LONNIE met with patient. Introduced self and role at [facility]. SW let patient know the [facility] has accepted him so he will be going today. Patient became anxious and asked how he would get there. LONNIE let patient know that SW would set up a wheelchair van. Patient was upset because then he would have to pay for it. He said he was going to have his daughter take him. SW let patient know if his daughter is comfortable with this, has O2 for him, and he can get in and out of a car. Patient said he doesn't think he can. SW told patient someone will let him know when discharge has been set up. Caryn Glynn SIGN HANGER [employer]
--- NOTE | 2022-07-24 11:06 | PCM.TXEXTCAR ---
Diet Diet Order/Speech Therapy: 07/16/22 14:15 Diet: Regular - General Type of Dietary Supplement:: Magic Cup Dessert Is pt able to select menu?: Yes Diet Comments: magic cup BID w/ lunch and dinner; extra 1-2 oz meat/pro Q meal Routine Orders/Code Status Change Gross Catheter: discontinue gross in 7 days O2 Liters per Minute: 4 liters at rest, 8 liters when ambulating O2 Frequency: Continuous Keep PO Greater than or Equal to (%): 90 Code Status: DNRCC-A (no intubation) Therapies Weight Bearing: Full weight bearing Physical Therapy: Eval and Treat Occupational Therapy: Eval and Treat Problem/Diagnosis (1) Acute on chronic respiratory failure: Status: Chronic Code(s): J96.20 - Acute and chronic respiratory failure, unspecified whether with hypoxia or hypercapnia (2) COPD exacerbation: Status: Chronic Code(s): J44.1 - Chronic obstructive pulmonary disease with (acute) exacerbation Plan 1. Acute on chronic hypoxic respiratory failure-patient continues on nasal cannula oxygen, he is being followed by pulmonary medicine #2 acute debility-patient will be seen by PT and OT #3 coronary artery disease-this appears stable at this time #4 chronic obstructive pulmonary disease-again pulmonary medicine is participating in his care, patient has significant COPD but has not ever seen an commercial front load operator prior to this admission. He remains on aerosol treatments and prednisone. #5 essential hypertension-patient is on amlodipine, metoprolol, and furosemide #6 hyperlipidemia-patient is on lovastatin, he will remain on a statin during this hospitalization #7 BPH-patient is on Flomax, patient has a Gross catheter currently due to urinary retention #8 chronic atrial fibrillation-patient's rate appears under control at this time Allergies/Procedures Done in Hospital Allergies acetaminophen [From Bhavya] Adverse Reaction (Severe, Verified 07/14/22 10:29) Unknown chlorpheniramine [From Bhavya] Adverse Reaction (Severe, Verified 07/14/22 10:29) Unknown oxymetazoline [From Bhavya] Adverse Reaction (Severe, Verified 07/14/22 10:29) Unknown pheniramine [From Bhavya] Adverse Reaction (Severe, Verified 07/14/22 10:29) Unknown phenylephrine [From Bhavya] Adverse Reaction (Severe, Verified 07/14/22 10:29) Unknown pseudoephedrine [From Bhavya] Adverse Reaction (Severe, Verified 07/14/22 10:29) Unknown lisinopril Adverse Reaction (Verified 07/14/22 10:29) Unknown Procedures: 2-D Echocardiogram (EF 70%) Type of Care/Length of Stay Estimated LOS: Convalescent Care Less Than 30 days Type of Care Needed: Skilled Rehab Potential: Good Prognosis: Good Additional Orders/Day of Discharge H&P will serve as current which was dated: 07/14/22 Day of Discharge: 07/24/22 Dietary and Speech Recommendations Dietitian Recommendations/Changes: Continue liberalized regular diet for now and monitor need to restrict carbohydrates if blood glucose remains elevated Continue magic cup BID w/ lunch and dinner for tolerance. Continue extra 1-2 oz meat/protein Q meal. Discharge Plan Admission Admit Date/Time: 07/14/22 12:33 Primary Reason for Your Visit: respiratory failure, exac of copd Attending Provider: Burak Fraga Primary Care Provider: Girma Ayala Consulting Providers: Leslie Raman ; Nicky Alamo ; Gallo Guzman ; Paolo Traore ; Naveen Calloway ; Priyank Villagomez ; Lesvia Brice MANAGER PERFORMANCE Discharge Orders/Prescriptions Prescriptions: New acetaminophen [Tylenol] 325 mg Tablet 650 mg PO Q6H PRN PRN (Reason: Pain Score 1-10) Qty: 0 0RF tamsulosin 0.4 mg Capsule 0.8 mg PO DAILY@1730 Qty: 0 0RF metoprolol tartrate 50 mg Tablet 150 mg PO BID Qty: 0 0RF ipratropium-albuterol 0.5 mg-3 mg(2.5 mg base)/3 mL Solution For Nebulization 3 ml inhalation Q4H.RT Qty: 0 0RF albuterol sulfate 2.5 mg /3 mL (0.083 %) Solution For Nebulization 2.5 mg inhalation Q2H PRN PRN (Reason: SOB/Wheezing) Qty: 0 0RF finasteride [Proscar] 5 mg tablet 5 mg PO DAILY Qty: 1 0RF Continued budesonide-formoterol 1 INHALER inhaler 2 puff INHALATION BID Label Comments: shortness of breath lovastatin 40 MG tablet 40 mg PO DAILY aspirin 81 MG tablet,delayed release (/EC) 81 mg PO DAILY amlodipine 10 MG tablet 10 mg PO QHS multivitamin Tablet 1 tab PO DAILY furosemide 20 mg tablet 20 mg PO DAILY Qty: 90 3RF Discontinued albuterol sulfate [ProAir HFA] 90 mcg/actuation HFA aerosol inhaler 1 inh INHALATION ONCE PRN (Reason: Sob &/Or Wheezing) tamsulosin 0.4 MG capsule 0.4 mg PO QHS metoprolol tartrate 100 MG tablet 100 mg PO BID Referrals / Follow Up: Gallo Guzman MD [Med Staff - Active Staff] - See Referral Note (Please call to establish with pulmonology upon discharge-call for appointment) Girma Ayala DO [Primary Care Provider] - Disposition Disposition (needs filled in before D/C Order can be placed): [facility] (1) Acute on chronic respiratory failure Qualifiers: Respiratory failure complication: hypoxia Qualified Code(s): J96.21 - Acute and chronic respiratory failure with hypoxia
--- NOTE | 2022-07-24 11:25 | PCM.DC.SUM ---
Providers Date of Admission: 07/14/22 Date of Discharge: 07/24/22 Primary Care Physician: Dr. Girma Ayala, DO Consultations 07/20/22 13:12 Consult: Radar Mechanic / Pulmonary Medicine Routine Consulting Provider: Pulmonary Medicine [facility] [place] Reason for Consult: Resp failure EMERGENT Consult: No MD Notified: Yes Date Notified: 07/20/22 Time Notified: 13:16 Method of Notification: Verbal Reason For Visit: RESP FAILURE, COPD, CHF Diagnosis Discharge Diagnosis (1) Acute on chronic respiratory failure: Status: Chronic Code(s): J96.20 - Acute and chronic respiratory failure, unspecified whether with hypoxia or hypercapnia Qualifiers: Respiratory failure complication: hypoxia Qualified Code(s): J96.21 - Acute and chronic respiratory failure with hypoxia (2) COPD exacerbation: Status: Chronic Code(s): J44.1 - Chronic obstructive pulmonary disease with (acute) exacerbation Plan 1. 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 He remains on aerosol treatments and prednisone. #5 essential hypertension-patient is on amlodipine, metoprolol, and furosemide #6 hyperlipidemia-patient is on lovastatin, he will remain on a statin during this hospitalization #7 BPH-patient is on Flomax, patient has a Gerardo catheter currently due to urinary retention #8 chronic atrial fibrillation-patient's rate appears under control at this time Medications at Discharge Home Medications budesonide-formoterol HFA 160 mcg-4.5 mcg/actuation aerosol inhaler 2 puff inhalation BID copd 08/24/16 aspirin 81 mg tablet,delayed release 81 mg PO DAILY HEART HEALTH 08/11/18 lovastatin 40 mg tablet 40 mg PO DAILY cholesterol 08/11/18 furosemide 20 mg tablet 20 mg PO DAILY edema #90 tabs 03/27/19 amlodipine 10 mg tablet 10 mg PO QHS blood pressure 07/19/20 multivitamin 1 tab PO DAILY health maintenance 07/14/22 acetaminophen 325 mg tablet (Tylenol) 650 mg PO Q6H PRN PRN Pain Score 1-10 #0 tabs 07/24/22 albuterol sulfate 2.5 mg/3 mL (0.083 %) solution for nebulization 2.5 mg (3 mL) inhalation Q2H PRN PRN SOB/Wheezing #0 mL 07/24/22 finasteride 5 mg tablet (Proscar) 5 mg PO DAILY #1 TAB 07/24/22 ipratropium 0.5 mg-albuterol 3 mg (2.5 mg base)/3 mL nebulization soln 3 ml inhalation Q4H.RT #0 mL 07/24/22 metoprolol tartrate 50 mg tablet 150 mg PO BID #0 tabs 07/24/22 tamsulosin 0.4 mg capsule 0.8 mg PO DAILY@1730 #0 caps 07/24/22 Hospital Course Operations None Procedures 2-D Echocardiogram Summary of Care Provided Minutes Spent on Discharge: 31 Hospital Course: This 82-year-old white male was seen in the emergency room at [facility] with chief complaint of shortness of breath, patient is chronically on 3 L of oxygen at home due to chronic obstructive pulmonary disease. Patient stated he checked his pulse ox at home and it was 77% on 3 L. On evaluation in the emergency room, patient required 6 L via nasal cannula to maintain his pulse ox above 90%, however, when speaking in full sentences his pulse ox drops. COVID test was ordered which was unremarkable, patient's white blood cell count was normal, chest x-ray showed hyperinflation and interstitial scarring but no active infiltrates. Patient was given aerosol treatments in the emergency room, he was able to maintain his oxygen saturation in the high 90s on 6 L. Beta nitric peptide was elevated at 427-patient had no complaints of any chest discomfort however, this examiner did not feel that he had a non-STEMI. Patient was given IV Lasix in the emergency room, he had received IV Solu-Medrol with squad, patient was placed as an admission on PCU, aerosol treatments were continued and IV Solu-Medrol was continued. Patient was transitioned over to p.o. prednisone. Patient had an echocardiogram performed due to concerns of congestive heart failure, his EF was found to be 70% however. Patient was seen in consultation by pulmonary medicine, his oxygen was able to be weaned down eventually but he remained weak, he was seen by PT and OT and it was recommended that he have inpatient care home care at least for short-term and the patient agreed. A half-way was set up for the patient to go to. On 07/24/2022, patient was seen and examined:alert, oriented x3 and no apparent distress General Appearance: cooperative, well kempt and well developed Orientation / Consciousness: awake, oriented to person, oriented to place and oriented to time HEENT normocephalic, head/scalp atraumatic and moist oral mucous membranes Eyes PERRL, EOMs intact bilaterally and conjunctivae normal Neck supple, no JVD, thyroid normal and no carotid bruits General: trachea midline Resp normal respiratory effort, no retractions and no use of accessory muscles Resp Narrative: Patient has diminished breath sounds bilaterally Auscultation: Negative for rales, rhonchi or wheezes Cardio no murmurs, no rub and no gallops Cardio Narrative: Heart rate and rhythm is irregular GI normal to inspection, nondistended, normoactive bowel sounds, soft to palpation, non-tender and non-distended Extremity no clubbing, cyanosis or edema Skin no rashes or lesions noted General Skin Exam: no breakdown Neuro oriented x3, CN's II-XII intact bilaterally, no focal motor deficits and no sensory deficits noted Sensorium / Orientation: awake and alert Speech: speech normal Psych affect normal Patient was seen and examined on 07/24/2022 and felt to be stable for discharge to care home facility. Weight / BMI Weight Weight: 55.3 kg Body Mass Index (BMI) 19.9 ABG / Lab / Microbiology Data Result Diagrams: 07/20/22 07:24 07/24/22 05:59 Laboratory: Laboratory Results - last 24 hr 07/23/22 18:20: Sodium 143, Potassium 3.8, Chloride 102, Carbon Dioxide 36.0 H, Anion Gap 5, BUN 38 H, Creatinine 0.75, Estim Creat Clear Calc 44.14, Est GFR (MDRD) Af Amer 129, Est GFR (MDRD) Non-Af 106, BUN/Creatinine Ratio 50.8 H, Glucose 179 H, Calcium 8.1 L, Magnesium 2.5 07/24/22 05:59: Sodium 143, Potassium 3.5, Chloride 104, Carbon Dioxide 36.0 H, Anion Gap 3 L, BUN 33 H, Creatinine 0.55 L, Estim Creat Clear Calc 44.55, Est GFR (MDRD) Af Amer 183, Est GFR (MDRD) Non-Af 151, BUN/Creatinine Ratio 59.8 H, Glucose 95, Calcium 8.1 L Microbiology: Microbiology 07/17/22 16:00 Nasal Secretion SARS-CoV-2 & FLU Antigen (Rapid) - Final 07/14/22 16:35 Sputum, Expectorated/Coughed Gram Stain - Final 07/14/22 16:35 Sputum, Expectorated/Coughed Respiratory Culture - Final Mixed normal respiratory cb. No Streptococcus pneumoniae, beta-hemolytic Streptococcus or Staphylococcus aureus isolated. 07/14/22 10:37 Nasal Secretion SARS-CoV-2 Antigen (Rapid) - Final Meaningful Use Info Meaningful Use Diagnoses (Choose all that apply): None applicable Discharge Plan Admission Admit Date/Time: 07/14/22 12:33 Primary Reason for Your Visit: respiratory failure, exac of copd Attending Provider: Burak Fraga Primary Care Provider: Girma Ayala Consulting Providers: Leslie Raman ; Nicky Alamo ; Gallo Guzman ; Paolo Traore ; Naveen Calloway ; Priyank Villagomez ; Lesvia Brice PROBATION AND PAROLE OFFICER Discharge Orders/Prescriptions Prescriptions: New acetaminophen [Tylenol] 325 mg Tablet 650 mg PO Q6H PRN PRN (Reason: Pain Score 1-10) Qty: 0 0RF tamsulosin 0.4 mg Capsule 0.8 mg PO DAILY@1730 Qty: 0 0RF metoprolol tartrate 50 mg Tablet 150 mg PO BID Qty: 0 0RF ipratropium-albuterol 0.5 mg-3 mg(2.5 mg base)/3 mL Solution For Nebulization 3 ml inhalation Q4H.RT Qty: 0 0RF albuterol sulfate 2.5 mg /3 mL (0.083 %) Solution For Nebulization 2.5 mg inhalation Q2H PRN PRN (Reason: SOB/Wheezing) Qty: 0 0RF finasteride [Proscar] 5 mg tablet 5 mg PO DAILY Qty: 1 0RF Continued budesonide-formoterol 1 INHALER inhaler 2 puff INHALATION BID Label Comments: shortness of breath lovastatin 40 MG tablet 40 mg PO DAILY aspirin 81 MG tablet,delayed release (DR/EC) 81 mg PO DAILY amlodipine 10 MG tablet 10 mg PO QHS multivitamin Tablet 1 tab PO DAILY furosemide 20 mg tablet 20 mg PO DAILY Qty: 90 3RF Discontinued albuterol sulfate [ProAir HFA] 90 mcg/actuation HFA aerosol inhaler 1 inh INHALATION ONCE PRN (Reason: Sob &/Or Wheezing) tamsulosin 0.4 MG capsule 0.4 mg PO QHS metoprolol tartrate 100 MG tablet 100 mg PO BID Referrals / Follow Up: Gallo Guzman MD [Med Staff - Active Staff] - See Referral Note (Please call to establish with pulmonology upon discharge-call for appointment) Girma Ayala DO [Primary Care Provider] - Disposition Disposition (needs filled in before D/C Order can be placed): [facility] Charges/Coding Visit Charges Inpatient E&M: 86775 Disch Hosp
--- NOTE | 2022-07-24 12:08 | CASEMGMT ---
Discharge Cabinet Maker This medical technical writer sent d/c orders to Dianna at [facility]. This medical technical writer set up transportation with [facility] requesting Wheel chair. deputy clerk of superior court time is 12:30pm. Nursing staff and patient and patient family Lyly made aware. Sukhwinder ESTRADA Training Mgr
== END 2022-07-24 12:49 | disposition skilled nursing facility (03) | DRG 189 ==
LOC: ED 11:37 → PCU 12:12
PROVIDERS: Family Medicine; Internal Medicine Critical Care Medicine; Admitting Provider Internal Medicine; Emergency Provider Emergency Medicine; PCP Family Medicine; Visit Provider Internal Medicine
DX: J96.21 Acute and chronic respiratory failure with hypoxia (principal); I47.20 Ventricular tachycardia, unspecified; J44.1 Chronic obstructive pulmonary disease with (acute) exacerbation; I48.20 Chronic atrial fibrillation, unspecified; E78.2 Mixed hyperlipidemia; I25.10 Atherosclerotic heart disease of native coronary artery without angina pectoris; N40.1 Benign prostatic hyperplasia with lower urinary tract symptoms; R33.8 Other retention of urine; R53.81 Other malaise; Z66 Do not resuscitate; Z23 Encounter for immunization; Z79.82 Long term (current) use of aspirin; Z87.891 Personal history of nicotine dependence; Z79.899 Other long term (current) drug therapy; Z95.1 Presence of aortocoronary bypass graft
CPT/HCPCS: 36415; 71045; 80048; 80053; 82803; 83735; 83880; 84439; 84443; 84484; 85025; 87070; 87205; 87426; 87428; 87811; 93005; 93306; 94640; 94667; 94668; 94762; 97110; 97116; 97162; 97166; 97530; 97535; 99251; 99285; 90686; A4216; G0463; J1940; J2405

== ENCOUNTER 2022-08-03 12:39 | Observation (INO) | payer MEDICARE, SELFPAY ==
[2022-08-03] VITALS (11 sets, daily range): BP systolic 103–120; BP diastolic 59–80; PULSE 86–102; RESP 16–18; TEMP 36.6–37.4; O2SAT 94–98; BMI 19.5; BMI 18.0
--- NOTE | 2022-08-03 13:18 | RAD_ITS ---
HISTORY: chest pain. TECHNIQUE: XR Chest 1 View. COMPARISON: 07/17/2022. FINDINGS: CARDIOMEDIASTINAL BORDERS: Cardiac silhouette within normal limits in size. Mediastinal contour unchanged with calcification of the aorta, midline sternotomy, and mediastinal clips. LUNGS: Hyperinflated lungs, likely COPD. Mild opacities in the right mid and right lower lung. Chronic scarring in the left lung base. PLEURA: No pleural effusion or pneumothorax seen. OSSEOUS STRUCTURES: Degenerative change. RAD/Chest 1 View (Portable) IMPRESSION: New opacities in the right mid and lower lung, likely pneumonia. Recommend follow-up to resolution. Electronically Signed: Elsa Bower MD at 13:54 EST ,
--- NOTE | 2022-08-03 13:18 | EKG12_ITS ---
Test Reason : CP Blood Pressure : / mmHG Vent. Rate : 095 BPM Atrial Rate : 000 BPM P-R Int : 000 ms QRS Dur : 108 ms QT Int : 278 ms P-R-T Axes : 000 103 268 degrees QTc Int : 349 ms Atrial fibrillation with premature ventricular or aberrantly conducted complexes Rightward axis Incomplete right bundle branch block ST & T wave abnormality, consider inferolateral ischemia Abnormal ECG Confirmed by JERAMY DOMINGO, SANDRA ([id number]), society editor KEENAN HERNÁNDEZ ([id number]) on 08/04/2022 8:30:38 AM Referred By: PEDRO Confirmed By:SANDRA DESHPANDE MD
--- NOTE | 2022-08-03 13:28 | EDS_ITS ---
HPI <ROBERTO CARLOS Pierson - Last Filed: 08/03/22 21:18> History of Present Illness Chief Complaint: Chest Pain Narrative Narrative: Patient presents today after having severe left-sided non-radiating chest pain around 11 AM this morning. He states the pain lasted for about 15 minutes and then went away. He is not having any chest discomfort now. Patient has a history of COPD, acute on chronic respiratory failure, A. fib, CHF, and CAD with a prior CABG. Patient admits to some shortness of breath but states this is normal for him. PFSH <ROBERTO CARLOS Pierson - Last Filed: 08/03/22 21:18> [facility] Medical History Atherosclerotic heart disease of [place] coronary artery without angina pectoris Benign hypertension Chronic atrial fibrillation Chronic respiratory failure COPD (chronic obstructive pulmonary disease) Dyspnea Encounter for long-term current use of high risk medication Mixed hyperlipidemia Nicotine abuse Old myocardial infarction PVD (peripheral vascular disease) Shortness of breath Home Medications aspirin 81 mg tablet,delayed release 81 mg PO DAILY HEART HEALTH 08/11/18 [History Last Taken 08/03/22] lovastatin 40 mg tablet 40 mg PO DAILY cholesterol 08/11/18 [History Last Taken 08/03/22] furosemide 20 mg tablet 20 mg PO DAILY edema #90 tabs 03/27/19 [Rx Last Taken 08/03/22] amlodipine 10 mg tablet 10 mg PO QHS blood pressure 07/19/20 [History Last Taken 08/02/22] multivitamin 1 tab PO DAILY health maintenance 07/14/22 [History Last Taken 08/03/22] finasteride 5 mg tablet (Proscar) 5 mg PO DAILY #1 TAB 07/24/22 [Rx Last Taken 08/02/22] tamsulosin 0.4 mg capsule 0.8 mg PO DAILY@1730 #0 caps 07/24/22 [Rx Last Taken 08/02/22] fluticasone 250 mcg-salmeterol 50 mcg/dose blistr powdr for inhalation (Advair Diskus) 1 inh inhalation BID 08/03/22 [History Last Taken 08/03/22] metoprolol tartrate 75 mg tablet 150 mg PO BID HEART 08/03/22 [History Last Taken 08/03/22] nut tx, lact-reduced, iron 0.09 gram-2.25 kcal/mL oral liquid (Boost VHC) 120 ml PO DAILY supplement 08/03/22 [History Last Taken 08/01/22] polyethylene glycol 3350 17 gram/dose oral powder 17 g PO DAILY constipation 08/03/22 [History Last Taken 08/03/22] Allergy/AdvReac Type Severity Reaction Status Date / Time acetaminophen [From Dristan] AdvReac Severe Unknown Verified 08/03/22 13:07 chlorpheniramine AdvReac Severe Unknown Verified 08/03/22 13:07 [From istan] oxymetazoline [From Dristan] AdvReac Severe Unknown Verified 08/03/22 13:07 pheniramine [From Dristan] AdvReac Severe Unknown Verified 08/03/22 13:07 phenylephrine [From Dristan] AdvReac Severe Unknown Verified 08/03/22 13:07 pseudoephedrine AdvReac Severe Unknown Verified 08/03/22 13:07 [From istan] lisinopril AdvReac Unknown Verified 08/03/22 13:07 Family History Father Heart disease Brother Hypertension Sister CAD (coronary artery disease) Hx of CABG Sister CAD (coronary artery disease) Hx of CABG Surgical History History of inguinal hernia repair (~07/2020) History of tonsillectomy Hx of CABG (~06/2009) Hx of ventral hernia repair Social History (Updated 08/03/22 @ 20:31 by Katelyn Lugo) housing: assisted living facility Smoking Status: Former smoker how long ago did patient quit smokin.5 years alcohol intake: never substance use type: does not use caffeine: Yes Type: coffee Number of servings: 2 ROS <ROBERTO CARLOS Pierson - Last Filed: 08/03/22 21:18> ROS ED Constitutional Constitutional ED: Denies chills, fever(s) or sweats Eyes Eyes: Denies blurry vision or change in vision ENT ENT ED: Denies rhinorrhea or sore throat Cardiovascular Cardiovascular: Reports chest pain; Denies palpitations or racing heartbeat Respiratory/Chest Respiratory/Chest: Reports shortness of breath at rest and shortness of breath with exertion; Denies cough, dyspnea or wheezing Gastrointestinal Gastrointestinal: Denies abdominal pain, nausea or vomiting Musculoskeletal Musculoskeletal: Denies back pain or myalgias Integumentary Denies abscess, Abrasions or rash Neurologic Neurologic: Denies headache(s), paresthesias or weakness EXAM <Sonja Schreiber PA - Last Filed: 08/03/22 21:18> Physical Exam Const Vital Signs: 08/03/22 13:03 08/03/22 13:08 08/03/22 14:23 Temperature 99.2 F H Temperature Source Temporal Pulse Rate 99 92 Respiratory Rate 18 18 Respiratory Effort Normal Non-Labored Respiratory Pattern Normal Blood Pressure 103/63 Blood Pressure Mean 76 Pulse Ox 95 Oxygen Delivery Method Nasal Cannula Oxygen Flow Rate (L/min) 4 08/03/22 15:01 Temperature 99.3 F H Temperature Source Temporal Pulse Rate 102 H Respiratory Rate 18 Respiratory Effort Respiratory Pattern Blood Pressure 108/59 L Blood Pressure Mean 75 Pulse Ox 94 Oxygen Delivery Method Nasal Cannula Oxygen Flow Rate (L/min) 4 Positive cachectic General Appearance ED: cachectic Nutritional Appearance: cachectic HEENT Reports moist mucous membranes normocephalic and atraumatic Eyes PERRL and EOMs intact bilaterally Neck supple Chest Wall inspection of chest normal Resp normal respiratory effort and clear to auscultation bilaterally Cardio regular rate, regular rhythm and no murmurs GI soft to palpation, non-tender, non-distended and no masses Extremity normal to inspection General Extremety ED: Negative for edema General Extremity: Negative for edema Neuro oriented x3, no sensory deficits noted and gait normal Sensorium / Orientation: awake and alert Motor Exam: strength 5/5 throughout Psych mental status grossly normal Skin no rashes or lesions noted and no wounds <Dr. Jose Curry DO - Last Filed: 08/03/22 17:09> Physical Exam Const Vital Signs: 08/03/22 13:03 08/03/22 13:08 08/03/22 14:23 Temperature 99.2 F H Temperature Source Temporal Pulse Rate 99 92 Respiratory Rate 18 18 Respiratory Effort Normal Non-Labored Respiratory Pattern Normal Blood Pressure 103/63 Blood Pressure Mean 76 Pulse Ox 95 Oxygen Delivery Method Nasal Cannula Oxygen Flow Rate (L/min) 4 08/03/22 15:01 Temperature 99.3 F H Temperature Source Temporal Pulse Rate 102 H Respiratory Rate 18 Respiratory Effort Respiratory Pattern Blood Pressure 108/59 L Blood Pressure Mean 75 Pulse Ox 94 Oxygen Delivery Method Nasal Cannula Oxygen Flow Rate (L/min) 4 MDM <ROBERTO CARLOS Pierson - Last Filed: 08/03/22 21:18> [facility] Narrative Medical decision making narrative: Patient denies chest pain here in the ED eats he has some shortness of breath which is a chronic issue for him. He has just been recently been hospitalized for acute on chronic hypoxic respiratory failure. Patient appears to have right lower lung pneumonia. He will be admitted to the hospital. I am comfortable with plan. Lab Data Attestation: I reviewed the patient's lab results. Lab results narrative: Elevated white blood cell count. Hypokalemia. Labs: Laboratory Results - last 24 hr 08/03/22 08/03/22 08/03/22 13:10 13:10 13:10 WBC 13.8 H RBC 4.04 L Hgb 12.3 L Hct 38.9 L MCV 96.3 H MCH 30.4 MCHC 31.6 L RDW Std Deviation 46.9 H RDW Coeff of Kahlil 13.2 Plt Count 198 MPV 12.3 H Immature Gran % (Auto) 0.400 Neut % (Auto) 86.7 H Lymph % (Auto) 5.7 L [place] % (Auto) 5.9 Eos % (Auto) 1.1 Baso % (Auto) 0.2 Absolute Neuts (auto) 12.0 H Absolute Lymphs (auto) 0.78 L Nucleated RBC % 0 PT INR APTT Sodium 145 Potassium 2.5 L* Chloride 103 Carbon Dioxide 39.0 H Anion Gap 3 L BUN 23 H Creatinine 0.58 L Estim Creat Clear Calc 44.31 Est GFR (MDRD) Af Amer 174 Est GFR (MDRD) Non-Af 144 BUN/Creatinine Ratio 40.0 H Glucose 108 H Calcium 8.4 L Magnesium 2.5 Total Bilirubin Direct Bilirubin AST ALT Alkaline Phosphatase Troponin I High Sens 26 Total Protein Albumin Globulin 08/03/22 08/03/22 14:57 14:57 WBC RBC Hgb Hct MCV MCH MCHC RDW Std Deviation RDW Coeff of Kahlil Plt Count MPV Immature Gran % (Auto) Neut % (Auto) Lymph % (Auto) [place] % (Auto) Eos % (Auto) Baso % (Auto) Absolute Neuts (auto) Absolute Lymphs (auto) Nucleated RBC % PT 14.5 INR 1.2 APTT 25.5 Sodium Potassium Chloride Carbon Dioxide Anion Gap BUN Creatinine Estim Creat Clear Calc Est GFR (MDRD) Af Amer Est GFR (MDRD) Non-Af BUN/Creatinine Ratio Glucose Calcium Magnesium Total Bilirubin 0.80 Direct Bilirubin 0.29 AST 14 L ALT 23 Alkaline Phosphatase 165 H Troponin I High Sens Total Protein 5.6 L Albumin 1.9 L Globulin 3.7 Radiography Diagnostic Testing: Clinical Impression(s) from Imaging Studies Chest X-Ray 08/03/22 13:18 IMPRESSION: New opacities in the right mid and lower lung, likely pneumonia. Recommend follow-up to resolution. Electronically Signed: Elsa Bower MD at 13:54 EST Reading Location ID and State: [facility] / [place] Tel , Service support , EKG Initial EKG: Attestation: I personally reviewed and interpreted this EKG as follows: Comments: Rate 95 bpm. A-fib. Incomplete right bundle branch block. ST and T wave abnormality without ST elevation. This has also been reviewed by attending ED physician. <Dr. Jose Curry, DO - Last Filed: 08/03/22 17:09> [facility] Lab Data Labs: Laboratory Results - last 24 hr 08/03/22 08/03/22 08/03/22 13:10 13:10 13:10 WBC 13.8 H RBC 4.04 L Hgb 12.3 L Hct 38.9 L MCV 96.3 H MCH 30.4 MCHC 31.6 L RDW Std Deviation 46.9 H RDW Coeff of Kahlil 13.2 Plt Count 198 MPV 12.3 H Immature Gran % (Auto) 0.400 Neut % (Auto) 86.7 H Lymph % (Auto) 5.7 L [place] % (Auto) 5.9 Eos % (Auto) 1.1 Baso % (Auto) 0.2 Absolute Neuts (auto) 12.0 H Absolute Lymphs (auto) 0.78 L Nucleated RBC % 0 PT INR APTT Sodium 145 Potassium 2.5 L* Chloride 103 Carbon Dioxide 39.0 H Anion Gap 3 L BUN 23 H Creatinine 0.58 L Estim Creat Clear Calc 44.31 Est GFR (MDRD) Af Amer 174 Est GFR (MDRD) Non-Af 144 BUN/Creatinine Ratio 40.0 H Glucose 108 H Calcium 8.4 L Magnesium 2.5 Total Bilirubin Direct Bilirubin AST ALT Alkaline Phosphatase Troponin I High Sens 26 Total Protein Albumin Globulin 08/03/22 08/03/22 14:57 14:57 WBC RBC Hgb Hct MCV MCH MCHC RDW Std Deviation RDW Coeff of Kahlil Plt Count MPV Immature Gran % (Auto) Neut % (Auto) Lymph % (Auto) [place] % (Auto) Eos % (Auto) Baso % (Auto) Absolute Neuts (auto) Absolute Lymphs (auto) Nucleated RBC % PT 14.5 INR 1.2 APTT 25.5 Sodium Potassium Chloride Carbon Dioxide Anion Gap BUN Creatinine Estim Creat Clear Calc Est GFR (MDRD) Af Amer Est GFR (MDRD) Non-Af BUN/Creatinine Ratio Glucose Calcium Magnesium Total Bilirubin 0.80 Direct Bilirubin 0.29 AST 14 L ALT 23 Alkaline Phosphatase 165 H Troponin I High Sens Total Protein 5.6 L Albumin 1.9 L Globulin 3.7 Radiography Diagnostic Testing: Clinical Impression(s) from Imaging Studies Chest X-Ray 08/03/22 13:18 IMPRESSION: New opacities in the right mid and lower lung, likely pneumonia. Recommend follow-up to resolution. Electronically Signed: Elsa Bower MD at 13:54 EST Reading Location ID and State: [address] [place] [address] Tel , Service support , Treatment and Re-Evaluation Narrative: I performed a history and physical examination of the patient and discussed management plan with the physician assistant basketball coach. I reviewed the physician assistant basketball coach's note and agree with the documented findings and plan of care. Patient complained of chest pain today. He was recently in out of the hospital following a admission for COPD. He is chronically on home oxygen. My interpretation of his chest x-ray is concerning for right lower lung infiltrate. He notes that his cough has not changed but the sputum has. White count is elevated 13.8. No evidence of sepsis. At this point I think the patient will be discussed with the hospitalist. Jose Curry DO MS Discharge Plan Dx/Rx/DC Orders Clinical Impression: Pneumonia, COPD (chronic obstructive pulmonary disease), CAD (coronary artery disease), Chest pain, Hypokalemia Disposition Disposition: Acute Care Hospital [facility] Discharge Date/Time: 08/03/22 20:06
[2022-08-03] MEDS: Aspirin 81 MG TAB.CHEW 324 MG PO (13:45)
[2022-08-03 13:47] LABS: Absolute Lymphocyte Count 0.78 X10^3/uL (0.83-4.51); Basophil# 0.03 X10^3/uL; Basophil% 0.2 % (0-1); Eosinophil# 0.15 X10^3/uL; Eosinophils% 1.1 % (0-5); Hematocrit 38.9 % (40-54); Hemoglobin 12.3 g/dL (13.0-16.5); Lymphocyte # 0.78 X10^3/ul (0.83-4.51); Lymphocyte % 5.7 % (19-41); Mean Corp Hgb Conc 31.6 g/dL (32-36); Mean Corpuscular Hgb 30.4 pg (27.0-32.0); Mean Corpuscular Volume 96.3 fL (80-94); Mean Platelet Vol. 12.3 fl (6.2-12.0); Monocyte# 0.82 X10^3/uL; Monocyte% 5.9 % (0-10); NRBC Flagged by Analyzer 0 % (0-5); Neutrophil # 11.95 X10^3/uL (2.7-7.7); Neutrophil % 86.7 % (47-70); Platelet Count 198 K/mm3 (150-450); RBC Distribution Width CV 13.2 % (11.6-14.6); RBC Distribution Width SD 46.9 fl (35.1-43.9); Red Blood Count 4.04 M/mm3 (4.6-6.2); White Blood Count 13.8 K/mm3 (4.4-11.0)
[2022-08-03 14:33] LABS: Anion Gap 3 (5-15); BUN 23 mg/dL (7-18); Calcium,Total 8.4 mg/dL (8.5-10.1); Chloride 103 mmol/L (98-107); Creatinine, Serum 0.58 mg/dL (0.70-1.30); EST Glomerular Filtration Rate 144 mL/min (>60); Est Glom Filt Rate - Afr Amer 174 mL/min (>60); Estimated Creatinine Clearance 44.31 ml/min; Glucose 108 mg/dL (74-106); Potassium 2.5 mmol/L (3.5-5.1); Sodium Level 145 mmol/L (136-145); Troponin-I HS (w/2H Reflex) 26 pg/mL (3.0-78.0)
[2022-08-03] MEDS: Ipratropium/Albuterol Sulfate 3 ML AMPUL.NEB INHALATION ×2 (14:35→23:17)
[2022-08-03 15:13] LABS: International Normalized Ratio 1.2; Prothrombin Time (Protime)PT. 14.5 SECONDS (11.7-14.9)
[2022-08-03 15:14] LABS: Partial Thromboplast Time 25.5 Seconds (24.1-36.2)
--- NOTE | 2022-08-03 15:18 | ED.RN ---
called pharmacy to ask about sending PO potassium.
[2022-08-03 15:20] LABS: AST(SGOT) 14 U/L (15-37); Alanine Aminotransfer ALT/SGPT 23 U/L (16-61); Albumin, Serum 1.9 g/dL (3.2-5.0); Alkaline Phosphatase 165 U/L (45-117); Bilirubin, Direct 0.29 mg/dL (0.00-0.30); Globulin 3.7 g/dL (2.2-4.2); Protein, Total 5.6 g/dL (6.4-8.2)
[2022-08-03] MEDS: Potassium Chloride Oral Soln 20 MEQ/15 ML UDC 40 MEQ PO (15:56)
--- NOTE | 2022-08-03 16:32 | HP.PCM.HOS_ITS ---
[facility] - General General Date of Service: 08/03/22 Chief Complaint: chest pain [facility] Narrative LISA SZYMANSKI, is a 82 M who presents developed left-sided chest pain today. Symptoms lasted around 15 minutes. Did not radiate. Did not have any new shortness of breath. Patient is chronically shortness of breath. In the emergency room, patient had a troponin that was negative. EKG that showed atrial fibrillation. Chest x-ray read out as right-sided pneumonia. Patient received Zosyn in the emergency room. The hospitalist service was contacted for admission. Patient is on chronic oxygen 3 to 4 L nasal cannula for years. He gets hot flashes occasionally for years and has been unchanged. [facility] Medical History Atherosclerotic heart disease of [place] coronary artery without angina pectoris Benign hypertension Chronic atrial fibrillation Chronic respiratory failure COPD (chronic obstructive pulmonary disease) Dyspnea Encounter for long-term current use of high risk medication Mixed hyperlipidemia Nicotine abuse Old myocardial infarction PVD (peripheral vascular disease) Shortness of breath Home Medications budesonide-formoterol HFA 160 mcg-4.5 mcg/actuation aerosol inhaler 2 puff inhalation BID copd 08/24/16 [History Last Taken 07/13/22] aspirin 81 mg tablet,delayed release 81 mg PO DAILY HEART HEALTH 08/11/18 [History Last Taken 07/13/22] lovastatin 40 mg tablet 40 mg PO DAILY cholesterol 08/11/18 [History Last Taken 07/13/22] furosemide 20 mg tablet 20 mg PO DAILY edema #90 tabs 03/27/19 [Rx Last Taken 07/13/22] amlodipine 10 mg tablet 10 mg PO QHS blood pressure 07/19/20 [History Last Taken 07/13/22] multivitamin 1 tab PO DAILY health maintenance 07/14/22 [History Last Taken 07/13/22] acetaminophen 325 mg tablet (Tylenol) 650 mg PO Q6H PRN PRN Pain Score 1-10 #0 tabs 07/24/22 [Rx Last Taken Unknown] albuterol sulfate 2.5 mg/3 mL (0.083 %) solution for nebulization 2.5 mg (3 mL) inhalation Q2H PRN PRN SOB/Wheezing #0 mL 07/24/22 [Rx Last Taken Unknown] finasteride 5 mg tablet (Proscar) 5 mg PO DAILY #1 TAB 07/24/22 [Rx Last Taken Unknown] ipratropium 0.5 mg-albuterol 3 mg (2.5 mg base)/3 mL nebulization soln 3 ml inhalation Q4H.RT #0 mL 07/24/22 [Rx Last Taken Unknown] metoprolol tartrate 50 mg tablet 150 mg PO BID #0 tabs 07/24/22 [Rx Last Taken Unknown] tamsulosin 0.4 mg capsule 0.8 mg PO DAILY@1730 #0 caps 07/24/22 [Rx Last Taken Unknown] Allergy/AdvReac Type Severity Reaction Status Date / Time acetaminophen [From Bhavya] AdvReac Severe Unknown Verified 08/03/22 13:07 chlorpheniramine AdvReac Severe Unknown Verified 08/03/22 13:07 [From Bhavya] oxymetazoline [From Bhavya] AdvReac Severe Unknown Verified 08/03/22 13:07 pheniramine [From Bhavya] AdvReac Severe Unknown Verified 08/03/22 13:07 phenylephrine [From Bhavya] AdvReac Severe Unknown Verified 08/03/22 13:07 pseudoephedrine AdvReac Severe Unknown Verified 08/03/22 13:07 [From Bhavya] lisinopril AdvReac Unknown Verified 08/03/22 13:07 Family History Father Heart disease Brother Hypertension Sister CAD (coronary artery disease) Hx of CABG Sister CAD (coronary artery disease) Hx of CABG Surgical History History of inguinal hernia repair (~07/2020) History of tonsillectomy Hx of CABG (~06/2009) Hx of ventral hernia repair Social History Smoking Status: Former smoker how long ago did patient quit smokin.5 years alcohol intake: never substance use type: does not use caffeine: Yes Type: coffee Number of servings: 2 ROS ROS Narrative Steadily losing weight. No lower extremity edema. All review of systems were n egative except as mentioned above in the history of present illness and the other review of systems. Vital Signs Vital Signs Vital Signs: 08/03/22 13:03 08/03/22 13:08 08/03/22 14:23 Temperature 37.3 C H Temperature Source Temporal Pulse Rate 99 92 Respiratory Rate 18 18 Respiratory Effort Normal Non-Labored Respiratory Pattern Normal Blood Pressure 103/63 Blood Pressure Mean 76 Pulse Ox 95 Oxygen Delivery Method Nasal Cannula Oxygen Flow Rate (L/min) 4 08/03/22 15:01 Temperature 37.4 C H Temperature Source Temporal Pulse Rate 102 H Respiratory Rate 18 Respiratory Effort Respiratory Pattern Blood Pressure 108/59 L Blood Pressure Mean 75 Pulse Ox 94 Oxygen Delivery Method Nasal Cannula Oxygen Flow Rate (L/min) 4 Weight Weight: 55 kg Body Mass Index (BMI) 19.5 Physical Exam Const alert and no apparent distress Neck no lymphadenopathy Neck Narrative: +JVD Resp normal respiratory effort, no retractions, no use of accessory muscles and clear to auscultation bilaterally Cardio regular rate, regular rhythm, S1 normal heart sound and S2 normal heart sound GI normal to inspection, nondistended, normoactive bowel sounds, soft to palpation, non-tender and non-distended Extremity normal to inspection Results Lab / Micro Data Attestation: I reviewed the patient's lab results. Result Diagrams: 08/03/22 13:10 08/03/22 13:10 Labs: Laboratory Results - last 24 hr 08/03/22 13:10: WBC 13.8 H, RBC 4.04 L, Hgb 12.3 L, Hct 38.9 L, MCV 96.3 H, MCH 30.4, MCHC 31.6 L, RDW Std Deviation 46.9 H, RDW Coeff of Kahlil 13.2, Plt Count 198, MPV 12.3 H, Immature Gran % (Auto) 0.400, Neut % (Auto) 86.7 H, Lymph % (Auto) 5.7 L, [place] % (Auto) 5.9, Eos % (Auto) 1.1, Baso % (Auto) 0.2, Absolute Neuts (auto) 12.0 H, Absolute Lymphs (auto) 0.78 L, Nucleated RBC % 0 08/03/22 13:10: Sodium 145, Potassium 2.5 L*, Chloride 103, Carbon Dioxide 39.0 H, Anion Gap 3 L, BUN 23 H, Creatinine 0.58 L, Estim Creat Clear Calc 44.31, Est GFR (MDRD) Af Amer 174, Est GFR (MDRD) Non-Af 144, BUN/Creatinine Ratio 40.0 H, Glucose 108 H, Calcium 8.4 L, Troponin I High Sens 26 08/03/22 14:57: Total Bilirubin 0.80, Direct Bilirubin 0.29, AST 14 L, ALT 23, Alkaline Phosphatase 165 H, Total Protein 5.6 L, Albumin 1.9 L, Globulin 3.7 08/03/22 14:57: PT 14.5, INR 1.2, APTT 25.5 EKG Initial EKG: EKG Rhythm Intrepretation: Atrial Fibrillation Radiology Impression Chest X-Ray 08/03/22 13:18 IMPRESSION: New opacities in the right mid and lower lung, likely pneumonia. Recommend follow-up to resolution. Electronically Signed: Elsa Bower MD at 13:54 EST Reading Location ID and State: [facility] / [place] Tel , Service support , Assessment & Plan Assessment/Plan (1) Chest pain: PLAN: Atypical, nonreproducible Known CAD Plan is to do a nuclear stress test. Cycle troponins. (2) Hypokalemia: PLAN: Patient was ordered 10 mill equivalents in the emergency room with a potassium 2.5. We will discontinue that and give 40 p.o. as well as 40 IV of potassium chloride. Check magnesium (3) Chronic respiratory failure: PLAN: No worsening of his symptoms. Chest x-ray was read out as pneumonia. His pneumonia was the contralateral side from his chest pain. I do not feel the patient requires any additional antibiotics. Patient did receive Zosyn in the emergency room. I informed he and his daughter that he would not receive any additional antibiotics unless his condition changes as I do not feel that he has any pneumonia at this time. His chest x-ray is abnormal so we will recheck a COVID-19. We will increase furosemide from 20 to 40 mg daily. Patient has no lower extremity edema but he does have some JVD. PLAN: Plan Chronic conditions * Atrial fibrillation: Not on anticoagulation. Continue with metoprolol tartrate. * BPH: Continue with tamsulosin. VTE prophylaxis: Not indicated given current observation status CODE STATUS: Addressed with the patient. Patient is DNR Comfort Care arrest no intubation. Charges/Coding Visit Charges OBSV E&M: 14262 Initial observation care L2
--- NOTE | 2022-08-03 17:24 | ED.RN ---
Bhanu pharmacy clerk, working on med list.
[2022-08-03 17:39] LABS: Magnesium 2.5 mg/dL (1.6-2.6)
--- NOTE | 2022-08-03 20:20 | EKG12_ITS ---
Test Reason : CP Blood Pressure : / mmHG Vent. Rate : 091 BPM Atrial Rate : 000 BPM P-R Int : 000 ms QRS Dur : 110 ms QT Int : 400 ms P-R-T Axes : 000 124 265 degrees QTc Int : 492 ms Atrial fibrillation Low voltage QRS Incomplete right bundle branch block Left posterior fascicular block ST & T wave abnormality, consider inferior ischemia Abnormal ECG Confirmed by JERAMY DOMINGO, SANDRA ([id number]), continuity editor KEENAN HERNÁNDEZ ([id number]) on 08/05/2022 9:27:14 AM Referred By: Confirmed By:SANDRA DESHPANDE MD
[2022-08-03] MEDS: Potassium Chloride 10mEq/100mL 10 MEQ/100 ML IV.SOLN. 100 MEQ IV BOLUS ×3 (21:06→23:47)
[2022-08-03] MEDS: Potassium Chloride Oral Tablet 20 MEQ 40 MEQ PO (21:08)
[2022-08-03] MEDS: Atorvastatin Calcium 10 MG Tablet PO (21:09)
[2022-08-03] MEDS: Fluticasone/Salmeterol 232-14 Inhaler 1 PUFF INHALATION (21:10)
[2022-08-03] MEDS: amLODIPine 10 MG Tablet PO (21:20)
[2022-08-03] MEDS: Metoprolol Tartrate 50 MG Tablet 150 MG PO (21:20)
[2022-08-03] MEDS: Tamsulosin HCl 0.4 MG Capsule 0.8 MG PO (21:30)
[2022-08-03] MEDS: 0.9% Saline Lock 10 ML Syringe IV (21:50)
[2022-08-03 22:17] LABS: Troponin-I HS 29 pg/mL (3.0-78.0)
[2022-08-04 00:35] LABS: Troponin-I HS 21 pg/mL (3.0-78.0)
[2022-08-04] MEDS: Potassium Chloride 10mEq/100mL 10 MEQ/100 ML IV.SOLN. 100 MEQ IV BOLUS (00:50)
[2022-08-04 03:00] VITALS: PULSE 73
[2022-08-04 03:20] VITALS: BP 93/64; PULSE 68; RESP 18; TEMP 36.6; O2SAT 99
[2022-08-04 03:59] LABS: Absolute Lymphocyte Count 0.74 X10^3/uL (0.83-4.51); Absolute Neutrophil Count 9.5 X10^3/uL (2.0-7.7); Basophil# 0.05 X10^3/uL; Basophil% 0.4 % (0-1); Eosinophil# 0.29 X10^3/uL; Eosinophils% 2.5 % (0-5); Hematocrit 35.6 % (40-54); Hemoglobin 10.7 g/dL (13.0-16.5); Lymphocyte # 0.74 X10^3/ul (0.83-4.51); Lymphocyte % 6.5 % (19-41); Mean Corp Hgb Conc 30.1 g/dL (32-36); Mean Corpuscular Hgb 29.4 pg (27.0-32.0); Mean Corpuscular Volume 97.8 fL (80-94); Mean Platelet Vol. 11.9 fl (6.2-12.0); Monocyte# 0.74 X10^3/uL; Monocyte% 6.5 % (0-10); NRBC Flagged by Analyzer 0 % (0-5); Neutrophil # 9.53 X10^3/uL (2.7-7.7); Neutrophil % 83.4 % (47-70); Platelet Count 186 K/mm3 (150-450); RBC Distribution Width CV 13.3 % (11.6-14.6); RBC Distribution Width SD 47.8 fl (35.1-43.9); Red Blood Count 3.64 M/mm3 (4.6-6.2); White Blood Count 11.4 K/mm3 (4.4-11.0)
[2022-08-04 04:22] LABS: Anion Gap 1 (5-15); BUN 20 mg/dL (7-18); BUN/Creat Ratio 39.5 RATIO (10-20); Calcium,Total 7.9 mg/dL (8.5-10.1); Chloride 109 mmol/L (98-107); Creatinine, Serum 0.51 mg/dL (0.70-1.30); EST Glomerular Filtration Rate 167 mL/min (>60); Est Glom Filt Rate - Afr Amer 202 mL/min (>60); Estimated Creatinine Clearance 40.84 ml/min; Glucose 103 mg/dL (74-106); Potassium 4.1 mmol/L (3.5-5.1); Sodium Level 145 mmol/L (136-145)
[2022-08-04 04:23] LABS: Troponin-I HS 24 pg/mL (3.0-78.0)
--- NOTE | 2022-08-04 05:55 | EKG12_ITS ---
Test Reason : STRESS TEST Blood Pressure : / mmHG Vent. Rate : 079 BPM Atrial Rate : 000 BPM P-R Int : 000 ms QRS Dur : 104 ms QT Int : 414 ms P-R-T Axes : 000 096 082 degrees QTc Int : 474 ms Atrial fibrillation Rightward axis Low voltage QRS Incomplete right bundle branch block Nonspecific ST and T wave abnormality Abnormal ECG Confirmed by JERAMY DOMINGO, SANDRA ([id number]), photo editor KEENAN HERNÁNDEZ ([id number]) on 08/05/2022 9:26:36 AM Referred By: Confirmed By:SANDRA DESHPANDE MD
[2022-08-04] MEDS: Aspirin E.C. 81 MG Tablet PO (05:57)
[2022-08-04 06:59] VITALS: PULSE 86
--- NOTE | 2022-08-04 08:29 | PCM.PN.HOSP ---
Subjective Subjective Tired after the stress test. No new shortness of breath. No further chest Objective Data Objective Data Vital Signs: Vital Signs Temp Pulse Resp BP Pulse Ox O2 Del Method O2 Flow Rate 36.6 C 86 18 93/64 99 Nasal Cannula 4 08/04/22 03:20 08/04/22 06:59 08/04/22 03:20 08/04/22 03:20 08/04/22 03:20 08/04/22 03:21 08/04/22 03:21 Oxygen Flow Rate (L/min) 4 Oxygen Delivery Method Nasal Cannula Weight: 50.7 kg Body Mass Index (BMI) 18.0 Intake & Output: Intake and Output for Last 24 Hours 08/02/22 08/03/22 08/04/22 23:59 23:59 23:59 Intake Total 608.75 / 1208.75 800 / 800 Output Total 550 / 550 Balance 608.75 / 808.75 250 / 250 Lab / Micro Data Result Diagrams: 08/04/22 03:52 08/04/22 03:52 Labs: Laboratory Results - last 24 hr 08/03/22 13:10: WBC 13.8 H, RBC 4.04 L, Hgb 12.3 L, Hct 38.9 L, MCV 96.3 H, MCH 30.4, MCHC 31.6 L, RDW Std Deviation 46.9 H, RDW Coeff of Kahlil 13.2, Plt Count 198, MPV 12.3 H, Immature Gran % (Auto) 0.400, Neut % (Auto) 86.7 H, Lymph % (Auto) 5.7 L, [place] % (Auto) 5.9, Eos % (Auto) 1.1, Baso % (Auto) 0.2, Absolute Neuts (auto) 12.0 H, Absolute Lymphs (auto) 0.78 L, Nucleated RBC % 0 08/03/22 13:10: Sodium 145, Potassium 2.5 L*, Chloride 103, Carbon Dioxide 39.0 H, Anion Gap 3 L, BUN 23 H, Creatinine 0.58 L, Estim Creat Clear Calc 44.31, Est GFR (MDRD) Af Amer 174, Est GFR (MDRD) Non-Af 144, BUN/Creatinine Ratio 40.0 H, Glucose 108 H, Calcium 8.4 L, Troponin I High Sens 26 08/03/22 13:10: Magnesium 2.5 08/03/22 14:57: Total Bilirubin 0.80, Direct Bilirubin 0.29, AST 14 L, ALT 23, Alkaline Phosphatase 165 H, Total Protein 5.6 L, Albumin 1.9 L, Globulin 3.7 08/03/22 14:57: PT 14.5, INR 1.2, APTT 25.5 08/03/22 21:50: Troponin I High Sens 29 08/03/22 23:53: Troponin I High Sens 21 08/04/22 03:52: WBC 11.4 H, RBC 3.64 L, Hgb 10.7 L, Hct 35.6 L, MCV 97.8 H, MCH 29.4, MCHC 30.1 L, RDW Std Deviation 47.8 H, RDW Coeff of Kahlil 13.3, Plt Count 186, MPV 11.9, Immature Gran % (Auto) 0.700, Neut % (Auto) 83.4 H, Lymph % (Auto) 6.5 L, [place] % (Auto) 6.5, Eos % (Auto) 2.5, Baso % (Auto) 0.4, Absolute Neuts (auto) 9.5 H, Absolute Lymphs (auto) 0.74 L, Nucleated RBC % 0 08/04/22 03:52: Sodium 145, Potassium 4.1, Chloride 109 H, Carbon Dioxide 35.0 H, Anion Gap 1 L, BUN 20 H, Creatinine 0.51 L, Estim Creat Clear Calc 40.84, Est GFR (MDRD) Af Amer 202, Est GFR (MDRD) Non-Af 167, BUN/Creatinine Ratio 39.5 H, Glucose 103, Calcium 7.9 L 08/04/22 03:52: Troponin I High Sens 24 Micro: Microbiology 08/03/22 21:15 Nasal Secretion SARS-CoV-2 Antigen (Rapid) - Final Radiography Diagnostic Testing: Radiology Impression Chest X-Ray 08/03/22 13:18 IMPRESSION: New opacities in the right mid and lower lung, likely pneumonia. Recommend follow-up to resolution. Electronically Signed: Elsa Bower MD at 13:54 EST Reading Location ID and State: [facility] / [place] Tel , Service support , Physical Exam Const alert and no apparent distress Constitutional Narrative: Respiratory distress. No conversational dyspnea Resp normal respiratory effort, no retractions, no use of accessory muscles and clear to auscultation bilaterally Cardio regular rate, regular rhythm, S1 normal heart sound and S2 normal heart sound GI normal to inspection, nondistended, normoactive bowel sounds Assessment & Plan Assessment/Plan (1) Chest pain: PLAN: Atypical, nonreproducible Known CAD Troponins negative Test negative His left-sided chest pain is not due to right-sided pneumonia (2) Hypokalemia: PLAN: Resolved after 40 p.o. as well as 40 IV of potassium chloride. magnesium normal at 2.5 (3) Chronic respiratory failure: PLAN: No worsening of his symptoms. Chest x-ray was read out as pneumonia. His pneumonia was the contralateral side from his chest pain. I do not feel the patient requires any additional antibiotics. Patient did receive Zosyn in the emergency room. I informed he and his daughter that he would not receive any additional antibiotics unless his condition changes as I do not feel that he has any pneumonia at this time. His chest x-ray is abnormal so we will recheck a COVID-19. We will increase furosemide from 20 to 40 mg daily. Patient has no lower extremity edema but he does have some JVD. PLAN: Plan Chronic conditions Atrial fibrillation: Not on anticoagulation. Continue with metoprolol tartrate. BPH: Continue with tamsulosin. VTE prophylaxis: Not indicated given current observation status CODE STATUS: Addressed with the patient. Patient is DNR Comfort Care arrest no intubation. Discharge back to the detention facility. Family is potentially planning on taking him out of the facility and having going home with home care. I advised that if he does go home this may be with him. They stated they would be able to accommodate that
--- NOTE | 2022-08-04 09:22 | CASEMGMT ---
Discharge Volunteer Patient Representative This director underwriter sales call Dianna at [facility]. Patient does not need pre-cert to return if patient is back to [facility] by 12:30pm on 08/04/2022 Sukhwinder ESTRADA Funeral Driver
[2022-08-04 09:58] VITALS: BP 107/72; PULSE 101; RESP 17; TEMP 36.7; O2SAT 97
--- NOTE | 2022-08-04 10:21 | CASEMGMT ---
Discharge Middle Card Tender This flex o writer operator set up transportation with [facility] for wheelchair with a 11:30 milk pickup driver.
[2022-08-04 10:55] VITALS: BP 103/63; PULSE 94
[2022-08-04] MEDS: Fluticasone/Salmeterol 232-14 Inhaler 1 PUFF INHALATION (10:56)
--- NOTE | 2022-08-04 11:16 | TREXTCAR_ITS ---
Diet Diet Order/Speech Therapy: 08/04/22 09:45 Diet: Clear Liquid Is pt able to select menu?: Yes Routine Orders/Code Status O2 Liters per Minute: 3 O2 Frequency: Continuous Keep PO Greater than or Equal to (%): 92 Code Status: DNRCC-A (no intubation) Therapies Physical Therapy: Eval and Treat Occupational Therapy: Eval and Treat Problem/Diagnosis (1) Chest pain: Status: Acute Code(s): R07.9 - Chest pain, unspecified Plan: Atypical, nonreproducible Known CAD Troponins negative Test negative His left-sided chest pain is not due to right-sided pneumonia (2) Hypokalemia: Status: Acute Code(s): E87.6 - Hypokalemia Plan: Resolved after 40 p.o. as well as 40 IV of potassium chloride. magnesium normal at 2.5 (3) Chronic respiratory failure: Status: Chronic Code(s): J96.10 - Chronic respiratory failure, unspecified whether with hypoxia or hypercapnia Plan: No worsening of his symptoms. Chest x-ray was read out as pneumonia. His pneumonia was the contralateral side from his chest pain. I do not feel the patient requires any additional antibiotics. Patient did receive Zosyn in the emergency room. I informed he and his daughter that he would not receive any additional antibiotics unless his condition changes as I do not feel that he has any pneumonia at this time. His chest x-ray is abnormal so we will recheck a COVID-19. We will increase furosemide from 20 to 40 mg daily. Patient has no lower extremity edema but he does have some JVD. Plan Chronic conditions * Atrial fibrillation: Not on anticoagulation. Continue with metoprolol tartrate. * BPH: Continue with tamsulosin. VTE prophylaxis: Not indicated given current observation status CODE STATUS: Addressed with the patient. Patient is DNR Comfort Care arrest no intubation. Discharge back to the senior living facility. Family is potentially planning on taking him out of the facility and having going home with home care. I advised that if he does go home this may be with him. They stated they would be able to accommodate that Allergies/Procedures Done in Hospital Allergies acetaminophen [From Bhavya] Adverse Reaction (Severe, Verified 08/03/22 13:07) Unknown chlorpheniramine [From Bhavya] Adverse Reaction (Severe, Verified 08/03/22 13:07) Unknown oxymetazoline [From Dristan] Adverse Reaction (Severe, Verified 08/03/22 13:07) Unknown pheniramine [From Dristan] Adverse Reaction (Severe, Verified 08/03/22 13:07) Unknown phenylephrine [From Dristan] Adverse Reaction (Severe, Verified 08/03/22 13:07) Unknown pseudoephedrine [From Dristan] Adverse Reaction (Severe, Verified 08/03/22 13:07) Unknown lisinopril Adverse Reaction (Verified 08/03/22 13:07) Unknown Procedures: Stress Test Type of Care/Length of Stay Estimated LOS: Convalescent Care Less Than 30 days Type of Care Needed: Skilled Rehab Potential: Fair Prognosis: Fair Additional Orders/Day of Discharge Day of Discharge: 08/04/22 Discharge Plan Admission Admit Date/Time: 08/03/22 16:26 Primary Reason for Your Visit: chest pain Attending Provider: Hamilton Darden Primary Care Provider: Girma Ayala Discharge Orders/Prescriptions Prescriptions: Continued lovastatin 40 MG tablet 40 mg PO DAILY aspirin 81 MG tablet,delayed release (DR/EC) 81 mg PO DAILY amlodipine 10 MG tablet 10 mg PO QHS multivitamin Tablet 1 tab PO DAILY tamsulosin 0.4 mg Capsule 0.8 mg PO DAILY@1730 Qty: 0 0RF finasteride [Proscar] 5 mg tablet 5 mg PO DAILY Qty: 1 0RF fluticasone propion-salmeterol [Advair Diskus] 250-50 mcg/dose Blister With Device 1 inh INHALATION BID polyethylene glycol 3350 17 gram/dose Powder 17 g PO DAILY Boost VHC 0.09-2.25 gram-kcal/mL Liquid 120 ml PO DAILY metoprolol tartrate 75 mg Tablet 150 mg PO BID furosemide 20 mg tablet 20 mg PO DAILY Qty: 90 3RF Referrals / Follow Up: Girma Ayala DO [Primary Care Provider] - Within 2 Weeks Disposition Disposition (needs filled in before D/C Order can be placed): Nursing Home Facility
--- NOTE | 2022-08-04 11:20 | DS.PCM_ITS ---
Providers Date of Admission: 08/03/22 Primary Care Physician: Dr. Girma Ayala DO Reason For Visit: CHEST PAIN Diagnosis Discharge Diagnosis (1) Chest pain: Status: Acute Code(s): R07.9 - Chest pain, unspecified Plan: Atypical, nonreproducible Known CAD Troponins negative Test negative His left-sided chest pain is not due to right-sided pneumonia (2) Hypokalemia: Status: Acute Code(s): E87.6 - Hypokalemia Plan: Resolved after 40 p.o. as well as 40 IV of potassium chloride. magnesium normal at 2.5 (3) Chronic respiratory failure: Status: Chronic Code(s): J96.10 - Chronic respiratory failure, unspecified whether with hypoxia or hypercapnia Plan: No worsening of his symptoms. Chest x-ray was read out as pneumonia. His pneumonia was the contralateral side from his chest pain. I do not feel the patient requires any additional antibiotics. Patient did receive Zosyn in the emergency room. I informed he and his daughter that he would not receive any additional antibiotics unless his condition changes as I do not feel that he has any pneumonia at this time. His chest x-ray is abnormal so we will recheck a COVID-19. We will increase furosemide from 20 to 40 mg daily. Patient has no lower extremity edema but he does have some JVD. Plan Chronic conditions * Atrial fibrillation: Not on anticoagulation. Continue with metoprolol tart rate. * BPH: Continue with tamsulosin. VTE prophylaxis: Not indicated given current observation status CODE STATUS: Addressed with the patient. Patient is DNR Comfort Care arrest no intubation. Discharge back to the senior care facility. Family is potentially planning on taking him out of the facility and having going home with home care. I advised that if he does go home this may be with him. They stated they would be able to accommodate that Medications at Discharge Home Medications aspirin 81 mg tablet,delayed release 81 mg PO DAILY HEART HEALTH 08/11/18 lovastatin 40 mg tablet 40 mg PO DAILY cholesterol 08/11/18 furosemide 20 mg tablet 20 mg PO DAILY edema #90 tabs 03/27/19 amlodipine 10 mg tablet 10 mg PO QHS blood pressure 07/19/20 multivitamin 1 tab PO DAILY health maintenance 07/14/22 finasteride 5 mg tablet (Proscar) 5 mg PO DAILY #1 TAB 07/24/22 tamsulosin 0.4 mg capsule 0.8 mg PO DAILY@1730 #0 caps 07/24/22 fluticasone 250 mcg-salmeterol 50 mcg/dose blistr powdr for inhalation (Advair Diskus) 1 inh inhalation BID 08/03/22 metoprolol tartrate 75 mg tablet 150 mg PO BID HEART 08/03/22 nut tx, lact-reduced, iron 0.09 gram-2.25 kcal/mL oral liquid (Boost [facility]) 120 ml PO DAILY supplement 08/03/22 polyethylene glycol 3350 17 gram/dose oral powder 17 g PO DAILY constipation 08/03/22 Hospital Course Procedures Stress test Summary of Care Provided Minutes Spent on Discharge: 32 Weight / BMI Weight Weight: 50.7 kg Body Mass Index (BMI) 18.0 ABG / Lab / Microbiology Data Result Diagrams: 08/04/22 03:52 08/04/22 03:52 Laboratory: Laboratory Results - last 24 hr 08/03/22 13:10: WBC 13.8 H, RBC 4.04 L, Hgb 12.3 L, Hct 38.9 L, MCV 96.3 H, MCH 30.4, MCHC 31.6 L, RDW Std Deviation 46.9 H, RDW Coeff of Kahlil 13.2, Plt Count 198, MPV 12.3 H, Immature Gran % (Auto) 0.400, Neut % (Auto) 86.7 H, Lymph % (Auto) 5.7 L, [place] % (Auto) 5.9, Eos % (Auto) 1.1, Baso % (Auto) 0.2, Absolute Neuts (auto) 12.0 H, Absolute Lymphs (auto) 0.78 L, Nucleated RBC % 0 08/03/22 13:10: Sodium 145, Potassium 2.5 L*, Chloride 103, Carbon Dioxide 39.0 H, Anion Gap 3 L, BUN 23 H, Creatinine 0.58 L, Estim Creat Clear Calc 44.31, Est GFR (MDRD) Af Amer 174, Est GFR (MDRD) Non-Af 144, BUN/Creatinine Ratio 40.0 H, Glucose 108 H, Calcium 8.4 L, Troponin I High Sens 26 08/03/22 13:10: Magnesium 2.5 08/03/22 14:57: Total Bilirubin 0.80, Direct Bilirubin 0.29, AST 14 L, ALT 23, Alkaline Phosphatase 165 H, Total Protein 5.6 L, Albumin 1.9 L, Globulin 3.7 08/03/22 14:57: PT 14.5, INR 1.2, APTT 25.5 08/03/22 21:50: Troponin I High Sens 29 08/03/22 23:53: Troponin I High Sens 21 08/04/22 03:52: WBC 11.4 H, RBC 3.64 L, Hgb 10.7 L, Hct 35.6 L, MCV 97.8 H, MCH 29.4, MCHC 30.1 L, RDW Std Deviation 47.8 H, RDW Coeff of Kahlil 13.3, Plt Count 186, MPV 11.9, Immature Gran % (Auto) 0.700, Neut % (Auto) 83.4 H, Lymph % (Auto) 6.5 L, [place] % (Auto) 6.5, Eos % (Auto) 2.5, Baso % (Auto) 0.4, Absolute Neuts (auto) 9.5 H, Absolute Lymphs (auto) 0.74 L, Nucleated RBC % 0 08/04/22 03:52: Sodium 145, Potassium 4.1, Chloride 109 H, Carbon Dioxide 35.0 H , Anion Gap 1 L, BUN 20 H, Creatinine 0.51 L, Estim Creat Clear Calc 40.84, Est GFR (MDRD) Af Amer 202, Est GFR (MDRD) Non-Af 167, BUN/Creatinine Ratio 39.5 H, Glucose 103, Calcium 7.9 L 08/04/22 03:52: Troponin I High Sens 24 Microbiology: Microbiology 08/03/22 21:15 Nasal Secretion SARS-CoV-2 Antigen (Rapid) - Final Radiography Diagnostic Testing: Radiology Impression Chest X-Ray 08/03/22 13:18 IMPRESSION: New opacities in the right mid and lower lung, likely pneumonia. Recommend follow-up to resolution. Electronically Signed: Elsa Bower MD at 13:54 EST , Meaningful Use Info Meaningful Use Diagnoses (Choose all that apply): None applicable Discharge Plan Admission Admit Date/Time: 08/03/22 16:26 Primary Reason for Your Visit: chest pain Attending Provider: Hamilton Darden Primary Care Provider: Girma Ayala Discharge Orders/Prescriptions Prescriptions: Continued lovastatin 40 MG tablet 40 mg PO DAILY aspirin 81 MG tablet,delayed release (DR/EC) 81 mg PO DAILY amlodipine 10 MG tablet 10 mg PO QHS multivitamin Tablet 1 tab PO DAILY tamsulosin 0.4 mg Capsule 0.8 mg PO DAILY@1730 Qty: 0 0RF finasteride [Proscar] 5 mg tablet 5 mg PO DAILY Qty: 1 0RF fluticasone propion-salmeterol [Advair Diskus] 250-50 mcg/dose Blister With Device 1 inh INHALATION BID polyethylene glycol 3350 17 gram/dose Powder 17 g PO DAILY Boost VHC 0.09-2.25 gram-kcal/mL Liquid 120 ml PO DAILY metoprolol tartrate 75 mg Tablet 150 mg PO BID furosemide 20 mg tablet 20 mg PO DAILY Qty: 90 3RF Referrals / Follow Up: Girma Ayala DO [Primary Care Provider] - Within 2 Weeks Disposition Disposition (needs filled in before D/C Order can be placed): Intermediate Facility Charges/Coding Visit Charges OBSV E&M: 21034 Observation care discharge
--- NOTE | 2022-08-04 11:30 | CASEMGMT ---
Physician spoke with patient and his daughter. Physician let them know that patient will be going back to [facility] today. Family was considering taking him home, but then decided to have patient go back to [facility]. Kaylie d/c city planning engineer set up transportation for [phone]. LONNIE sent orders and COVID test via [employer]. Kaylie also notified Dianna at [facility]. RN was also made aware. TEXTILE BROKER notified patient and family of order picker time. Plan: d/c back to [facility] under skilled level of care. [facility] transported via wheelchair van. Caryn Glynn PASTER OPERATOR REX
[2022-08-04] MEDS: Ipratropium/Albuterol Sulfate 3 ML AMPUL.NEB INHALATION (11:37)
[2022-08-04 11:38] VITALS: PULSE 87; RESP 18; O2SAT 94
[2022-08-04] MEDS: Finasteride 5 MG Tablet PO (12:05)
[2022-08-04] MEDS: Furosemide 40 MG Tablet PO (12:05)
--- NOTE | 2022-08-04 12:06 | PHA.DC.MR ---
Pharmacy Service has performed discharge medication reconciliation for this patient. The patient's discharge medication list was reviewed for discrepancies and discrepancies were resolved. Home Medications aspirin 81 mg tablet,delayed release 81 mg PO DAILY HEART HEALTH 08/11/18 lovastatin 40 mg tablet 40 mg PO DAILY cholesterol 08/11/18 furosemide 20 mg tablet 20 mg PO DAILY edema #90 tabs 03/27/19 amlodipine 10 mg tablet 10 mg PO QHS blood pressure 07/19/20 multivitamin 1 tab PO DAILY health maintenance 07/14/22 finasteride 5 mg tablet (Proscar) 5 mg PO DAILY #1 TAB 07/24/22 tamsulosin 0.4 mg capsule 0.8 mg PO DAILY@1730 #0 caps 07/24/22 fluticasone 250 mcg-salmeterol 50 mcg/dose blistr powdr for inhalation (Advair Diskus) 1 inh inhalation BID 08/03/22 metoprolol tartrate 75 mg tablet 150 mg PO BID HEART 08/03/22 nut tx, lact-reduced, iron 0.09 gram-2.25 kcal/mL oral liquid (Boost [facility]) 120 ml PO DAILY supplement 08/03/22 polyethylene glycol 3350 17 gram/dose oral powder 17 g PO DAILY constipation 08/03/22
--- NOTE | 2022-08-04 12:23 | NURSING ---
Report called to nurse Sellers at [facility].
--- NOTE | 2022-08-04 17:41 | STRESSREP ---
Stress Test Report Pharmacologic myocardial perfusion stress test. 82-year-old man with a history of chest pain. Stress protocol: Resting KG demonstrates atrial fibrillation with rate of 93 bpm resting blood pressure was 118/61 mmHg. 0.4 mg of regadenoson was infused per usual protocol followed by wrap intravenous saline flush injection continuous EKG monitoring was performed. The maximum heart rate attained was 114 bpm which was 82% of max impacted heart rate the maximum workload was 1 metabolic equivalent. At rest there were no ST or T wave changes noted to suggest abnormal flow reserve and at peak infusion nonspecific ST changes were noted we did not meet the criteria for ischemia. No clinical angina was noted. Myocardial perfusion protocol. 10.2 mCi of technetium 99m sestamibi was injected at rest. 0.4 mg of regadenoson was infused per usual protocol. At peak infusion 29.0 mCi of technetium 99m sestamibi was injected stress images were obtained stress and rest images were reconstructed and compared in the short axis vertical long and horizontal long axis. Gated images were also obtained. Perfusion SPECT analysis: Review of the stress images demonstrate normal uptake of tracer noted in all areas of the myocardium. The resting images similarly demonstrate normal uptake of tracer noted in all areas of the myocardium. No reversibility is noted to suggest ischemia no previous infarct is noted. Gated SPECT analysis: The gated ejection fraction is 52%. Conclusion: Normal pharmacologic myocardial perfusion stress test. Preserved ejection fraction
== END 2022-08-04 11:19 | disposition skilled nursing facility (03) ==
LOC: ED 17:10 → PCU 19:37
PROVIDERS: Physician Assistant; Emergency Provider Emergency Medicine; PCP Family Medicine
DX: R07.89 Other chest pain (principal); J44.9 Chronic obstructive pulmonary disease, unspecified; I11.0 Hypertensive heart disease with heart failure; I50.9 Heart failure, unspecified; I73.9 Peripheral vascular disease, unspecified; J96.10 Chronic respiratory failure, unspecified whether with hypoxia or hypercapnia; I48.20 Chronic atrial fibrillation, unspecified; I25.10 Atherosclerotic heart disease of native coronary artery without angina pectoris; E78.2 Mixed hyperlipidemia; Z79.82 Long term (current) use of aspirin; E87.6 Hypokalemia; Z87.891 Personal history of nicotine dependence; Z79.899 Other long term (current) drug therapy; I25.2 Old myocardial infarction; Z95.1 Presence of aortocoronary bypass graft; Z79.51 Long term (current) use of inhaled steroids; Z99.81 Dependence on supplemental oxygen; N40.0 Benign prostatic hyperplasia without lower urinary tract symptoms; Z66 Do not resuscitate
CPT/HCPCS: 36415; 71045; 78452; 80048; 80076; 83735; 84484; 85025; 85610; 85730; 87040; 87811; 93005; 93017; 94640; 96365; 96366; 96367; 99218; 99251; 99285; A9500; J7050; A4216; G0378; G0463; J2785